=== PATIENT | female | born 1940 | race Caucasian/White ===

== ENCOUNTER → 2023-05-15 13:36 | Outpatient (REF) | payer BC, SELFPAY | LOC: RAD 13:36 | PROVIDERS: ATTENDING PHYSICIAN Internal Medicine Cardiovascular Disease; FAMILY PHYSICIAN Family Medicine | DX: I50.32 Chronic diastolic (congestive) heart failure (principal); R10.13 Epigastric pain | CPT/HCPCS: 76770 ==

== ENCOUNTER 2023-05-28 12:24 | Emergency (ER) | payer BC, SELFPAY ==
[2023-05-28 12:31] VITALS: BP 146/74
--- NOTE | 2023-05-28 15:29 | ED.GENMED ---
History of Present Illness
General
Chief Complaint: Fall
Source: patient and family
Time Seen by Provider: 05/28/23 15:24
Travel History
Have you had any contact with someone who has COVID-19?: No
Do you have any symptoms of coronavirus? Fever > 100 degrees, chills, cough, shortness of breath, sore throat, loss of taste or smell, muscle aches, or headache?: No
History of Present Illness
History of Present Illness:
82-year-old female with past medical history of atrial fibrillation, CHF, hypertension, mitral regurgitation, previous breast cancer, on Eliquis due to her atrial fibrillation presenting to the ER after she attempted to get up from the toilet
yesterday evening and lost her balance falling sideways. Patient states she does not believe her head got injured but due to the fall and her anticoagulation family decided to bring her to the ER this morning. Patient states that she is in her
usual state of health and has no other concerns at this time. Denies any loss consciousness, vomiting, visual changes, extremity related injury or any other concerns.
Past History
Past History
ED Past Medical History: Cancer, CHF, HTN, Hypercholesterolemia, Valvular disease, Other (Cirrhosis, hepatitis C) and Other (Moderate to severe tricuspid regurgitation moderate MR, mild AI)
ED Past Surgical History: Gynecological and Orthopedic
Social History
Tobacco: Non-smoker
Alcohol: Occasional
Drug: None
Personal:
Living: with family
Employment: Retired
Family History
Family History: CAD and Other (Sister with SLE)
Review of Systems
Review of Systems
All Other Systems: ROS reviewed and negative except as documented in HPI and ROS
Phy Exam
Physical Exam
Physical Exam:
GENERAL: Alert , in no apparent distress
EYE: conjunctiva clear
Head: Normocephalic atraumatic
NECK: Supple,
ENT: mmm.
LUNGS: no acute respiratory distress
NEUROLOGICAL: Alert and oriented
SKIN: Warm and dry, skin intact.
MUSCULOSKELETAL: well perfused.
PSYCH: Normal and appropriate interaction.
Scores
Heart Failure Risk
Heart Failure Risk Score: Not Applicable
Heart Score for Chest Pain Patients
STEMI patient?: Not applicable
Withdrawal Assessment of Alcohol
Withdrawal Assessment Completed?: Not applicable
Course
Orders/Labs/Results
Orders:
Orders
05/28/23 12:35
CT Head W/o Iv Contrast Urgent
Comment:
Reason For Exam: fall last pm, on eliquis
Cervical Spine wo Contrast CT [CT Cervical Spine W/o Iv Contr] Urgent
Comment:
Reason For Exam: fall last pm
Vital Signs
Initial and Last Documented VS:
Initial Vital Signs
Temp Pulse Resp BP Pulse Ox
97.7 F 72 18 146/74 94
05/28/23 12:31 05/28/23 12:31 05/28/23 12:31 05/28/23 12:31 05/28/23 12:31
Last Documented Vital Signs
Temp Pulse Resp BP Pulse Ox
97.7 F 72 18 146/74 94
05/28/23 12:31 05/28/23 12:31 05/28/23 12:31 05/28/23 12:31 05/28/23 12:31
MDM/Problems Addressed
Differential Diagnosis Includes:
Accidental fall, concussion, intracranial bleeding, calvarial fracture
MDM/Problems Addressed:
82-year-old female presenting emergency department for evaluation following accidental fall yesterday evening. Patient is on Eliquis due to a history of atrial fibrillation. CT of the head and cervical spine were ordered from triage and ultimately
negative for any acute pathologies. Patient was provided with out of the CT reports. There were some degenerative changes seen which patient was already aware of. She will follow-up with primary care provider. Otherwise stable for discharge home
*Radiology
Radiology exam reviewed: radiology read reviewed
*Pulse Oximetry
Patient hypoxic: no
*Critical Care Note
Total Time (30-74mins, 75-104mins- exclusive of procedures): Not Applicable
ED Attending Note
-
Portions of this chart may have been created with voice recognition software.� Occasional wrong word or��sound alike� substitutions may have occurred due to the inherent limitations of voice recognition software.
Discharge Plan
Departure
Patient Disposition: Home (Routine Discharge)
Date of Disposition: 05/28/23
Time of Disposition: 15:30
Patient with high blood pressure during this ER visit?: Yes
Discharge Problem:
Accidental fall
Instructions: Preventing Falls ED
Prescriptions:
No Action
citalopram [Celexa] 10 MG tablet
20 mg PO DAILY
acetaminophen [Tylenol Extra Strength] 500 MG tablet
1,000 mg PO Q8H PRN (Reason: pain)
levothyroxine 125 MCG tablet
125 mcg PO DAILY
fluticasone propionate 1 SPRAY spray,suspension
1 spray intranasal DAILY
cholecalciferol (vitamin D3) 2,000 UNIT tablet
2,000 unit PO DAILY
cxecroelehmf-orna-ocdib acid [Centrum] 1 EACH tablet
1 tab PO DAILY
vit C,Q-Hn-cbtdc-lutein-zeaxan [PreserVision AREDS-2] 1 EACH capsule
1 ea PO DAILY
apixaban [Eliquis] 5 MG tablet
5 mg PO BID Qty: 60 3RF
diltiazem HCl 120 MG capsule,extended release 24hr
240 mg PO DAILY
magnesium oxide 500 MG tablet
500 mg PO DAILY Qty: 30 0RF
torsemide 20 MG tablet
20 mg PO BID@0800,1600 Qty: 60 0RF
ferrous sulfate [FeroSul] 325 MG tablet
325 mg PO DAILY Qty: 30 0RF
docusate sodium 100 MG capsule
100 mg PO BID Qty: 60 0RF
metoprolol succinate 50 MG tablet extended release 24 hr
150 mg PO HS Qty: 90 0RF
zolpidem 5 MG tablet
5 mg PO HS
pantoprazole 40 MG tablet,delayed release (DR/EC)
40 mg PO DAILY Qty: 14 0RF
famotidine [Acid Controller] 20 MG tablet
20 mg PO BID Qty: 30 0RF
Interventions
Interventions:
*Risk Screen - Suicide Last Done: 05/28/23 12:31
*General Assessment Last Done: 05/28/23 12:31
*Neglect/Abuse Screening Last Done: 05/28/23 12:31
Discharge Date and Time
Print Language: LAO
== END 2023-05-28 15:45 | disposition home or self-care (01) ==
LOC: EMR 12:24
PROVIDERS: EMERGENCY PHYSICIAN Emergency Medicine; FAMILY PHYSICIAN Family Medicine
DX: M54.2 Cervicalgia (principal); W19.XXXA Unspecified fall, initial encounter; I48.91 Unspecified atrial fibrillation; I11.0 Hypertensive heart disease with heart failure; Z79.01 Long term (current) use of anticoagulants; Z85.3 Personal history of malignant neoplasm of breast
CPT/HCPCS: 99284; 70450; 72125

== ENCOUNTER → 2023-06-14 10:56 | Outpatient (REF) | payer BC, SELFPAY | LOC: HWRAD 10:56 | PROVIDERS: ATTENDING PHYSICIAN Internal Medicine Cardiovascular Disease; FAMILY PHYSICIAN Family Medicine | DX: R93.89 Abnormal findings on diagnostic imaging of other specified body structures (principal) | CPT/HCPCS: 76700 ==

== ENCOUNTER 2023-09-06 23:27 | Inpatient (IN) | payer MEDICARE, BC, SELFPAY ==
[2023-09-06 17:09] VITALS: BP 158/97; BMI 29.1
[2023-09-06 17:10] VITALS: BP 158/97
[2023-09-06 17:35] LABS: % Basophils 1.2 % (0-2); % Eosinophils 1.7 % (0-6); % Immature Granulocytes 0.4 % (0-0.5); % Lymphocytes 17.6 % (20.5-51.1); % Monocytes 12.2 % (1.7-9.3); % Neutrophils 66.9 % (42.2-75.2); Absolute Basophils 0.1 10^3/uL (0-0.2); Absolute Eosinophils 0.1 10^3/uL (0-0.7); Absolute Lymphocytes 0.9 10^3/uL (1.2-3.4); Absolute Monocytes 0.6 10^3/uL (0.1-0.6); Absolute Neutrophils 3.5 10^3/uL (1.4-6.5); Hematocrit 31.4 % (37.0-47.0); Hemoglobin 10.8 g/dL (12.0-16.0); Mean Corp Hgb Conc. 34.4 g/dL (33.0-37.0); Mean Corpuscular Hgb 32.2 pg (27.0-31.0); Mean Corpuscular Volume 93.7 fL (81.0-99.0); Mean Platelet Volume 9.7 fL (7.4-10.4); Nucleated Red Blood Cells % 0 %; Platelet Count 197 10^3/uL (130-400); Red Blood Cell Count 3.35 10^6/uL (4.20-5.40); Red Cell Dist. Width 15.8 % (11.5-14.5); White Blood Cell Count 5.2 10^3/uL (4.8-10.8)
[2023-09-06 17:59] LABS: NT-proBNP 11000 pg/ml; Troponin I < 0.012 ng/ml
[2023-09-06 18:04] LABS: ALT (SGPT) 20 U/L (0-35); AST (SGOT) 46 U/L (14-36); Albumin 4.1 g/dl (3.5-5.0); Alkaline Phosphatase 83 U/L (38-126); Blood Urea Nitrogen 34 mg/dl (7-17); Calcium 9.3 mg/dl (8.4-10.2); Carbon Dioxide 21 mmol/L (22-30); Chloride 97 mmol/L (98-107); Estimated Creatinine Clearance 36 ml/min; Glucose 104 mg/dl (70-99); Potassium 4.4 mmol/L (3.5-5.1); Sodium 130 mmol/L (135-145); Total Bilirubin 0.9 mg/dl (0.2-1.3); Total Protein 8.1 g/dl (6.3-8.2); eGFR 49.86
[2023-09-06 18:44] VITALS: BP 154/73
[2023-09-06 19:00] VITALS: BP 140/91
--- NOTE | 2023-09-06 19:00 | EDRN ---
Report received, patient in xray
--- NOTE | 2023-09-06 20:43 | EDRN ---
Checked on patient, resting comfortably, informed her that INOCENTE Banks waiting on x-ray report to come back but plan is for her to stay into the hospital, patient ambulated into the restroom and back in bed, asked for food, provided with applesauce
and gluten free cookie (all that was available), INOCENTE Banks states patient can eat but hold off on giving her anything to drink.
--- NOTE | 2023-09-06 21:32 | ED.GENMED ---
History of Present Illness
<Robbie Cerda DO - Last Filed: 09/06/23 21:33>
General
Chief Complaint: Breathing Problem
Time Seen by Provider: 09/06/23 18:31
<Jocelyn Valenzuela NP - Last Filed: 09/06/23 22:31>
General
Source: patient
Exam Limitations: none
Nursing documentation reviewed up to this point in time: agreed with
History of Present Illness
History of Present Illness:
Patient to ED with complaint of increasing SOB, fluid retention. States she has noticed an increase in lower extremity edema over the past week. This AM breathing was noticeably worse. Brought to ED via EMS for eval. PUlse ox 96% on 2L NC on
arrival. She does not use home O2. Denies fever/chills, n/v/d.
Past History
<Jocelyn Valenzuela NP - Last Filed: 09/06/23 22:31>
Past History
ED Past Medical History: Cancer, CHF, HTN, Hypercholesterolemia, Valvular disease, Other (Cirrhosis, hepatitis C) and Other (Moderate to severe tricuspid regurgitation moderate MR, mild AI)
ED Past Surgical History: Gynecological and Orthopedic
Social History
Tobacco: Non-smoker
Alcohol: Occasional
Drug: None
Personal:
Living: with family
Employment: Retired
Family History
Family History: CAD and Other (Sister with SLE)
Review of Systems
<Jocelyn Valenzuela NP - Last Filed: 09/06/23 22:31>
Review of Systems
Allergies reviewed?: Yes
All Other Systems: ROS reviewed and negative except as documented in HPI and ROS
Constitutional: Reports fatigue
EENT: Reports no symptoms
Respiratory: Reports trouble breathing
Cardiac: Reports no symptoms
ABD/GI: Reports no symptoms
: Reports no symptoms
Musculoskeletal: Reports edema (+2BLE edema)
Skin: Reports no symptoms
Neurological: Reports weakness
Psychiatric: Reports no symptoms
Phy Exam
<Jocelyn Valenzuela NP - Last Filed: 09/06/23 22:31>
General Physical Exam
General Presentation: well appearing and mild distress
General age: appears stated age
General Skin: warm and dry
General Habitus: normal
General Mental: alert
Cardiovascular Exam
Cardiovascular Exam: regular rate/rhythm
Pulmonary Exam
Pulmonary Exam: chest non tender and no cough
Breath Sounds: Crackles: left lower and right lower
Gastrointestinal Exam
Gastrointestinal Exam: normal bowel sounds, non tender and soft
Musculoskeletal Exam
Musculoskeletal Exam: full ROM, edema (+2 BLE) and neuro vasc intact
Skin Exam
Skin Exam: normal color, warm/dry and no rash
Psychiatric Exam
Psychiatric Exam: normal mood/affect
Scores
<Jocelyn Valenzuela CARVER HAND - Last Filed: 09/06/23 22:31>
Heart Failure Risk
Heart Failure Risk Score: Yes
History of Stroke or TIA: No
History of intubation for respiratory distress: No
Heart rate on ED arrival >/= 110: No
SaO2 <90% on arrival on room air: No
HR >/=110 during 3min walk test (or too ill to perform test): Yes
ECG has acute ischemic changes: No
Urea >/=12mmol/L (BUN 33.6mg/dL): No
Serum CO2>/=35mmol/L: No
Troponin I or T elevated to CO Level (0.4mg/dL): No
NT-proBNP >/=5,000ng/L (5,000pg/ml): Yes
HF Risk Score: 3
Admission Status: HIGH RISK 15.9% Consider SNF treatment or admission to hospital
Course
<Robbie Cerda, DO - Last Filed: 09/06/23 21:33>
Orders/Labs/Results
Orders:
Orders
09/06/23 17:04
EKG [Electrocardiogram (*1)] Urgent
Reason for Study: Shortness of Breath
09/06/23 17:05
EKG- Treatment ONCE
09/06/23 17:28
Complete Blood Count/With Diff Urgent
Comprehensive Metabolic Panel Urgent
NT-proBNP Urgent
Troponin I Urgent
09/06/23 18:49
CR Chest - 2 Views Urgent
Comment:
Reason For Exam: SOB
09/06/23 21:31
Furosemide [Lasix] 40 mg IV NOW STA
Abnormal Lab Results
09/06/23
17:28
RBC 3.35 L 10^6/uL
(4.20-5.40)
Hgb 10.8 L g/dL
(12.0-16.0)
Hct 31.4 L %
(37.0-47.0)
MCH 32.2 H pg
(27.0-31.0)
RDW 15.8 H %
(11.5-14.5)
Absolute Lymphs (auto) 0.9 L 10^3/uL
(1.2-3.4)
Lymphocytes % 17.6 L %
(20.5-51.1)
Monocytes % 12.2 H %
(1.7-9.3)
Sodium 130 L mmol/L
(135-145)
Chloride 97 L mmol/L
(98-107)
Carbon Dioxide 21 L mmol/L
(22-30)
BUN 34 H mg/dl
(7-17)
Creatinine 1.1 H mg/dL
(0.6-1.0)
Glucose 104 H mg/dl
(70-99)
AST 46 H U/L
(14-36)
09/06/23 17:28
09/06/23 17:28
Vital Signs
Initial and Last Documented VS:
Initial Vital Signs
BP Pulse Ox
158/97 91
09/06/23 17:09 09/06/23 17:09
Last Documented Vital Signs
Temp Pulse Resp BP Pulse Ox
97.6 F 87 15 140/91 93
09/06/23 17:10 09/06/23 20:35 09/06/23 20:35 09/06/23 19:00 09/06/23 20:35
<Jocelyn Valenzuela CARVER HAND - Last Filed: 09/06/23 22:31>
Orders/Labs/Results
Orders:
Orders
09/06/23 17:04
EKG [Electrocardiogram (*1)] Urgent
Reason for Study: Shortness of Breath
09/06/23 17:05
EKG- Treatment ONCE
09/06/23 17:28
Complete Blood Count/With Diff Urgent
Comprehensive Metabolic Panel Urgent
NT-proBNP Urgent
Troponin I Urgent
09/06/23 18:49
CR Chest - 2 Views Urgent
Comment:
Reason For Exam: SOB
09/06/23 21:31
Furosemide [Lasix] 40 mg IV NOW STA
Abnormal Lab Results
09/06/23
17:28
RBC 3.35 L 10^6/uL
(4.20-5.40)
Hgb 10.8 L g/dL
(12.0-16.0)
Hct 31.4 L %
(37.0-47.0)
MCH 32.2 H pg
(27.0-31.0)
RDW 15.8 H %
(11.5-14.5)
Absolute Lymphs (auto) 0.9 L 10^3/uL
(1.2-3.4)
Lymphocytes % 17.6 L %
(20.5-51.1)
Monocytes % 12.2 H %
(1.7-9.3)
Sodium 130 L mmol/L
(135-145)
Chloride 97 L mmol/L
(98-107)
Carbon Dioxide 21 L mmol/L
(22-30)
BUN 34 H mg/dl
(7-17)
Creatinine 1.1 H mg/dL
(0.6-1.0)
Glucose 104 H mg/dl
(70-99)
AST 46 H U/L
(14-36)
09/06/23 17:28
09/06/23 17:28
Vital Signs
Initial and Last Documented VS:
Initial Vital Signs
BP Pulse Ox
158/97 91
09/06/23 17:09 09/06/23 17:09
Last Documented Vital Signs
Temp Pulse Resp BP Pulse Ox
97.6 F 87 15 140/91 93
09/06/23 17:10 09/06/23 20:35 09/06/23 20:35 09/06/23 19:00 09/06/23 20:35
<Jocelyn Valenzuela NP - Last Filed: 09/06/23 22:31>
*Radiology
Radiology exam reviewed: radiology read reviewed
*Pulse Oximetry
Patient hypoxic: no
*Critical Care Note
Total Time (30-74mins, 75-104mins- exclusive of procedures): Not Applicable
<Jocelyn Valenzuela NP - Last Filed: 09/06/23 22:31>
Update Note
Update Note:
Patient to ED with increasing edema, increasing SOB. CXR reviewed. SMall right pleural effusion. Possible RLL pneumonia noted by radiologist however this seems doubtful. SHe remains afebrile, no cough. WBC normal. Bedside US of heart with
Santa reveals mild pericardial effusion also. PUlse ox remains stable at 96% 2LNC. BNP 31269. WIll admit to hospititalist for CHF. Lasix 40mg IV given.
ED Attending Note
<Robbie Cerda DO - Last Filed: 09/06/23 21:33>
ED Attending Note
Patient seen and examined by attending physician: Yes
I performed the substantive portion of visit, reviewed & personally made and approve the management plan that is documented in note by myself or GIULIA.: Yes
ED Attending Note:
83-year-old female presents with weight gain, fluid retention, shortness of breath. Suspect CHF. Diurese and admit. Bedside ultrasound does show pericardial effusion but it is small. Certainly no evidence of tamponade
<Jocelyn Valenzuela NP - Last Filed: 09/06/23 22:31>
-
Portions of this chart may have been created with voice recognition software.� Occasional wrong word or��sound alike� substitutions may have occurred due to the inherent limitations of voice recognition software.
Discharge Plan
Departure
Patient Disposition: Admit
Date of Disposition: 09/06/23
Time of Disposition: 21:41
Presentation/result/management discussed w/ accepting MD/DO: Hospitalist
Patient with high blood pressure during this ER visit?: Yes
Condition: Fair
Covid-19: Not Applicable
Discharge Problem:
CHF (congestive heart failure)
Prescriptions:
No Action
acetaminophen [Tylenol Extra Strength] 500 MG tablet
1,000 mg PO Q8HPRN PRN (Reason: mild pain)
levothyroxine 125 MCG tablet
125 mcg PO DAILY
fluticasone propionate 1 SPRAY spray,suspension
1 spray intranasal DAILY
Centrum 1 EACH tablet
1 tab PO DAILY
PreserVision AREDS-2 1 EACH capsule
1 ea PO DAILY
Eliquis 5 MG tablet
5 mg PO BID Qty: 60 3RF
zolpidem 5 MG tablet
5 mg PO HS
Patient Comments:
09/06/2023: last filled 09/05/23, 30 tabs for 30 days from [facility]
torsemide 20 mg tablet
20 mg PO SUTUTHSA@0800
torsemide 20 mg tablet
20 mg PO SUTUTHSA@1600 PRN (Reason: swelling/edema)
citalopram 40 mg tablet
20 mg PO DAILY
diltiazem HCl [DILT-XR] 240 mg capsule,ext.rel 24h degradable
240 mg PO DAILY
metoprolol succinate 100 mg tablet extended release 24 hr
150 mg PO DAILY@1999
allopurinol 100 mg tablet
100 mg PO DAILY
cholecalciferol (vitamin D3) 25 mcg (1,000 unit) Tablet
25 mcg PO DAILY
torsemide 20 MG tablet
20 mg PO MOWEFR@0800,1600
Referrals:
Rodrigo Gee MD [Family Provider] -
Interventions
Interventions:
*Risk Screen - Suicide Last Done: 09/06/23 17:33
*General Assessment Last Done: 09/06/23 17:33
*Neglect/Abuse Screening Last Done: 09/06/23 17:33
*ED COVID-19 Vaccine History Last Done: 09/06/23 17:33
ED- Cardiac Assessment Last Done: 09/06/23 17:37
ED- Pulmonary Assessment Last Done: 09/06/23 17:36
Discharge Date and Time
Print Language: DIVEHI
[2023-09-06] MEDS: LASIX 40 MG IV (22:02)
[2023-09-06 22:07] VITALS: BP 137/97
--- NOTE | 2023-09-06 22:32 | HPS.HSE ---
Addendum entered and electronically signed by Cristhian Smith DO 09/06/23 23:44:
Patient seen and examined independently. Agree with findings and plan as set forth by NATHANIEL Tucker.
Patient is an 83y F with PMH significant for CHF, severe pulmonary hypertension and hypothyroidism who presents to ED complaining of worsening SOB and 'swelling' over the past 2 weeks or so. Patient states that she has appreciated bloating in
the abdomen and swelling in the ankles in that time frame. She states that her weight has been consistently elevated in the evenings - despite taking extra 10mg torsemide in the afternoons for the week or two. Patient has had persistent /
worsening dyspnea and presented to the ED this evening for further evaluation.
Family notes that patient had a [age] on [birth year] and has been 'celebrating' for the past few weeks - consisting of dietary indiscretions, etc.
Ass:
Acute on Chronic HFpEF
Severe Pulmonary Hypertension
Moderate Tricuspid Regurgitation
Paroxysmal Atrial Fibrillation
Benign Hypertension
CKD III
Hypothyroidism
Breast Cancer s/p Lumpectomy / XRT
Plan:
Admit for further evaluation and treatment.
Hyponatremia, elevated BNP compared to prior, rales / pulm edema on exam and peripheral edema all c/w volume overload.
IV Lasix BID for now.
Follow I/Os, daily weights, etc.
Update Echo.
Cardiology evaluation for additional recommendations.
Follow for clinical improvement.
Original Note:
Family Physician
-
Family Physician: Rodrigo Gee
Chief Complaint
-
Sob wt gain
History of Present Illness
83-year-old female complaining of increased shortness of breath with increased lower extremity edema over the past 2 weeks . She states in the a.m. she is 155 pounds but by the p.m. she is 158.7. She has been taking an extra 10 mg of her torsemide
every night for the past 2 weeks. She reports increased shortness of breath denies cough, fever, chills, chest pain, palpitations, abdominal pain, nausea, vomiting, diarrhea, urinary symptoms. She is on torsemide 20 mg twice daily Sunday
Sunday and daily Sunday with A PRN 10 mg torsemide for edema.
She has Past medical history Severe pulmonary HTN, moderate TR paroxysmal A-fib, pulmonary vein isolation 01/25/2021, HTN, hypothyroidism, CKD stage III, left atrial appendage thrombus, chronic diastolic heart failure with preserved EF, remote
history of breast cancer, moderate TR, normocytic anemia
Medical History
Past Medical History
Past Medical History: Reports Other
Additional Past Medical History:
Severe pulmonary HTN,
moderate TR
paroxysmal A-fib
Etoh abuse
pulmonary vein isolation 01/25/2021
HTN
hypothyroidism
CKD stage III
left atrial appendage thrombus
chronic diastolic heart failure with preserved EF
remote history of breast cancer right breast with lumpectomy and radation 9 years ago
moderate TR,
normocytic anemia
former smoker 30 year 1 ppd
Past Surgical History: Reports Other
Additional Past Surgical History:
pulmonary vein isolation 01/25/2021 with ablation
breast cancer right breast with lumpectomy and radiation 9 years ago cari angel
bilat knee replacement
right rotator cuff repair
left wrist fx
Social History
Tobacco: Former Smoker (30 year 1ppd stopped 20 years ago )
Alcohol: Daily (1 bottle (4 glasses chaardonay))
Personal: Single
Living: With Family
Employment: Retired
Family History
Family History: Not pertinent
Allergies / Home Medications
Allergies reflects when Allergies were last updated in [employer].
Home Medications with original date entered in [employer] [facility]
Allergy/Medication List:
Allergies
Allergy/AdvReac Type Severity Reaction Status Date / Time
No Known Allergies Allergy Verified 01/25/21 09:31
Home Medications
acetaminophen 500 mg tablet (Tylenol Extra Strength) 1,000 mg PO Q8HPRN PRN mild pain 08/10/19
fluticasone propionate 50 mcg/actuation nasal spray,suspension 1 spray intranasal DAILY 08/10/19
levothyroxine 125 mcg tablet 125 mcg PO DAILY Thyroid 08/10/19
multivitamin-ferrous fumarate-folic acid 18 mg-400 mcg tablet (Centrum) 1 tab PO DAILY Supplement 08/10/19
vit C 250 mg-vit E 90 mg-zinc 40 mg-copper 1 hn-gmmlwd-vreryi capsule (PreserVision AREDS-2) 1 ea PO DAILY Supplement 08/10/19
apixaban 5 mg tablet (Eliquis) 5 mg PO BID #60 tabs 08/06/20
zolpidem 5 mg tablet 5 mg PO HS 12/17/20
allopurinol 100 mg tablet 100 mg PO DAILY 09/06/23
cholecalciferol (vitamin D3) 25 mcg (1,000 unit) tablet 25 mcg PO DAILY 09/06/23
citalopram 40 mg tablet 20 mg PO DAILY 09/06/23
diltiazem HCl 240 mg capsule,extended release 24 hr, controlled (DILT-XR) 240 mg PO DAILY 09/06/23
metoprolol succinate 100 mg tablet,extended release 24 hr 150 mg PO DAILY@2000 09/06/23
torsemide 20 mg tablet 10 mg PO SUTUTHSA@1600 PRN swelling/edema 09/06/23
torsemide 20 mg tablet 20 mg PO MOWEFR@0800,1600 09/06/23
torsemide 20 mg tablet 20 mg PO SUTUTHSA@0800 09/06/23
Review of Systems
-
History Source: Patient and Family (Daughter at bedside )
A 12 point ROS was completed and negative except as noted: Yes
Constitutional: Reports Weight Gain; Denies Fever or Fatigue
EENT: Denies Sore Throat or Runny Nose
Respiratory: Reports Trouble Breathing; Denies Cough
Cardiac: Denies Chest Pain, Diaphoresis, Palpitations or Syncope
Abdomen/GI: Denies Abdominal Pain, Nausea, Vomiting, Diarrhea, Constipated or Bloody Stools
: Denies Dysuria, Frequency, Flank Pain, Incontinence or Difficulty Voiding
Musculoskeletal: Reports Edema (trace); Denies Joint Pain
Skin: Denies Itching or Rash
Neurological: Denies Dizzy or Headache
Endocrine: Reports No Symptoms
Hematologic/Lymphatic: Reports No Symptoms
Psych: Reports Calm
Physical Exam
Vital Signs
Vital Signs
Temp Pulse Resp BP Pulse Ox
97.6 F 87 15 140/91 93
09/06/23 17:10 09/06/23 20:35 09/06/23 20:35 09/06/23 19:00 09/06/23 20:35
Physical Exam
General: Conversant and Obese; No Fever or Chills
HEENT: NormoCephalic, Anicteric, PERRLA, [place] Conjunctivae, No Ptosis and Oxygen (2lnc)
Respiratory: Rales (right lung base ); No Wheezes or Rhonchi
Cardiac: S1/S2, Regular Rhythm ( with pac's ) and Peripheral Edema (trace nonpitting ); No Murmur, Rub or Gallop
Breast: Deferred by me
GI: Soft, Non Tender, Non Distended, Normal Bowel Sounds and No Hepatosplenomegaly
Genito-urinary: Deferred by me
Musculoskeletal: No Clubbing, No Cyanosis, Edema, Left Lower Extremity (trace nonpitting ) and Edema, Right Lower Extremity (trace nonpitting ); No Edema, Left Upper Extremity or Edema, Right Upper Extremity
Skin: Warm and Dry; No Rash
Neuro: AO x 3, No Motor Deficits, Nonfocal/grossly intact, Cranial Nerves Intact and Other (chronic OSAGE); No Slurred Speech, Facial Droop, Tremors or Sedated
Psych: Calm
Laboratory Results
-
09/06/23 17:28
09/06/23 17:28
Laboratory Results
Total Bilirubin 0.9 mg/dl (0.2-1.3) 09/06/23 17:28
AST 46 U/L (14-36) H 09/06/23 17:28
ALT 20 U/L (0-35) 09/06/23 17:28
Alkaline Phosphatase 83 U/L (38-126) 09/06/23 17:28
Troponin I < 0.012 ng/ml 09/06/23 17:28
Data Reviewed
-
Diagnostic Radiology: Report Reviewed by me
Lab Data: Labs Reviewed by me
Impression/Plan
-
Impression/plan:
Admit to telemetry
#Acute on chronic CHF with preserved EF
wt daily 155lbs in am to 158 at hs has been taking additional torsemide 10mg hs
-BNP 11,000
-I/O, daily weights
-IV Lasix 40 mg twice daily
-consult CBC
-pt/ot/case mgmt
- monitor pulse ox
CXR: Small right pleural effusion. New findings suggesting mild right lower lobe pneumonia. Moderate cardiomegaly new
( no clinical concerns for PNA)
2D echo 06/26/2022: EF 65 to 70%, normal LVS, LVSF, no wall abnormalities, mild LVH, diastolic function indeterminant, severely dilated right atrium,
mild aortic regurg,
moderate tricuspid regurg,
severe pulm arterial pressure 63 mmHg, trace pulmonic regurg
# Worseinging Dyspnea concerning for worsening TR/ Pulm htn
check 2d echo
- monitor pulse ox
#Alcohol abuse
- drinks 1 bottle ( 4 glasses Chardonay nightly)
-MSAS screen with protcol
- thiamine, folate replacement
#Hyponatremia in setting of CHF
NA 130
-Fluid restrict, follow BMP
#Hx paroxysmal A-fib
#Status post mapping/ablation and isolation of pulmonary vein 01/25/[address] Perla
#History of left atrial appendage thrombus
-Continue diltiazem to 40 mg daily, Eliquis 5 mg twice daily
#Moderate TR
#HTN�benign
BP 140/91
Continue metoprolol succinate 150 mg daily at 8 PM
#CKD 3B
-Creat 1.1 appears baseline follow BMP
#Normocytic anemia
Hgb 10.8 appears baseline
#Hypothyroidism
-Continue levothyroxine 125 mcg p.o. daily
-check TSH with free T4 reflex
#History of remote breast cancer
lumpectomy right breast 9 years ago with radiation follows with Dr. Ordaz at [facility]
#Insomnia
Continue Ambien 5 mg at bedtime
Anxiety
- cont citalopram
dvt proph
cont eliquis
DNR
[2023-09-06 23:00] VITALS: BP 140/99
--- NOTE | 2023-09-06 23:55 | EDRN ---
Patient was wet, changed brief and gown and linen, patient aware she will head upstairs shortly, belongings on the bed for transport
[2023-09-07] VITALS (9 sets, daily range): BP systolic 131–165; BP diastolic 66–93; PULSE 81–83; O2SAT 99; BMI 23.8
[2023-09-07] MEDS: ELIQUIS 5 MG PO ×3 (00:47→20:47)
[2023-09-07] MEDS: THIAMINE INJECTION 200 MG IV ×3 (00:47→16:12)
[2023-09-07 01:11] LABS: Urine Albumin Negative (Neg - Trace); Urine Bilirubin Negative (Negative); Urine Character Clear (Clear); Urine Color Yellow; Urine Glucose Negative (Negative); Urine Ketone Negative (Negative); Urine Leukocyte Negative (Negative); Urine Nitrite Negative (Negative); Urine Occult Blood Negative (Negative); Urine Specific Gravity 1.005 (<1.030); Urine Urobilinogen Negative (Neg - 1+)
[2023-09-07 01:18] LABS: Amphetamines Negative (Negative); Barbiturates Negative (Negative); Benzodiazepines Negative (Negative); Buprenorphine Negative (Negative); Cocaine Negative (Negative); Marijuana Negative (Negative); Methadone Negative (Negative); Methamphetamines Negative (Negative); Opiates Negative (Negative); Phencyclidine Negative (Negative); Tricyclic Antidepressants Negative (Negative)
--- NOTE | 2023-09-07 01:18 | PTCARENOTE ---
Patient arrived to the ED via stretcher. Patient ambulated into the room with assistance. VSS. 93% on 2L NC. AAOx3. Patient MSAS score of 1 for HR 80-100 bpm. Patient using commode at bedside. UA sent. Patient oriented to the unit, call maldonado is
within reach.
[2023-09-07 01:39] LABS: PT 19.2 Sec (11.4-14.6)
[2023-09-07 01:40] LABS: APTT 41.5 Sec (23.4-35.0)
[2023-09-07 01:55] LABS: GGTP 38 U/L (12-43); Magnesium 1.6 mg/dl (1.6-2.3); Phosphorus 3.6 mg/dl (2.5-4.5)
[2023-09-07 02:02] LABS: B-Hydroxybutyrate 0.54 mmol/L (0.02-0.27)
[2023-09-07 02:03] LABS: Alcohol None Detected
[2023-09-07] MEDS: TYLENOL 1000 MG PO ×3 (02:16→20:47)
[2023-09-07] MEDS: SYNTHROID 125 MCG PO (05:14)
[2023-09-07] MEDS: CELEXA 20 MG PO (07:49)
[2023-09-07] MEDS: CARDIZEM CD 240 MG PO (07:49)
[2023-09-07] MEDS: THERAGRAN 1 TABLET PO (07:49)
[2023-09-07] MEDS: ZYLOPRIM 100 MG PO (07:50)
[2023-09-07] MEDS: OCUVITE SOFTGEL 1 CAP PO (07:50)
[2023-09-07] MEDS: FOLVITE 1 MG PO (07:50)
[2023-09-07] MEDS: VITAMIN D3 (cholecalciferol) 25 MCG PO (07:50)
[2023-09-07] MEDS: LASIX 40 MG IV ×2 (07:50→16:20)
[2023-09-07 08:06] LABS: % Basophils 1.1 % (0-2); % Eosinophils 2.1 % (0-6); % Immature Granulocytes 0.6 % (0-0.5); % Lymphocytes 16.3 % (20.5-51.1); % Monocytes 11.8 % (1.7-9.3); % Neutrophils 68.1 % (42.2-75.2); Absolute Basophils 0.1 10^3/uL (0-0.2); Absolute Eosinophils 0.1 10^3/uL (0-0.7); Absolute Lymphocytes 0.9 10^3/uL (1.2-3.4); Absolute Monocytes 0.6 10^3/uL (0.1-0.6); Absolute Neutrophils 3.6 10^3/uL (1.4-6.5); Hemoglobin 10.8 g/dL (12.0-16.0); Mean Corp Hgb Conc. 33.8 g/dL (33.0-37.0); Mean Platelet Volume 9.5 fL (7.4-10.4); Nucleated Red Blood Cells % 0 %; Platelet Count 196 10^3/uL (130-400); Red Blood Cell Count 3.37 10^6/uL (4.20-5.40); Red Cell Dist. Width 15.7 % (11.5-14.5); White Blood Cell Count 5.3 10^3/uL (4.8-10.8)
[2023-09-07 08:09] LABS: ALT (SGPT) 21 U/L (0-35); AST (SGOT) 40 U/L (14-36); Alkaline Phosphatase 90 U/L (38-126); Blood Urea Nitrogen 28 mg/dl (7-17); Calcium 9.3 mg/dl (8.4-10.2); Carbon Dioxide 25 mmol/L (22-30); Chloride 98 mmol/L (98-107); Estimated Creatinine Clearance 35 ml/min; Glucose 93 mg/dl (70-99); HDL Cholesterol 65 mg/dl; LDL Cholesterol, Calculated 46 mg/dl; Potassium 3.3 mmol/L (3.5-5.1); Sodium 135 mmol/L (135-145); Total Bilirubin 0.9 mg/dl (0.2-1.3); Total Cholesterol 126 mg/dl (50-199); Total Protein 7.8 g/dl (6.3-8.2); Triglyceride 75 mg/dl (10-149); Very Low Density Lipoprotein 15 mg/dl (0-30); eGFR 44.91
[2023-09-07 08:30] LABS: TSH Reflex To Free T4 0.91 uIU/ml (0.47-4.68)
--- NOTE | 2023-09-07 10:01 | CON.CAR ---
Addendum entered and electronically signed by Vidal Dailey MD 09/07/23 16:41:
Patient seen and examined in collaboration with LINEMARKER; agree with below.
-83-year-old female with chronic HFpEF, paroxysmal atrial fibrillation (on Eliquis), moderate tricuspid regurgitation with significant pulmonary hypertension, and CKD presenting with shortness of breath.
-Transthoracic echocardiogram today revealed progressive tricuspid regurgitation, now severe; PASP slightly increased to 65-70 mmHg (previously 63 mmHg).
-Continue Lasix 40 mg IV BID for now; monitor renal function.
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
-Patient will likely need to be discharged to home on torsemide 20 mg BID every day throughout the week.
-Will reassess tomorrow.
Original Note:
Consultation
Consultation Request
Date/Time Consultation Requested: 09/07/2023 00:15
Date/Time Consultation Performed: 09/07/2023 10:00
Requesting Provider: NATHANIEL Tucker
Performing Provider: NATHANIEL Marsh for Dr. Dailey
Reason for Consultation: Acute on chronic heart failure exacerbation
Medical History
-
Chief Complaint: Shortness of breath
History of Present Illness:
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
tricuspid regurgitation, RBBB, hypertension, prior right-sided breast cancer with lumpectomy and XRT, RA, and chronic lower extremity edema who presented to the emergency department with a chief complaint of shortness of breath. She endorses
associated weight gain and lower extremity edema. She has been using her as needed 10 mg of torsemide nearly every evening in addition to her standing dose of torsemide 20 mg twice daily Sunday with 20 mg daily the opposite days.
She is having no chest pain. Her breathing has improved.
Past Medical History
Past Medical History: Arrhythmias (Paroxysmal atrial fibrillation), Cancer (Right breast [status post lumpectomy and XRT]), CHF and Other (Severe pulmonary hypertension, hepatitis C)
Past Surgical History: Orthopedic (Laminectomy, knee replacement, right rotator cuff repair) and Other (Right breast lumpectomy)
Social History
Tobacco: Former Smoker
Alcohol: Daily (2-3 glasses of wine per day)
Drug: None
Employment: Retired
Family History
Family History: Reviewed & Not Pertinent
Allergies / Home Medications
Allergy/AdvReac Type Severity Reaction Status Date / Time
No Known Allergies Allergy Verified 01/25/21 09:31
�Medication �Instructions �Recorded �Confirmed �Type
acetaminophen 500 mg tablet 1,000 mg PO Q8HPRN PRN mild pain 08/10/19 09/06/23 History
(Tylenol Extra Strength)
fluticasone propionate 50 1 spray intranasal DAILY allergies 08/10/19 09/06/23 History
mcg/actuation nasal
spray,suspension
levothyroxine 125 mcg tablet 125 mcg PO DAILY Thyroid 08/10/19 09/06/23 History
multivitamin-ferrous 1 tab PO DAILY Supplement 08/10/19 09/06/23 History
fumarate-folic acid 18 mg-400 mcg
tablet (Centrum)
vit C 250 mg-vit E 90 mg-zinc 40 1 ea PO DAILY Supplement 08/10/19 09/06/23 History
mg-copper 1 [id number]
capsule (PreserVision AREDS-2)
apixaban 5 mg tablet (Eliquis) 5 mg PO BID #60 tabs 08/06/20 09/06/23 Rx
zolpidem 5 mg tablet 5 mg PO HS sleep 12/17/20 09/06/23 History
allopurinol 100 mg tablet 100 mg PO DAILY gout 09/06/23 09/06/23 History
cholecalciferol (vitamin D3) 25 25 mcg PO DAILY Supplement 09/06/23 09/06/23 History
mcg (1,000 unit) tablet
citalopram 40 mg tablet 20 mg PO DAILY depression/anxiety 09/06/23 09/06/23 History
diltiazem HCl 240 mg 240 mg PO DAILY blood pressure 09/06/23 09/06/23 History
capsule,extended release 24 hr,
controlled (DILT-XR)
metoprolol succinate 100 mg 150 mg PO DAILY@2000 Blood Pressure 09/06/23 09/06/23 History
tablet,extended release 24 hr
torsemide 20 mg tablet 10 mg PO SUTUTHSA@1600 PRN 09/06/23 09/06/23 History
swelling/edema
torsemide 20 mg tablet 20 mg PO MOWEFR@0800,1600 09/06/23 09/06/23 History
swelling/edema
torsemide 20 mg tablet 20 mg PO SUTUTHSA@0800 09/06/23 09/06/23 History
swelling/edema
Review of Systems
-
History Source: Patient
All other systems: Negative unless noted
Constitutional: Weight Gain
EENT: No Symptoms
Respiratory: Trouble Breathing
Cardiac: No Symptoms
Abdomen/GI: No Symptoms
: No Symptoms
Musculoskeletal: Edema
Skin: No Symptoms
Neurological: No Symptoms
Endocrine: No Symptoms
Hematologic/Lymphatic: No Symptoms
Physical Exam
Vital Signs
Temp Pulse Resp BP Pulse Ox
98.1 F 80 18 165/90 97
09/07/23 07:35 09/07/23 07:50 09/07/23 07:35 09/07/23 07:50 09/07/23 07:35
Lab Results
09/07/23 06:21
09/07/23 06:21
Troponin I < 0.012 ng/ml 09/06/23 17:28
[id number]-X-[id number] Pept 94380 pg/ml 09/06/23 17:28
Physical Exam
General: Well Developed, Well Nourished, No Apparent Distress and Comfortable
HEENT: Normocephalic and Anicteric
Respiratory: Crackles and Non Labored Respirations
Cardiac: S1/S2, Irregular Rhythm and Peripheral Edema
Breast: Deferred by me
GI: Soft, Non Tender, Non Distended and Normal Bowel Sounds
Rectal: Deferred by Provider
Genito-urinary: No Costovertebral Tender
Musculoskeletal: No Clubbing and No Cyanosis
Skin: Warm
Neuro: AO x 3
Psych: Calm
Impression / Plan
-
HFpEF, acute on chronic
-Diuresis with furosemide 40 mg IV twice daily
-Trend [id number], case management to fields
-Heart failure education
-Update echocardiogram
Paroxysmal atrial fibrillation
Atrial flutter, type unknown
-PVI 01/25/2021, currently in sinus, in and out, continue diltiazem and metoprolol succinate
-Oral Anticoagulation: Apixaban 5 mg twice daily, she denies missed doses and abnormal bleeding
-[id number]: score at least 5 (Heart failure, HTN, age 75 or more, female gender)
Pulmonary hypertension, severe on TTE 06/2022 with PASP 63 mmHg
Moderate tricuspid regurgitation
EtOH misuse, 1 bottle daily, on MSAS, per primary
Prior breast cancer, right side, status postlumpectomy and XRT (HRH)
Data Reviewed
-
EKG: Report Reviewed by me (Atrial flutter, possible coarse atrial fibrillation, lateral T wave abnormality, rate 79)
Radiology: Report Reviewed by me (CXR: Small right pleural effusion. New findings suggesting mild right lower lobe pneumonia. Moderate cardiomegaly. New)
Medical Tests (Nuc Med, Echo etc): Report Reviewed by me (Echocardiogram and PVI as above)
Labs: Labs Reviewed by me
Old Records: Reviewed
--- NOTE | 2023-09-07 12:49 | W.PN.HOSP.TC ---
Today's Communication/Plan
-
see bold
Assessment / Plan
Assessment / Plan
Gen: NAD, Awake and alert
Eyes: EOMI, PERRLA, no scleral icterus.
Neck: supple.
CV: irreg/irreg, +S1/S2, no m/r/g.
Resp: CTAB, no rales, wheezes, or rhonchi.
Abd: +BS, soft, NT, ND
Skin: No rashes. trace LE edema
Neuro: CN 2-12 intact, non-focal.
Psych: Normal mood and affect.
CXR: Small right pleural effusion. New findings suggesting mild right lower lobe pneumonia. Moderate cardiomegaly. New
Acute on Chronic HFpEF:
-With acute hypoxemic respiratory insufficiency, currently on 3L NC O2
-with severe Pulm HTN, mod TR
-proBNP 11,000
-cont IV Lasix
-daily wts, I/Os
-check echo
Alcohol abuse disorder:
-cont MSAS protocol (Thiamine/folate/PRN ativan)
Other problems:
Paroxysmal Atrial Fibrillation: cont Toprol XL/Eliquis/Cardizem
Essential Hypertension: cont Toprol XL/Cardizem
CKD3a
Hypothyroidism: cont Levoxyl
Breast Cancer s/p Lumpectomy/XRT
DNR/Eliquis
Anticipated Discharge: 24 - 48 hours
Subjective/Interval History
-
Date of Service: September 07, 2023
Denies CP/SOB. Denies hallucinations/anxiety/tremor.
Objective Data
-
Labs:
Laboratory Results
09/07/23 09/07/23
01:00 06:21
WBC 5.3
Hgb 10.8 L
Hct 32.0 L
Plt Count 196
PT 19.2 H
INR 1.60
APTT 41.5 H
Sodium 135
Potassium 3.3 L
Chloride 98
Carbon Dioxide 25
BUN 28 H
Creatinine 1.2 H
Glucose 93
Calcium 9.3
Total Bilirubin 0.9
AST 40 H
ALT 21
Alkaline Phosphatase 90
Vital Signs:
Vital Signs
Temp Pulse Resp BP Pulse Ox
98.7 F 83 24 144/79 97
09/07/23 11:48 09/07/23 11:48 09/07/23 11:48 09/07/23 11:48 09/07/23 11:48
I&O
09/06/23 09/07/23 09/08/23
06:59 06:59 06:59
Output Total 550 / 550
Balance -550 / -550
--- NOTE | 2023-09-07 16:06 | CM ---
CM met with patient at bedside to complete IA. April lives with her in a 1 floor home with curb-rise entry ([place] [address] [place] community). She uses a cane and has access to a RW, but not currently using.
reportedly at home and per patient has Alzheimers, but able to manage with help from children while April is hospitalized.
Call placed to Jina yo, to check in regarding pt's alone at home. VM left with office number to call in AM.
CM will follow to identify discharge planning needs.
[2023-09-07] MEDS: TOPROL XL 150 MG PO (20:47)
[2023-09-07] MEDS: AMBIEN 5 MG PO (22:15)
[2023-09-08] MEDS: THIAMINE INJECTION 200 MG IV ×3 (00:26→17:20)
[2023-09-08 03:45] VITALS: BP 116/66
[2023-09-08 06:00] VITALS: BMI 24.1
[2023-09-08] MEDS: SYNTHROID 125 MCG PO (06:21)
[2023-09-08 06:56] LABS: % Basophils 1.1 % (0-2); % Immature Granulocytes 0.5 % (0-0.5); % Lymphocytes 20.5 % (20.5-51.1); % Monocytes 13.6 % (1.7-9.3); % Neutrophils 61.3 % (42.2-75.2); Absolute Basophils 0.1 10^3/uL (0-0.2); Absolute Eosinophils 0.1 10^3/uL (0-0.7); Absolute Lymphocytes 0.9 10^3/uL (1.2-3.4); Absolute Monocytes 0.6 10^3/uL (0.1-0.6); Absolute Neutrophils 2.7 10^3/uL (1.4-6.5); Hematocrit 30.5 % (37.0-47.0); Hemoglobin 10.3 g/dL (12.0-16.0); Mean Corp Hgb Conc. 33.8 g/dL (33.0-37.0); Mean Corpuscular Hgb 32.6 pg (27.0-31.0); Mean Corpuscular Volume 96.5 fL (81.0-99.0); Mean Platelet Volume 9.2 fL (7.4-10.4); Nucleated Red Blood Cells % 0 %; Platelet Count 155 10^3/uL (130-400); Red Blood Cell Count 3.16 10^6/uL (4.20-5.40); Red Cell Dist. Width 15.3 % (11.5-14.5); White Blood Cell Count 4.4 10^3/uL (4.8-10.8)
[2023-09-08 07:14] LABS: ALT (SGPT) 19 U/L (0-35); AST (SGOT) 39 U/L (14-36); Albumin 3.5 g/dl (3.5-5.0); Alkaline Phosphatase 80 U/L (38-126); Blood Urea Nitrogen 27 mg/dl (7-17); Calcium 8.9 mg/dl (8.4-10.2); Carbon Dioxide 27 mmol/L (22-30); Chloride 99 mmol/L (98-107); Estimated Creatinine Clearance 30 ml/min; Glucose 94 mg/dl (70-99); Sodium 134 mmol/L (135-145); Total Bilirubin 0.8 mg/dl (0.2-1.3); Total Protein 7.1 g/dl (6.3-8.2); eGFR 37.33
[2023-09-08 07:35] VITALS: BP 142/72
[2023-09-08] MEDS: KCL 40 MEQ PO ×2 (08:04→13:35)
[2023-09-08] MEDS: OCUVITE SOFTGEL 1 CAP PO (08:04)
[2023-09-08] MEDS: CELEXA 20 MG PO (08:04)
[2023-09-08] MEDS: VITAMIN D3 (cholecalciferol) 25 MCG PO (08:05)
[2023-09-08] MEDS: THERAGRAN 1 TABLET PO (08:05)
[2023-09-08] MEDS: ELIQUIS 5 MG PO ×2 (08:05→20:07)
[2023-09-08] MEDS: FOLVITE 1 MG PO (08:05)
[2023-09-08] MEDS: JARDIANCE 10 MG PO (08:05)
[2023-09-08] MEDS: ZYLOPRIM 100 MG PO (08:05)
[2023-09-08] MEDS: LASIX 40 MG IV (08:06)
[2023-09-08] MEDS: CARDIZEM CD 240 MG PO (08:06)
--- NOTE | 2023-09-08 09:12 | W.PN.CD ---
Today's Communication / Plan
-
-Echocardiogram yesterday revealed an LVEF of 60-65%, severe biatrial enlargement, severe tricuspid regurgitation with PASP of 65-70 mmHg.
-Has diuresed well with diuresis with furosemide 40 mg IV twice daily.
-Will give a dose of KCl 40 meq today for hypokalemia (3.0).
-Can be discharged to home today on torsemide 20 mg twice daily every day of the week.
-Continue Jardiance.
-Outpatient follow-up with Cardiology.
Impression / Plan
-
HFpEF, acute on chronic
-Echocardiogram yesterday revealed an LVEF of 60-65%, severe biatrial enlargement, severe tricuspid regurgitation with PASP of 65-70 mmHg.
-Has diuresed well with diuresis with furosemide 40 mg IV twice daily.
-Will give a dose of KCl 40 meq today for hypokalemia (3.0).
-Can be discharged to home today on torsemide 20 mg twice daily every day of the week.
-Continue Jardiance.
-Outpatient follow-up with Cardiology.
Paroxysmal atrial fibrillation
-PVI 01/25/2021, currently in sinus, in and out, continue diltiazem and metoprolol succinate
-Oral Anticoagulation: Apixaban 5 mg twice daily, she denies missed doses and abnormal bleeding
-[id number]: score at least 5 (Heart failure, HTN, age 75 or more, female gender)
-Continue Toprol-XL 150 mg daily, Cardizem CD 240 mg daily, and Eliquis 5 mg twice daily.
Severe TR/pulmonary hypertension,(PASP 65-70) mmHg
-Diuretic management as above.
Renal insufficiency
-Outpatient follow-up.
EtOH misuse, 1 bottle daily, on MSAS, per primary
Prior breast cancer, right side, status postlumpectomy and XRT (HRH)
Physical Exam
Vital Signs/Labs
Vital Signs
Temp Pulse Resp BP Pulse Ox
97.9 F 77 16 142/72 96
09/08/23 03:45 09/08/23 08:06 09/08/23 03:45 09/08/23 08:06 09/08/23 03:45
09/07/23 09/08/23 09/09/23
06:59 06:59 06:59
Actual Weight 68.974 kg 69.853 kg
09/08/23 06:16
09/08/23 06:16
PT 19.2 Sec (11.4-14.6) H 09/07/23 01:00
INR 1.60 09/07/23 01:00
APTT 41.5 Sec (23.4-35.0) H 09/07/23 01:00
Magnesium 1.6 mg/dl (1.6-2.3) 09/07/23 01:00
Triglycerides 75 mg/dl (10-149) 09/07/23 06:21
LDL Cholesterol, Calc 46 mg/dl 09/07/23 06:21
VLDL Cholesterol, Calc 15 mg/dl (0-30) 09/07/23 06:21
HDL Cholesterol 65 mg/dl 09/07/23 06:21
09/06/23
17:28
Clu-D-Qlfetifoggm Pept 23600
LAB Results
09/06/23
17:28
Troponin I < 0.012
Physical Exam
Constitutional: No acute distress and Comfortable
EENT: Anicteric
Cardiovascular: Rhythm/rate is irregular, Pedal edema present (Trace), Systolic murmur present (3/6) and S1S2 is normal
Respiratory: Respiratory effort normal and Lungs clear to auscul.
GI: Soft
Neuro/Psych: AO x 3
Other: Skin (Warm, dry, intact)
Data Reviewed
-
Date of Service: September 08, 2023
EKG: Tracing Personally Visualized and interpreted (Telemetry: Rate-controlled A-fib)
Echo: Tracing Personally Visualized and interpreted (-Echocardiogram 09/08/2023: LVEF of 60-65%, severe biatrial enlargement, severe tricuspid regurgitation with PASP of 65-70 mmHg.)
Medical Tests (PFT, Pathology etc): Discussed with Physician (Primary Hospitalist) and Discussed with Patient
Labs: Labs Reviewed by me
--- NOTE | 2023-09-08 09:55 | W.PN.HOSP.TC ---
Today's Communication/Plan
-
see bold, check K in AM
Assessment / Plan
Assessment / Plan
Gen: NAD, Awake and alert
Eyes: EOMI, PERRLA, no scleral icterus.
Neck: supple.
CV: RRR, +S1/S2, no m/r/g.
Resp: CTAB, no rales, wheezes, or rhonchi.
Abd: +BS, soft, NT, ND
Skin: No rashes. No LE edema
Neuro: CN 2-12 intact, non-focal.
Psych: Normal mood and affect.
CXR: Small right pleural effusion. New findings suggesting mild right lower lobe pneumonia. Moderate cardiomegaly. New
Acute on Chronic HFpEF:
-With acute hypoxemic respiratory insufficiency, currently on 3L NC O2
-with severe Pulm HTN, mod TR
-proBNP 11,000
-has been on IV Lasix, transition to torsemide 20 mg twice daily
-daily wts, I/Os
-check echo
Hypokalemia:
-40 mEq potassium x 2 today
-check Mg
Alcohol abuse disorder:
-cont MSAS protocol (Thiamine/folate/PRN ativan)
Other problems:
Paroxysmal Atrial Fibrillation: cont Toprol XL/Eliquis/Cardizem
Essential Hypertension: cont Toprol XL/Cardizem
CKD3a
Hypothyroidism: cont Levoxyl
Breast Cancer s/p Lumpectomy/XRT
DNR/Eliquis
Anticipated Discharge: Within 24 hours
Subjective/Interval History
-
Date of Service: September 08, 2023
Denies shortness of breath.
Objective Data
-
Labs:
Laboratory Results
09/08/23
06:16
WBC 4.4 L
Hgb 10.3 L
Hct 30.5 L
Plt Count 155 D
Sodium 134 L
Potassium 3.0 L
Chloride 99
Carbon Dioxide 27
BUN 27 H
Creatinine 1.4 H
Glucose 94
Calcium 8.9
Total Bilirubin 0.8
AST 39 H
ALT 19
Alkaline Phosphatase 80
Vital Signs:
Vital Signs
Temp Pulse Resp BP Pulse Ox
98.8 F 77 16 142/72 91
09/08/23 07:35 09/08/23 08:06 09/08/23 07:35 09/08/23 08:06 09/08/23 07:35
I&O
09/07/23 09/08/23 09/09/23
06:59 06:59 06:59
Intake Total 480 / 480
Output Total 1500 / 1500
Balance -1020 / -1020
[2023-09-08 10:50] LABS: Magnesium 1.7 mg/dl (1.6-2.3)
[2023-09-08 11:25] VITALS: BP 137/80
[2023-09-08] MEDS: TYLENOL 1000 MG PO (13:25)
[2023-09-08 15:30] VITALS: BP 114/65
--- NOTE | 2023-09-08 16:14 | CM ---
CM consulted for med pricing
Call 2x to [employer] program rx line [phone]
System down and unable to verify coverage and pricing
Plan to follow up tomorrow
Per ambulatory orders, may require prior auth
CM to confirm
[2023-09-08] MEDS: DEMADEX 20 MG PO (17:19)
[2023-09-08 19:59] VITALS: BP 124/71
[2023-09-08] MEDS: TOPROL XL 150 MG PO (20:07)
[2023-09-08] MEDS: AMBIEN 5 MG PO (21:30)
[2023-09-08 23:47] VITALS: BP 108/66
[2023-09-09] VITALS (7 sets, daily range): BP systolic 108–146; BP diastolic 63–88; BMI 24.0
[2023-09-09] MEDS: THIAMINE INJECTION 200 MG IV ×3 (00:39→15:28)
[2023-09-09] MEDS: COLACE 100 MG PO ×2 (00:45→18:18)
--- NOTE | 2023-09-09 03:52 | PTCARENOTE ---
Trialing pt off of o2 sats 92-94% RA- when checking with 0300 VS pulse ox 78%- placed 2 L came up to 94%.
[2023-09-09] MEDS: SYNTHROID 125 MCG PO (05:10)
[2023-09-09 07:00] LABS: % Basophils 1.1 % (0-2); % Eosinophils 4.3 % (0-6); % Immature Granulocytes 0.2 % (0-0.5); % Lymphocytes 21.2 % (20.5-51.1); % Monocytes 12.2 % (1.7-9.3); Absolute Basophils 0.1 10^3/uL (0-0.2); Absolute Eosinophils 0.2 10^3/uL (0-0.7); Absolute Monocytes 0.6 10^3/uL (0.1-0.6); Absolute Neutrophils 2.8 10^3/uL (1.4-6.5); Hematocrit 30.8 % (37.0-47.0); Hemoglobin 10.2 g/dL (12.0-16.0); Mean Corp Hgb Conc. 33.1 g/dL (33.0-37.0); Mean Corpuscular Hgb 32.5 pg (27.0-31.0); Mean Corpuscular Volume 98.1 fL (81.0-99.0); Mean Platelet Volume 9.8 fL (7.4-10.4); Nucleated Red Blood Cells % 0 %; Platelet Count 159 10^3/uL (130-400); Red Blood Cell Count 3.14 10^6/uL (4.20-5.40); Red Cell Dist. Width 15.4 % (11.5-14.5); White Blood Cell Count 4.7 10^3/uL (4.8-10.8)
[2023-09-09 07:14] LABS: ALT (SGPT) 21 U/L (0-35); AST (SGOT) 40 U/L (14-36); Albumin 3.5 g/dl (3.5-5.0); Alkaline Phosphatase 76 U/L (38-126); Blood Urea Nitrogen 32 mg/dl (7-17); Calcium 8.8 mg/dl (8.4-10.2); Carbon Dioxide 27 mmol/L (22-30); Chloride 101 mmol/L (98-107); Estimated Creatinine Clearance 26 ml/min; Glucose 91 mg/dl (70-99); Sodium 133 mmol/L (135-145); Total Bilirubin 0.7 mg/dl (0.2-1.3); Total Protein 7.1 g/dl (6.3-8.2)
[2023-09-09] MEDS: OCUVITE SOFTGEL 1 CAP PO (08:32)
[2023-09-09] MEDS: CELEXA 20 MG PO (08:32)
[2023-09-09] MEDS: FOLVITE 1 MG PO (08:32)
[2023-09-09] MEDS: VITAMIN D3 (cholecalciferol) 25 MCG PO (08:32)
[2023-09-09] MEDS: CARDIZEM CD 240 MG PO (08:33)
[2023-09-09] MEDS: ELIQUIS 5 MG PO ×2 (08:33→20:10)
[2023-09-09] MEDS: ZYLOPRIM 100 MG PO (08:35)
[2023-09-09] MEDS: JARDIANCE 10 MG PO (08:36)
[2023-09-09] MEDS: THERAGRAN 1 TABLET PO (08:36)
--- NOTE | 2023-09-09 08:43 | W.PN.HOSP.TC ---
Today's Communication/Plan
-
see bold
Assessment / Plan
Assessment / Plan
Gen: NAD, Awake and alert
Eyes: EOMI, PERRLA, no scleral icterus.
Neck: supple.
CV: Remains RRR, +S1/S2, no m/r/g.
Resp: Remains CTAB, no rales, wheezes, or rhonchi.
Abd: Remains +BS, soft, NT, ND
Skin: No rashes. No LE edema
Neuro: CN 2-12 intact, non-focal.
Psych: Normal mood and affect.
CXR: Small right pleural effusion. New findings suggesting mild right lower lobe pneumonia. Moderate cardiomegaly. New.
Echo:
-Left ventricular ejection fraction is 60-65%. Wall motion is consistent with
conduction abnormality.
-Mildly enlarged right ventricular size. Normal right ventricular systolic
function.
-Severely dilated left atrium. Severely dilated right atrium.
-Mild to moderate mitral regurgitation.
-Mild aortic regurgitation.
-Severe tricuspid regurgitation. Estimated pulmonary artery pressure of 65-70
mmHg.
Compared to previous echo on 06/26/2022, progressive tricuspid regurgitation is
noted (previously moderate). PASP has slightly increased (previously 63 mmHg).
Acute on Chronic HFpEF:
-With acute hypoxemic respiratory insufficiency, currently on 3L NC O2
-with severe Pulm HTN, sev TR (echo above)
-proBNP 11,000
-had been on IV Lasix then transitioned to torsemide 20 mg twice daily. Hold Torsemide with BATOOL
-daily wts, I/Os
BATOOL on CKD3a:
-hold torsemide
-renal to see
Other problems:
Alcohol abuse disorder: cont MSAS protocol (Thiamine/folate/PRN ativan)
Hypokalemia, resolved
Paroxysmal Atrial Fibrillation: cont Toprol XL/Eliquis/Cardizem
Essential Hypertension: cont Toprol XL/Cardizem
Hypothyroidism: cont Levoxyl
Breast Cancer s/p Lumpectomy/XRT
DNR/Eliquis
Anticipated Discharge: Within 24 hours
Subjective/Interval History
-
Date of Service: September 09, 2023
No new complaints.
Objective Data
-
Labs:
Laboratory Results
09/09/23
06:30
WBC 4.7 L
Hgb 10.2 L
Hct 30.8 L
Plt Count 159
Sodium 133 L
Potassium 4.0 D
Chloride 101
Carbon Dioxide 27
BUN 32 H
Creatinine 1.6 H
Glucose 91
Calcium 8.8
Total Bilirubin 0.7
AST 40 H
ALT 21
Alkaline Phosphatase 76
Vital Signs:
Vital Signs
Temp Pulse Resp BP Pulse Ox
97.8 F 87 14 146/88 97
09/09/23 07:35 09/09/23 08:33 09/09/23 07:35 09/09/23 08:33 09/09/23 07:35
I&O
09/08/23 09/09/23 09/10/23
06:59 06:59 06:59
Intake Total 480 / 480 600 / 600
Output Total 1500 / 1500 750 / 750
Balance -1020 / -1020 -150 / -150
[2023-09-09] MEDS: DEMADEX PO (08:48)
[2023-09-09] MEDS: MAGNESIUM OXIDE 500 MG PO (08:50)
--- NOTE | 2023-09-09 10:49 | CM ---
CM placed call to insurance FEP Rx line [phone]
Medication pricing completed
Farxiga 10 mg QD
30 days retail $27.67
90 days mail order $40
Jardiance 10 mg QD prior auth required
30 days retail $21.14
90 days mail order $40
For prior auth request call [phone]
TT on-call cardio requesting assigned provider today to send pricing to
Awaiting response
[2023-09-09] MEDS: TYLENOL 1000 MG PO (10:53)
--- NOTE | 2023-09-09 12:48 | W.CON.NEPH ---
Consultation
-
Date/Time Consultation Requested: September 09, 2023 10 AM
Date/Time Consultation Performed: September 09, 2023 12 noon
Requesting Provider: Dr. Fraga
Performing Provider: Dr. Wilson
Reason for Consultation: Acute kidney injury
Medical History
-
Chief Complaint: Shortness of breath, edema
History of Present Illness:
This is a 83-year-old female with heart failure with preserved ejection fraction but severe tricuspid regurgitation on chronic diuretic therapy. She normally takes torsemide at home with the addition of additional 10 mg as needed for change in
weight or swelling. She says that she had previously tried Farxiga given her heart failure but did not continue it because she did not like how it made her feel. She also has atrial fibrillation which is rate controlled with calcium channel
mehran therapy and on anticoagulation with Eliquis. She does have baseline creatinine of 1.1 representing CKD stage IIIa. She was admitted because of worsening lower extreme edema and shortness of breath. She was given intravenous diuretics with
excellent improvement of edema she still remains on 2 L of oxygen and she does not wear oxygen at home chronically. Her creatinine today has risen since admission of 1.1 now to 1.6 and we are asked to assist with management of her acute kidney
injury. Her sodium level has also dropped to 133 today.
Past Medical History
Severe pulmonary HTN,
moderate TR
paroxysmal A-fib
Etoh abuse
HTN
hypothyroidism
CKD stage IIIa
left atrial appendage thrombus
chronic diastolic heart failure with preserved EF
moderate TR,
pulmonary vein isolation 01/25/2021 with ablation
breast cancer right breast with lumpectomy and radiation 9 years ago cari angel
bilat knee replacement
right rotator cuff repair
left wrist fx
Social History
Tobacco: Former Smoker
Alcohol: Daily
Family History
Family History: Not Pertinent
Allergies / Home Medications
Allergy/AdvReac Type Severity Reaction Status Date / Time
No Known Allergies Allergy Verified 01/25/21 09:31
�Medication �Instructions �Recorded �Confirmed �Type
acetaminophen 500 mg tablet 1,000 mg PO Q8HPRN PRN mild pain 08/10/19 09/06/23 History
(Tylenol Extra Strength)
fluticasone propionate 50 1 spray intranasal DAILY allergies 08/10/19 09/06/23 History
mcg/actuation nasal
spray,suspension
levothyroxine 125 mcg tablet 125 mcg PO DAILY Thyroid 08/10/19 09/06/23 History
multivitamin-ferrous 1 tab PO DAILY Supplement 08/10/19 09/06/23 History
fumarate-folic acid 18 mg-400 mcg
tablet (Centrum)
vit C 250 mg-vit E 90 mg-zinc 40 1 ea PO DAILY Supplement 08/10/19 09/06/23 History
mg-copper 1 [id number]
capsule (PreserVision AREDS-2)
apixaban 5 mg tablet (Eliquis) 5 mg PO BID #60 tabs 08/06/20 09/06/23 Rx
zolpidem 5 mg tablet 5 mg PO HS sleep 12/17/20 09/06/23 History
allopurinol 100 mg tablet 100 mg PO DAILY gout 09/06/23 09/06/23 History
cholecalciferol (vitamin D3) 25 25 mcg PO DAILY Supplement 09/06/23 09/06/23 History
mcg (1,000 unit) tablet
citalopram 40 mg tablet 20 mg PO DAILY depression/anxiety 09/06/23 09/06/23 History
diltiazem HCl 240 mg 240 mg PO DAILY blood pressure 09/06/23 09/06/23 History
capsule,extended release 24 hr,
controlled (DILT-XR)
metoprolol succinate 100 mg 150 mg PO DAILY@2000 Blood Pressure 09/06/23 09/06/23 History
tablet,extended release 24 hr
torsemide 20 mg tablet 10 mg PO SUTUTHSA@1600 PRN 09/06/23 09/06/23 History
swelling/edema
torsemide 20 mg tablet 20 mg PO MOWEFR@0800,1600 09/06/23 09/06/23 History
swelling/edema
torsemide 20 mg tablet 20 mg PO SUTUTHSA@0800 09/06/23 09/06/23 History
swelling/edema
Review of Systems
-
No shortness of breath. Edema improved. No pain
All other systems: Negative unless noted
Physical Exam
Vital Signs
Vital Signs
Temp Pulse Resp BP Pulse Ox
97.8 F 72 14 113/70 97
09/09/23 11:20 09/09/23 11:20 09/09/23 11:20 09/09/23 11:20 09/09/23 11:20
Lab Results
WBC 4.7 10^3/uL (4.8-10.8) L 09/09/23 06:30
RBC 3.14 10^6/uL (4.20-5.40) L 09/09/23 06:30
Hgb 10.2 g/dL (12.0-16.0) L 09/09/23 06:30
Hct 30.8 % (37.0-47.0) L 09/09/23 06:30
Plt Count 159 10^3/uL (130-400) 09/09/23 06:30
Sodium 133 mmol/L (135-145) L 09/09/23 06:30
Potassium 4.0 mmol/L (3.5-5.1) D 09/09/23 06:30
Chloride 101 mmol/L (98-107) 09/09/23 06:30
Carbon Dioxide 27 mmol/L (22-30) 09/09/23 06:30
BUN 32 mg/dl (7-17) H 09/09/23 06:30
Creatinine 1.6 mg/dL (0.6-1.0) H 09/09/23 06:30
eGFR 31.80 09/09/23 06:30
Glucose 91 mg/dl (70-99) 09/09/23 06:30
Calcium 8.8 mg/dl (8.4-10.2) 09/09/23 06:30
Phosphorus 3.6 mg/dl (2.5-4.5) 09/07/23 01:00
Bhz-N-Bmvesmjmrxx Pept 19104 pg/ml 09/06/23 17:28
Albumin 3.5 g/dl (3.5-5.0) 09/09/23 06:30
Physical Exam
Patient is awake alert oriented and in no distress. Mood and affect were pleasant, insight and judgment were good. Pupils are equal round and reactive to light, extraocular movements are intact, sclera were anicteric. Hearing was normal, ears and
nose are intact. Oropharynx was clear. Neck was supple with trachea midline and no thyromegaly. Heart was regular rate and rhythm without rubs. Lower extremities without edema. Lungs were clear to auscultation bilaterally and with normal
excursion. Abdomen was soft, nontender, with normal active bowel sounds, and no hepatosplenomegaly. Skin was without rash and with normal turgor.
Data Reviewed
-
Radiology: Image Personally Visualized and interpreted (Chest x-ray on September 06, 2023 by my reading shows small right effusion right lower lobe opacity)
Medical Tests (Nuc Med, Echo etc): Image Personally Visualized and interpreted (EKG on September 06, 2023 by my read shows atrial flutter right bundle branch block, lateral T wave abnormality) and Report Reviewed by me (Echocardiogram on September 07, 2023
shows ejection fraction 60%, severely dilated atria, moderate MR, mild AR, severe TR)
Labs: Labs Reviewed by me (Creatinine 1.6, sodium 133, potassium 4, bicarb 27, BUN 32, hemoglobin 10.2)
Old Records: Reviewed (On July 10, 2022 creatinine 1.4)
Assessment/Plan
-
Assessment
Heart failure preserved ejection fraction
Severe TR
Acute kidney injury
CKD 3A, 1.1�1.4
Hyponatremia
Paroxysmal atrial fibrillation
Plan
Suspect rising creatinine is in part related to diuretics with recent addition of Jardiance
For now may continue Jardiance
Hold torsemide for the remainder of the day
Follow creatinine given addition of Jardiance to regimen, I would accept a slight elevation of her overall creatinine baseline even at 1.6
Continue fluid restriction
Wean supplemental oxygen as required
--- NOTE | 2023-09-09 15:01 | PTCARENOTE ---
pt bleeding from her L Thigh. pt states scratching a scab/skin tag on 09/07. dressing off to see if bleeding stopped. dressing stuck to the bleeding site. cleaned with saline. pt started bleeding again. Held Manual pressure for half hour and
redressed. Pt bleeding through the dressing. Dr. Fraga made aware. Held pressure again and redressed. will monitor for bleeding.
[2023-09-09] MEDS: TOPROL XL 150 MG PO (20:10)
[2023-09-09] MEDS: AMBIEN 5 MG PO (21:30)
--- NOTE | 2023-09-10 01:52 | PTCARENOTE ---
Patient administered 5 mg Ambien PO per order. RN witnessed pt taking and swallowing medication. Pt not able to fall asleep- stating 'I think the pill flew out of my mouth when I was talking to you'. RN inspected whole bed, sheets, patients
clothing and floor in patients room. Pill not found. Patient continues to claim that she did not swallow her Ambien throughout the night. Ssrs Developer aware.
[2023-09-10 03:17] VITALS: BP 129/71
[2023-09-10] MEDS: TYLENOL 1000 MG PO ×2 (04:04→14:01)
[2023-09-10] MEDS: SYNTHROID 125 MCG PO (04:49)
[2023-09-10 04:53] VITALS: BMI 24.2
[2023-09-10 05:52] LABS: Blood Urea Nitrogen 36 mg/dl (7-17); Calcium 8.9 mg/dl (8.4-10.2); Carbon Dioxide 25 mmol/L (22-30); Chloride 98 mmol/L (98-107); Estimated Creatinine Clearance 23 ml/min; Glucose 107 mg/dl (70-99); Potassium 4.2 mmol/L (3.5-5.1); Sodium 132 mmol/L (135-145); eGFR 27.61
[2023-09-10 07:23] VITALS: BP 107/59
[2023-09-10] MEDS: CELEXA 20 MG PO (08:18)
[2023-09-10] MEDS: MAGNESIUM OXIDE 500 MG PO (08:18)
[2023-09-10] MEDS: VITAMIN D3 (cholecalciferol) 25 MCG PO (08:19)
[2023-09-10] MEDS: THERAGRAN 1 TABLET PO (08:19)
[2023-09-10] MEDS: VITAMIN B1 100 MG PO (08:19)
[2023-09-10] MEDS: ELIQUIS 5 MG PO (08:19)
[2023-09-10] MEDS: FOLVITE 1 MG PO (08:19)
[2023-09-10] MEDS: OCUVITE SOFTGEL 1 CAP PO (08:19)
[2023-09-10] MEDS: ZYLOPRIM 100 MG PO (08:19)
[2023-09-10] MEDS: CARDIZEM CD 240 MG PO (08:19)
[2023-09-10] MEDS: JARDIANCE PO (08:21)
--- NOTE | 2023-09-10 09:22 | W.PN.CD ---
Today's Communication / Plan
-
-Worsening renal dysfunction; diuretic now being held.
-Nephrology consulted; appreciate input.
-Jardiance discontinued.
Impression / Plan
-
HFpEF, acute on chronic
-Echocardiogram yesterday revealed an LVEF of 60-65%, severe biatrial enlargement, severe tricuspid regurgitation with PASP of 65-70 mmHg.
-Worsening renal dysfunction; diuretic now being held.
-Nephrology consulted; appreciate input.
-Jardiance discontinued.
Paroxysmal atrial fibrillation
-PVI 01/25/2021, currently in sinus, in and out, continue diltiazem and metoprolol succinate
-Oral Anticoagulation: Apixaban 5 mg twice daily, she denies missed doses and abnormal bleeding
-[id number]-[id number]: score at least 5 (Heart failure, HTN, age 75 or more, female gender)
-Continue Toprol-XL 150 mg daily, Cardizem CD 240 mg daily, and Eliquis 5 mg twice daily.
Severe TR/pulmonary hypertension,(PASP 65-70) mmHg
-Holding diuretic as above.
Renal insufficiency
-Nephrology following.
EtOH misuse, 1 bottle daily, on MSAS, per primary
Prior breast cancer, right side, status postlumpectomy and XRT (HRH)
Physical Exam
Vital Signs/Labs
Vital Signs
Temp Pulse Resp BP Pulse Ox
98 F 79 26 107/59 91
09/10/23 07:23 09/10/23 07:23 09/10/23 07:23 09/10/23 07:23 09/10/23 07:23
09/09/23 09/10/23 09/11/23
06:59 06:59 06:59
Actual Weight 69.513 kg 70.08 kg
09/09/23 06:30
09/10/23 04:36
PT 19.2 Sec (11.4-14.6) H 09/07/23 01:00
INR 1.60 09/07/23 01:00
APTT 41.5 Sec (23.4-35.0) H 09/07/23 01:00
Magnesium 1.7 mg/dl (1.6-2.3) 09/08/23 06:16
Triglycerides 75 mg/dl (10-149) 09/07/23 06:21
LDL Cholesterol, Calc 46 mg/dl 09/07/23 06:21
VLDL Cholesterol, Calc 15 mg/dl (0-30) 09/07/23 06:21
HDL Cholesterol 65 mg/dl 09/07/23 06:21
09/06/23
17:28
Sys-C-Ybseybyicpo Pept [id number]
Physical Exam
Constitutional: No acute distress and Comfortable
EENT: Anicteric
Cardiovascular: Rhythm/rate is irregular, Pedal edema present (Trace), Systolic murmur present (2/6) and S1S2 is normal
Respiratory: Respiratory effort normal and Lungs clear to auscul.
GI: Soft
Neuro/Psych: AO x 3
Other: Skin (Warm, dry, intact and)
Data Reviewed
-
Date of Service: September 10, 2023
EKG: Tracing Personally Visualized and interpreted (Telemetry: A-fib)
Medical Tests (PFT, Pathology etc): Discussed with Nurse and Discussed with Patient
Labs: Labs Reviewed by me
--- NOTE | 2023-09-10 09:47 | W.PN.HOSP.TC ---
Addendum entered and electronically signed by Bridger Fraga MD 09/10/23 10:58:
Case discussed with nephrology. Patient is medically cleared for discharge today from their standpoint off of Jardiance. She should go back on torsemide 20 mg twice daily. She will need a BMP in 3 days.
Total time spent on d/c = 31 min. This included today's physical exam, progress note, review of laboratory and diagnostic data, preparation of discharge documents and prescriptions, and discussions about the pt's hospital course and discharge plan
with the patient and other medical billing instructor involved in the patient's care.
Original Note:
Today's Communication/Plan
-
see bold
Assessment / Plan
Assessment / Plan
Gen: NAD, Awake and alert
Eyes: EOMI, PERRLA, no scleral icterus.
Neck: supple.
CV: Continues to remain RRR, +S1/S2, no m/r/g.
Resp: Continues to remain CTAB, no rales, wheezes, or rhonchi.
Abd: Continues to remain +BS, soft, NT, ND
Skin: No rashes. No LE edema
Neuro: CN 2-12 intact, non-focal.
Psych: Normal mood and affect.
CXR: Small right pleural effusion. New findings suggesting mild right lower lobe pneumonia. Moderate cardiomegaly. New.
Echo:
-Left ventricular ejection fraction is 60-65%. Wall motion is consistent with
conduction abnormality.
-Mildly enlarged right ventricular size. Normal right ventricular systolic
function.
-Severely dilated left atrium. Severely dilated right atrium.
-Mild to moderate mitral regurgitation.
-Mild aortic regurgitation.
-Severe tricuspid regurgitation. Estimated pulmonary artery pressure of 65-70
mmHg.
Compared to previous echo on 06/26/2022, progressive tricuspid regurgitation is
noted (previously moderate). PASP has slightly increased (previously 63 mmHg).
Acute on Chronic HFpEF:
-With acute hypoxemic respiratory insufficiency, currently on 3L NC O2
-with severe Pulm HTN, sev TR (echo above)
-proBNP 11,000
-was on IV Lasix then transitioned to torsemide 20 mg twice daily. Torsemide now on hold with BATOOL. Jardiance now stopped.
-daily wts, I/Os
BATOOL on CKD3a:
-holding torsemide
-renal following
-Jardiance stopped
Other problems:
Alcohol abuse disorder: cont MSAS protocol (Thiamine/folate/PRN ativan)
Hypokalemia, resolved
Paroxysmal Atrial Fibrillation: cont Toprol XL/Eliquis/Cardizem
Essential Hypertension: cont Toprol XL/Cardizem
Hypothyroidism: cont Levoxyl
Breast Cancer s/p Lumpectomy/XRT
DNR/Eliquis
Anticipated Discharge: Within 24 hours
Subjective/Interval History
-
Date of Service: September 10, 2023
No new complaints.
Objective Data
-
Labs:
Laboratory Results
09/10/23
04:36
Sodium 132 L
Potassium 4.2
Chloride 98
Carbon Dioxide 25
BUN 36 H
Creatinine 1.8 H
Glucose 107 H
Calcium 8.9
Vital Signs:
Vital Signs
Temp Pulse Resp BP Pulse Ox
98 F 79 26 107/59 91
09/10/23 07:23 09/10/23 07:23 09/10/23 07:23 09/10/23 07:23 09/10/23 07:23
I&O
09/09/23 09/10/23 09/11/23
06:59 06:59 06:59
Intake Total 600 / 600 390 / 390
Output Total 750 / 750 360 / 360
Balance -150 / -150 30 / 30
[2023-09-10 10:55] VITALS: BP 114/58
--- NOTE | 2023-09-10 12:27 | W.PN.NEPH.PH ---
Today's Communication / Plan
-
- likely for d/c later today
Assessment/Plan
-
Assessment
Heart failure preserved ejection fraction
Severe TR
Acute kidney injury
CKD 3A, 1.1�1.4
Hyponatremia
Paroxysmal atrial fibrillation
Plan
Suspect rising creatinine is in part related to diuretics with recent addition of Jardiance
Hold Jardiance
Okay to restart torsemide 20mg BID
Can re-trial initiation of Jardiance in the outpatient setting
Continue fluid restriction
Wean supplemental oxygen as required
Patient would like to go home today. She should continue diuretics and recheck labs in a few days to ensure stability of Cr.
-
-
Date of Service: September 10, 2023
CC / HPI / ROS
-
Chief Complaint:
BATOOL
History of Present Illness:
Cr rising to 1.8
Review of Systems:
feeling well
breathing improved
weights down
Labs
-
Labs:
WBC 4.7 10^3/uL (4.8-10.8) L 09/09/23 06:30
RBC 3.14 10^6/uL (4.20-5.40) L 09/09/23 06:30
Hgb 10.2 g/dL (12.0-16.0) L 09/09/23 06:30
Hct 30.8 % (37.0-47.0) L 09/09/23 06:30
Plt Count 159 10^3/uL (130-400) 09/09/23 06:30
Sodium 132 mmol/L (135-145) L 09/10/23 04:36
Potassium 4.2 mmol/L (3.5-5.1) 09/10/23 04:36
Chloride 98 mmol/L (98-107) 09/10/23 04:36
Carbon Dioxide 25 mmol/L (22-30) 09/10/23 04:36
BUN 36 mg/dl (7-17) H 09/10/23 04:36
Creatinine 1.8 mg/dL (0.6-1.0) H 09/10/23 04:36
eGFR 27.61 09/10/23 04:36
Glucose 107 mg/dl (70-99) H 09/10/23 04:36
Calcium 8.9 mg/dl (8.4-10.2) 09/10/23 04:36
Phosphorus 3.6 mg/dl (2.5-4.5) 09/07/23 01:00
Qqz-Q-Paqcsvcqyad Pept 40141 pg/ml 09/06/23 17:28
Albumin 3.5 g/dl (3.5-5.0) 09/09/23 06:30
Physical Exam
-
Vital Signs:
Vital Signs
Temp Pulse Resp BP Pulse Ox
97.4 F 80 18 114/58 94
09/10/23 10:55 09/10/23 10:55 09/10/23 10:55 09/10/23 10:55 09/10/23 10:55
Cardiovascular:: Regular rate and rhythm
Respiratory:: Bilateral: Coarse
Lung Excursion:: Normal
Abdomen:: Nontender and Soft
Bowel Sounds:: Normal
Extremity Edema:: None: Bilateral:
Horowitz Catheter: No
--- NOTE | 2023-09-10 12:54 | CM ---
April has been discharged today, however when visiting with her, she advised that she has had recurrent bleeding from her left thigh and is afraid to go home without this being addressed.
TT to Dr. Fraga to make him aware of same.
--- NOTE | 2023-09-10 13:59 | W.DCSUMMARY ---
Discharge Summary
Discharge Data
Date of Admission: 09/06/23
Date of Discharge: 09/10/23
-
Pending Results: No
Hospital Course
Primary diagnoses:
Acute on chronic heart failure with preserved ejection fraction
Acute kidney injury on chronic kidney disease stage 3a
Acute hypoxemic respiratory sufficiency
Secondary diagnoses:
Alcohol abuse disorder
Hypokalemia
Paroxysmal Atrial Fibrillation
Essential Hypertension
Hypothyroidism
Breast Cancer s/p Lumpectomy/radiation
Consultants:
Imaging:
CXR: Small right pleural effusion. New findings suggesting mild right lower lobe pneumonia. Moderate cardiomegaly. New.
Echo:
-Left ventricular ejection fraction is 60-65%. Wall motion is consistent with
conduction abnormality.
-Mildly enlarged right ventricular size. Normal right ventricular systolic
function.
-Severely dilated left atrium. Severely dilated right atrium.
-Mild to moderate mitral regurgitation.
-Mild aortic regurgitation.
-Severe tricuspid regurgitation. Estimated pulmonary artery pressure of 65-70
mmHg.
Compared to previous echo on 06/26/2022, progressive tricuspid regurgitation is
noted (previously moderate). PASP has slightly increased (previously 63 mmHg).
Hospital course: 83-year-old female who initially presented with shortness of breath and 'swelling' as outlined in the H&P done on admission. Patient was found to be in acute on chronic heart failure with preserved ejection fraction. proBNP was
11,000, chest x-ray findings above. The patient was diuresed with IV Lasix and then transition to oral torsemide. Echocardiogram above and notable for normal ejection fraction, severe pulmonary hypertension, severe tricuspid regurgitation. The
patient was started on Jardiance. Her creatinine increased. Her torsemide was held. She was seen by nephrology and her Jardiance was stopped. She was weaned off oxygen. At the time of discharge the case was discussed with nephrology. As per
Dr. Manriquez the patient was medically cleared for discharge. She will need a BMP in 3 days.
Discharge Plan
-
Patient Disposition: Home (Routine Discharge)
Discharge Diagnosis/Procedures: Acute on chronic heart failure with preserved ejection fraction, acute kidney injury on chronic kidney disease stage III AA
Condition: Good
Diet: Low Sodium and Other diet
Additional Diets: Fluid restrict to 1200 cc/day
Activity: As tolerated
Driving Restrictions: No driving
Blood Work: BMP in 3 days, script from PCP
Specialty Instructions: Weigh Daily- Call MD for wt gain/loss 3 lbs overnight/5 lbs in 1 week
Instructions: *CBC Heart Failure Instructions
Referrals:
Rodrigo Gee MD [Family Provider] - in less than 1 week
Saud Squires MD [Active] - 09/21/23 1:00 pm
Prescriptions:
New
thiamine HCl (vitamin B1) 100 mg Tablet
100 mg PO BID Qty: 0 0RF
magnesium oxide 500 mg magnesium Tablet
500 mg PO DAILY Qty: 0 0RF
folic acid 1 mg Tablet
1 mg PO DAILY Qty: 0 0RF
torsemide 20 mg tablet
20 mg PO BID Qty: 60 0RF
Continued
acetaminophen [Tylenol Extra Strength] 500 MG tablet
1,000 mg PO Q8HPRN PRN (Reason: mild pain)
levothyroxine 125 MCG tablet
125 mcg PO DAILY
fluticasone propionate 1 SPRAY spray,suspension
1 spray intranasal DAILY
Centrum 1 EACH tablet
1 tab PO DAILY
PreserVision AREDS-2 1 EACH capsule
1 ea PO DAILY
Eliquis 5 MG tablet
5 mg PO BID Qty: 60 3RF
citalopram 40 mg tablet
20 mg PO DAILY
diltiazem HCl [DILT-XR] 240 mg capsule,ext.rel 24h degradable
240 mg PO DAILY
metoprolol succinate 100 mg tablet extended release 24 hr
150 mg PO DAILY@1999
allopurinol 100 mg tablet
100 mg PO DAILY
cholecalciferol (vitamin D3) 25 mcg (1,000 unit) Tablet
25 mcg PO DAILY
Discontinued
zolpidem 5 MG tablet
5 mg PO HS
Patient Comments:
09/06/2023: last filled 09/05/23, 30 tabs for 30 days from [facility]
torsemide 20 mg tablet
20 mg PO SUTUTHSA@0800
torsemide 20 mg tablet
10 mg PO SUTUTHSA@1600 PRN (Reason: swelling/edema)
torsemide 20 MG tablet
20 mg PO MOWEFR@0800,1600
Discharge Orders:
Discharge Patient (As Directed); Ordered 09/10/23
Ordered By: Bridger Fraga
Discharge Date and Time
Print Language: ROMANIAN
[2023-09-10] MEDS: SILVADENE 1 APPLIC TOPICAL (14:35)
[2023-09-10 15:39] VITALS: BP 120/77
--- NOTE | 2023-09-12 13:56 | W.HF.CON ---
Heart Failure
- LV Function
Left ventricular function study result: LV Ejection fraction >40%
Ejection Fraction Percentage: 60-65
- ARNI
Patient already on ARNI: No
Heart Failure ARNI Not Indicated: LV Ejection Fraction >/= 40%
- ACEI/ARB
Heart Failure ACEI/ARB Not Indicated: LV Ejection Fraction > 40%
- Beta Valencia
Patient already on Evidence Based Beta Valencia: Yes
- Mineralocorticord Receptor Antagonist
Patient already on MRA: No
Heart Failure MRA Not Indicated: LV Ejection Fraction > 40%
- SGLT-2 Inhibitor
Patient already on SGLT-2 Inhibitor: No
Heart Failure SGLT-2 Inhibitor Not Indicated: LV Ejection Fraction >40%
- Afib Anticoagulation
Patient already on Anticoagulation for Afib: Yes
- NYHA CHF Classification
NYHA CHF Classification Level: Class III - Symptoms w/ min exertion, interferes w/ nml daily activity
- ACC/AHA Stage
ACC/AHA Stage: Stage C: Symptomatic Heart Failure
== END 2023-09-10 17:01 | disposition home or self-care (01) | DRG 291 ==
LOC: 4 EAST ACU 23:27
PROVIDERS: Clinical Nurse Specialist Family Health; Emergency Medicine; ADMITTING PHYSICIAN Hospitalist; ATTENDING PHYSICIAN Internal Medicine; CONSULT PHYSICIAN Specialist; EMERGENCY PHYSICIAN Emergency Medicine; FAMILY PHYSICIAN Family Medicine; OTHER PHYSICIAN Internal Medicine
DX: I13.0 Hypertensive heart and chronic kidney disease with heart failure and stage 1 through stage 4 chronic kidney disease, or unspecified chronic kidney disease (principal); I50.33 Acute on chronic diastolic (congestive) heart failure; I48.92 Unspecified atrial flutter; E87.1 Hypo-osmolality and hyponatremia; N17.9 Acute kidney failure, unspecified; I48.0 Paroxysmal atrial fibrillation; Z66 Do not resuscitate; I27.20 Pulmonary hypertension, unspecified; I45.10 Unspecified right bundle-branch block; E03.9 Hypothyroidism, unspecified; I08.3 Combined rheumatic disorders of mitral, aortic and tricuspid valves; N18.31 Chronic kidney disease, stage 3a; D63.1 Anemia in chronic kidney disease; R06.89 Other abnormalities of breathing; R09.02 Hypoxemia; E87.6 Hypokalemia; E78.00 Pure hypercholesterolemia, unspecified; F32.A Depression, unspecified; F41.9 Anxiety disorder, unspecified; Z79.01 Long term (current) use of anticoagulants; Z85.3 Personal history of malignant neoplasm of breast; Z87.891 Personal history of nicotine dependence; Z79.890 Hormone replacement therapy; Z82.49 Family history of ischemic heart disease and other diseases of the circulatory system
CPT/HCPCS: 71046; 80048; 80053; 80061; 80306; 81003; 82010; 82077; 82977; 83735; 83880; 84100; 84443; 84484; 85025; 85610; 85730; 93005; 93306; 96374; 97162; 97166; 99285

== ENCOUNTER 2023-09-28 13:58 | Inpatient (IN) | payer MEDICARE, BC, SELFPAY ==
[2023-09-28] VITALS (10 sets, daily range): BP systolic 110–133; BP diastolic 73–88; BMI 27.6
--- NOTE | 2023-09-28 08:21 | ED.GENMED ---
History of Present Illness
General
Chief Complaint: Fall
Source: patient, records and ambulance crew
Exam Limitations: none
Time Seen by Provider: 09/28/23 08:08
Nursing documentation reviewed up to this point in time: agreed with
History of Present Illness
History of Present Illness:
83-year-old female with past medical history of hypertension, CHF, atrial fibrillation on Eliquis, irritable bowel syndrome, hypothyroidism, hepatitis C who presents to the emergency room via EMS for evaluation after a fall. Patient was admitted to
[facility] 09/06/2023 until 09/10/2023 for CHF exacerbation and acute hypoxemic respiratory failure. She was discharged home where she is living in a 55+ community with her ; she ambulates with a walker. She says that last night she was
walking with her walker to the commode and on her way back to bed she was reaching for her nighttime medication and lost her balance and fell over. She is not sure whether she hit her head, did not lose consciousness. Apparently there was a
visiting nurse there who was able to help her up. This morning she was having pain and bruising in her right shoulder and EMS called to bring her to the hospital for assessment. She complains of pain in the shoulder on the right but denies any
other specific complaints. She denies any headache. Denies any neck pain. Denies any back pain. She denies any chest or abdominal pain. She feels her breathing has improved since discharge from the hospital denies shortness of breath at
present. She denies any other complaints. She is on Eliquis.
Past History
Past History
ED Past Medical History: Cancer, CHF, HTN, Hypercholesterolemia, Valvular disease, Other (Cirrhosis, hepatitis C) and Other (Moderate to severe tricuspid regurgitation moderate MR, mild AI)
ED Past Surgical History: Gynecological and Orthopedic
Social History
Tobacco: Non-smoker
Alcohol: Occasional
Drug: None
Personal:
Living: with family
Employment: Retired
Family History
Family History: CAD and Other (Sister with SLE)
Review of Systems
Review of Systems
All Other Systems: ROS reviewed and negative except as documented in HPI and ROS
Constitutional: Denies fever
Respiratory: Denies trouble breathing
Cardiac: Denies chest pain or syncope
ABD/GI: Denies abdominal pain, nausea or vomiting
: Denies flank pain
Musculoskeletal: Reports joint pain (Right shoulder pain); Denies neck pain or back pain
Neurological: Denies dizzy or headache
Phy Exam
Physical Exam
Physical Exam:
General: Awake, alert, oriented x3; no acute distress
Head: Normocephalic, atraumatic
Eyes: Conjunctiva normal, pupils equal round and reactive to light bilaterally
Throat: Airway intact, mucous membranes slightly dry
Neck: Trachea midline, mild paraspinal tenderness but no midline cervical spine tenderness
Back: No midline thoracic or lumbar tenderness and no signs of trauma to the back or flank
Lungs: Clear to auscultation bilaterally, no wheezing, rales, rhonchi
Heart: Regular rate and irregular rhythm, no murmurs, gallops, or rubs; no chest wall tenderness
Abd: Soft, non distended, nontender
Neuro: Cranial nerves grossly intact, speech fluid
Skin: Bruising to the right shoulder
Extremities: Bilateral lower extremity edema, equal pulses in all extremities; she has bruising and tenderness along the right clavicle without tenting of the skin, no tenderness of the right humerus, elbow, wrist; left upper extremity and bilateral
lower extremities are atraumatic and she allows for good passive range of motion without discomfort
Scores
Heart Failure Risk
Heart Failure Risk Score: Not Applicable
Heart Score for Chest Pain Patients
STEMI patient?: Not applicable
Withdrawal Assessment of Alcohol
Withdrawal Assessment Completed?: Not applicable
Course
Orders/Labs/Results
Orders:
Orders
09/28/23 08:18
CR Shoulder - Right Min 2 View Urgent
Comment:
Reason For Exam: right shoulder pain (cf fx clavicle)
09/28/23 08:19
CT Cervical Spine W/o Iv Contr Urgent
Comment:
Reason For Exam: fall with head trauma on eliquis
CT Head W/o Iv Contrast Urgent
Comment:
Reason For Exam: fall with head trauma on eliquis
Case Management Consult ONCE
Case Management Consult: Long-Term Placement
CR Chest - 2 Views Urgent
Comment:
Reason For Exam: chf
Pt Eval And Treat Urgent
Activity Level: With Assistance
09/28/23 08:20
Electrocardiogram (*1) Urgent
Reason for Study: Shortness of Breath
EKG- Treatment ONCE
09/28/23 08:26
Complete Blood Count/With Diff Urgent
Comprehensive Metabolic Panel Urgent
NT-proBNP Urgent
09/28/23 09:36
Sling Right-Treatment ONCE
09/28/23 09:45
CR Hand - Right Min 3 Views Urgent
Comment:
Reason For Exam: right hand swelling s/p fall
09/28/23 09:54
Cefepime HCl [Maxipime] 1,000 mg IV NOW STA
Torsemide [Demadex] 20 mg PO NOW STA
Vancomycin 1500 mg IVPB NOW Vancomycin [Vancocin] 1,500 mg 0.9% Sodium Chloride [Nss] 20 ml 0.9% Sodium Chloride 250 ml [Nss] 250 ml IV NOW
Abnormal Lab Results
09/28/23
08:26
RBC 3.22 L 10^6/uL
(4.20-5.40)
Hgb 10.2 L g/dL
(12.0-16.0)
Hct 29.5 L %
(37.0-47.0)
MCH 31.7 H pg
(27.0-31.0)
RDW 15.7 H %
(11.5-14.5)
Absolute Lymphs (auto) 0.6 L 10^3/uL
(1.2-3.4)
Neutrophils % 79.6 H %
(42.2-75.2)
Lymphocytes % 9.5 L %
(20.5-51.1)
Sodium 126 L mmol/L
(135-145)
Chloride 96 L mmol/L
(98-107)
Carbon Dioxide 21 L mmol/L
(22-30)
BUN 74 H mg/dl
(7-17)
Creatinine 2.3 H mg/dL
(0.6-1.0)
Glucose 118 H mg/dl
(70-99)
09/28/23 08:26
09/28/23 08:26
Vital Signs
Initial and Last Documented VS:
Initial Vital Signs
Resp Pulse Ox
20 90
09/28/23 08:12 09/28/23 08:12
Last Documented Vital Signs
Temp Pulse Resp BP Pulse Ox
36.4 C 80 16 132/77 91
09/28/23 08:16 09/28/23 08:15 09/28/23 08:16 09/28/23 08:13 09/28/23 08:15
MDM/Problems Addressed
Differential Diagnosis Includes:
Clavicular fracture, humeral fracture, shoulder dislocation
MDM/Problems Addressed:
83-year-old female presents to the emergency room from home after a witnessed mechanical fall with injury to her right shoulder. Unsure of head trauma. She is on Eliquis for anticoagulation due to history of A-fib. Vital signs on arrival were
significant for low normal pulse ox of 90% on room air�she had similar values on discharge from hospital recently. Physical exam as above�notably bruising and tenderness of the right shoulder in the region of the clavicle. Plan to check CT head
and cervical spine. Check x-ray of the right shoulder. Will check a chest x-ray. Check blood work including a CBC and a CMP, BMP. Will check an EKG. Suspect clinically that she has a broken clavicle. Given that she is already unsteady
ambulating with a walker, with significant shoulder injury will likely be unable to ambulate without significant assistance. She currently lives independently with her who she reports has a history of dementia and help at home as somewhat
limited for which reason she has a visiting nurse. Suspect she will need short-term rehab with no injury to the shoulder. Will consult physical therapy to evaluate as well as case management.
CT reviewed by me shows no acute abnormalities�awaiting radiology read. X-ray of the right shoulder reviewed by me shows clavicular fracture�will place patient in a sling. Chest x-ray reviewed by me appears to show right lower lobe pneumonia.
Initial blood work reviewed and her CBC shows stable anemia, CMP shows acute on chronic hyponatremia with a sodium of 126. Creatinine is 2.3 slightly increased from baseline of 1.8. Her proBNP is elevated to 7600 but this is actually decreased
from prior values. Clinical reassessment patient complaining of some right hand pain possibly arthritis but given fall onto the right side will check an x-ray. Daughter is now at bedside�I discussed with patient finding of possible pneumonia; she
disclosed that she has had worsening cough over the past week. Daughter discloses that she did have febrile illness associate with fatigue and cough and was positive for COVID over a week ago but never really recovered. Will treat with antibiotics
for healthcare associated pneumonia. I think patient warrants admission�certainly will need placement in rehab with shoulder injury but it should be admitted for treatment of pneumonia with borderline pulse ox as well as hyponatremia. Case
discussed with hospitalist for admission.
Chronic conditions affecting care:
CHF
*Radiology
Radiology exam reviewed: preliminary read by ED provider and radiology read reviewed
*Pulse Oximetry
Patient hypoxic: no
*EKG
Interpreted by ED Provider?: Yes
Comparison EKG: changes noted (A-fib today previously a flutter)
Heart Rate: 76
Rate: normal
Rhythm: a-fib
[place]: normal axis
QRS Pattern: right bundle branch block
Ischemia: non-specific ST changes
*Critical Care Note
Total Time (30-74mins, 75-104mins- exclusive of procedures): Not Applicable
Data Reviewed
Review of Other/Old Records Reveals: Labs, Records and Discharge Summary
Source: patient, records and ambulance crew
Patient Management
Social determinants of health affecting care: Living situation
Discussion with other providers: Hospitalist (Discussed with hospitalist) and Other (Discussed with case management)
Escalation/DeEscalation of care consider admission/obs:
Admission indicated
ED Attending Note
-
Portions of this chart may have been created with voice recognition software.� Occasional wrong word or��sound alike� substitutions may have occurred due to the inherent limitations of voice recognition software.
Discharge Plan
Departure
Presentation/result/management discussed w/ accepting MD/DO: Hospitalist
Discharge Problem:
Pneumonia, Hyponatremia, Fracture of clavicle
Prescriptions:
No Action
acetaminophen [Tylenol Extra Strength] 500 MG tablet
500 mg PO DAILY
levothyroxine 125 MCG tablet
125 mcg PO DAILY
fluticasone propionate 1 SPRAY spray,suspension
1 spray intranasal BID
Centrum 1 EACH tablet
1 tab PO DAILY
PreserVision AREDS-2 1 EACH capsule
1 ea PO BID
citalopram 40 mg tablet
40 mg PO NOON
diltiazem HCl [DILT-XR] 240 mg capsule,ext.rel 24h degradable
240 mg PO DAILY
metoprolol succinate 100 mg tablet extended release 24 hr
150 mg PO HS
allopurinol 100 mg tablet
100 mg PO DAILY
cholecalciferol (vitamin D3) 25 mcg (1,000 unit) Tablet
25 mcg PO DAILY
acetaminophen [Tylenol Extra Strength] 500 mg Tablet
1,000 mg PO HS
docusate sodium [Colace] 100 mg Capsule
100 mg PO DAILY
zolpidem [Ambien] 10 mg Tablet
5 mg PO HS
torsemide 20 mg tablet
20 mg PO BID
thiamine HCl (vitamin B1) 100 mg tablet
100 mg PO BID
magnesium oxide 500 mg magnesium tablet
500 mg PO DAILY
folic acid 1 mg tablet
1 mg PO DAILY
Eliquis 5 MG tablet
5 mg PO BID
Referrals:
Rodrigo Gee MD [Family Provider] -
Interventions
Interventions:
*Risk Screen - Suicide Last Done: 09/28/23 08:16
*General Assessment Last Done: 09/28/23 08:16
*Neglect/Abuse Screening Last Done: 09/28/23 08:16
*ED COVID-19 Vaccine History Last Done: 09/28/23 08:16
ED-Musculoskeletal Assessment Last Done: 09/28/23 08:16
ED- Neurological Assessment Last Done: 09/28/23 08:16
ED-Skin Assessment Last Done: 09/28/23 08:16
Discharge Date and Time
Print Language: MALAY
[2023-09-28 08:42] LABS: % Basophils 0.6 % (0-2); % Eosinophils 0.8 % (0-6); % Immature Granulocytes 0.3 % (0-0.5); % Lymphocytes 9.5 % (20.5-51.1); % Monocytes 9.2 % (1.7-9.3); % Neutrophils 79.6 % (42.2-75.2); Absolute Eosinophils 0.1 10^3/uL (0-0.7); Absolute Lymphocytes 0.6 10^3/uL (1.2-3.4); Absolute Monocytes 0.6 10^3/uL (0.1-0.6); Absolute Neutrophils 5.3 10^3/uL (1.4-6.5); Hematocrit 29.5 % (37.0-47.0); Hemoglobin 10.2 g/dL (12.0-16.0); Mean Corp Hgb Conc. 34.6 g/dL (33.0-37.0); Mean Corpuscular Hgb 31.7 pg (27.0-31.0); Mean Corpuscular Volume 91.6 fL (81.0-99.0); Mean Platelet Volume 9.6 fL (7.4-10.4); Nucleated Red Blood Cells % 0 %; Platelet Count 182 10^3/uL (130-400); Red Blood Cell Count 3.22 10^6/uL (4.20-5.40); Red Cell Dist. Width 15.7 % (11.5-14.5); White Blood Cell Count 6.6 10^3/uL (4.8-10.8)
[2023-09-28 08:52] LABS: ALT (SGPT) 24 U/L (0-35); AST (SGOT) 36 U/L (14-36); Albumin 3.6 g/dl (3.5-5.0); Alkaline Phosphatase 69 U/L (38-126); Blood Urea Nitrogen 74 mg/dl (7-17); Calcium 8.9 mg/dl (8.4-10.2); Carbon Dioxide 21 mmol/L (22-30); Chloride 96 mmol/L (98-107); Glucose 118 mg/dl (70-99); NT-proBNP 7650 pg/ml; Potassium 4.2 mmol/L (3.5-5.1); Sodium 126 mmol/L (135-145); Total Bilirubin 0.8 mg/dl (0.2-1.3); Total Protein 7.1 g/dl (6.3-8.2); eGFR 20.57
--- NOTE | 2023-09-28 08:59 | CM ---
Addendum entered by Nakita Mcnamara RN 09/28/23 11:57:
CM spoke with Shantel at [facility] and she confirmed that patient is Medicare Prime and does not need an authorization for placement.
Addendum entered by Nakita Mcnamara RN 09/28/23 10:31:
Patient was known to [facility] and was currently on service.
Addendum entered by Nakita Mcnamara RN 09/28/23 10:28:
CM confirmed that patient does have a SNF benefit. CM was advised by provider services that patient will need SNF authorization through [employer]
Fax Preauth Request:
[phone]
CM met with patient and daughter. Patient lives in a first floor fdc community with her . Daughter provides assistance as patient's suffers from dementia. Patient and daughter are agreeable to placement.
THey would prefer [facility] due to location, but would be willing to consider [facility]. CM sent referrals via [facility].
Original Note:
CM reviewed medical records. CM will confirm that patient's [facility] insurance has a SNF benefit.
[2023-09-28] MEDS: MAXIPIME 1000 MG IV (10:19)
[2023-09-28] MEDS: DEMADEX 20 MG PO (10:19)
[2023-09-28] MEDS: VANCOCIN 300 MG IV (10:40)
[2023-09-28] MEDS: VANCOCIN 300 ML IV (10:40)
--- NOTE | 2023-09-28 12:39 | CM ---
CM met with patient and daughters in room. [facility] is able to accept pending bed availability when she's ready for discharge.
Daughter expressed that she has concerns regarding care for her father. Patient's daughters do not work and are able to assist with care. CM provided list for private pay agencies should they need assistance. Also provided daughters with contact
information for [employer].
[facility].
--- NOTE | 2023-09-28 13:24 | ED TECH ---
Pt family member Dr. Zepeda who is pts daughter in law requested to speak with the Doctor taking care of pt. Phone number for Mrs. Zepeda is [phone].
[2023-09-28] MEDS: CARDIZEM CD 240 MG PO (17:01)
[2023-09-28] MEDS: LASIX 40 MG IV (17:02)
--- NOTE | 2023-09-28 17:09 | HPS.HSE ---
Addendum entered and electronically signed by Dirk Lin MD 09/28/23 21:22:
Attending Addendum-
I performed a history and physical exam of the patient and discussed his management with the resident. I reviewed the resident's note and agree with the documented findings and plan of care CC/HPI- Seen with 2 daughters present. Patient present
after fall resulting in right clavicular fx. patient has been getting progressively weaker since last admission 09/05-09/09. Was diagnosed with covid by PCP after DC. Patient complains of cough fatigue and right shoulder pain. Full 12 point ROS
reviewed and negative except as documented Exam- vitals reviewed in EMR GEN-NAD frail appearing Heart irreg irreg [id number] heard lungs decreased RLL abd soft LE +2 pitting edema right shoulder in sling pulses intact good dark room attendant strength and sensation
Neuro AAOx3
A/P-
# Acute Hypoxemic Respiratory Failure
- likely from CHF exacerbation and pleural effusion
- wean o2 for sats greater than > 92%
# Pleural Effusion
- cont to monitor closely
- hold off on thoracentesis for now
- diurese with IV lasix
- repeat CXR prn
# AE HFpEF-
- hold torsemide
- start IV lasix
- Daily weights/fluid restrict/strict I and O's
- forrest BMP in am
# Right displaced Clavicular fx
- cont figure of 8 sling
- NWB
- ortho c/s
- pain control
# BATOOL on CKD3b
- likely prerenal from CHF
- cont IV Lasix and fluid restrict
- if worsens check FE Urea
- repeat BMP in am
# Hyponatremia
- hypervolemic
- IV Lasix
- check serum and urine studies
- repeat BMP in am
# Paroxysmal A fib
- cont diltiazem metoprolol and Eliquis
# EtoH abuse
- last drink 08/26
- out of DT window
- no signs of WD
- cont to monitor
# Depression- cont citalopram
# Gout- cont allopurinol
# H/O CVA
# Insomnia- cont zolpidem
# Hypothyroidism- cont levothyroxine
CODE- DNR d/w POA
Dispo eventual DC to SNF then LTC most likely- lives with suffering from alzheimers- daughters in full agreement
DVT-p- eliquis
Time spent coordinating care, review of plan of care with resident, personally reviewed previous records in EMR, med rec, labs, radiology, d/w nursing,daughters - 80 mins
Original Note:
Family Physician
-
Family Physician: Rodrigo Gee
Chief Complaint
-
Right Displaced Fracture of Mid Shaft of Right Clavicle
History of Present Illness
83-year-old female with past medical history of hypertension, CHF, atrial fibrillation on Eliquis, irritable bowel syndrome, hypothyroidism, hepatitis C presented to the emergency room via EMS for evaluation after a fall. Patient was admitted to
[facility] 09/06/2023 until 09/10/2023 for CHF exacerbation and acute hypoxemic respiratory failure. She was discharged home where she is living with her . Patient usually ambulates with a walker but she has been feeling much weaker and
unsteady after her time at the hospital. Patient had a non-febrile illness with fatigue and worsening cough over past week and ended up testing positive for COVID a week ago. Patient states that last night she was walking with her walker to the
commode and while on her way back to bed, she lost her balance while reaching for her nighttime medication. She fell over and she is not sure whether she hit her head, however she did not lose consciousness. There was a visiting nurse on site who,
along with her son in law, was able to get her up. This morning, the patient was having pain and bruising in her right shoulder and EMS were called to bring her to the hospital for assessment.
She complains of pain in the shoulder on the right but denies any other specific complaints. She denies any headache. Denies any neck pain. Denies any back pain. She denies any chest or abdominal pain. She feels her breathing has improved since
discharge from the hospital denies shortness of breath at present. She denies any other complaints. She is on Eliquis.
Medical History
Past Medical History
Past Medical History: Reports Arrhythmia, Cancer (Breast cancer, 9 years ago treated with radiation and lumpectomy), CHF, HTN, Hypercholesterolemia, Hypothyroidism, Valvular Disease and Other (Hepatitis C)
Additional Past Medical History:
CKD stage III
left atrial appendage thrombus
chronic diastolic heart failure with preserved EF
remote history of breast cancer right breast with lumpectomy and radation 9 years ago
moderate TR,
normocytic anemia
former smoker 30 year 1 ppd
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
Social History
Tobacco: Former Smoker (30 year 1 ppd)
Alcohol: Daily (Usually 1 bottle, hasn't drunk any alcohol since last hospital admission)
Personal:
Living: With Family
Employment: Retired
Family History
Family History: Not pertinent
Allergies / Home Medications
Allergies reflects when Allergies were last updated in [facility].
Home Medications with original date entered in [facility]
Allergy/Medication List:
No Allergies
Review of Systems
-
History Source: Patient and Family
A 12 point ROS was completed and negative except as noted: Yes
Constitutional: Denies Fever, Fatigue, Sleep Disturbance, Night Sweats or Chills
Respiratory: Reports Cough
Cardiac: Denies Chest Pain, Diaphoresis or Palpitations
Abdomen/GI: Denies Nausea or Vomiting
Musculoskeletal: Reports See HPI
Physical Exam
Vital Signs
Vital Signs
Temp Pulse Resp BP Pulse Ox
97.7 F 105 20 131/85 93
09/28/23 16:00 09/28/23 16:00 09/28/23 16:00 09/28/23 17:01 09/28/23 16:00
Physical Exam
General: Well Developed, Well Nourished, Comfortable and Conversant
Respiratory: Clear and Non Labored Respirations
Cardiac: S1/S2, Regular Rhythm and Murmur
Musculoskeletal: Edema, Left Lower Extremity, Edema, Right Lower Extremity and Other (Right clavicular tenderness, right extremity tender to move)
Neuro: Awake, Alert, Oriented and AO x 3
Psych: Calm
Laboratory Results
-
09/28/23 08:26
09/28/23 08:26
Laboratory Results
Total Bilirubin 0.8 mg/dl (0.2-1.3) 09/28/23 08:26
AST 36 U/L (14-36) 09/28/23 08:26
ALT 24 U/L (0-35) 09/28/23 08:26
Alkaline Phosphatase 69 U/L (38-126) 09/28/23 08:26
Data Reviewed
-
Diagnostic Radiology: Report Reviewed by me, Discussed with Physician, Discussed with Patient and Discussed with Family
CT Scan: Report Reviewed by me, Discussed with Physician, Discussed with Patient and Discussed with Family
Medical Tests (Nuc Med, Echo, EKG etc): Report Reviewed by me, Discussed with Physician, Discussed with Patient and Discussed with Family
Lab Data: Labs Reviewed by me, Discussed with Physician, Discussed with Patient and Discussed with Family
Impression/Plan
-
IMPRESSION: 83 year old Patient came to the hospital with acute displaced fracture of the mid shaft of the right clavicle, CHF, right lower lobe pleural effusion, BATOOL on CKD3a, hypothyroidism, hyponatremia, gout and a history of atrial fibrillation.
PLAN:
Acute displaced fracture of the midshaft of the right clavicle-
-Rehab shoulder, keep it in sling
-Ortho consulted, input appreciated
-Pain medication prn
AE HFpEF
-Patient initiated on Lasix 40mg IV QID
-Hold med- Torsemide
-I/Os
-Daily weights
-Restrict fluids
-Trend BMP
-Incentive Spirometry Ordered
Right Lower Lobe Pleural Effusion
-Given dose of antibiotics in ER.
-Abx not needed at this time
-monitoring symptoms
BATOOL on CKD3a
-Etiology likely pre-renal, check FeNa
-Creatinine 2.3, baseline 1.1
-Monitor BMP
Paroxysmal Atrial Fibrillation-
-Continue Diltiazem HCL 240 mg PO
-Continue Metoprolol 150mg
-Continue Eliquis 5mg PO BID
-Monitor on Telemetry
Hypothyroidism-
-Continue Levothyroxine 125mcg
Hyponatremia-
-Monitor volume status
-Fluid restriction
-Trend BMP
Gout-
-Continue Allopurinol 100mg
Code Status- DNR
DVT prophylaxis- Eliquis
[2023-09-28 17:34] LABS: COVID-19 Antigen Negative (Negative)
[2023-09-28] MEDS: TYLENOL 500 MG PO (17:35)
--- NOTE | 2023-09-28 17:37 | PTCARENOTE ---
Pt received from the ED into room 434-1. Pulled over from stretcher to bed. Admission questions completed with family at bedside. Answered all of the families' questions. Pt much more comfortable now but had skipped her tylenol dose from this AM,
she requested a dose now. Call maldonado within reach. Bed alarm in place for impulsiveness.
[2023-09-28] MEDS: TOPROL XL 150 MG PO (21:28)
[2023-09-28] MEDS: VITAMIN B1 100 MG PO (21:28)
[2023-09-28] MEDS: ELIQUIS 5 MG PO (21:28)
[2023-09-28] MEDS: TYLENOL 1000 MG PO (21:29)
[2023-09-28] MEDS: AMBIEN 5 MG PO (21:40)
[2023-09-29] VITALS (7 sets, daily range): BP systolic 90–129; BP diastolic 57–84; PULSE 79; O2SAT 90; BMI 26.6
[2023-09-29] MEDS: SYNTHROID 125 MCG PO (05:27)
[2023-09-29 06:12] LABS: Urine Sodium 49 mmol/L (30-90)
[2023-09-29 07:08] LABS: % Basophils 1.1 % (0-2); % Eosinophils 1.9 % (0-6); % Immature Granulocytes 0.4 % (0-0.5); % Lymphocytes 12.5 % (20.5-51.1); % Monocytes 11.8 % (1.7-9.3); % Neutrophils 72.3 % (42.2-75.2); Absolute Basophils 0.1 10^3/uL (0-0.2); Absolute Eosinophils 0.1 10^3/uL (0-0.7); Absolute Lymphocytes 0.7 10^3/uL (1.2-3.4); Absolute Monocytes 0.7 10^3/uL (0.1-0.6); Absolute Neutrophils 4.1 10^3/uL (1.4-6.5); Hematocrit 29.7 % (37.0-47.0); Mean Corp Hgb Conc. 33.7 g/dL (33.0-37.0); Mean Corpuscular Hgb 31.3 pg (27.0-31.0); Mean Corpuscular Volume 93.1 fL (81.0-99.0); Nucleated Red Blood Cells % 0.5 %; Platelet Count 163 10^3/uL (130-400); Red Blood Cell Count 3.19 10^6/uL (4.20-5.40); Red Cell Dist. Width 15.3 % (11.5-14.5); White Blood Cell Count 5.7 10^3/uL (4.8-10.8)
[2023-09-29 07:26] LABS: Blood Urea Nitrogen 63 mg/dl (7-17); Calcium 8.9 mg/dl (8.4-10.2); Carbon Dioxide 23 mmol/L (22-30); Chloride 97 mmol/L (98-107); Estimated Creatinine Clearance 23 ml/min; Glucose 99 mg/dl (70-99); Potassium 3.7 mmol/L (3.5-5.1); Sodium 128 mmol/L (135-145); eGFR 29.57
[2023-09-29 07:56] LABS: TSH 3.34 uIU/ml (0.47-4.68)
[2023-09-29] MEDS: VITAMIN B1 100 MG PO ×2 (08:13→21:05)
[2023-09-29] MEDS: ELIQUIS 5 MG PO ×2 (08:13→21:05)
[2023-09-29] MEDS: FOLVITE 1 MG PO (08:13)
[2023-09-29] MEDS: TYLENOL 500 MG PO (08:14)
[2023-09-29] MEDS: CARDIZEM CD 240 MG PO (08:14)
[2023-09-29] MEDS: LASIX 40 MG IV (08:15)
[2023-09-29] MEDS: ZYLOPRIM 100 MG PO (08:15)
[2023-09-29] MEDS: COLACE 100 MG PO (08:15)
[2023-09-29 08:22] LABS: Osmolality Serum 287 mOsm/kg (275-300)
--- NOTE | 2023-09-29 08:22 | W.PN.HOSP.TC ---
Addendum entered and electronically signed by Dirk Lin MD 09/29/23 19:50:
Attending Addendum-
I performed physical exam of the patient and discussed his management with the resident. I reviewed the resident's note and agree with the documented findings and plan of care S: Patient feels that SOB and cough have improved, Still with significant
right shoulder pain. seen with daughters present. Full 12 point ROS reviewed and negative except as documented Exam- vitals reviewed in EMR GEN-NAD frail appearing Heart irreg irreg no MRG lungs- decreased RLL abd soft LE +1 pitting edema right
shoulder in sling pulses intact good manager package strength and sensation Neuro AAOx3
A/P-
# Acute Hypoxemic Respiratory Failure
- now on RA
- likely from CHF exacerbation and pleural effusion
# Pleural Effusion
- cont to monitor closely
- hold off on thoracentesis for now
- diurese with IV lasix
- repeat CXR prn
# AE HFpEF-
- hold torsemide
- cont IV lasix
- weights decreasing
- Daily weights/fluid restrict/strict I and O's
- check BMP in am
# Right displaced Clavicular fx
- cont figure of 8 sling
- NWB
- ortho c/s appreciated- f/u 4 weeks in office cxr prn
- pain control
- daily NV checks
# BATOOL on CKD3b
- improving
- baseline @ 1.4-1.5
- likely prerenal from CHF
- cont IV Lasix and fluid restrict
- repeat BMP in am
# Hyponatremia
- hypervolemic
- improving
- cont IV Lasix
- check serum and urine studies
- repeat BMP in am
# Paroxysmal A fib
- cont diltiazem metoprolol and Eliquis
# EtoH abuse
- last drink >3 weeks per family
- out of DT window
- no signs of WD
- cont to monitor
# Depression- cont citalopram
# Gout- cont allopurinol
# H/O CVA
# Insomnia- cont zolpidem
# Hypothyroidism- cont levothyroxine
CODE- DNR d/w POA
Dispo eventual DC to SNF then LTC most likely- lives with suffering from Alzheimer- daughters in full agreement
DVT-p- eliquis
Time spent coordinating care, review of plan of care with resident, personally reviewed previous records in EMR, med rec, labs, radiology, d/w nursing,daughters - 57 mins
Original Note:
Today's Communication/Plan
-
Patient will continue to be monitored and will continue current medications.
Assessment / Plan
Assessment / Plan
83 year old female presented to the ER with a recent fall. Patient has a displaced fracture of the mid shaft of the right clavicle, and a history of CHF and CKD3b.
Acute Hypoxemic Respiratory Failure
- likely from CHF exacerbation and right lower lobe pleural effusion
- wean o2 for sats greater than > 92%
Right Lower Lobe Pleural Effusion
- cont to monitor closely
- abx not needed at this time
- hold off on thoracentesis for now
- diurese with 40 mg IV lasix QID
- repeat CXR prn
AE HFpEF-
- torsemide held
- start IV lasix 40mg QID
- Daily weights/fluid restrict/strict I and O's
- BMP in am
Right displaced Clavicular fx
- cont figure of 8 sling
- Non-weight bearing
- ortho c/s- input appreciated
- sling for 4 weeks, will be seen in 4 weeks by ortho as outpatient
- pain control with pain medication as needed
BATOOL on CKD3b
- likely prerenal from CHF
- cont IV Lasix and fluid restrict
- if worsens check FE Urea
- Monitor BMP
- Creatnine down from 2.3 -> 1.7
Hyponatremia
- hypervolemic
- IV Lasix
- check serum and urine studies
- Levels improving 126 -> 128. Continue Monitoring
Paroxysmal A fib
- cont diltiazem metoprolol and Eliquis
EtoH abuse
- last drink 08/26
- out of DT window
- No symptoms of withdrawal
- cont to monitor
Depression- cont citalopram
Gout- cont allopurinol
H/O CVA
Insomnia- cont zolpidem
Hypothyroidism- cont levothyroxine
Anticipated Discharge: 24 - 48 hours
Subjective/Interval History
-
Date of Service: September 29, 2023
Patient has been feeling better. Still has tenderness in right clavicle area but is breathing better and has been able to move around.
Objective Data
-
Labs:
Laboratory Results
09/29/23
06:42
WBC 5.7
Hgb 10.0 L
Hct 29.7 L
Plt Count 163
Sodium 128 L
Potassium 3.7
Chloride 97 L
Carbon Dioxide 23
BUN 63 H
Creatinine 1.7 H
Glucose 99
Calcium 8.9
Vital Signs:
Vital Signs
Temp Pulse Resp BP Pulse Ox
97.2 F 74 16 129/80 94
09/29/23 07:09 09/29/23 07:09 09/29/23 07:09 09/29/23 07:09 09/29/23 07:09
I&O
09/28/23 09/29/23 09/30/23
06:59 06:59 06:59
Intake Total 1080 / 1080
Output Total 600 / 600
Balance 480 / 480
Review of Systems
-
History Source: Patient and Family
Constitutional: Denies Fever, Fatigue, Night Sweats, Chills or Weakness
Respiratory: Denies Cough or Trouble Breathing
Cardiac: Denies Chest Pain, Diaphoresis or Palpitations
Musculoskeletal: Reports Other (Tenderness around right clavicle)
Hematologic / Lymphatic: Reports Bruising (Over right clavicle)
Physical Exam
-
General: Well Developed, Well Nourished, No Apparent Distress and Comfortable
Respiratory: Clear to Auscultation and Non Labored Respirations
Cardiac: Regular Rhythm, S1/S2 and Murmur
Musculoskeletal: Edema, Right Lower Extrem (Mild edema much improved from previous exam), Edema, Left Lower Extrem (Mild edema much improved from previous exam) and Other (Erythema, tenderness and bruising over right clavicle)
Neuro: Awake, Alert, Oriented and AO x 3
Data Reviewed
-
Diagnostic Radiology: Report Reviewed by me, Discussed with Physician, Discussed with Patient and Discussed with Family
CT Scan: Report Reviewed by me, Discussed with Physician, Discussed with Patient and Discussed with Family
Medical Tests (Nuc Med, Echo etc): Report Reviewed by me, Discussed with Physician, Discussed with Patient and Discussed with Family
Labs: Labs Reviewed by me, Discussed with Physician, Discussed with Patient and Discussed with Family
--- NOTE | 2023-09-29 11:17 | CON.ORTHO ---
Consultation
-
Date/Time Consultation Requested: 09/28/2023; time unknown
Date/Time Consultation Performed: 09/29/2023; 1100
Requesting Provider: unknown
Performing Provider: Berkley Hidalgo PA-C / Dr. Myla Chandra
Reason for Consultation: Right clavicle fracture
Consultation - Orthopedics
History
Ms. Jordan is an 83-year-old female with past medical history of hypertension, CHF, atrial fibrillation on Eliquis, irritable bowel syndrome, hypothyroidism, hepatitis C seen today for her right shoulder. She presented to ED yesterday after a fall
at home and x-rays revealed a minimally displaced midshaft clavicle fracture. She endorses quite a bit of pain about her clavicle that is exacerbated with movement of her right arm. She denies pain elsewhere. Her daughter is at the bedside, and
reports frequent falls. Patient was admitted to this hospital 09/06/2023 until 09/10/2023 for CHF exacerbation and acute hypoxemic respiratory failure. She was discharged home. Patient usually ambulates with a walker but she has been feeling much
weaker and unsteady after her time at the hospital.
Allergies / Home Medications
Allergy/AdvReac Type Severity Reaction Status Date / Time
No Known Allergies Allergy Verified 01/25/21 09:31
�Medication �Instructions �Recorded
acetaminophen 500 mg tablet 500 mg PO DAILY Pain 08/10/19
(Tylenol Extra Strength)
fluticasone propionate 50 1 spray intranasal BID allergies 08/10/19
mcg/actuation nasal
spray,suspension
levothyroxine 125 mcg tablet 125 mcg PO DAILY Thyroid 08/10/19
multivitamin-ferrous 1 tab PO DAILY Supplement 08/10/19
fumarate-folic acid 18 mg-400 mcg
tablet (Centrum)
vit C 250 mg-vit E 90 mg-zinc 40 1 ea PO BID Supplement 08/10/19
mg-copper 1 [id number]
capsule (PreserVision AREDS-2)
allopurinol 100 mg tablet 100 mg PO DAILY gout 09/06/23
cholecalciferol (vitamin D3) 25 25 mcg PO DAILY Supplement 09/06/23
mcg (1,000 unit) tablet
citalopram 40 mg tablet 40 mg PO NOON depression/anxiety 09/06/23
diltiazem HCl 240 mg 240 mg PO DAILY blood pressure 09/06/23
capsule,extended release 24 hr,
controlled (DILT-XR)
metoprolol succinate 100 mg 150 mg PO HS Blood Pressure 09/06/23
tablet,extended release 24 hr
acetaminophen 500 mg tablet 1,000 mg PO HS Pain 09/28/23
(Tylenol Extra Strength)
apixaban 5 mg tablet (Eliquis) 5 mg PO BID Blood Clot 09/28/23
Prevention/Tx
docusate sodium 100 mg capsule 100 mg PO DAILY Constipation 09/28/23
(Colace)
folic acid 1 mg tablet 1 mg PO DAILY Supplement 09/28/23
magnesium oxide 500 mg PO DAILY Supplement 09/28/23
thiamine HCl (vitamin B1) 100 mg 100 mg PO BID Supplement 09/28/23
tablet
torsemide 20 mg tablet 20 mg PO BID Fluid 09/28/23
Retention/Swelling
zolpidem 10 mg tablet (Ambien) 5 mg PO HS Sleep 09/28/23
Vital Signs / Lab Results
Temp Pulse Resp BP Pulse Ox
97.2 F 74 16 129/80 94
09/29/23 07:09 09/29/23 07:09 09/29/23 07:09 09/29/23 07:09 09/29/23 07:09
09/29/23 06:42
09/29/23 08:38
CR Right Shoulder 09/28/2023 IMPRESSION:
Displaced fracture of the midshaft of right clavicle.
Partially imaged pleural effusion.
Directed exam of the right upper extremity reveals ecchymosis about the clavicle. Tenderness to palpation over the midshaft clavicle. ROM deferred secondary to known fracture. Patient able to wiggle fingers. Sensation intact to light touch.
Capillary refill <2 seconds.
Assessment / Plan
Midshaft right clavicle fracture
--Unfortunately, April sustained a right clavicle fracture in her fall. Thankfully, this remains in appropriate alignment to continue with non-operative management. I recommend immobilization in her sling at all times. She should maintain
non-weight bearing to her right upper extremity. She will follow up in the office in four weeks for repeat evaluation and new x-rays, sooner if difficulty. Patient would likely benefit from SNF placement, appreciate the assistance of case
management. Pain control per primary. Orthopedics will sign off for now. Please reengage with any additional orthopedic questions or concerns.
--- NOTE | 2023-09-29 11:25 | W.PN.UPDATE ---
Update Note
Progress Note Update
Patient seen and examined with daughter at bedside. Patient has had multiple falls. The most recent had affected her right clavicle. Agree with orthopedic PA note.
Right shoulder: Mild ecchymosis about the midshaft of clavicle. Tenderness to palpation about midshaft of clavicle. No soft tissue tenting. Neurovascularly intact.
X-ray of the chest show a comminuted right clavicle fracture displaced.
Comminuted displaced right clavicle fracture
Plan: Patient is to wear her sling for 4 weeks. She may remove this for showering. Will see her in 4 weeks as an outpatient for x-rays and to discontinue use of the sling. Nonweightbearing right upper extremity. All questions were answered.
[2023-09-29] MEDS: ROXICODONE 5 MG PO (12:07)
[2023-09-29] MEDS: CELEXA 40 MG PO (12:08)
[2023-09-29 17:19] LABS: Osmolality Urine 306 mOsm/kg (300-900)
[2023-09-29] MEDS: TYLENOL 1000 MG PO (21:05)
[2023-09-29] MEDS: TOPROL XL 150 MG PO (21:08)
[2023-09-29] MEDS: AMBIEN 5 MG PO (23:26)
[2023-09-30] VITALS (7 sets, daily range): BP systolic 104–131; BP diastolic 57–83; PULSE 72; O2SAT 93; BMI 26.7
[2023-09-30] MEDS: SYNTHROID 125 MCG PO (06:30)
--- NOTE | 2023-09-30 07:55 | W.PN.HOSP.TC ---
Addendum entered and electronically signed by Dirk Lin MD 09/30/23 21:02:
Attending Addendum-
I performed physical exam of the patient and discussed his management with the resident. I reviewed the resident's note and agree with the documented findings and plan of care S: SOB and cough have improved, increased energy levels right shoulder
pain better controlled. seen with daughter present. Full 12 point ROS reviewed and negative except as documented Exam- vitals reviewed in EMR GEN-NAD frail appearing Heart irreg irreg no MRG lungs- decreased RLL abd soft LE +1 pitting edema right
shoulder in sling pulses intact good fundraising manager strength and sensation Neuro AAOx3
A/P-
# Acute Hypoxemic Respiratory Failure
- resolved
- now on RA
- likely from CHF exacerbation and pleural effusion
# Pleural Effusion
- cont to monitor closely
- hold off on thoracentesis for now
- repeat CXR prn
- tap if becomes hypoxic
# AE HFpEF-
- hold torsemide for now
- hold IV lasix
- weights stable
- Daily weights/fluid restrict/strict I and O's
- check BMP in am
# Right displaced Clavicular fx
- cont figure of 8 sling
- NWB
- ortho c/s appreciated- f/u 4 weeks in office cxr prn
- pain control
- daily NV checks
- PT OT - >SNF
# BATOOL on CKD3b
- worsening
- baseline @ 1.4-1.5
- likely prerenal from CHF
- hold IV Lasix and cont fluid restrict
- check FE UREA
- repeat BMP in am
# Hyponatremia
- hypervolemic
- hold IV Lasix
- check serum and urine studies
- repeat BMP in am
# Paroxysmal A fib
- adjust dosing diltiazem
- cont metoprolol and Eliquis
# EtoH abuse
- last drink >3 weeks per family
- out of DT window
- no signs of WD
- cont to monitor
# Depression- cont citalopram
# Gout- cont allopurinol
# H/O CVA
# Insomnia- cont zolpidem
# Hypothyroidism- cont levothyroxine
CODE- DNR d/w POA
Dispo eventual DC to SNF then LTC most likely- lives with suffering from Alzheimers- daughters in full agreement - possibly in am
DVT-p- eliquis
Time spent coordinating care, review of plan of care with resident, personally reviewed previous records in EMR, med rec, labs, radiology, d/w nursing,daughter - 55 mins
Original Note:
Today's Communication/Plan
-
Patient will be given Diltiazem 125 mg at night. Lasix to be held tomorrow
Assessment / Plan
Assessment / Plan
83 year old female presented to the ER with a recent fall. Patient has a displaced fracture of the mid shaft of the right clavicle, and a history of CHF and CKD3b.
Acute Hypoxemic Respiratory Failure
- likely from CHF exacerbation and right lower lobe pleural effusion
- weaned off O2, now on RA
Right Lower Lobe Pleural Effusion
- cont to monitor closely
- abx not needed at this time
- hold off on thoracentesis for now
- diurese with IV Lasix QID
- repeat CXR prn
AE HFpEF-
- torsemide held
- lasix held for tomorrow
- Daily weights/fluid restrict/strict I and O's
- BMP in am
- Diltiazem 240mg XR held this morning, Continue Diltiazem Sr 120mg at night
Right displaced Clavicular fx
- cont figure of 8 sling
- Non-weight bearing
- ortho c/s- input appreciated
- sling for 4 weeks, will be seen in 4 weeks by ortho as outpatient
- pain control with pain medication as needed
BATOOL on CKD3b
- likely prerenal from CHF
- cont IV Lasix and fluid restrict
- if worsens check FE Urea
- Monitor BMP
- Monitor Creatinine and BUN trend
Hyponatremia
- hypervolemic
- IV Lasix held
- check serum and urine studies
- Levels improving stable. Continue Monitoring
Paroxysmal A fib
- cont diltiazem metoprolol and Eliquis
EtoH abuse
- last drink 08/26
- out of DT window
- No symptoms of withdrawal
- cont to monitor
Depression- cont citalopram
Gout- cont allopurinol
H/O CVA
Insomnia- cont zolpidem
Hypothyroidism- cont levothyroxine
CODE- DNR d/w POA
Dispo eventual DC to SNF then LTC most likely- lives with suffering from Alzheimer- daughters in full agreement
DVT-p- eliquis
Anticipated Discharge: Within 24 hours
Subjective/Interval History
-
Date of Service: September 30, 2023
Patient has been feeling better, just feeling a little bit weak overnight. States she was drowzy after being given the oxycodone.
Objective Data
-
Labs:
Laboratory Results
09/30/23
07:21
Sodium Pending
Potassium Pending
Chloride Pending
Carbon Dioxide Pending
BUN Pending
Creatinine Pending
Glucose Pending
Calcium Pending
Vital Signs:
Vital Signs
Temp Pulse Resp BP Pulse Ox
98.1 F 80 16 107/63 94
09/30/23 07:41 09/30/23 07:41 09/30/23 07:41 09/30/23 07:41 09/30/23 07:41
I&O
08/05/1909/30/23 10/01/23
06:59 06:59 06:59
Intake Total 1080 / 1080 1140 / 1140
Output Total 600 / 600 240 / 240
Balance 480 / 480 900 / 900
Review of Systems
-
History Source: Patient
Constitutional: Reports Weakness; Denies Fever, Fatigue or Chills
Respiratory: Denies Cough
Cardiac: Denies Chest Pain, Diaphoresis or Palpitations
Musculoskeletal: Reports Joint Pain
Physical Exam
-
General: Well Developed, Well Nourished and Comfortable
Respiratory: Clear to Auscultation and Non Labored Respirations
Cardiac: Regular Rhythm, S1/S2 and Murmur
Musculoskeletal: Other (Bruising and tenderness around right clavicle)
Skin: Warm and Dry
Neuro: Awake, Alert, Oriented, AO x 3 and No Motor Deficits
Data Reviewed
-
Diagnostic Radiology: Report Reviewed by me, Discussed with Physician and Discussed with Patient
Medical Tests (Nuc Med, Echo etc): Report Reviewed by me, Discussed with Physician and Discussed with Patient
Labs: Labs Reviewed by me, Discussed with Physician and Discussed with Patient
[2023-09-30] MEDS: LASIX 40 MG IV (08:20)
[2023-09-30] MEDS: VITAMIN B1 100 MG PO ×2 (08:22→19:58)
[2023-09-30] MEDS: TYLENOL 500 MG PO ×2 (08:22→12:55)
[2023-09-30] MEDS: COLACE 100 MG PO (08:23)
[2023-09-30] MEDS: FOLVITE 1 MG PO (08:23)
[2023-09-30] MEDS: ZYLOPRIM 100 MG PO (08:23)
[2023-09-30] MEDS: ELIQUIS 5 MG PO ×2 (08:24→19:59)
[2023-09-30] MEDS: CARDIZEM CD PO (09:03)
[2023-09-30 09:24] LABS: Blood Urea Nitrogen 67 mg/dl (7-17); Calcium 8.6 mg/dl (8.4-10.2); Carbon Dioxide 23 mmol/L (22-30); Chloride 94 mmol/L (98-107); Estimated Creatinine Clearance 18 ml/min; Glucose 90 mg/dl (70-99); Sodium 127 mmol/L (135-145)
[2023-09-30] MEDS: CELEXA 40 MG PO (12:40)
[2023-09-30] MEDS: TYLENOL 1000 MG PO (19:58)
[2023-09-30] MEDS: TOPROL XL 150 MG PO (19:58)
[2023-09-30] MEDS: CARDIZEM SR 120 MG PO (19:59)
[2023-09-30] MEDS: AMBIEN 5 MG PO (21:04)
[2023-10-01] VITALS (8 sets, daily range): BP systolic 101–127; BP diastolic 55–81; PULSE 65–73; BMI 26.5; BMI 26.7
[2023-10-01] MEDS: SYNTHROID 125 MCG PO (05:56)
--- NOTE | 2023-10-01 07:59 | W.PN.HOSP.TC ---
Today's Communication/Plan
-
Patient continues to be monitored for any changes in blood pressure. Will be discharged tomorrow if stable.
Assessment / Plan
Assessment / Plan
83 year old female presented to the ER with a recent fall. Patient has a displaced fracture of the mid shaft of the right clavicle, and a history of CHF and CKD3b.
Acute Hypoxemic Respiratory Failure
- likely from CHF exacerbation and right lower lobe pleural effusion
- weaned off O2, now on RA
BATOOL on CKD3b
- likely prerenal from CHF
- Stop IV Lasix and Fluid restrict
- Monitor BMP
- Discussed with Nephro- input appreciated
- Overdiuresis considiered, 3% saline bolus given
- Monitor Creatinine and BUN trend
- Previous CR trend 1.1, now 2.2->1.9
Right Lower Lobe Pleural Effusion
- monitor for worsening symptoms
AE HFpEF-
- torsemide held
- lasix held for tomorrow
- Daily weights/fluid restrict/strict I and O's
- BMP in am
- Continue Diltiazem Sr 120mg BID
Right displaced Clavicular fx
- cont figure of 8 sling
- Non-weight bearing
- ortho c/s- input appreciated
- sling for 4 weeks, will be seen in 4 weeks by ortho as outpatient
- pain control with pain medication as needed
Hyponatremia
- IV Lasix held
- Nephro consulted, input appreciated
- Overdiuresis -> given normal saline
- check serum and urine studies
- BMP in AM
- Continue Monitoring
Paroxysmal A fib
- cont diltiazem metoprolol and Eliquis
EtoH abuse
- last drink 08/26
- out of DT window
- No symptoms of withdrawal
- cont to monitor
Depression- cont citalopram
Gout- cont allopurinol
H/O CVA
Insomnia- cont zolpidem
Hypothyroidism- cont levothyroxine
CODE- DNR d/w POA
Dispo DC to SNF tomorrow if stable, LTC afterwards most likely- lives with suffering from Alzheimer- daughters in full agreement
DVT-p- eliquis
Anticipated Discharge: Within 24 hours
Subjective/Interval History
-
Date of Service: October 01, 2023
Patient has been feeling weaker, says she has a hard time getting up now as well
Objective Data
-
Labs:
Laboratory Results
10/01/23
06:48
Sodium Pending
Potassium Pending
Chloride Pending
Carbon Dioxide Pending
BUN Pending
Creatinine Pending
Glucose Pending
Calcium Pending
Vital Signs:
Vital Signs
Temp Pulse Resp BP Pulse Ox
97.9 F 70 16 110/70 93
10/01/23 07:50 10/01/23 07:50 10/01/23 07:50 10/01/23 07:50 10/01/23 07:50
I&O
09/30/23 10/01/23 10/02/23
06:59 06:59 06:59
Intake Total 1140 / 1140 1090 / 1090
Output Total 240 / 240
Balance 900 / 900 1090 / 1090
Review of Systems
-
History Source: Patient
Constitutional: Denies Fever, Fatigue, Night Sweats or Chills
Respiratory: Denies Cough or Trouble Breathing
Cardiac: Denies Chest Pain or Palpitations
Musculoskeletal: Reports Joint Pain
Neuro: Reports Weakness
Hematologic / Lymphatic: Reports Bruising
Physical Exam
-
General: Well Developed, Well Nourished and Comfortable
Respiratory: Clear to Auscultation and Non Labored Respirations
Cardiac: Regular Rhythm and S1/S2
Musculoskeletal: No Clubbing, No Cyanosis, No Edema and Other (Tender Right Clavicular Area, Bruising Noted)
Skin: Warm and Dry
Neuro: Awake, Alert, Oriented and AO x 3
Psych: Calm
Data Reviewed
-
Labs: Labs Reviewed by me, Discussed with Physician and Discussed with Patient
[2023-10-01 08:02] LABS: Blood Urea Nitrogen 66 mg/dl (7-17); Calcium 8.7 mg/dl (8.4-10.2); Carbon Dioxide 23 mmol/L (22-30); Chloride 94 mmol/L (98-107); Estimated Creatinine Clearance 21 ml/min; Glucose 101 mg/dl (70-99); Sodium 125 mmol/L (135-145); eGFR 25.88
[2023-10-01] MEDS: VITAMIN B1 100 MG PO ×2 (08:21→21:00)
[2023-10-01] MEDS: ZYLOPRIM 100 MG PO (08:21)
[2023-10-01] MEDS: TYLENOL 500 MG PO ×2 (08:21→14:42)
[2023-10-01] MEDS: FOLVITE 1 MG PO (08:21)
[2023-10-01] MEDS: COLACE 100 MG PO (08:21)
[2023-10-01] MEDS: CARDIZEM SR 120 MG PO ×2 (08:21→21:00)
[2023-10-01] MEDS: ELIQUIS 2.5 MG PO ×2 (08:21→21:00)
--- NOTE | 2023-10-01 09:08 | VNURNOTE ---
Chart reviewed. Patient is current with [facility]. Per recent notes, DC plan is for SNF. [facility] remains available if plan changes.
[2023-10-01] MEDS: CELEXA 40 MG PO (12:21)
--- NOTE | 2023-10-01 14:00 | CM ---
marketing and public relations manager reviewed patient's chart and met with patient and spoke with patient's daughter by phone and referrals have been sent to [facility], [facility]. [facility] and [facility]. No beds at [facility].
Plan; Skilled placement.
--- NOTE | 2023-10-01 15:18 | W.CON.NEPH ---
Consultation
-
Date/Time Consultation Requested: 10/01/2023 13:37PM
Date/Time Consultation Performed: 10/01/2023 3:20PM
Requesting Provider: Zion Suh
Performing Provider: Gabriella Manriquez
Reason for Consultation: BATOOL
Medical History
-
Chief Complaint: BATOOL/hyponatremia
History of Present Illness:
Ms. Jordan is an 83YOF with hypertension, CHF on chronic, atrial fibrillation on Eliquis, irritable bowel syndrome, hypothyroidism, hepatitis C presented to the emergency room via EMS for evaluation after a fall. Patient was admitted to this hospital
09/06/2023 until 09/10/2023 for CHF exacerbation and acute hypoxemic respiratory failure. She was discharged home where she is living with her . Patient usually ambulates with a walker but she has been feeling much weaker and unsteady after her
time at the hospital. Patient had a non-febrile illness with fatigue and worsening cough over past week and ended up testing positive for COVID a week ago. Patient states that last night she was walking with her walker to the commode and while on
her way back to bed, she lost her balance while reaching for her nighttime medication. She fell over and she is not sure whether she hit her head, however she did not lose consciousness. She was found to have a fracture of the R clavicle.
We are asked for consultation because her Na has dropped and her kidney function has not improved back to baseline. Reviewing her kidney function, it appears that her Cr was 1.8 on her last discharge (elevated from prior baseline of 1.2-1.4). On
arrival, her Cr was elevated to 2.3, it has continued to fluctuate but most recently is 1.9. Blood pressures are noted to be a lot softer than prior admission. Denies heavy NSAID usage at home. Denies lightheadedness or dizziness.
Past Medical History
Severe pulmonary HTN,
moderate TR
paroxysmal A-fib
Etoh abuse
HTN
hypothyroidism
CKD stage IIIa
Left atrial appendage thrombus
chronic diastolic heart failure with preserved EF
moderate TR,
pulmonary vein isolation 01/25/2021 with ablation
breast cancer right breast with lumpectomy and radiation 9 years ago cari angel
bilat knee replacement
right rotator cuff repair
left wrist fx
Social History
Tobacco: Former Smoker
Alcohol: Daily
Family History
Family History: Not Pertinent
Allergies / Home Medications
Allergy/AdvReac Type Severity Reaction Status Date / Time
No Known Allergies Allergy Verified 01/25/21 09:31
�Medication �Instructions �Recorded �Confirmed �Type
acetaminophen 500 mg tablet 500 mg PO DAILY Pain 08/10/19 09/28/23 History
(Tylenol Extra Strength)
fluticasone propionate 50 1 spray intranasal BID allergies 08/10/19 09/28/23 History
mcg/actuation nasal
spray,suspension
levothyroxine 125 mcg tablet 125 mcg PO DAILY Thyroid 08/10/19 09/28/23 History
multivitamin-ferrous 1 tab PO DAILY Supplement 08/10/19 09/28/23 History
fumarate-folic acid 18 mg-400 mcg
tablet (Centrum)
vit C 250 mg-vit E 90 mg-zinc 40 1 ea PO BID Supplement 08/10/19 09/28/23 History
mg-copper 1 [id number]
capsule (PreserVision AREDS-2)
allopurinol 100 mg tablet 100 mg PO DAILY gout 09/06/23 09/28/23 History
cholecalciferol (vitamin D3) 25 25 mcg PO DAILY Supplement 09/06/23 09/28/23 History
mcg (1,000 unit) tablet
citalopram 40 mg tablet 40 mg PO NOON depression/anxiety 09/06/23 09/28/23 History
diltiazem HCl 240 mg 240 mg PO DAILY blood pressure 09/06/23 09/28/23 History
capsule,extended release 24 hr,
controlled (DILT-XR)
metoprolol succinate 100 mg 150 mg PO HS Blood Pressure 09/06/23 09/28/23 History
tablet,extended release 24 hr
acetaminophen 500 mg tablet 1,000 mg PO HS Pain 09/28/23 09/28/23 History
(Tylenol Extra Strength)
apixaban 5 mg tablet (Eliquis) 5 mg PO BID Blood Clot 09/28/23 09/28/23 History
Prevention/Tx
docusate sodium 100 mg capsule 100 mg PO DAILY Constipation 09/28/23 09/28/23 History
(Colace)
folic acid 1 mg tablet 1 mg PO DAILY Supplement 09/28/23 09/28/23 History
magnesium oxide 500 mg PO DAILY Supplement 09/28/23 09/28/23 History
thiamine HCl (vitamin B1) 100 mg 100 mg PO BID Supplement 09/28/23 09/28/23 History
tablet
torsemide 20 mg tablet 20 mg PO BID Fluid 09/28/23 09/28/23 History
Retention/Swelling
zolpidem 10 mg tablet (Ambien) 5 mg PO HS Sleep 09/28/23 09/28/23 History
Review of Systems
-
History Source: Patient and Family
All other systems: Negative unless noted
Neurological: Weakness
Physical Exam
Vital Signs
Vital Signs
Temp Pulse Resp BP Pulse Ox
98.2 F 56 16 105/55 93
10/01/23 11:10 10/01/23 11:10 10/01/23 11:10 10/01/23 11:10 10/01/23 11:10
Lab Results
WBC 5.7 10^3/uL (4.8-10.8) 09/29/23 06:42
RBC 3.19 10^6/uL (4.20-5.40) L 09/29/23 06:42
Hgb 10.0 g/dL (12.0-16.0) L 09/29/23 06:42
Hct 29.7 % (37.0-47.0) L 09/29/23 06:42
Plt Count 163 10^3/uL (130-400) 09/29/23 06:42
Sodium 125 mmol/L (135-145) L 10/01/23 06:48
Potassium 4.0 mmol/L (3.5-5.1) 10/01/23 06:48
Chloride 94 mmol/L (98-107) L 10/01/23 06:48
Carbon Dioxide 23 mmol/L (22-30) 10/01/23 06:48
BUN 66 mg/dl (7-17) H 10/01/23 06:48
Creatinine 1.9 mg/dL (0.6-1.0) H 10/01/23 06:48
eGFR 25.88 10/01/23 06:48
Glucose 101 mg/dl (70-99) H 10/01/23 06:48
Calcium 8.7 mg/dl (8.4-10.2) 10/01/23 06:48
Qok-J-Jjjicraixuc Pept 7650 pg/ml 09/28/23 08:26
Albumin 3.6 g/dl (3.5-5.0) 09/28/23 08:26
Physical Exam
General: AOx3, No Distress and Nontoxic
HEENT: PERRL, EOMI, Anicteric, Conjunctivae Clear, Ear/Nose Intact, Hearing Normal, Oropharynx Clear/Moist, Dentition Intact, Facial Symmetry, Neck Supple, Trachea Midline, No JVD and No Thyromegaly
Respiratory: Clear
Cardiac: S1/S2
Breast: Deferred by me
Abdomen: Soft, Nontender, Nondistended, Normal Bowel Sounds and No Hepatosplenomegaly
Rectal: Deferred by Provider
Genito-urinary: No Costovertebral Tender
Musculoskeletal: No Clubbing, No Cyanosis, No Edema and Other (lower extremities wrapped)
Skin: Warm, Dry, No Clubbing, No Cyanosis, Normal Turgor and No Bruising
Neuro: Nonfocal/Grossly Intact
Hematologic/Lymphatic: No Cervical Lymphadenopathy
Psych: Mood/afflect pleasant, Insight/judgement good and Appropriate
Data Reviewed
-
Radiology: Report Reviewed by me (No acute radiograph abnormality. Moderate to severe scattered degenerative arthropathy within the hand and wrist.)
Medical Tests (Nuc Med, Echo etc): Image Personally Visualized and interpreted (EKG with no significant change compared to prior)
Labs: Labs Reviewed by me, Discussed with Physician, Discussed with Patient and Discussed with Family
Old Records: Reviewed
Assessment/Plan
-
Assessment
Pleral effusion
ADCHF
clavicular fracture
BATOOL on CKD (bl Cr 1.2-1.4)
Severe TR
Hyponatremia
Paroxysmal atrial fibrillation
Plan
- I believe that there is a component of overdiuresis vs. ATN when looking at her blood pressures and kidney function
- I will hold diuretics at this time
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 she is also noted to be on citalopram, unsure if she would be amenable to us holding. will
discuss with family tomorrow.
- Can re-trial initiation of Jardiance in the outpatient setting
- Continue fluid restriction
- now on RA and saturating well
--- NOTE | 2023-10-01 15:20 | W.PN.UPDATE ---
Update Note
Progress Note Update
I saw and evaluated the patient. I reviewed the resident�s note and agree with findings and plan as documented in the resident�s note.
Recent comfortable in chair. Denies of having any issues overnight.
# Acute Hypoxemic Respiratory Failure
- now on RA
- likely from CHF exacerbation and pleural effusion
# BATOOL On CKDIIIA
- in August cr 1.1-1.2 with GFR in range of 40-50
-Currently diuretics on hold as creatinine elevated
-Discussed with nephrology for further evaluation as no other clear explanation for worsening renal function
-Bladder scan to rule out any urinary retention
# Pleural Effusion
-small and asymptomatic
# Hyponatremia
-Presumed euvolemic/ADH excess with fracture/pain
-Urine sodium 47 and osmolality ~ 300
-Fluid restriction added
-nephro evaluation requested
# Right displaced Clavicular fx
- cont figure of 8 sling
- ortho c/s appreciated- f/u 4 weeks in office cxr prn
- pain control
- daily NV checks
- PT OT - >SNF
# Paroxysmal A fib
- adjust dosing diltiazem
- cont metoprolol and Eliquis
# Alcohol use disorder
- last drink >3 weeks per family
- out of DT window
Depression- cont citalopram
Gout- cont allopurinol
H/O CVA
Insomnia- cont zolpidem
Hypothyroidism- cont levothyroxine
CODE- DNR d/w POA
DVT-p- eliquis
Nephro evaluation
needs snf Rehab placment
[2023-10-01] MEDS: SODIUM CHLORIDE 3% 250 IV (16:26)
[2023-10-01] MEDS: TOPROL XL 150 MG PO (21:28)
[2023-10-01] MEDS: AMBIEN 5 MG PO (21:31)
[2023-10-01] MEDS: TYLENOL 1000 MG PO (21:32)
[2023-10-02] VITALS (7 sets, daily range): BP systolic 92–114; BP diastolic 58–80; BMI 26.7
[2023-10-02] MEDS: SYNTHROID 125 MCG PO (04:13)
--- NOTE | 2023-10-02 07:23 | W.PN.HOSP.TC ---
Addendum entered and electronically signed by Zion Suh MD 10/03/23 08:27:
Correct diagnosis:
Chart review indicating patient was not on o2, patient had low spo2 in 90-03 range without need of o2 support
Remove diagnosis of Acute hypoxic respiratory failure
Addendum entered and electronically signed by Zion Suh MD 10/02/23 16:23:
I saw and evaluated the patient. I reviewed the resident�s note and agree with findings and plan as documented in the resident�s note.
# Acute Hypoxemic Respiratory Failure
- now on RA
- likely from CHF exacerbation and pleural effusion
# BATOOL On CKDIIIA
- in August cr 1.1-1.2 with GFR in range of 40-50
-Currently diuretics on hold as creatinine elevated
-Bladder scan to rule out any urinary retention
-nephrology following and help appreciated
# Pleural Effusion
-small and asymptomatic
# Hyponatremia
-Presumed euvolemic/ADH excess with fracture/pain
-Urine sodium 47 and osmolality ~ 300
-Fluid restriction added
-got 3% NS yesterday and will get one more dose today
-f/u Na level
# Right displaced Clavicular fx
- cont figure of 8 sling
- ortho c/s appreciated- f/u 4 weeks in office cxr prn
- pain control
- daily NV checks
- PT OT - >SNF
# Paroxysmal A fib
- adjust dosing diltiazem
- cont metoprolol and Eliquis
# Alcohol use disorder
- last drink >3 weeks per family
- out of DT window
Depression- cont citalopram
Gout- cont allopurinol
H/O CVA
Insomnia- cont zolpidem
Hypothyroidism- cont levothyroxine
CODE- DNR d/w POA
DVTppx- eliquis
d/c to snf likely tomorrow
Original Note:
Today's Communication/Plan
-
Patient to be discharged tomorrow to SNF for rehab if stable and labs come back showing improvement
Assessment / Plan
Assessment / Plan
83 year old female presented to the ER with a recent fall. Patient has a displaced fracture of the mid shaft of the right clavicle, and a history of CHF and CKD3b.
Acute Hypoxemic Respiratory Failure
- likely from CHF exacerbation and right lower lobe pleural effusion
- weaned off O2, now on RA
BATOOL on CKD3b
- likely prerenal from CHF
- Stop IV Lasix and Fluid restrict
- Monitor BMP
- Discussed with Nephro- input appreciated
- Overdiuresis considered, 3% saline bolus given yesterday which showed improvement
- Continue to monitor Creatinine and BUN trend
- Previous CR trend 1.1, now 1.9->1.6
- Nephro input appreciated, second 3% saline bolus under consideration
- Awaiting Nephro input on diuretics after discharge
Right Lower Lobe Pleural Effusion
- monitor for worsening symptoms
AE HFpEF-
- torsemide held
- lasix held
- resume meds after discharge
- Daily weights/fluid restrict/strict I and O's
- BMP in am
- Continue Diltiazem Sr 120mg BID
- Continue monitoring blood pressure closely for hypotensive episodes
Right displaced Clavicular fx
- cont figure of 8 sling
- Non-weight bearing
- ortho c/s- input appreciated
- sling for 4 weeks, will be seen in 4 weeks by ortho as outpatient
- pain control with pain medication as needed
Hyponatremia
- IV Lasix held
- Nephro consulted, input appreciated
- Overdiuresis -> given 3% saline, another bolus considered
- Awaiting Nephro input on diuretics after discharge
- check serum and urine studies
- BMP in AM
- Continue Monitoring
Paroxysmal A fib
- cont diltiazem metoprolol and Eliquis
EtoH abuse
- last drink 08/26
- out of DT window
- No symptoms of withdrawal
- cont to monitor
Depression- cont citalopram
Gout- cont allopurinol
H/O CVA
Insomnia- cont zolpidem
Hypothyroidism- cont levothyroxine
CODE- DNR d/w POA
Dispo DC to SNF tomorrow if stable. Patient going to [facility]. LT afterwards most likely- lives with suffering from Alzheimer- daughters in full agreement
DVT-p- eliquis
Anticipated Discharge: Within 24 hours
Subjective/Interval History
-
Date of Service: October 02, 2023
Patient says that her night was fine and she was able to sleep with no issue.
Objective Data
-
Labs:
Laboratory Results
10/02/23
06:00
WBC Pending
Hgb Pending
Hct Pending
Plt Count Pending
Sodium Pending
Potassium Pending
Chloride Pending
Carbon Dioxide Pending
BUN Pending
Creatinine Pending
Glucose Pending
Calcium Pending
Vital Signs:
Vital Signs
Temp Pulse Resp BP Pulse Ox
97.5 F 76 18 113/72 93
10/02/23 03:00 10/02/23 03:00 10/02/23 03:00 10/02/23 03:00 10/02/23 03:00
I&O
10/01/23 10/02/23 10/03/23
06:59 06:59 06:59
Intake Total 1090 / 1090 1390 / 1390
Balance 1090 / 1090 1390 / 1390
Review of Systems
-
History Source: Patient
Constitutional: Denies Weight Loss, No Appetite or Fatigue
Respiratory: Denies Cough, Trouble Breathing or Wheezing
Cardiac: Denies Chest Pain, Diaphoresis or Palpitations
Abdomen/GI: Denies Abdominal Pain, Nausea or Vomiting
Musculoskeletal: Reports Joint Pain
Neuro: Reports Weakness; Denies Headache
Physical Exam
-
General: Well Developed, Well Nourished, No Apparent Distress and Comfortable
Respiratory: Clear to Auscultation and Non Labored Respirations
Cardiac: Regular Rhythm, S1/S2 and Murmur
Musculoskeletal: No Clubbing, No Cyanosis, Edema, Right Lower Extrem (very mild edema), Edema, Left Lower Extrem (very mild edema) and Other (Bruising and tenderness right clavicle)
Skin: Warm and Dry
Neuro: Awake, Alert, Oriented and AO x 3
Psych: Calm
Data Reviewed
-
Labs: Labs Reviewed by me, Discussed with Physician, Discussed with Patient and Discussed with Family
[2023-10-02] MEDS: VITAMIN B1 100 MG PO ×2 (08:51→20:13)
[2023-10-02] MEDS: COLACE 100 MG PO (08:51)
[2023-10-02] MEDS: ZYLOPRIM 100 MG PO (08:51)
[2023-10-02] MEDS: CARDIZEM SR 120 MG PO ×2 (08:51→20:13)
[2023-10-02] MEDS: FOLVITE 1 MG PO (08:51)
[2023-10-02] MEDS: ELIQUIS 2.5 MG PO ×2 (08:51→20:13)
[2023-10-02 10:44] LABS: Hematocrit 29.5 % (37.0-47.0); Hemoglobin 9.9 g/dL (12.0-16.0); Mean Corp Hgb Conc. 33.6 g/dL (33.0-37.0); Mean Corpuscular Hgb 31.6 pg (27.0-31.0); Mean Corpuscular Volume 94.2 fL (81.0-99.0); Mean Platelet Volume 10.1 fL (7.4-10.4); Platelet Count 162 10^3/uL (130-400); Red Blood Cell Count 3.13 10^6/uL (4.20-5.40); Red Cell Dist. Width 15.7 % (11.5-14.5); White Blood Cell Count 5.4 10^3/uL (4.8-10.8)
[2023-10-02 11:19] LABS: Blood Urea Nitrogen 64 mg/dl (7-17); Calcium 8.7 mg/dl (8.4-10.2); Carbon Dioxide 22 mmol/L (22-30); Chloride 96 mmol/L (98-107); Estimated Creatinine Clearance 24 ml/min; Glucose 142 mg/dl (70-99); Sodium 127 mmol/L (135-145)
--- NOTE | 2023-10-02 12:51 | CM ---
group program manager reviewed patient's chart and met with patient and patient lives with spouse in a 2 story home with one step to enter, patient is independent with adl's and uses a walker with ambulation, patient was seen by physical therapy and the
recommendation is for home health care, options reviewed with patient and patient has selected [facility], [facility] contacted.
Plan; Home with spouse and [facility]
[2023-10-02] MEDS: CELEXA 40 MG PO (12:57)
--- NOTE | 2023-10-02 12:57 | CM ---
manager android reviewed patient's chart and had several conversations with patient and daughter, Jina today, patient is for skilled placement and family have decided on [facility], per [facility] admissions they will have a bed for patient tomorrow.
Patient's daughter is interested in visiting nurses after rehab and private aides, information on both provided to patient's daughter.
Plan; Skilled placement at [facility] when stable.
[facility]
Report [phone]
--- NOTE | 2023-10-02 13:40 | PN.CDI ---
CDI
- -
CDI:
Physician Documentation Request
Admit Date: 09/28/23 13:58
Dear Doctor Vikash,
Please review the following and provide your response in the progress notes.
Clinical Indicators:
Documentation in the record on __ Acute Hypoxic Respiratory Failure ____ includes the diagnosis of respiratory failure. The patient's respiratory clinical indicators were the following:
Documented in H&P and Progress notes 09/28-10/01, ' Acute Hypoxemic Respiratory Failure likely from CHF exacerbation and right lower lobe pleural effusion...'
I do not see that the t has been on any oxygen has been on roomair,Oxygen sats as low as 90% RA
Recognized standard criteria for respiratory failure includes:
(Source: [employer] [facility] Dec 2012)
ABGs (1 or more)
�PO2 <60 or RA SpO2 <91%
�PcO2 >50 and pH <7.35
�pO2 decrease or pcO2 increase by 10 mmHg from baseline if known Symptoms:
�Tachypnea, SOB, dyspnea
�Pallor or cyanosis
�Anxiety or restlessness
�Use of accessory muscles
�Retractions (grunting in newborns)
�Unable to speak in complete sentences
Supplemental O2 requirement of 40% (5LPM) or more Intubation is not required
Based on the above information and the recognized standard for respiratory failure could you please verify this diagnoses is still accurate and reflective of the patient�s condition to ensure quality of the medical record.
Please clarify in the Progress Notes:
� Acute Hypoxic Respiratory failure is/was present and is a clinical diagnosis based on (please include this additional support in the medical record)
�After study Acute Hypoxic Respiratory failure has been ruled out
�Other
Use of terms such as suspected, likely, concern for, or probable (associated with a specific diagnosis that is being evaluated, monitored, or treated as if it exists) are acceptable and can be coded in the inpatient setting, when documented at the
time of discharge.
Thank you,
Silvia Carvajal RN
CDI Specialist
[employer]
Please use your independent medical judgment in providing your response.
--- NOTE | 2023-10-02 15:47 | W.PN.NEPH.PH ---
Today's Communication / Plan
-
- 3%
Assessment/Plan
-
Assessment
Pleral effusion
ADCHF
clavicular fracture
BATOOL on CKD (bl Cr 1.2-1.4)
Severe TR
Hyponatremia
Paroxysmal atrial fibrillation
Plan
- I believe that there is a component of overdiuresis vs. ATN when looking at her blood pressures and kidney function
- I will hold diuretics at this time
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
- noted to be on escitalopram, will hold if Na stagnates
- Can re-trial initiation of Jardiance in the outpatient setting
- Continue fluid restriction
- now on RA and saturating well
-
-
Date of Service: October 02, 2023
CC / HPI / ROS
-
Chief Complaint:
BATOOL, hyponatremia
History of Present Illness:
likely in the setting of overdiuresis
Cr improving to 1.6
Na improved from 125- --> 127
Review of Systems:
feeling well
Labs
-
Labs:
WBC 5.4 10^3/uL (4.8-10.8) 10/02/23 10:08
RBC 3.13 10^6/uL (4.20-5.40) L 10/02/23 10:08
Hgb 9.9 g/dL (12.0-16.0) L 10/02/23 10:08
Hct 29.5 % (37.0-47.0) L 10/02/23 10:08
Plt Count 162 10^3/uL (130-400) 10/02/23 10:08
Sodium 127 mmol/L (135-145) L 10/02/23 10:08
Potassium 4.0 mmol/L (3.5-5.1) 10/02/23 10:08
Chloride 96 mmol/L (98-107) L 10/02/23 10:08
Carbon Dioxide 22 mmol/L (22-30) 10/02/23 10:08
BUN 64 mg/dl (7-17) H 10/02/23 10:08
Creatinine 1.6 mg/dL (0.6-1.0) H 10/02/23 10:08
eGFR 31.80 10/02/23 10:08
Glucose 142 mg/dl (70-99) H 10/02/23 10:08
Calcium 8.7 mg/dl (8.4-10.2) 10/02/23 10:08
Zan-C-Trsuivcgjtj Pept 7650 pg/ml 09/28/23 08:26
Albumin 3.6 g/dl (3.5-5.0) 09/28/23 08:26
Physical Exam
-
Vital Signs:
Vital Signs
Temp Pulse Resp BP Pulse Ox
97.7 F 65 20 106/58 93
10/02/23 11:53 10/02/23 11:53 10/02/23 11:53 10/02/23 11:53 10/02/23 11:53
Cardiovascular:: Regular rate and rhythm
Respiratory:: Bilateral: Coarse
Lung Excursion:: Normal
Abdomen:: Nontender and Soft
Bowel Sounds:: Normal
Extremity Edema:: None: Bilateral:
Horowitz Catheter: No
[2023-10-02] MEDS: TYLENOL 500 MG PO (16:21)
[2023-10-02] MEDS: TYLENOL 1000 MG PO (21:27)
[2023-10-02] MEDS: TOPROL XL 150 MG PO (21:27)
[2023-10-02] MEDS: AMBIEN 5 MG PO (21:27)
[2023-10-03] MEDS: SYNTHROID 125 MCG PO (05:55)
[2023-10-03] MEDS: SODIUM CHLORIDE 3% 250 IV (05:56)
[2023-10-03 06:00] VITALS: BMI 26.4
[2023-10-03 07:30] VITALS: BP 113/79
[2023-10-03] MEDS: ELIQUIS 2.5 MG PO ×2 (08:09→20:19)
[2023-10-03] MEDS: COLACE 100 MG PO (08:09)
[2023-10-03] MEDS: CARDIZEM SR 120 MG PO ×2 (08:10→20:19)
[2023-10-03] MEDS: VITAMIN B1 100 MG PO ×2 (08:10→20:19)
[2023-10-03] MEDS: FOLVITE 1 MG PO (08:10)
[2023-10-03] MEDS: ZYLOPRIM 100 MG PO (08:11)
[2023-10-03 10:21] LABS: Hematocrit 30.5 % (37.0-47.0); Hemoglobin 10.1 g/dL (12.0-16.0); Mean Corp Hgb Conc. 33.1 g/dL (33.0-37.0); Mean Corpuscular Hgb 30.5 pg (27.0-31.0); Mean Corpuscular Volume 92.1 fL (81.0-99.0); Mean Platelet Volume 10.4 fL (7.4-10.4); Platelet Count 181 10^3/uL (130-400); Red Blood Cell Count 3.31 10^6/uL (4.20-5.40); Red Cell Dist. Width 15.7 % (11.5-14.5); White Blood Cell Count 4.9 10^3/uL (4.8-10.8)
[2023-10-03 11:04] LABS: Blood Urea Nitrogen 68 mg/dl (7-17); Calcium 8.6 mg/dl (8.4-10.2); Carbon Dioxide 21 mmol/L (22-30); Chloride 98 mmol/L (98-107); Estimated Creatinine Clearance 23 ml/min; Glucose 140 mg/dl (70-99); Sodium 129 mmol/L (135-145); eGFR 29.57
[2023-10-03] MEDS: TYLENOL 500 MG PO (11:25)
[2023-10-03] MEDS: CELEXA 40 MG PO (11:38)
--- NOTE | 2023-10-03 12:27 | CM ---
facility manager histology reviewed patient's chart and recommendation is still for skilled placement patient has been accepted at [facility]. Per previous case checker notes patient's primary insurance is Medicare not [employer].
Plan; Skilled placement at [facility]
Report [phone]
--- NOTE | 2023-10-03 14:16 | W.PN.NEPH.PH ---
Today's Communication / Plan
-
Maintain fluid restriction
Add back torsemide 20 mg twice a day
Follow-up BMP in a.m.
Assessment/Plan
-
Assessment
Pleral effusion
ADCHF
clavicular fracture
BATOOL on CKD (bl Cr 1.2-1.4)
Severe TR
Hyponatremia
Paroxysmal atrial fibrillation
Plan
- Hyponatremia and creatinine proved following second 3% saline administration
-Patient needs to be placed back on torsemide 20mg BID due to rising weights and volume overloaded on exam
-I will check random bladder scan to ensure there is not any urinary retention
I would not discharge patient today as I am unsure the status of her hyponatremia at this time
We may need to titrate back her citalopram administration due to SIADH
- Can re-trial initiation of Jardiance in the outpatient setting
- Continue fluid restriction
- now on RA and saturating well
-Follow-up BMP
-
-
Date of Service: October 03, 2023
CC / HPI / ROS
-
Chief Complaint:
BATOOL, hyponatremia
History of Present Illness:
likely in the setting of overdiuresis
Cr unchanged 1.7
Na improved from 125- --> 129
Review of Systems:
feeling well
Urine output not
Labs
-
Labs:
WBC 4.9 10^3/uL (4.8-10.8) 10/03/23 09:40
RBC 3.31 10^6/uL (4.20-5.40) L 10/03/23 09:40
Hgb 10.1 g/dL (12.0-16.0) L 10/03/23 09:40
Hct 30.5 % (37.0-47.0) L 10/03/23 09:40
Plt Count 181 10^3/uL (130-400) 10/03/23 09:40
Sodium 129 mmol/L (135-145) L 10/03/23 09:40
Potassium 4.0 mmol/L (3.5-5.1) 10/03/23 09:40
Chloride 98 mmol/L (98-107) 10/03/23 09:40
Carbon Dioxide 21 mmol/L (22-30) L 10/03/23 09:40
BUN 68 mg/dl (7-17) H 10/03/23 09:40
Creatinine 1.7 mg/dL (0.6-1.0) H 10/03/23 09:40
eGFR 29.57 10/03/23 09:40
Glucose 140 mg/dl (70-99) H 10/03/23 09:40
Calcium 8.6 mg/dl (8.4-10.2) 10/03/23 09:40
Fgc-Y-Hyxcqlgcrgo Pept 7650 pg/ml 09/28/23 08:26
Albumin 3.6 g/dl (3.5-5.0) 09/28/23 08:26
Physical Exam
-
Vital Signs:
Vital Signs
Temp Pulse Resp BP Pulse Ox
97.7 F 73 18 113/79 94
10/03/23 07:30 10/03/23 07:30 10/03/23 07:30 10/03/23 07:30 10/03/23 07:30
Cardiovascular:: Regular rate and rhythm
Respiratory:: Bilateral: Coarse
Lung Excursion:: Normal
Abdomen:: Nontender and Soft
Bowel Sounds:: Normal
Extremity Edema:: +1: Bilateral:
Horowitz Catheter: No
--- NOTE | 2023-10-03 14:29 | W.PN.HOSP.TC ---
Addendum entered and electronically signed by Zion Suh MD 10/03/23 17:09:
I saw and evaluated the patient. I reviewed the resident�s note and agree with findings and plan as documented in the resident�s note.
# BATOOL On CKDIIIA
- in August cr 1.1-1.2 with GFR in range of 40-50
-Currently diuretics on hold as creatinine elevated
-Bladder scan to rule out any urinary retention
-Cr improving this admit although not normalized.
# Pleural Effusion
-small and asymptomatic
# Hyponatremia
-Presumed euvolemic/ADH excess with fracture/pain
-Urine sodium 47 and osmolality ~ 300
-Fluid restriction added
-got 3% NS x2
-decreasing citalopram dose - will need to be weaned off to non SSRI anti-depressant with ongoing hyponatremia
-f/u Na of 129
# Right displaced Clavicular fx
- cont figure of 8 sling
- ortho c/s appreciated- f/u 4 weeks in office cxr prn
- pain control
- daily NV checks
- PT OT - >SNF
# Paroxysmal A fib
- adjust dosing diltiazem
- cont metoprolol and Eliquis
# Alcohol use disorder
- last drink >3 weeks per family
- out of DT window
Depression
Gout- cont allopurinol
H/O CVA
Insomnia- cont zolpidem
Hypothyroidism- cont levothyroxine
CODE- DNR d/w POA
DVTppx- Eliquis
Original Note:
Today's Communication/Plan
-
Patient to continue to be monitored and see if her renal functions improve.
Assessment / Plan
Assessment / Plan
83 year old female presented to the ER with a recent fall. Patient has a displaced fracture of the mid shaft of the right clavicle, and a history of CHF and CKD3b.
Acute Hypoxemic Respiratory Failure
- Resolved
- No hypoxic events since admission
- weaned off O2, now on RA
BATOOL on CKD3a
- likely prerenal from CHF
- Stop IV Lasix and Fluid restrict
- Monitor BMP
- Discussed with Nephro- input appreciated
- Second 3% saline bolus given yesterday which showed improvement
- Previous CR trend 1.1, now 1.6->1.7
- Nephro input appreciated, second 3% saline bolus given
- Awaiting Nephro input on diuretics after discharge
Right Lower Lobe Pleural Effusion
- monitor for worsening symptoms, asymptomatic as of now
AE HFpEF-
- torsemide held
- lasix held
- potentially resume diuretics after discharge if directed by nephro
- Daily weights/fluid restrict/strict I and O's
- Continue Diltiazem Sr 120mg BID
- Change to 240mg XR once a day upon discharge
- Continue monitoring blood pressure closely for hypotensive episodes
Right displaced Clavicular fx
- cont figure of 8 sling
- Non-weight bearing
- ortho c/s- input appreciated
- sling for 4 weeks, will be seen in 4 weeks by ortho as outpatient
- pain control with pain medication as needed
- Rehab at [facility] planned
Hyponatremia
- IV Lasix held
- Nephro consulted, input appreciated
- Overdiuresis -> given 2 doses 3% saline
- Awaiting Nephro input on diuretics after discharge
- check serum and urine studies
- Resolving, Na levels 127 -> 129 now
Paroxysmal A fib
- cont diltiazem metoprolol and Eliquis
EtoH abuse
- last drink 08/26
- out of DT window
- No symptoms of withdrawal
- cont to monitor
Depression- cont citalopram
Gout- cont allopurinol
H/O CVA
Insomnia- cont zolpidem
Hypothyroidism- cont levothyroxine
CODE- DNR d/w POA
Dispo DC to SNF today if stable. [facility]- lives with suffering from Alzheimer- daughters in full agreement
DVT-p- eliquis
Anticipated Discharge: Within 24 hours
Subjective/Interval History
-
Date of Service: October 03, 2023
Patient states that she has been feeling better this morning. Has much more energy but still gets short of breath upon exertion. She has also noticed the swelling in both her legs is coming back.
Objective Data
-
Labs:
Laboratory Results
10/03/23
09:40
WBC 4.9
Hgb 10.1 L
Hct 30.5 L
Plt Count 181
Sodium 129 L
Potassium 4.0
Chloride 98
Carbon Dioxide 21 L
BUN 68 H
Creatinine 1.7 H
Glucose 140 H
Calcium 8.6
Vital Signs:
Vital Signs
Temp Pulse Resp BP Pulse Ox
97.7 F 73 18 113/79 94
10/03/23 07:30 10/03/23 07:30 10/03/23 07:30 10/03/23 07:30 10/03/23 07:30
I&O
10/02/23 10/03/23 10/04/23
06:59 06:59 06:59
Intake Total 1390 / 1390 720 / 720
Output Total 225 / 225
Balance 1390 / 1390 495 / 495
Review of Systems
-
History Source: Patient
Constitutional: Denies No Appetite, Fatigue or Chills
Respiratory: Denies Cough or Trouble Breathing
Cardiac: Denies Chest Pain, Diaphoresis, Palpitations or Syncope
Genitourinary: Denies Dysuria, Frequency or Incontinence
Musculoskeletal: Reports Edema
Neuro: Reports Weakness; Denies Dizzy or Headache
Physical Exam
-
General: Well Developed, Well Nourished and No Apparent Distress
Respiratory: Clear to Auscultation and Non Labored Respirations
Cardiac: Regular Rhythm and S1/S2
Musculoskeletal: Edema, Right Lower Extrem, Edema, Left Lower Extrem and Other (Bruising and tenderness around right clavicle)
Skin: Warm and Dry
Neuro: Awake, Alert, Oriented and AO x 3
Psych: Calm
Data Reviewed
-
Labs: Labs Reviewed by me, Discussed with Physician and Discussed with Patient
[2023-10-03 14:30] VITALS: BP 115/72
[2023-10-03] MEDS: DEMADEX 20 MG PO (15:43)
[2023-10-03 20:21] VITALS: BP 117/67
[2023-10-03] MEDS: TOPROL XL 150 MG PO (21:48)
[2023-10-03] MEDS: TYLENOL 1000 MG PO (21:48)
[2023-10-03] MEDS: AMBIEN 5 MG PO (21:48)
[2023-10-03 23:01] VITALS: BP 118/70; BP 118/71; BP 120/80; PULSE 68; PULSE 77; PULSE 82
[2023-10-04 06:00] VITALS: BMI 26.6
[2023-10-04] MEDS: SYNTHROID 125 MCG PO (06:11)
[2023-10-04 07:30] VITALS: BP 116/73
[2023-10-04] MEDS: ZYLOPRIM 100 MG PO (08:14)
[2023-10-04] MEDS: CARDIZEM SR 120 MG PO (08:14)
[2023-10-04] MEDS: VITAMIN B1 100 MG PO (08:14)
[2023-10-04] MEDS: DEMADEX 20 MG PO (08:14)
[2023-10-04] MEDS: ELIQUIS 2.5 MG PO (08:14)
[2023-10-04] MEDS: FOLVITE 1 MG PO (08:14)
[2023-10-04] MEDS: COLACE 100 MG PO (08:14)
[2023-10-04] MEDS: TYLENOL 500 MG PO (08:22)
[2023-10-04 08:32] LABS: Hematocrit 30.6 % (37.0-47.0); Hemoglobin 10.1 g/dL (12.0-16.0); Mean Corpuscular Hgb 31.1 pg (27.0-31.0); Mean Corpuscular Volume 94.2 fL (81.0-99.0); Mean Platelet Volume 10.1 fL (7.4-10.4); Platelet Count 168 10^3/uL (130-400); Red Blood Cell Count 3.25 10^6/uL (4.20-5.40); Red Cell Dist. Width 15.6 % (11.5-14.5); White Blood Cell Count 5.6 10^3/uL (4.8-10.8)
[2023-10-04 08:59] LABS: Blood Urea Nitrogen 70 mg/dl (7-17); Carbon Dioxide 21 mmol/L (22-30); Estimated Creatinine Clearance 22 ml/min; Potassium 4.2 mmol/L (3.5-5.1); eGFR 27.61
[2023-10-04 09:10] LABS: Calcium 8.9 mg/dl (8.4-10.2); Chloride 99 mmol/L (98-107); Glucose 112 mg/dl (70-99); Sodium 128 mmol/L (135-145)
[2023-10-04 12:00] VITALS: O2SAT 93
--- NOTE | 2023-10-04 12:03 | W.PN.HOSP.TC ---
Addendum entered and electronically signed by Zion Suh MD 10/04/23 13:35:
I saw and evaluated the patient. I reviewed the resident�s note and agree with findings and plan as documented in the resident�s note.
# BATOOL On CKDIIIA
- in August cr 1.1-1.2 with GFR in range of 40-50
-Currently diuretics on hold as creatinine elevated
-Bladder scan to rule out any urinary retention
-Cr improving this admit although not normalized.
-Nephrology recommended for patient to be started back on oral torsemide 20 mg twice daily.
# Pleural Effusion
-small and asymptomatic
# Hyponatremia
-Presumed euvolemic/ADH excess with fracture/pain
-Urine sodium 47 and osmolality ~ 300
-Fluid restriction added
-got 3% NS x2
-decreasing citalopram dose - will need to be weaned off to non SSRI anti-depressant with ongoing hyponatremia
-f/u Na of 128 today
# Right displaced Clavicular fx
- cont figure of 8 sling
- ortho c/s appreciated- f/u 4 weeks in office cxr prn
- pain control
- daily NV checks
- PT OT - >SNF
# Paroxysmal A fib
- adjust dosing diltiazem
- cont metoprolol and Eliquis
# Alcohol use disorder
- last drink >3 weeks per family
- out of DT window
Depression
Gout- cont allopurinol
H/O CVA
Insomnia- cont zolpidem
Hypothyroidism- cont levothyroxine
CODE- DNR d/w POA
DVTppx- Eliquis
[facility] if cleared by nephrology.
Original Note:
Today's Communication/Plan
-
Patient to be discharged on new medication to Rehab facility at [facility].
Assessment / Plan
Assessment / Plan
83 year old female presented to the ER with a recent fall. Patient has a displaced fracture of the mid shaft of the right clavicle, and a history of CHF and CKD3b.
BATOOL on CKD3a
- likely prerenal from CHF
- Stop IV Lasix and Fluid restrict
- Monitor BMP
- Discussed with Nephro- input appreciated
- Previous CR trend 1.1, now 1.6->1.7 --> 1.8
- Bladder scan to rule out any urinary retention
- Cr staying around same level this admit although not normalized.
- Added Torsemide 20mg BID
- Helped with swelling, awaiting Nephro input for discharge medications
Right Lower Lobe Pleural Effusion
- monitor for worsening symptoms, asymptomatic as of now
AE HFpEF-
- potentially resume diuretics after discharge if directed by nephro
- Daily weights/fluid restrict/strict I and O's
- Continue Diltiazem Sr 120mg BID
- Change to 240mg XR once a day upon discharge
- Continue monitoring blood pressure closely for hypotensive episodes
- Torsemide 20mg BID started yesterday, helped resolve symptoms
Right displaced Clavicular fx
- cont figure of 8 sling
- Non-weight bearing
- ortho c/s- input appreciated
- sling for 3 weeks, will be seen in 3 weeks by ortho as outpatient
- pain control with pain medication as needed
- Rehab at [facility] planned
Hyponatremia
- IV Lasix held
- Nephro consulted, input appreciated
- Overdiuresis -> given 2 doses 3% saline
- Awaiting Nephro input on diuretics after discharge
- check serum and urine studies
- Resolving, Na levels 127 -> 129 -> 128 now
- decreasing citalopram dose - will need to be weaned off to non SSRI anti-depressant with ongoing hyponatremia
Paroxysmal A fib
- cont diltiazem metoprolol and Eliquis
EtoH abuse
- last drink 7/1
- out of DT window
- No symptoms of withdrawal
- cont to monitor
Depression- cont citalopram
Gout- cont allopurinol
H/O CVA
Insomnia- cont zolpidem
Hypothyroidism- cont levothyroxine
CODE- DNR d/w POA
Dispo DC to SNF today if stable. Patient going to [employer] afterwards most likely- lives with suffering from Alzheimer- daughters in full agreement
DVT-p- eliquis
Anticipated Discharge: Within 24 hours
Anticipated Discharge: Today
Subjective/Interval History
-
Date of Service: October 04, 2023
Patient says that she has been feeling better and wants to go to the rehab facility today
Objective Data
-
Labs:
Laboratory Results
10/04/23
08:06
WBC 5.6
Hgb 10.1 L
Hct 30.6 L
Plt Count 168
Sodium 128 L
Potassium 4.2
Chloride 99
Carbon Dioxide 21 L
BUN 70 H
Creatinine 1.8 H
Glucose 112 H
Calcium 8.9
Vital Signs:
Vital Signs
Temp Pulse Resp BP Pulse Ox
97.9 F 98 18 116/73 92
10/04/23 07:30 10/04/23 08:14 10/04/23 07:30 10/04/23 08:14 10/04/23 07:30
I&O
10/03/23 10/04/23 10/05/23
06:59 06:59 06:59
Intake Total 720 / 720 960 / 960
Output Total 225 / 225
Balance 495 / 495 960 / 960
Review of Systems
-
History Source: Patient
Constitutional: Reports No Symptoms
EENT: Reports No Symptoms Reported
Respiratory: Reports No Symptoms
Cardiac: Reports No Symptoms
Abdomen/GI: Reports No Symptoms
Genitourinary: Reports No Symptoms
Musculoskeletal: Reports Joint Pain
Neuro: Reports No Symptoms
Physical Exam
-
General: Well Developed, Well Nourished, No Apparent Distress and Comfortable
Respiratory: Clear to Auscultation and Non Labored Respirations
Cardiac: Regular Rhythm and S1/S2
Musculoskeletal: No Clubbing, No Cyanosis, Edema, Right Lower Extrem (mild 2+ edema, less than yesterday), Edema, Left Lower Extrem (mild edema less than yesterday, 2+ ) and Other (Bruising and tenderness over right clavicle)
Neuro: Awake, Alert, Oriented and AO x 3
Psych: Calm
Data Reviewed
-
Labs: Labs Reviewed by me, Discussed with Physician and Discussed with Patient
[2023-10-04] MEDS: CELEXA 30 MG PO (12:24)
--- NOTE | 2023-10-04 13:40 | W.PN.NEPH.PH ---
Today's Communication / Plan
-
for discharge
Assessment/Plan
-
Assessment
Pleral effusion
ADCHF
clavicular fracture
BATOOL on CKD (bl Cr 1.2-1.4)
Severe TR
Hyponatremia
Paroxysmal atrial fibrillation
Plan
- Hyponatremia improved following second 3% saline administration, but there were some signs of volume overload and rising weights
- reinitiated on torsemide 20mg. Na slightly lower at 128 and Cr at 1.8
- patient would like to go to rehab today. this would be alright with me as long as she is able to get labs on Sunday.
- We may need to titrate back her citalopram administration due to SIADH in the future
- Can re-trial initiation of Jardiance in the outpatient setting
- Continue fluid restriction
- now on RA and saturating well
- Follow-up BMP
-
-
Date of Service: October 04, 2023
CC / HPI / ROS
-
Chief Complaint:
BATOOL, hyponatremia
History of Present Illness:
likely in the setting of overdiuresis
Cr unchanged 1.8
Na improved from 125- --> 128
Review of Systems:
feeling well
Urine output not
Labs
-
Labs:
WBC 5.6 10^3/uL (4.8-10.8) 10/04/23 08:06
RBC 3.25 10^6/uL (4.20-5.40) L 10/04/23 08:06
Hgb 10.1 g/dL (12.0-16.0) L 10/04/23 08:06
Hct 30.6 % (37.0-47.0) L 10/04/23 08:06
Plt Count 168 10^3/uL (130-400) 10/04/23 08:06
Sodium 128 mmol/L (135-145) L 10/04/23 08:06
Potassium 4.2 mmol/L (3.5-5.1) 10/04/23 08:06
Chloride 99 mmol/L (98-107) 10/04/23 08:06
Carbon Dioxide 21 mmol/L (22-30) L 10/04/23 08:06
BUN 70 mg/dl (7-17) H 10/04/23 08:06
Creatinine 1.8 mg/dL (0.6-1.0) H 10/04/23 08:06
eGFR 27.61 10/04/23 08:06
Glucose 112 mg/dl (70-99) H 10/04/23 08:06
Calcium 8.9 mg/dl (8.4-10.2) 10/04/23 08:06
Ddq-K-Hgmhyhsxegg Pept 7650 pg/ml 09/28/23 08:26
Albumin 3.6 g/dl (3.5-5.0) 09/28/23 08:26
Physical Exam
-
Vital Signs:
Vital Signs
Temp Pulse Resp BP Pulse Ox
97.9 F 98 18 116/73 92
10/04/23 07:30 10/04/23 08:14 10/04/23 07:30 10/04/23 08:14 10/04/23 07:30
Cardiovascular:: Regular rate and rhythm
Respiratory:: Bilateral: Coarse
Lung Excursion:: Normal
Abdomen:: Nontender and Soft
Bowel Sounds:: Normal
Extremity Edema:: +1: Bilateral:
Horowitz Catheter: No
--- NOTE | 2023-10-04 14:14 | CM ---
Chart reviewed and patient's daughter to pay for w/c van pick pulling machine operator to [facility], 4pm pick pulling machine operator, IMM discussed over phone with patient's daughter and patient.
Plan; [facility] skilled today.
Report [phone]
[2023-10-04 15:01] VITALS: BP 104/61
--- NOTE | 2023-10-04 18:39 | W.DCSUMMARY ---
Addendum entered and electronically signed by Zion Suh MD 10/06/23 13:15:
Read, reviewed, and agree. See same day progress note for additional details. Time spent coordinating care, DC planning, review of DC plan of care with resident, transition of care, review of records in EMR, med rec, consults, notes, d/w
consultants, nursing, family, and CM mins
Original Note:
Documented by User: Cleo Botello MD, Resident 10/04/23 19:04
Discharge Summary
Discharge Data
Date of Admission: 09/28/23
Date of Discharge: 10/04/23
-
Pending Results: No
Hospital Course
Admission Diagnosis: Right displaced clavicular fracture post fall, Acute exacerbation of heart failure with preserved ejection fraction
Conditions Prior to Admission:
Arrhythmia
CHF
Hypertension
Hypercholesterolemia
Hypothyroidism
Valvular disease
Breast cancer
CKD stage IIIa
Hospital Course:
83-year-old female with past medical history of hypertension, CHF, atrial fibrillation on Eliquis, irritable bowel syndrome, hypothyroidism, hepatitis C presented to the emergency room via EMS on 09/27 for evaluation after a fall. Patient stated
that the previous night she was walking with her walker to the commode and while on her way back to bed, she lost her balance while reaching for her night-time medication. She fell over and she was not sure whether she hit her head, however she did
not lose consciousness. There was a visiting nurse on site who, along with her son in law, was able to get her up. This morning, the patient was having pain and bruising in her right shoulder and EMS were called to bring her to the hospital for
assessment. In the ER patient was given a dose of antibiotics as chest x-ray showed some right lower lobe pleural effusion. However antibiotics were not continued as there were no other signs or symptoms of pneumonia. Patient's shoulder was
wrapped in a sling and orthopedics were consulted. Pain medication was given as needed. Patient was admitted to the hospital and initiated on Lasix 40 mg IV QID and her home med of torsemide was held. The patient's daily weights protract fluids
were restricted and her BMP was trended. Patient also had BATOOL on CKD 3a as her creatinine was 2.3 up from a baseline of 1.1. For her paroxysmal atrial fibrillation her medications of diltiazem to 40 mg was continued alongside metoprolol and
Eliquis and patient was placed on telemetry her other home meds were continued as well at this point for hypothyroidism and gout.
Patient was assessed by orthopedics and told to keep the shoulder wrapped in a sling for 4 weeks and to see mechanical engineering specialist in an outpatient setting at that time. Patient's acute hypoxic respiratory failure on admission was resolved and
patient was now on room air. Patient's kidney functions continue to worsen as her creatinine levels keep increasing from 1.4-1.5. Patient also was hyponatremic which was probably due to her being hypervolemic. Lasix was held at this time and her
serum and urine studies were checked. Her diltiazem dose was adjusted as well to 120 mg twice daily as she was dealing with hypotension during the night after her medication.
Patient was seen by concrete boom pump operator the next day who stated that there might be a component of overdiuresis and her condition. The patient was given a 3% saline bolus to see if there is any improvement in her hyponatremia. Patient was continued to be
placed upon fluid restriction.
Next day another 3% bolus of saline was given to her but her kidney function and sodium levels did not improve they just remain consistent. Patient was monitored for another day to see if her condition improved.
Patient was put back on torsemide 20 mg twice a day and continued fluid restrictions. Patient creatinine levels and sodium levels continued to stay consistent and patient was discharged to SNF rehab facility with instructions to follow-up with her
concrete boom pump operator after.
Imaging:
Head CT- 1. No acute intracranial abnormality.
2. Chronic maxillary sinusitis.
3. Acute appearing displaced fracture of the midshaft of the right clavicle.
4. Partially imaged at least moderate size right pleural effusion.
5. 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
6. Additional findings above.
Patient's other conditions were managed with home medications.
Discharge Plan
-
Patient Disposition: Long Term/SNF
Discharge Diagnosis/Procedures: Right Displaced Clavicular Fracture, BATOOL, hyponatremia
Condition: Fair
Diet: 2 Gram Sodium
Activity: As tolerated
Driving Restrictions: As prior to admission
Bathing Restrictions: None
Blood Work: BMP in 1 week
Wound Care: Continue figure of 8 sling for at least 4 weeks. See ortho in 4 weeks as outpatient
Activity Restrictions/Additional Instructions:
Follow up with Betting Agency Manager after discharge.
Instructions: Preventing falls in adults
Referrals:
Zeferino Nava DO [Active] -
Rodrigo Gee MD [Family Provider] - in one week
Additional Discharge Medication Instructions: Discuss slowly stopping Citalopram with Primary care as Citalopram possibly contributing to low blood sodium.
Prescriptions:
New
torsemide 20 mg Tablet
20 mg PO BID@0800,1600 Qty: 60 0RF
citalopram 10 mg Tablet
30 mg PO NOON Qty: 30 0RF
metoprolol succinate 100 mg Tablet Extended Release 24 Hr
150 mg PO HS Qty: 30 0RF
Eliquis 2.5 mg Tablet
2.5 mg PO BID Qty: 60 0RF
diltiazem HCl 120 mg Capsule,Extended Release 12 Hr
120 mg PO BID Qty: 60 0RF
zolpidem 5 mg tablet
5 mg PO HS PRN (Reason: insomnia) Qty: 3 0RF
Continued
acetaminophen [Tylenol Extra Strength] 500 MG tablet
500 mg PO DAILY
levothyroxine 125 MCG tablet
125 mcg PO DAILY
fluticasone propionate 1 SPRAY spray,suspension
1 spray intranasal BID
Centrum 1 EACH tablet
1 tab PO DAILY
PreserVision AREDS-2 1 EACH capsule
1 ea PO BID
allopurinol 100 mg tablet
100 mg PO DAILY
cholecalciferol (vitamin D3) 25 mcg (1,000 unit) Tablet
25 mcg PO DAILY
acetaminophen [Tylenol Extra Strength] 500 mg Tablet
1,000 mg PO HS
docusate sodium [Colace] 100 mg Capsule
100 mg PO DAILY
thiamine HCl (vitamin B1) 100 mg tablet
100 mg PO BID
magnesium oxide 500 mg magnesium tablet
500 mg PO DAILY
folic acid 1 mg tablet
1 mg PO DAILY
Discontinued
citalopram 40 mg tablet
40 mg PO NOON
diltiazem HCl [DILT-XR] 240 mg capsule,ext.rel 24h degradable
240 mg PO DAILY
metoprolol succinate 100 mg tablet extended release 24 hr
150 mg PO HS
zolpidem [Ambien] 10 mg Tablet
5 mg PO HS
torsemide 20 mg tablet
20 mg PO BID
Eliquis 5 MG tablet
5 mg PO BID
Discharge Orders:
Discharge Patient (As Directed); Ordered 10/04/23
Ordered By: Zion Suh
Discharge Date and Time
Discharge Date/Time: 10/04/23 16:00
Print Language: EGYPTIAN

Documented by User: Zion Suh MD 10/06/23 13:14
Discharge Summary
Discharge Data
Date of Admission: 09/28/23
Date of Discharge: 10/04/23
Discharge Plan
-
Patient Disposition: Long Term/SNF
Discharge Diagnosis/Procedures: Right Displaced Clavicular Fracture, BATOOL, hyponatremia
Condition: Fair
Diet: 2 Gram Sodium
Activity: As tolerated
Driving Restrictions: As prior to admission
Bathing Restrictions: None
Blood Work: BMP in 1 week
Wound Care: Continue figure of 8 sling for at least 4 weeks. See ortho in 4 weeks as outpatient
Activity Restrictions/Additional Instructions:
Follow up with Betting Agency Manager after discharge.
Instructions: Preventing falls in adults
Referrals:
Zeferino Nava DO [Active] -
Rodrigo Gee MD [Family Provider] - in one week
Additional Discharge Medication Instructions: Discuss slowly stopping Citalopram with Primary care as Citalopram possibly contributing to low blood sodium.
Prescriptions:
New
torsemide 20 mg Tablet
20 mg PO BID@0800,1600 Qty: 60 0RF
citalopram 10 mg Tablet
30 mg PO NOON Qty: 30 0RF
metoprolol succinate 100 mg Tablet Extended Release 24 Hr
150 mg PO HS Qty: 30 0RF
Eliquis 2.5 mg Tablet
2.5 mg PO BID Qty: 60 0RF
diltiazem HCl 120 mg Capsule,Extended Release 12 Hr
120 mg PO BID Qty: 60 0RF
zolpidem 5 mg tablet
5 mg PO HS PRN (Reason: insomnia) Qty: 3 0RF
Continued
acetaminophen [Tylenol Extra Strength] 500 MG tablet
500 mg PO DAILY
levothyroxine 125 MCG tablet
125 mcg PO DAILY
fluticasone propionate 1 SPRAY spray,suspension
1 spray intranasal BID
Centrum 1 EACH tablet
1 tab PO DAILY
PreserVision AREDS-2 1 EACH capsule
1 ea PO BID
allopurinol 100 mg tablet
100 mg PO DAILY
cholecalciferol (vitamin D3) 25 mcg (1,000 unit) Tablet
25 mcg PO DAILY
acetaminophen [Tylenol Extra Strength] 500 mg Tablet
1,000 mg PO HS
docusate sodium [Colace] 100 mg Capsule
100 mg PO DAILY
thiamine HCl (vitamin B1) 100 mg tablet
100 mg PO BID
magnesium oxide 500 mg magnesium tablet
500 mg PO DAILY
folic acid 1 mg tablet
1 mg PO DAILY
Discontinued
citalopram 40 mg tablet
40 mg PO NOON
diltiazem HCl [DILT-XR] 240 mg capsule,ext.rel 24h degradable
240 mg PO DAILY
metoprolol succinate 100 mg tablet extended release 24 hr
150 mg PO HS
zolpidem [Ambien] 10 mg Tablet
5 mg PO HS
torsemide 20 mg tablet
20 mg PO BID
Eliquis 5 MG tablet
5 mg PO BID
Discharge Orders:
Discharge Patient (As Directed); Ordered 10/04/23
Ordered By: Zion Suh
Discharge Date and Time
Discharge Date/Time: 10/04/23 16:00
Print Language: EGYPTIAN
== END 2023-10-04 16:00 | DRG 643 ==
LOC: 4 WEST ACU 13:58
PROVIDERS: Student in an Organized Health Care Education/Training Program; ADMITTING PHYSICIAN Family Medicine; ATTENDING PHYSICIAN Hospitalist; CONSULT PHYSICIAN Orthopaedic Surgery; CONSULT PHYSICIAN Student in an Organized Health Care Education/Training Program; EMERGENCY PHYSICIAN Emergency Medicine; FAMILY PHYSICIAN Family Medicine
DX: E22.2 Syndrome of inappropriate secretion of antidiuretic hormone (principal); I50.33 Acute on chronic diastolic (congestive) heart failure; I13.0 Hypertensive heart and chronic kidney disease with heart failure and stage 1 through stage 4 chronic kidney disease, or unspecified chronic kidney disease; N17.9 Acute kidney failure, unspecified; J91.8 Pleural effusion in other conditions classified elsewhere; S42.021A Displaced fracture of shaft of right clavicle, initial encounter for closed fracture; N18.31 Chronic kidney disease, stage 3a; Z66 Do not resuscitate; I25.10 Atherosclerotic heart disease of native coronary artery without angina pectoris; E78.00 Pure hypercholesterolemia, unspecified; M10.9 Gout, unspecified; G47.00 Insomnia, unspecified; D63.1 Anemia in chronic kidney disease; I08.3 Combined rheumatic disorders of mitral, aortic and tricuspid valves; F10.10 Alcohol abuse, uncomplicated; I48.0 Paroxysmal atrial fibrillation; E03.9 Hypothyroidism, unspecified; I27.20 Pulmonary hypertension, unspecified; K58.9 Irritable bowel syndrome, unspecified; K74.60 Unspecified cirrhosis of liver; F32.A Depression, unspecified; R29.6 Repeated falls; Z96.653 Presence of artificial knee joint, bilateral; Z86.16 Personal history of COVID-19; Z79.899 Other long term (current) drug therapy; Z79.890 Hormone replacement therapy; Z79.01 Long term (current) use of anticoagulants; Z11.52 Encounter for screening for COVID-19; Z87.891 Personal history of nicotine dependence; Z86.73 Personal history of transient ischemic attack (TIA), and cerebral infarction without residual deficits; Z85.3 Personal history of malignant neoplasm of breast; Z90.11 Acquired absence of right breast and nipple; Y92.003 Bedroom of unspecified non-institutional (private) residence as the place of occurrence of the external cause; W18.39XA Other fall on same level, initial encounter
CPT/HCPCS: 70450; 71046; 72125; 73030; 73130; 80048; 80053; 82570; 83880; 83930; 83935; 84300; 84443; 85025; 85027; 87811; 93005; 96374; 96375; 97116; 97163; 97530; 99285

== ENCOUNTER → 2023-10-08 12:57 | Outpatient (REF) | payer MEDICARE, BC, SELFPAY ==
[2023-10-08 16:20] LABS: % Basophils 1.4 % (0-2); % Eosinophils 2.9 % (0-6); % Immature Granulocytes 0.5 % (0-0.5); % Lymphocytes 13.2 % (20.5-51.1); % Monocytes 10.6 % (1.7-9.3); % Neutrophils 71.4 % (42.2-75.2); Absolute Basophils 0.1 10^3/uL (0-0.2); Absolute Eosinophils 0.2 10^3/uL (0-0.7); Absolute Lymphocytes 0.7 10^3/uL (1.2-3.4); Absolute Monocytes 0.6 10^3/uL (0.1-0.6); Hematocrit 30.7 % (37.0-47.0); Hemoglobin 10.1 g/dL (12.0-16.0); Mean Corp Hgb Conc. 32.9 g/dL (33.0-37.0); Mean Corpuscular Hgb 30.8 pg (27.0-31.0); Mean Corpuscular Volume 93.6 fL (81.0-99.0); Mean Platelet Volume 9.7 fL (7.4-10.4); Nucleated Red Blood Cells % 2.3 %; Platelet Count 205 10^3/uL (130-400); Red Blood Cell Count 3.28 10^6/uL (4.20-5.40); Red Cell Dist. Width 16.4 % (11.5-14.5); White Blood Cell Count 5.5 10^3/uL (4.8-10.8)
[2023-10-08 16:28] LABS: Blood Urea Nitrogen 83 mg/dl (7-17); Calcium 8.7 mg/dl (8.4-10.2); Carbon Dioxide 20 mmol/L (22-30); Chloride 94 mmol/L (98-107); Glucose 88 mg/dl (70-99); Potassium 5.2 mmol/L (3.5-5.1); Sodium 124 mmol/L (135-145); eGFR 17.76
== END ==
LOC: OLABP 12:57
PROVIDERS: ATTENDING PHYSICIAN Family Medicine
DX: J90 Pleural effusion, not elsewhere classified (principal); I50.33 Acute on chronic diastolic (congestive) heart failure; N18.31 Chronic kidney disease, stage 3a; E87.1 Hypo-osmolality and hyponatremia; S42.021D Displaced fracture of shaft of right clavicle, subsequent encounter for fracture with routine healing; I48.0 Paroxysmal atrial fibrillation; B18.2 Chronic viral hepatitis C; M10.9 Gout, unspecified; G47.00 Insomnia, unspecified; E03.9 Hypothyroidism, unspecified; F32.9 Major depressive disorder, single episode, unspecified; Z91.81 History of falling; Z86.73 Personal history of transient ischemic attack (TIA), and cerebral infarction without residual deficits
CPT/HCPCS: 36415; 80048; 85025

== ENCOUNTER → 2023-10-09 10:50 | Outpatient (REF) | payer MEDICARE, BC, SELFPAY ==
[2023-10-09 11:50] LABS: Blood Urea Nitrogen 80 mg/dl (7-17); Calcium 8.4 mg/dl (8.4-10.2); Carbon Dioxide 19 mmol/L (22-30); Chloride 93 mmol/L (98-107); Glucose 94 mg/dl (70-99); Sodium 121 mmol/L (135-145); eGFR 18.61
== END ==
LOC: OLABP 10:50
PROVIDERS: ATTENDING PHYSICIAN Family Medicine
DX: Z86.73 Personal history of transient ischemic attack (TIA), and cerebral infarction without residual deficits (principal); M10.9 Gout, unspecified; B18.2 Chronic viral hepatitis C; I48.0 Paroxysmal atrial fibrillation; E87.1 Hypo-osmolality and hyponatremia; N87.1 Moderate cervical dysplasia; N18.32 Chronic kidney disease, stage 3b; N17.9 Acute kidney failure, unspecified; I50.33 Acute on chronic diastolic (congestive) heart failure; J90 Pleural effusion, not elsewhere classified; S42.021D Displaced fracture of shaft of right clavicle, subsequent encounter for fracture with routine healing
CPT/HCPCS: 36415; 80048

== ENCOUNTER 2023-10-09 17:45 | Inpatient (IN) | payer MEDICARE, BC, SELFPAY ==
[2023-10-09] VITALS (12 sets, daily range): BP systolic 88–118; BP diastolic 66–80; BMI 26.5
[2023-10-09 14:36] LABS: % Basophils 0.7 % (0-2); % Eosinophils 1.3 % (0-6); % Immature Granulocytes 0.7 % (0-0.5); % Lymphocytes 10.4 % (20.5-51.1); % Monocytes 8.8 % (1.7-9.3); % Neutrophils 78.1 % (42.2-75.2); Absolute Eosinophils 0.1 10^3/uL (0-0.7); Absolute Lymphocytes 0.6 10^3/uL (1.2-3.4); Absolute Monocytes 0.5 10^3/uL (0.1-0.6); Absolute Neutrophils 4.7 10^3/uL (1.4-6.5); Hematocrit 33.1 % (37.0-47.0); Hemoglobin 10.8 g/dL (12.0-16.0); Mean Corp Hgb Conc. 32.6 g/dL (33.0-37.0); Mean Corpuscular Hgb 30.1 pg (27.0-31.0); Mean Corpuscular Volume 92.2 fL (81.0-99.0); Mean Platelet Volume 9.5 fL (7.4-10.4); Platelet Count 234 10^3/uL (130-400); Red Blood Cell Count 3.59 10^6/uL (4.20-5.40); Red Cell Dist. Width 16.2 % (11.5-14.5)
[2023-10-09 14:56] LABS: ALT (SGPT) 17 U/L (0-35); AST (SGOT) 31 U/L (14-36); Albumin 3.7 g/dl (3.5-5.0); Alkaline Phosphatase 69 U/L (38-126); Blood Urea Nitrogen 83 mg/dl (7-17); Carbon Dioxide 20 mmol/L (22-30); Chloride 90 mmol/L (98-107); Glucose 107 mg/dl (70-99); Potassium 5.4 mmol/L (3.5-5.1); Sodium 121 mmol/L (135-145); Total Bilirubin 0.9 mg/dl (0.2-1.3); eGFR 17.76
--- NOTE | 2023-10-09 15:22 | ED.GENMED ---
History of Present Illness
General
Chief Complaint: Abnormal Lab Value
Source: patient and family
Exam Limitations: none
Time Seen by Provider: 10/09/23 15:09
Nursing documentation reviewed up to this point in time: agreed with
History of Present Illness
History of Present Illness:
83-year-old female from [facility] for hyponatremia diagnosed on labs this morning. Patient has a complex medical history including hypertension, CHF on torsemide, A-fib on Eliquis, who had fallen on 8�2 causing a clavicle fracture. At that time the
patient was fluid overloaded and her torsemide dose of 20 mg twice daily was held and she was given Lasix 40 mg IV Q ID with fluid restriction. She had an BATOOL and a creatinine 1.3 from her baseline of 1.1. Patient required a brief time on oxygen
as well. Her kidney functions continue to worsen and she was also hyponatremic which was suspected to be from her being hypervolemic. Her Lasix was held and her diltiazem dose was adjusted because of hypotension. She was seen by nephrology who
was considering the patient could have overdiuresis and she was given a 3% saline bolus to see if there is any improvement of her hyponatremia. She was given a second round of 3% saline bolus and eventually put back on torsemide 20 mg twice daily
and fluid restrictions. She thinks she left with a dry weight of the low 160s. Patient says at [facility] she is continued to increase her edema so the physician upped her torsemide to 40 mg twice daily. Patient says she continues to gain weight
despite this dose. She is also been avoiding salt. Today on screening blood work her sodium was 121 and the doctor decided that she was too sick to stay at [facility] and that she needed more complex care. She feels generally weak but is awake and
alert. She is mildly short of breath but feels better on oxygen
Past History
Past History
ED Past Medical History: Cancer, CHF, HTN, Hypercholesterolemia, Valvular disease, Other (Cirrhosis, hepatitis C) and Other (Moderate to severe tricuspid regurgitation moderate MR, mild AI)
ED Past Surgical History: Gynecological and Orthopedic
Social History
Tobacco: Non-smoker
Alcohol: Occasional
Drug: None
Personal:
Living: with family
Employment: Retired
Family History
Family History: CAD and Other (Sister with SLE)
Review of Systems
Review of Systems
Allergies reviewed?: Yes
All Other Systems: Not applicable
Phy Exam
Physical Exam
Physical Exam:
GENERAL: Alert , in no apparent distress
EYE: pupils equal and reactive
NECK: Supple
ENT: o/p clr, mmm.
CARDIAC: Regular rate and rhythm .+ edema in B/L LE
LUNGS: mild tachypnea, on o2; no appreciated crackles but diminished both sides
ABDOMEN: Soft, without focal tenderness, no r/g, no cvat, normal bowel sounds
NEUROLOGICAL: Alert and oriented, no focal neuro deficits
SKIN: Warm and dry, skin intact.
bruising pooling int he feet b/l
bruise right shoulder region
arm insling
MUSCULOSKELETAL: moderate edema; bruising b/l feet, nontender neg robbi's sign
PSYCH: Normal and appropriate interaction.
Course
Orders/Labs/Results
Orders:
Orders
10/09/23 14:21
Electrocardiogram (*1) Urgent
Reason for Study: Chest Pain
EKG- Treatment ONCE
10/09/23 14:22
Complete Blood Count/With Diff Urgent
Comprehensive Metabolic Panel Urgent
10/09/23 15:21
CR Chest - 2 Views Urgent
Comment:
Reason For Exam: chf history
10/09/23 15:23
NT-proBNP Urgent
10/09/23 15:53
Bladder Scan- Treatment ONCE
Urine Sodium Urgent
10/09/23 15:54
Osmolality, Random Urine Urgent
Abnormal Lab Results
10/09/23
14:22
RBC 3.59 L 10^6/uL
(4.20-5.40)
Hgb 10.8 L g/dL
(12.0-16.0)
Hct 33.1 L %
(37.0-47.0)
MCHC 32.6 L g/dL
(33.0-37.0)
RDW 16.2 H %
(11.5-14.5)
Absolute Lymphs (auto) 0.6 L 10^3/uL
(1.2-3.4)
Immature Gran % 0.7 H %
(0-0.5)
Neutrophils % 78.1 H %
(42.2-75.2)
Lymphocytes % 10.4 L %
(20.5-51.1)
Sodium 121 L mmol/L
(135-145)
Potassium 5.4 H mmol/L
(3.5-5.1)
Chloride 90 L mmol/L
(98-107)
Carbon Dioxide 20 L mmol/L
(22-30)
BUN 83 H mg/dl
(7-17)
Creatinine 2.6 H mg/dL
(0.6-1.0)
Glucose 107 H mg/dl
(70-99)
10/09/23 14:22
10/09/23 14:22
Vital Signs
Initial and Last Documented VS:
Initial Vital Signs
Temp Pulse Resp BP Pulse Ox
98.1 F 62 18 88/68 89
10/09/23 14:12 10/09/23 14:12 10/09/23 14:12 10/09/23 14:12 10/09/23 14:12
Last Documented Vital Signs
Temp Pulse Resp BP Pulse Ox
98.1 F 62 18 88/68 89
10/09/23 14:12 10/09/23 14:12 10/09/23 14:12 10/09/23 14:12 10/09/23 14:12
MDM/Problems Addressed
Differential Diagnosis Includes:
hyponatrmiea, chf, batool, hypovolemia
MDM/Problems Addressed:
jaimee ponce 83 y/o F chf on torsemide, afib on eliquis;
admitted 09/27-10/03 dr. josiah gamino
for clavicle fx with acute CHF, requiring lasix, causing BATOOL, and hyponatremia
d/c on torsemid 20 mg bid which was prehospital dose
pine run upped the torsemide to 40 mg bid for worsening edema, sob the past few days
now she is hyponatremia 121; awake and alert
bp was 80s but is 100s now; also appears fluid overloaded, worsening BNP, worsening b/l pleural effusions, and on o2:
nephro dr. scruggs consulted; hold fluids for now, urine osm, na ordered, bladder scan; if bp dips, then small isotonic bolus 250; recheck sodium in 3 hours if she gets the bolus
*Critical Care Note
Total Time (30-74mins, 75-104mins- exclusive of procedures): Not Applicable
ED Attending Note
-
Portions of this chart may have been created with voice recognition software.� Occasional wrong word or��sound alike� substitutions may have occurred due to the inherent limitations of voice recognition software.
Discharge Plan
Departure
Patient Disposition: Admit
Date of Disposition: 10/09/23
Time of Disposition: 15:56
Admit to: IMU
Presentation/result/management discussed w/ accepting MD/DO: Hospitalist
Condition: Fair
Covid-19: Not Applicable
Discharge Problem:
Hyponatremia, Pleural effusion, CHF (congestive heart failure)
Prescriptions:
No Action
acetaminophen [Tylenol Extra Strength] 500 MG tablet
500 mg PO DAILY
levothyroxine 125 MCG tablet
125 mcg PO DAILY
fluticasone propionate 1 SPRAY spray,suspension
1 spray intranasal BID
Centrum 1 EACH tablet
1 tab PO DAILY
PreserVision AREDS-2 1 EACH capsule
1 ea PO BID
allopurinol 100 mg tablet
100 mg PO DAILY
cholecalciferol (vitamin D3) 25 mcg (1,000 unit) Tablet
25 mcg PO DAILY
acetaminophen [Tylenol Extra Strength] 500 mg Tablet
1,000 mg PO HS
docusate sodium [Colace] 100 mg Capsule
100 mg PO DAILY
thiamine HCl (vitamin B1) 100 mg tablet
100 mg PO BID
magnesium oxide 500 mg magnesium tablet
500 mg PO DAILY
folic acid 1 mg tablet
1 mg PO DAILY
metoprolol succinate 100 mg Tablet Extended Release 24 Hr
150 mg PO HS Qty: 30 0RF
Eliquis 2.5 mg Tablet
2.5 mg PO BID Qty: 60 0RF
acetaminophen 325 mg Tablet
650 mg PO Q4HPRN PRN (Reason: mild pain/fever>100)
ipratropium-albuterol 0.5 mg-3 mg(2.5 mg base)/3 mL Solution For Nebulization
3 ml INHALATION R Q6HPRN PRN (Reason: sob/wheezing)
magnesium hydroxide [Milk of Magnesia] 400 mg/5 mL Suspension
30 ml PO DAILYPRN PRN (Reason: constipation/give day 4 of no bm)
bisacodyl [Dulcolax (bisacodyl)] 10 mg Suppository
10 mg MD DAILYPRN PRN (Reason: if mom is ineffective/give on day 5)
citalopram 30 mg Capsule
30 mg PO NOON
torsemide 20 mg tablet
40 mg PO BID@0800,1600
zolpidem 5 mg tablet
5 mg PO HSPRN PRN (Reason: insomnia)
Referrals:
Rodrigo Gee MD [Family Provider] -
Interventions
Interventions:
*Risk Screen - Suicide Last Done: 10/09/23 14:12
*General Assessment Last Done: 10/09/23 14:12
*Neglect/Abuse Screening Last Done: 10/09/23 14:12
Discharge Date and Time
Print Language: ESTONIAN
[2023-10-09 15:55] LABS: NT-proBNP 11900 pg/ml
--- NOTE | 2023-10-09 16:42 | W.CON.NEPH ---
Consultation
-
Date/Time Consultation Requested: 10/09/23 1600
Date/Time Consultation Performed: 10/09/23 1650
Requesting Provider: Radha Marie
Performing Provider: Angela Bernstein
Reason for Consultation: BATOOL, hyponatremia, Hyperkalemia
Medical History
-
Chief Complaint: Hyponatremia
History of Present Illness:
Ms. Jordan is an 83YOF with hypertension on high dose Metoprolol, CHF on chronic Torsemide, atrial fibrillation on Eliquis, irritable bowel syndrome, hypothyroidism, hepatitis C, gout on Allopurinol, clavicle fracture from fall on 09/27, CKD baseline
cr 1.2-1.4 presented to the emergency room from [facility] for abnormal labs. Reportedly she was recently treated for CHF flare in August and had mild BATOOL, jardiance held. 10 days ago pt was readmitted for fall and clavicle fracture, had BATOOL again cr
peak at 2.3, hyponatremia(olimpia 125) improved with 3% saline. Diuretics were resumed and d/c to rehab. At Rehab she noted to have increased edema Torsemide dose increased to 40mg BID. Labs were done frequently and noted to have worsening
hyponatremia and BATOOL. today Sodium 121, cr high 2.6, k 5.4 hence sent for eval. Her BPs are also in 80s in ER which quickly improved to 100 range. BNP 26895. CXR shows increased bilat pleural effusion. She notes CONRAD limiting her activities. BP
usually low late in the day after morning meds. She has not urinated well for last 1-2days with out dysuria. Has no fever, or abd pain. Loose Bms few times daily after eating.She notes Citalopram dose was increased 2weeks ago from 20 to 30mg.
Past Medical History
Severe pulmonary HTN,
moderate TR
paroxysmal A-fib
Etoh abuse
HTN
hypothyroidism
CKD stage IIIa
Left atrial appendage thrombus
chronic diastolic heart failure with preserved EF
moderate TR,
pulmonary vein isolation 01/25/2021 with ablation
breast cancer right breast with lumpectomy and radiation 9 years ago cari angel
bilat knee replacement
right rotator cuff repair
left wrist fx
Right clavicle fracture
Social History
Tobacco: Former Smoker
Alcohol: Daily
Living: [facility]
Family History
Family History: Not Pertinent
Allergies / Home Medications
Allergy/AdvReac Type Severity Reaction Status Date / Time
No Known Allergies Allergy Verified 10/09/23 14:12
�Medication �Instructions �Recorded �Confirmed �Type
acetaminophen 500 mg tablet 500 mg PO DAILY Pain 08/10/19 10/09/23 History
(Tylenol Extra Strength)
fluticasone propionate 50 1 spray intranasal BID allergies 08/10/19 10/09/23 History
mcg/actuation nasal
spray,suspension
levothyroxine 125 mcg tablet 125 mcg PO DAILY Thyroid 08/10/19 10/09/23 History
multivitamin-ferrous 1 tab PO DAILY Supplement 08/10/19 10/09/23 History
fumarate-folic acid 18 mg-400 mcg
tablet (Centrum)
vit C 250 mg-vit E 90 mg-zinc 40 1 ea PO BID Supplement 08/10/19 10/09/23 History
mg-copper 1 [id number]
capsule (PreserVision AREDS-2)
allopurinol 100 mg tablet 100 mg PO DAILY gout 09/06/23 10/09/23 History
cholecalciferol (vitamin D3) 25 25 mcg PO DAILY Supplement 09/06/23 10/09/23 History
mcg (1,000 unit) tablet
acetaminophen 500 mg tablet 1,000 mg PO HS Pain 09/28/23 10/09/23 History
(Tylenol Extra Strength)
docusate sodium 100 mg capsule 100 mg PO DAILY Constipation 09/28/23 10/09/23 History
(Colace)
folic acid 1 mg tablet 1 mg PO DAILY Supplement 09/28/23 10/09/23 History
magnesium oxide 500 mg PO DAILY Supplement 09/28/23 10/09/23 History
thiamine HCl (vitamin B1) 100 mg 100 mg PO BID Supplement 09/28/23 10/09/23 History
tablet
acetaminophen 325 mg tablet 650 mg PO Q4HPRN PRN mild 10/09/23 10/09/23 History
pain/fever>100
apixaban 2.5 mg tablet (Eliquis) 2.5 mg PO BID Blood Clot 10/09/23 10/09/23 History
Prevention/Tx
bisacodyl 10 mg rectal suppository 10 mg [place] DAILYPRN PRN if mom is 10/09/23 10/09/23 History
(Dulcolax (bisacodyl)) ineffective/give on day 5
citalopram 30 mg capsule 30 mg PO [facility] 10/09/23 10/09/23 History
ipratropium 0.5 mg-albuterol 3 mg 3 ml inhalation R Q6HPRN PRN 10/09/23 10/09/23 History
(2.5 mg base)/3 mL nebulization sob/wheezing
soln
magnesium hydroxide 400 mg/5 mL 30 ml PO DAILYPRN PRN 10/09/23 10/09/23 History
oral suspension (Milk of Magnesia) constipation/give day 4 of no bm
metoprolol succinate 100 mg 150 mg PO HS Blood Pressure 10/09/23 10/09/23 History
tablet,extended release 24 hr
torsemide 20 mg tablet 40 mg PO BID@0800,1600 Fluid 10/09/23 10/09/23 History
Retention/Swelling
zolpidem 5 mg tablet 5 mg PO HSPRN PRN insomnia 10/09/23 10/09/23 History
Review of Systems
-
All complete 12 point ROS have been inquired and found negative other than stated in HPI
Physical Exam
Vital Signs
Vital Signs
Temp Pulse Resp BP Pulse Ox
98.1 F 62 18 88/68 89
10/09/23 14:12 10/09/23 14:12 10/09/23 14:12 10/09/23 14:12 10/09/23 14:12
Lab Results
WBC 6.0 10^3/uL (4.8-10.8) 10/09/23 14:22
RBC 3.59 10^6/uL (4.20-5.40) L 10/09/23 14:22
Hgb 10.8 g/dL (12.0-16.0) L 10/09/23 14:22
Hct 33.1 % (37.0-47.0) L 10/09/23 14:22
Plt Count 234 10^3/uL (130-400) 10/09/23 14:22
Sodium 121 mmol/L (135-145) L 10/09/23 14:22
Potassium 5.4 mmol/L (3.5-5.1) H 10/09/23 14:22
Chloride 90 mmol/L (98-107) L 10/09/23 14:22
Carbon Dioxide 20 mmol/L (22-30) L 10/09/23 14:22
BUN 83 mg/dl (7-17) H 10/09/23 14:22
Creatinine 2.6 mg/dL (0.6-1.0) H 10/09/23 14:22
eGFR 17.76 10/09/23 14:22
Glucose 107 mg/dl (70-99) H 10/09/23 14:22
Calcium 9.0 mg/dl (8.4-10.2) 10/09/23 14:22
Sjk-S-Ycjvbwgcphn Pept 03850 pg/ml 10/09/23 15:23
Albumin 3.7 g/dl (3.5-5.0) 10/09/23 14:22
CXR:
IMPRESSION:
Interval increase in bilateral pleural effusions.
Cardiomegaly. No convincing evidence for active vascular congestion radiographically.
Physical Exam
General: Awake, Alert, Oriented, AOx3, No Distress and Nontoxic
HEENT: EOMI, Anicteric, Neck Supple and No JVD
Respiratory: Crackels (at bases), Normal Excursion and Nonlabored Respirations
Cardiac: S1/S2, Murmur and Edema (2+)
Breast: Deferred by me
Abdomen: Soft, Nontender and Nondistended
Musculoskeletal: No Cyanosis and Edema
Skin: No Rash and Other (LE with chr skin changes)
Neuro: Nonfocal/Grossly Intact
Psych: Mood/afflect pleasant, Insight/judgement good and Appropriate
Assessment/Plan
-
Assessment:
BATOOL with CKD -b/l cr 1.2-1.4
Acute on chronic hyponatremia
hyperkalemia
No gap met acidosis
Bilat Pleural effusion
DCHF
h/o clavicular fracture
Severe TR and pulm HTN
Paroxysmal atrial fibrillation
HLD
Hypothyroidism
h/o breast ca
LE neuropathy
Plan
A/w abnormal labs from [facility] while getting treated for hypervolemia on Torsemide
BATOOL-cr cont to increase in last few days now at 2.6, suspect from prerenal(diuresis and low BPs, underlying pulm HTN)
check UA, U lytes , bladder scan
would hold diuretics
Hyponatremia likely multifactorial with underlying SSRI use , decrease dose since recently increased dose
BP are soft, ok for prn small bolus of NS for hypotension but avoid aggressive IVF, BNP high in setting of BATOOL ,will try 2%
check cortisol and TSH, prn midodrine , BB with holding parameters
Continue fluid restriction 40ounces/day
unlikely her all LE edema is amenable for diuresis
agree with thoracentesis
hyperkalemia-will give Lokelma, no U retention currently based on bladder scan
reviewed with pt and daughter at bedside
d/w primary
--- NOTE | 2023-10-09 17:39 | HPS.HSE ---
Family Physician
-
Family Physician: Rodrigo Gee
Chief Complaint
-
Worsening hyponatremia
History of Present Illness
Patient is 83 years old female with right heart failure, pulmonary hypertension, chronic kidney disease with recent hospitalization for right clavicular fracture. At that time patient was found to have acute diastolic CHF exacerbation treated with
IV diuresis later with worsening of hyponatremia. Patient was treated with hypertonic solution. Eventually sodium level improved at 128 and patient was discharged to shelter facility. Given progressive volume overload including increased
oxygen requirements, worsening of peripheral edema, torsemide dose was increased from 20 mg twice daily to 40 mg twice daily. Patient is being sent to the emergency room now for worsening of hyponatremia and sodium level declined down to 121.
Patient noted to to be hypoxic with increased oxygen requirements up to 2 to 3 L of nasal cannula oxygen, although without distress. Worsening of peripheral edema. Her further relevant evaluation with chest x-ray findings consistent with worsening
right greater than left pleural effusion.
Medical History
Past Medical History
Past Medical History: Reports Arrhythmia (Paroxysmal atrial fibrillation), CHF (Severe TR, pulmonary hypertension, CKD, breast carcinoma right side status post lumpectomy and XRT, neuropathy) and Other (Chronic kidney disease)
Past Surgical History: Reports Other (Lumpectomy)
Social History
Tobacco: Non-smoker
Alcohol: Daily (Prior)
Drug: None
Living: With Family
Employment: Retired
Family History
Family History: Not pertinent
Allergies / Home Medications
Allergies reflects when Allergies were last updated in [facility].
Home Medications with original date entered in [facility]
Allergy/Medication List:
Allergies
Allergy/AdvReac Type Severity Reaction Status Date / Time
No Known Allergies Allergy Verified 10/09/23 14:12
Home Medications
acetaminophen 500 mg tablet (Tylenol Extra Strength) 500 mg PO DAILY Pain 08/10/19
fluticasone propionate 50 mcg/actuation nasal spray,suspension 1 spray intranasal BID allergies 08/10/19
levothyroxine 125 mcg tablet 125 mcg PO DAILY Thyroid 08/10/19
multivitamin-ferrous fumarate-folic acid 18 mg-400 mcg tablet (Centrum) 1 tab PO DAILY Supplement 08/10/19
vit C 250 mg-vit E 90 mg-zinc 40 mg-copper 1 [id number] capsule (PreserVision AREDS-2) 1 ea PO BID Supplement 08/10/19
allopurinol 100 mg tablet 100 mg PO DAILY gout 09/06/23
cholecalciferol (vitamin D3) 25 mcg (1,000 unit) tablet 25 mcg PO DAILY Supplement 09/06/23
acetaminophen 500 mg tablet (Tylenol Extra Strength) 1,000 mg PO HS Pain 09/28/23
docusate sodium 100 mg capsule (Colace) 100 mg PO DAILY Constipation 09/28/23
folic acid 1 mg tablet 1 mg PO DAILY Supplement 09/28/23
magnesium oxide 500 mg PO DAILY Supplement 09/28/23
thiamine HCl (vitamin B1) 100 mg tablet 100 mg PO BID Supplement 09/28/23
acetaminophen 325 mg tablet 650 mg PO Q4HPRN PRN mild pain/fever>100 10/09/23
apixaban 2.5 mg tablet (Eliquis) 2.5 mg PO BID Blood Clot Prevention/Tx 10/09/23
bisacodyl 10 mg rectal suppository (Dulcolax (bisacodyl)) 10 mg [place] DAILYPRN PRN if mom is ineffective/give on day 5 10/09/23
citalopram 30 mg capsule 30 mg PO [facility] 10/09/23
ipratropium 0.5 mg-albuterol 3 mg (2.5 mg base)/3 mL nebulization soln 3 ml inhalation R Q6HPRN PRN sob/wheezing 10/09/23
magnesium hydroxide 400 mg/5 mL oral suspension (Milk of Magnesia) 30 ml PO DAILYPRN PRN constipation/give day 4 of no bm 10/09/23
metoprolol succinate 100 mg tablet,extended release 24 hr 150 mg PO HS Blood Pressure 10/09/23
torsemide 20 mg tablet 40 mg PO BID@0800,1600 Fluid Retention/Swelling 10/09/23
zolpidem 5 mg tablet 5 mg PO HSPRN PRN insomnia 10/09/23
Review of Systems
-
A 12 point ROS was completed and negative except as noted: Yes
Cardiac: Reports See HPI
Physical Exam
Vital Signs
Vital Signs
Temp Pulse Resp BP Pulse Ox
98.1 F 71 22 105/72 96
10/09/23 14:12 10/09/23 17:15 10/09/23 17:15 10/09/23 17:00 10/09/23 17:15
Physical Exam
General: Well Developed, Well Nourished and No Apparent Distress
HEENT: NormoCephalic, Moist mucous membranes and Atraumatic
Respiratory: Clear
Cardiac: S1/S2, Regular Rhythm, Murmur and Other (Bilateral peripheral edema); No Rub
GI: Soft, Non Tender, Non Distended and Normal Bowel Sounds; No Organomegaly
Rectal: Deferred by Provider
Musculoskeletal: No Clubbing, No Cyanosis and No Edema
Skin: No Rash
Neuro: Awake, Alert, Oriented, AO x 3 and Nonfocal/grossly intact
Laboratory Results
-
10/09/23 14:22
10/09/23 14:22
Laboratory Results
Total Bilirubin 0.9 mg/dl (0.2-1.3) 10/09/23 14:22
AST 31 U/L (14-36) 10/09/23 14:22
ALT 17 U/L (0-35) 10/09/23 14:22
Alkaline Phosphatase 69 U/L (38-126) 10/09/23 14:22
Data Reviewed
-
Diagnostic Radiology: Report Reviewed by me
Lab Data: Labs Reviewed by me
Impression/Plan
-
IMPRESSION:
Acute CHF preserved EF
Severe pulmonary hypertension
Cor pulmonale with tricuspid regurgitation.
Bilateral right greater than left pleural effusion
Acute hypoxic respiratory insufficiency secondary to above
Acute on chronic hyponatremia sodium 121.
BATOOL on CKD stage IIIa�B with baseline creatinine 1.2�1.4.
Paroxysmal atrial fibrillation.
Anticoagulation with Eliquis.
Hypothyroidism on replacement
Depression.
History of breast carcinoma status postlumpectomy and radiation therapy.
Peripheral neuropathy
Chronic lower extremity edema
Recent hospitalization with right clavicular fracture treated conservatively with sling and physical therapy
Plan:
Acute hypoxic respiratory insufficiency multifactorial due to decompensated CHF and building up right pleural effusion.
Acute CHF preserved EF/cor pulmonale/severe pulmonary hypertension.
Echocardiogram 09/18 with LVEF of 60-65%, severe biatrial enlargement, severe tricuspid regurgitation with PASP 65-70 mmHg
No evidence for respiratory distress.
Interventional radiology consultation on 10/09 for diagnostic and therapeutic thoracentesis.
Hold further diuresis given worsening of hyponatremia, see below.
Acute on chronic hyponatremia.
BATOOL on CKD creatinine 2.8 (baseline 1.2�1.4)
Likely preload dependent and relatively hypotensive upon presentation.
Check urine osmolarity and urine sodium
Hold diuretics
Nephrology consultation
Plan is for 2% hypertonic solution and serial BMP.
Continue midodrine to avoid hypotension. 5 mg 3 times daily will be ordered.
Decrease Celexa from 30 to 20 mg daily.
Paroxysmal atrial fibrillation
Rate controlled.
Not on AV andrés medications or arrhythmics prior to presentation
Continue anticoagulation
Eliquis dose adjusted according to renal clearance.
Depression, peripheral neuropathy
Reduce Celexa dose to 20 mg given worsening of hyponatremia
Hypothyroidism
Recent TSH within normal limits
Continue levothyroxine
CODE STATUS DNR
DVT prophylaxis Eliquis.
[2023-10-09] MEDS: LOKELMA 10 GRAM PO (18:57)
[2023-10-09] MEDS: SODIUM CHLORIDE 249.975 MEQ IV (20:34)
[2023-10-09] MEDS: ProAmatine 5 MG PO (20:36)
[2023-10-09] MEDS: ELIQUIS 2.5 MG PO (21:22)
[2023-10-09] MEDS: ZYLOPRIM 100 MG PO (21:22)
[2023-10-09] MEDS: OCUVITE SOFTGEL 1 CAP PO (21:22)
[2023-10-09] MEDS: AMBIEN 5 MG PO (23:23)
[2023-10-09] MEDS: TOPROL XL 150 MG PO (23:23)
[2023-10-09] MEDS: TYLENOL 1000 MG PO (23:23)
[2023-10-09 23:47] LABS: Blood Urea Nitrogen 84 mg/dl (7-17); Calcium 8.7 mg/dl (8.4-10.2); Carbon Dioxide 21 mmol/L (22-30); Chloride 94 mmol/L (98-107); Estimated Creatinine Clearance 17 ml/min; Glucose 92 mg/dl (70-99); Potassium 4.8 mmol/L (3.5-5.1); Sodium 123 mmol/L (135-145); eGFR 19.55
[2023-10-10] VITALS (10 sets, daily range): BP systolic 95–127; BP diastolic 49–96; PULSE 80; O2SAT 94; BMI 26.5
[2023-10-10] MEDS: SYNTHROID 125 MCG PO (05:58)
[2023-10-10 08:31] LABS: % Basophils 0.8 % (0-2); % Eosinophils 1.7 % (0-6); % Immature Granulocytes 1.2 % (0-0.5); % Lymphocytes 8.3 % (20.5-51.1); % Monocytes 9.8 % (1.7-9.3); % Neutrophils 78.2 % (42.2-75.2); Absolute Basophils 0.1 10^3/uL (0-0.2); Absolute Eosinophils 0.1 10^3/uL (0-0.7); Absolute Immature Granulocytes 0.1 10^3/uL (0-0.05); Absolute Lymphocytes 0.6 10^3/uL (1.2-3.4); Absolute Monocytes 0.7 10^3/uL (0.1-0.6); Absolute Neutrophils 5.2 10^3/uL (1.4-6.5); Hematocrit 30.8 % (37.0-47.0); Hemoglobin 10.1 g/dL (12.0-16.0); Mean Corp Hgb Conc. 32.8 g/dL (33.0-37.0); Mean Corpuscular Hgb 29.9 pg (27.0-31.0); Mean Corpuscular Volume 91.1 fL (81.0-99.0); Mean Platelet Volume 9.5 fL (7.4-10.4); Nucleated Red Blood Cells % 2.4 %; Platelet Count 197 10^3/uL (130-400); Red Blood Cell Count 3.38 10^6/uL (4.20-5.40); Red Cell Dist. Width 16.3 % (11.5-14.5); White Blood Cell Count 6.6 10^3/uL (4.8-10.8)
[2023-10-10] MEDS: OCUVITE SOFTGEL 1 CAP PO ×2 (09:08→21:22)
[2023-10-10] MEDS: MAGNESIUM OXIDE 500 MG PO (09:08)
[2023-10-10] MEDS: ProAmatine 5 MG PO ×3 (09:08→17:30)
[2023-10-10] MEDS: CELEXA 20 MG PO (09:09)
[2023-10-10] MEDS: FOLVITE 1 MG PO (09:09)
[2023-10-10] MEDS: TYLENOL 500 MG PO (09:09)
[2023-10-10] MEDS: THERAGRAN 1 TABLET PO (09:09)
[2023-10-10] MEDS: VITAMIN D3 (cholecalciferol) 25 MCG PO (09:10)
[2023-10-10] MEDS: ELIQUIS 2.5 MG PO ×2 (09:11→21:22)
[2023-10-10] MEDS: COLACE PO (09:12)
[2023-10-10] MEDS: ZYLOPRIM PO (09:21)
[2023-10-10 10:31] LABS: Blood Urea Nitrogen 80 mg/dl (7-17); Calcium 8.4 mg/dl (8.4-10.2); Carbon Dioxide 20 mmol/L (22-30); Chloride 95 mmol/L (98-107); Estimated Creatinine Clearance 18 ml/min; Glucose 76 mg/dl (70-99); Potassium 4.6 mmol/L (3.5-5.1); Sodium 124 mmol/L (135-145); eGFR 20.57
--- NOTE | 2023-10-10 10:35 | W.PN.NEPH.PH ---
Today's Communication / Plan
-
80 mg IV Lasix
lytes at 1600
Assessment/Plan
-
Assessment:
BATOOL with CKD -b/l cr 1.2-1.4
Acute on chronic hyponatremia
hyperkalemia
No gap met acidosis
Bilat Pleural effusion
DCHF
h/o clavicular fracture
Severe TR and pulm HTN
Paroxysmal atrial fibrillation
HLD
Hypothyroidism
h/o breast ca
LE neuropathy
Plan
A/w abnormal labs from [facility] while getting treated for hypervolemia on Torsemide
BATOOL-cr cont to increase in last few days now at 2.3 suspect from prerenal(diuresis and low BPs, underlying pulm HTN)
checked UA, U lytes , bladder scan
weights up
sodium unchanged:
Hyponatremia likely multifactorial with underlying SSRI use , increased volume gains
Chest x-ray notes bilateral effusions
I will provide 80 mg of IV Lasix as I suspect she has hypervolemic hyponatremia
checked cortisol and TSH, prn midodrine , BB with holding parameters
Continue fluid restriction 40ounces/day
unlikely her all LE edema is amenable for diuresis
agree with thoracentesis
Continue bladder scanning low threshold for Horowitz catheter
reviewed with pt and daughter at bedside
d/w primary
-
-
Date of Service: October 10, 2023
CC / HPI / ROS
-
Chief Complaint:
Hyponatremia
BATOOL
History of Present Illness:
Serum sodium at 124
Creatinine at 2.3 with BUN of 80
Hemodynamically stable
Review of Systems:
Urine output via pure wick
Oliguric
On oxygen
Labs
-
Labs:
WBC 6.6 10^3/uL (4.8-10.8) 10/10/23 08:04
RBC 3.38 10^6/uL (4.20-5.40) L 10/10/23 08:04
Hgb 10.1 g/dL (12.0-16.0) L 10/10/23 08:04
Hct 30.8 % (37.0-47.0) L 10/10/23 08:04
Plt Count 197 10^3/uL (130-400) 10/10/23 08:04
Sodium 124 mmol/L (135-145) L 10/10/23 08:04
Potassium 4.6 mmol/L (3.5-5.1) 10/10/23 08:04
Chloride 95 mmol/L (98-107) L 10/10/23 08:04
Carbon Dioxide 20 mmol/L (22-30) L 10/10/23 08:04
BUN 80 mg/dl (7-17) H 10/10/23 08:04
Creatinine 2.3 mg/dL (0.6-1.0) H 10/10/23 08:04
eGFR 20.57 10/10/23 08:04
Glucose 76 mg/dl (70-99) 10/10/23 08:04
Calcium 8.4 mg/dl (8.4-10.2) 10/10/23 08:04
Ypx-E-Cwfjjaafugu Pept 82074 pg/ml 10/09/23 15:23
Albumin 3.7 g/dl (3.5-5.0) 10/09/23 14:22
Physical Exam
-
Vital Signs:
Vital Signs
Temp Pulse Resp BP Pulse Ox
97.4 F 73 20 119/88 95
10/10/23 07:30 10/10/23 07:30 10/10/23 07:30 10/10/23 07:30 10/10/23 07:30
Cardiovascular:: Regular rate and rhythm
Respiratory:: Bilateral: Coarse
Lung Excursion:: Normal
Abdomen:: Nontender and Soft
Bowel Sounds:: Normal
Extremity Edema:: +2: Bilateral:
Horowitz Catheter: No
[2023-10-10 11:00] LABS: Cortisol, Random 58.5 ug/dl; TSH Reflex To Free T4 3.67 uIU/ml (0.47-4.68)
[2023-10-10 11:03] LABS: Osmolality Urine 338 mOsm/kg (300-900)
[2023-10-10 12:09] LABS: Urine Sodium 14 mmol/L (30-90)
--- NOTE | 2023-10-10 12:20 | PTCARENOTE ---
patient returned from IR s/p right thoracentesis. 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
vss, will continue to monitor.
[2023-10-10 12:27] LABS: Body Fluid WBC 204 /CUMM
[2023-10-10 12:28] LABS: Body Fluid Mononuclear 64.7 %; Body Fluid Polymorphonuclear 35.3 %; Body Fluid Second Tech BP
[2023-10-10 12:29] LABS: Body Fluid pH 7.43
[2023-10-10 12:36] LABS: Osmolality Urine 339 mOsm/kg (300-900)
[2023-10-10] MEDS: LASIX 80 MG IV (12:44)
[2023-10-10 12:49] LABS: Body Fluid LDH 91 U/L; Body Fluid Protein 3.2 g/dl
--- NOTE | 2023-10-10 14:57 | W.PN.HOSP.TC ---
Today's Communication/Plan
-
Status post right thoracentesis
Wean off oxygen
IV diuresis per
Follow sodium level
Assessment / Plan
Assessment / Plan
IMPRESSION:
Acute CHF preserved EF
Severe pulmonary hypertension
Cor pulmonale with tricuspid regurgitation.
Bilateral right greater than left pleural effusion
Acute hypoxic respiratory insufficiency secondary to above
Acute on chronic hyponatremia sodium 121.
BATOOL on CKD stage IIIa�B with baseline creatinine 1.2�1.4.
Paroxysmal atrial fibrillation.
Anticoagulation with Eliquis.
Hypothyroidism on replacement
Depression.
History of breast carcinoma status postlumpectomy and radiation therapy.
Peripheral neuropathy
Chronic lower extremity edema
Recent hospitalization with right clavicular fracture treated conservatively with sling and physical therapy
Plan:
Acute hypoxic respiratory insufficiency multifactorial due to decompensated CHF and building up right pleural effusion.
Acute CHF preserved EF/cor pulmonale/severe pulmonary hypertension.
Echocardiogram 09/18 with LVEF of 60-65%, severe biatrial enlargement, severe tricuspid regurgitation with PASP 65-70 mmHg
No evidence for respiratory distress.
Right pleural effusion
� Status post right thoracentesis 10/09. 1150cc transudate
Acute on chronic hyponatremia.
BATOOL on CKD creatinine 2.8 (baseline 1.2�1.4)
Likely preload dependent and relatively hypotensive upon presentation.
Urine awesome 339
Status post 2% infusion on 10/08.
Sodium improved 121�124
Clinically volume overloaded with now stable BP.
Agree with IV Lasix
Continue midodrine 5 mg 3 times a day
Celexa decreased to 20 mg daily
Paroxysmal atrial fibrillation
Rate controlled.
Not on AV andrés medications or arrhythmics prior to presentation
Continue anticoagulation
Eliquis dose adjusted according to renal clearance.
Depression, peripheral neuropathy
Reduce Celexa dose to 20 mg given worsening of hyponatremia
Hypothyroidism
Recent TSH within normal limits
Continue levothyroxine
CODE STATUS DNR
DVT prophylaxis Eliquis.
Anticipated Discharge: > 48 hours
Subjective/Interval History
-
Date of Service: October 10, 2023
Objective Data
-
Labs:
Laboratory Results
10/10/23 10/10/23
08:04 16:00
WBC 6.6
Hgb 10.1 L
Hct 30.8 L
Plt Count 197
Sodium 124 L Pending
Potassium 4.6 Pending
Chloride 95 L Pending
Carbon Dioxide 20 L Pending
BUN 80 H
Creatinine 2.3 H
Glucose 76
Calcium 8.4
Vital Signs:
Vital Signs
Temp Pulse Resp BP Pulse Ox
97 F 70 20 118/70 96
10/10/23 13:45 10/10/23 13:45 10/10/23 13:45 10/10/23 13:45 10/10/23 13:45
I&O
10/09/23 10/10/23 10/11/23
06:59 06:59 06:59
Intake Total 240 / 240
Output Total 125 / 125
Balance 240 / 240 -125 / -125
Physical Exam
-
General: Well Developed, Well Nourished, No Apparent Distress and Comfortable
Respiratory: Clear to Auscultation and Non Labored Respirations
Cardiac: Regular Rhythm and S1/S2
Musculoskeletal: No Clubbing, No Cyanosis, Edema, Right Lower Extrem (mild 2+ edema, less than yesterday), Edema, Left Lower Extrem (mild edema less than yesterday, 2+ ) and Other (Bruising and tenderness over right clavicle)
Neuro: Awake, Alert, Oriented and AO x 3
Psych: Calm
--- NOTE | 2023-10-10 16:25 | VNURNOTE ---
patient current with [facility]. Resumption referral placed in [facility] in case home dispo determined. Will continue to follow hospital course.
[2023-10-10 17:17] LABS: Carbon Dioxide 22 mmol/L (22-30); Chloride 95 mmol/L (98-107); Potassium 4.2 mmol/L (3.5-5.1); Sodium 124 mmol/L (135-145)
[2023-10-10] MEDS: TOPROL XL 150 MG PO (21:22)
[2023-10-10] MEDS: TYLENOL 1000 MG PO (21:22)
[2023-10-10] MEDS: AMBIEN 5 MG PO (21:27)
[2023-10-11 03:27] VITALS: BP 103/64
[2023-10-11 06:00] VITALS: BMI 26.5
[2023-10-11] MEDS: SYNTHROID 125 MCG PO (06:34)
[2023-10-11 06:45] LABS: Blood Urea Nitrogen 71 mg/dl (7-17); Calcium 8.3 mg/dl (8.4-10.2); Carbon Dioxide 23 mmol/L (22-30); Chloride 98 mmol/L (98-107); Estimated Creatinine Clearance 23 ml/min; Glucose 76 mg/dl (70-99); Potassium 3.8 mmol/L (3.5-5.1); Sodium 126 mmol/L (135-145); eGFR 27.61
[2023-10-11 07:30] VITALS: BP 115/75
[2023-10-11] MEDS: ZYLOPRIM 100 MG PO (08:36)
[2023-10-11] MEDS: ELIQUIS 2.5 MG PO ×2 (08:36→20:40)
[2023-10-11] MEDS: MAGNESIUM OXIDE 500 MG PO (08:36)
[2023-10-11] MEDS: THERAGRAN 1 TABLET PO (08:36)
[2023-10-11] MEDS: ProAmatine 5 MG PO ×3 (08:36→17:42)
[2023-10-11] MEDS: CELEXA 20 MG PO (08:36)
[2023-10-11] MEDS: TYLENOL 500 MG PO (08:36)
[2023-10-11] MEDS: COLACE 100 MG PO (08:36)
[2023-10-11] MEDS: VITAMIN D3 (cholecalciferol) 25 MCG PO (08:36)
[2023-10-11] MEDS: OCUVITE SOFTGEL 1 CAP PO ×2 (08:36→20:40)
[2023-10-11] MEDS: FOLVITE 1 MG PO (08:37)
[2023-10-11 12:00] VITALS: BP 107/62
--- NOTE | 2023-10-11 12:45 | CM ---
CM met with pt and her daughter at bedside
Pt lives in a ranch style home with her ; 2 steps to enter home
Pt is care-taker for with Alzheimer's. 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 Ambulates with cane
Daughters live nearby - assist with delimber operator/laundry/meal prep
DME - cane, rolling walker
SNF - [facility] in past
HH - current with [facility]
Has ride at d/c
PCP - Dr Rodrigo Gee
Pharm - [facility]
PLan - anticipate home with HH vs SNF when medically stable
--- NOTE | 2023-10-11 14:56 | W.PN.NEPH.PH ---
Today's Communication / Plan
-
Lasix 80 mg IV x 1
Reinitiate Demadex
Follow-up BMP
Maintain fluid restriction
Assessment/Plan
-
Assessment:
BATOOL with CKD -b/l cr 1.2-1.4
Acute on chronic hyponatremia
hyperkalemia
No gap met acidosis
Bilat Pleural effusion
DCHF
h/o clavicular fracture
Severe TR and pulm HTN
Paroxysmal atrial fibrillation
HLD
Hypothyroidism
h/o breast ca
LE neuropathy
Plan
A/w abnormal labs from [facility] while getting treated for hypervolemia on Torsemide
BATOOL-cr cont to increase in last few days now at 2.3 suspect from prerenal(diuresis and low BPs, underlying pulm HTN)
Creatinine now down to 1.8 and nonoliguric via pure wick
checked UA, U lytes , bladder scan
weights up
Hyponatremia increased to 126 with diuresis
Hyponatremia likely multifactorial with underlying SSRI use , increased volume gains
Chest x-ray notes bilateral effusions
I will provide 80 mg of IV Lasix again as I suspect she has hypervolemic hyponatremia
will restart demedex tonight
checked cortisol and TSH, prn midodrine , BB with holding parameters
Continue fluid restriction 40ounces/day
unlikely her all LE edema is amenable for diuresis
Status post right thoracentesis
Continue bladder scanning low threshold for Horowitz catheter
reviewed with pt and daughter at bedside
d/w primary
-
-
Date of Service: October 11, 2023
CC / HPI / ROS
-
Chief Complaint:
Hyponatremia
BATOOL
History of Present Illness:
Serum sodium at 126
Creatinine at 1.8
Hemodynamically stable
Review of Systems:
Urine output via pure wick
weights down
On oxygen
Labs
-
Labs:
WBC 6.6 10^3/uL (4.8-10.8) 10/10/23 08:04
RBC 3.38 10^6/uL (4.20-5.40) L 10/10/23 08:04
Hgb 10.1 g/dL (12.0-16.0) L 10/10/23 08:04
Hct 30.8 % (37.0-47.0) L 10/10/23 08:04
Plt Count 197 10^3/uL (130-400) 10/10/23 08:04
Sodium 126 mmol/L (135-145) L 10/11/23 05:34
Potassium 3.8 mmol/L (3.5-5.1) 10/11/23 05:34
Chloride 98 mmol/L (98-107) 10/11/23 05:34
Carbon Dioxide 23 mmol/L (22-30) 10/11/23 05:34
BUN 71 mg/dl (7-17) H 10/11/23 05:34
Creatinine 1.8 mg/dL (0.6-1.0) H 10/11/23 05:34
eGFR 27.61 10/11/23 05:34
Glucose 76 mg/dl (70-99) 10/11/23 05:34
Calcium 8.3 mg/dl (8.4-10.2) L 10/11/23 05:34
Uny-Y-Wshjiimkumx Pept 70771 pg/ml 10/09/23 15:23
Albumin 3.7 g/dl (3.5-5.0) 10/09/23 14:22
Physical Exam
-
Vital Signs:
Vital Signs
Temp Pulse Resp BP Pulse Ox
97.5 F 97 18 120/78 95
10/11/23 12:00 10/11/23 12:54 10/11/23 12:00 10/11/23 12:54 10/11/23 12:00
Cardiovascular:: Regular rate and rhythm
Respiratory:: Bilateral: Coarse
Lung Excursion:: Normal
Abdomen:: Nontender and Soft
Bowel Sounds:: Normal
Extremity Edema:: +2: Bilateral:
Horowitz Catheter: No
[2023-10-11] MEDS: LASIX 80 MG IV (15:25)
[2023-10-11 15:50] VITALS: BP 98/59
--- NOTE | 2023-10-11 17:11 | W.PN.HOSP.TC ---
Today's Communication/Plan
-
IV Lasix with transition to Demadex in a.m.
Follow daily weight, sodium level
Assessment / Plan
Assessment / Plan
IMPRESSION:
Acute CHF preserved EF
Severe pulmonary hypertension
Cor pulmonale with tricuspid regurgitation.
Bilateral right greater than left pleural effusion
Acute hypoxic respiratory insufficiency secondary to above
Acute on chronic hyponatremia sodium 121.
BATOOL on CKD stage IIIa�B with baseline creatinine 1.2�1.4.
Paroxysmal atrial fibrillation.
Anticoagulation with Eliquis.
Hypothyroidism on replacement
Depression.
History of breast carcinoma status postlumpectomy and radiation therapy.
Peripheral neuropathy
Chronic lower extremity edema
Recent hospitalization with right clavicular fracture treated conservatively with sling and physical therapy
Plan:
Acute hypoxic respiratory insufficiency multifactorial due to decompensated CHF and building up right pleural effusion.
Acute CHF preserved EF/cor pulmonale/severe pulmonary hypertension.
Echocardiogram 09/18 with LVEF of 60-65%, severe biatrial enlargement, severe tricuspid regurgitation with PASP 65-70 mmHg
No evidence for respiratory distress.
Right pleural effusion
� Status post right thoracentesis 10/09. 1150cc transudate
Acute on chronic hyponatremia.
BATOOL on CKD creatinine 2.8 (baseline 1.2�1.4)
Likely preload dependent and relatively hypotensive upon presentation.
Urine awesome 339
Status post 2% infusion on 10/08.
Sodium improved 121�124
Clinically volume overloaded with now stable BP.
Agree with IV Lasix
Continue midodrine 5 mg 3 times a day
Celexa decreased to 20 mg daily
Paroxysmal atrial fibrillation
Rate controlled.
Not on AV andrés medications or arrhythmics prior to presentation
Continue anticoagulation
Eliquis dose adjusted according to renal clearance.
Depression, peripheral neuropathy
Reduce Celexa dose to 20 mg given worsening of hyponatremia
Hypothyroidism
Recent TSH within normal limits
Continue levothyroxine
CODE STATUS DNR
DVT prophylaxis Eliquis.
Anticipated Discharge: 24 - 48 hours
Subjective/Interval History
-
Date of Service: October 11, 2023
Objective Data
-
Labs:
Laboratory Results
10/11/23
05:34
Sodium 126 L
Potassium 3.8
Chloride 98
Carbon Dioxide 23
BUN 71 H
Creatinine 1.8 H
Glucose 76
Calcium 8.3 L
Vital Signs:
Vital Signs
Temp Pulse Resp BP Pulse Ox
97.7 F 85 18 98/59 94
10/11/23 15:50 10/11/23 15:50 10/11/23 15:50 10/11/23 15:50 10/11/23 15:50
I&O
10/10/23 10/11/23 10/12/23
06:59 06:59 06:59
Intake Total 240 / 240 600 / 600
Output Total 1325 / 1325
Balance 240 / 240 -725 / -725
Physical Exam
-
General: Well Developed, Well Nourished, No Apparent Distress and Comfortable
Respiratory: Clear to Auscultation and Non Labored Respirations
Cardiac: Regular Rhythm and S1/S2
Musculoskeletal: No Clubbing, No Cyanosis, Edema, Right Lower Extrem (mild 2+ edema, less than yesterday), Edema, Left Lower Extrem (mild edema less than yesterday, 2+ ) and Other (Bruising and tenderness over right clavicle)
Neuro: Awake, Alert, Oriented and AO x 3
Psych: Calm
[2023-10-11 19:55] VITALS: BP 111/67
[2023-10-11] MEDS: TYLENOL 1000 MG PO (21:56)
[2023-10-11] MEDS: TOPROL XL 150 MG PO (21:57)
[2023-10-11] MEDS: AMBIEN 5 MG PO (21:57)
[2023-10-11 23:50] VITALS: BP 104/71
[2023-10-12] VITALS (7 sets, daily range): BP systolic 107–119; BP diastolic 63–81; PULSE 81; BMI 25.1
[2023-10-12] MEDS: SYNTHROID 125 MCG PO (05:06)
[2023-10-12 06:55] LABS: Blood Urea Nitrogen 67 mg/dl (7-17); Calcium 8.4 mg/dl (8.4-10.2); Carbon Dioxide 24 mmol/L (22-30); Chloride 98 mmol/L (98-107); Estimated Creatinine Clearance 28 ml/min; Glucose 81 mg/dl (70-99); Potassium 3.9 mmol/L (3.5-5.1); Sodium 128 mmol/L (135-145); eGFR 34.36
[2023-10-12] MEDS: MAGNESIUM OXIDE 500 MG PO (08:26)
[2023-10-12] MEDS: FOLVITE 1 MG PO (08:26)
[2023-10-12] MEDS: VITAMIN D3 (cholecalciferol) 25 MCG PO (08:27)
[2023-10-12] MEDS: OCUVITE SOFTGEL 1 CAP PO ×2 (08:27→20:38)
[2023-10-12] MEDS: THERAGRAN 1 TABLET PO (08:27)
[2023-10-12] MEDS: ProAmatine 5 MG PO ×3 (08:27→17:11)
[2023-10-12] MEDS: CELEXA 20 MG PO (08:27)
[2023-10-12] MEDS: DEMADEX 40 MG PO ×2 (08:27→16:52)
[2023-10-12] MEDS: TYLENOL 500 MG PO (08:28)
[2023-10-12] MEDS: ELIQUIS 2.5 MG PO ×2 (08:28→20:38)
[2023-10-12] MEDS: ZYLOPRIM 100 MG PO (08:28)
[2023-10-12] MEDS: COLACE 100 MG PO (08:29)
--- NOTE | 2023-10-12 12:53 | CM ---
Addendum entered by Radha Potts 10/12/23 14:54:
Met with pt to obtain choices - Chose [facility] and [facility]
Referrals sent in [facility]
Plan - anticipate SNF when medically ready
Original Note:
Case management following for discharge planning
Chart reviewed. Met with pt and family members at bedside
PT recs - SNF
Discussed with pt - given options list from [employer] - will discuss with family
CM will follow up regarding choices
Plan - anticipate SNF when medically ready
[2023-10-12] MEDS: TYLENOL 650 MG PO (14:12)
[2023-10-12] MEDS: MILK OF MAGNESIA 30 ML PO (14:13)
--- NOTE | 2023-10-12 14:35 | W.PN.NEPH.PH ---
Today's Communication / Plan
-
monitor on Torsemide
Assessment/Plan
-
Assessment:
BATOOL with CKD -b/l cr 1.2-1.4
Acute on chronic hyponatremia
hyperkalemia
No gap met acidosis
Bilat Pleural effusion
DCHF
h/o clavicular fracture
Severe TR and pulm HTN
Paroxysmal atrial fibrillation
HLD
Hypothyroidism
h/o breast ca
LE neuropathy
Plan
A/w abnormal labs from [facility] while getting treated for hypervolemia on Torsemide
BATOOL-cr improving to 1.5 with diuretics suggest cardiorenal
check bladder scan, monitor UOP
wt decreasing, improving hyponatremia with diuresis
Hyponatremia likely multifactorial with underlying SSRI use , increased volume gains
checked cortisol and TSH, prn midodrine , BB with holding parameters
Continue fluid restriction 40ounces/day
unlikely her all LE edema is amenable for diuresis with severe pulm HTN
Status post right thoracentesis
BP stable on high dose BB and midodrine
SSRI dose reduced
d/w pt and nursing
-
-
Date of Service: October 12, 2023
CC / HPI / ROS
-
Chief Complaint:
Hyponatremia
BATOOL
History of Present Illness:
Serum sodium at 128
Creatinine at 1.5
Hemodynamically stable
Review of Systems:
weights down
On oxygen
no cp or sob
Labs
-
Labs:
WBC 6.6 10^3/uL (4.8-10.8) 10/10/23 08:04
RBC 3.38 10^6/uL (4.20-5.40) L 10/10/23 08:04
Hgb 10.1 g/dL (12.0-16.0) L 10/10/23 08:04
Hct 30.8 % (37.0-47.0) L 10/10/23 08:04
Plt Count 197 10^3/uL (130-400) 10/10/23 08:04
Sodium 128 mmol/L (135-145) L 10/12/23 05:53
Potassium 3.9 mmol/L (3.5-5.1) 10/12/23 05:53
Chloride 98 mmol/L (98-107) 10/12/23 05:53
Carbon Dioxide 24 mmol/L (22-30) 10/12/23 05:53
BUN 67 mg/dl (7-17) H 10/12/23 05:53
Creatinine 1.5 mg/dL (0.6-1.0) H 10/12/23 05:53
eGFR 34.36 10/12/23 05:53
Glucose 81 mg/dl (70-99) 10/12/23 05:53
Calcium 8.4 mg/dl (8.4-10.2) 10/12/23 05:53
Iwx-U-Sdrdwdqkjuk Pept 97422 pg/ml 10/09/23 15:23
Albumin 3.7 g/dl (3.5-5.0) 10/09/23 14:22
Physical Exam
-
Vital Signs:
Vital Signs
Temp Pulse Resp BP Pulse Ox
97.8 F 62 17 107/63 97
10/12/23 11:02 10/12/23 13:10 10/12/23 11:02 10/12/23 13:10 10/12/23 13:24
Cardiovascular:: Regular rate and rhythm
Respiratory:: Bilateral: CTA (decreased)
Lung Excursion:: Normal
Abdomen:: Nontender and Soft
Extremity Edema:: +2: Bilateral: (improving)
Horowitz Catheter: No
--- NOTE | 2023-10-12 15:29 | W.PN.HOSP.TC ---
Addendum entered and electronically signed by Kevin Henry MD 10/30/23 11:14:
Acute hypoxic respiratory failure
Original Note:
Today's Communication/Plan
-
Transition to Demadex.
Continue midodrine avoiding hypotension
Monitor sodium level
Physical therapy evaluation.
Rehab placement if sodium level stable over the next 24 to 48 hours.
Assessment / Plan
Assessment / Plan
IMPRESSION:
Acute CHF preserved EF
Severe pulmonary hypertension
Cor pulmonale with tricuspid regurgitation.
Bilateral right greater than left pleural effusion
Acute hypoxic respiratory insufficiency secondary to above
Acute on chronic hyponatremia sodium 121.
BATOOL on CKD stage IIIa�B with baseline creatinine 1.2�1.4.
Paroxysmal atrial fibrillation.
Anticoagulation with Eliquis.
Hypothyroidism on replacement
Depression.
History of breast carcinoma status postlumpectomy and radiation therapy.
Peripheral neuropathy
Chronic lower extremity edema
Recent hospitalization with right clavicular fracture treated conservatively with sling and physical therapy
Plan:
Acute hypoxic respiratory insufficiency multifactorial due to decompensated CHF and building up right pleural effusion.
Acute CHF preserved EF/cor pulmonale/severe pulmonary hypertension.
Echocardiogram 09/18 with LVEF of 60-65%, severe biatrial enlargement, severe tricuspid regurgitation with PASP 65-70 mmHg
No evidence for respiratory distress.
Right pleural effusion
� Status post right thoracentesis 10/09. 1150cc transudate
Improved respiratory status. Currently off oxygen supplementation with no evidence of distress.
Acute on chronic hyponatremia.
BATOOL on CKD creatinine 2.8 (baseline 1.2�1.4)
Likely preload dependent and relatively hypotensive upon presentation.
Urine awesome 339
Status post 2% infusion on 10/08.
Sodium improved 121�124-128
Clinically volume overloaded with now stable BP.
Received IV Lasix on 10/09, 10/10
Transition to Demadex and monitor sodium level.
Continue midodrine 5 mg 3 times a day
Celexa decreased to 20 mg daily
Paroxysmal atrial fibrillation
Rate controlled.
Not on AV andrés medications or arrhythmics prior to presentation
Continue anticoagulation
Eliquis dose adjusted according to renal clearance.
Depression, peripheral neuropathy
Reduce Celexa dose to 20 mg given worsening of hyponatremia
Hypothyroidism
Recent TSH within normal limits
Continue levothyroxine
CODE STATUS DNR
DVT prophylaxis Eliquis.
Anticipated Discharge: 24 - 48 hours
Subjective/Interval History
-
Date of Service: October 12, 2023
Objective Data
-
Labs:
Laboratory Results
10/12/23
05:53
Sodium 128 L
Potassium 3.9
Chloride 98
Carbon Dioxide 24
BUN 67 H
Creatinine 1.5 H
Glucose 81
Calcium 8.4
Vital Signs:
Vital Signs
Temp Pulse Resp BP Pulse Ox
98.0 F 99 18 116/75 96
10/12/23 15:02 10/12/23 15:02 10/12/23 15:02 10/12/23 15:02 10/12/23 15:02
I&O
10/11/23 10/12/23 10/13/23
06:59 06:59 06:59
Intake Total 600 / 600 675 / 675
Output Total 1325 / 1325 750 / 750
Balance -725 / -725 -75 / -75
Physical Exam
-
General: Well Developed, Well Nourished, No Apparent Distress and Comfortable
Respiratory: Clear to Auscultation and Non Labored Respirations
Cardiac: Regular Rhythm and S1/S2
Musculoskeletal: No Clubbing, No Cyanosis, Edema, Right Lower Extrem (mild 2+ edema, less than yesterday), Edema, Left Lower Extrem (mild edema less than yesterday, 2+ ) and Other (Bruising and tenderness over right clavicle)
Neuro: Awake, Alert, Oriented and AO x 3
Psych: Calm
[2023-10-12] MEDS: TOPROL XL 150 MG PO (20:38)
[2023-10-12] MEDS: TYLENOL 1000 MG PO (20:38)
[2023-10-12] MEDS: AMBIEN 5 MG PO (21:19)
[2023-10-13] VITALS (7 sets, daily range): BP systolic 101–136; BP diastolic 63–77; BMI 24.6
[2023-10-13] MEDS: SYNTHROID 125 MCG PO (05:25)
[2023-10-13 08:34] LABS: Blood Urea Nitrogen 65 mg/dl (7-17); Calcium 8.4 mg/dl (8.4-10.2); Carbon Dioxide 26 mmol/L (22-30); Chloride 98 mmol/L (98-107); Estimated Creatinine Clearance 30 ml/min; Glucose 76 mg/dl (70-99); Potassium 3.8 mmol/L (3.5-5.1); Sodium 131 mmol/L (135-145); eGFR 37.33
[2023-10-13] MEDS: DEMADEX 40 MG PO ×2 (10:14→15:06)
[2023-10-13] MEDS: OCUVITE SOFTGEL 1 CAP PO ×2 (10:14→20:14)
[2023-10-13] MEDS: ZYLOPRIM 100 MG PO (10:14)
[2023-10-13] MEDS: ProAmatine 5 MG PO ×3 (10:14→18:21)
[2023-10-13] MEDS: FOLVITE 1 MG PO (10:14)
[2023-10-13] MEDS: VITAMIN D3 (cholecalciferol) 25 MCG PO (10:15)
[2023-10-13] MEDS: THERAGRAN 1 TABLET PO (10:15)
[2023-10-13] MEDS: CELEXA 20 MG PO (10:15)
[2023-10-13] MEDS: MAGNESIUM OXIDE 500 MG PO (10:16)
[2023-10-13] MEDS: TYLENOL 500 MG PO (10:16)
[2023-10-13] MEDS: ELIQUIS 2.5 MG PO ×2 (10:16→20:14)
[2023-10-13] MEDS: COLACE 100 MG PO (10:16)
--- NOTE | 2023-10-13 10:50 | CM ---
Case management following for discharge planning
Received call from pts daughter Jina - [phone]
Discussed discharge planning to SNF - prefers [facility], [facility] or [facility]
Referrals sent - waiting on response
Plan - snf when medically ready and be obtained
--- NOTE | 2023-10-13 12:07 | PTCARENOTE ---
Patient's daughter India asking RN to write a note for discharge plans to be relayed to her as her sister who is POA does not communicate with her.
--- NOTE | 2023-10-13 12:18 | W.PN.HOSP.TC ---
Today's Communication/Plan
-
monitor Na on Torsemide
Assessment / Plan
Assessment / Plan
IMPRESSION:
Acute CHF preserved EF
Severe pulmonary hypertension
Cor pulmonale with tricuspid regurgitation.
Bilateral right greater than left pleural effusion
Acute hypoxic respiratory insufficiency secondary to above
Acute on chronic hyponatremia sodium 121.
BATOOL on CKD stage IIIa�B with baseline creatinine 1.2�1.4.
Paroxysmal atrial fibrillation.
Anticoagulation with Eliquis.
Hypothyroidism on replacement
Depression.
History of breast carcinoma status postlumpectomy and radiation therapy.
Peripheral neuropathy
Chronic lower extremity edema
Recent hospitalization with right clavicular fracture treated conservatively with sling and physical therapy
Plan:
Acute hypoxic respiratory insufficiency multifactorial due to decompensated CHF and building up right pleural effusion.
Acute CHF preserved EF/cor pulmonale/severe pulmonary hypertension.
Echocardiogram 09/18 with LVEF of 60-65%, severe biatrial enlargement, severe tricuspid regurgitation with PASP 65-70 mmHg
No evidence for respiratory distress.
Right pleural effusion
� Status post right thoracentesis 10/09. 1150cc transudate
Improved respiratory status. Currently off oxygen supplementation with no evidence of distress.
Acute on chronic hyponatremia.
BATOOL on CKD creatinine 2.8 (baseline 1.2�1.4)
Likely preload dependent and relatively hypotensive upon presentation.
Urine Osm 339
Status post 2% infusion on 10/08.
Sodium improved 121�124-128
Clinically volume overloaded with now stable BP.
Received IV Lasix on 10/09, 10/10
Transition to Demadex and monitor sodium level.
Continue midodrine 5 mg 3 times a day
Celexa decreased to 20 mg daily
Paroxysmal atrial fibrillation
Rate controlled.
Not on AV andrés medications or arrhythmics prior to presentation
Continue anticoagulation
Eliquis dose adjusted according to renal clearance.
Depression, peripheral neuropathy
Reduce Celexa dose to 20 mg given worsening of hyponatremia
Hypothyroidism
Recent TSH within normal limits
Continue levothyroxine
CODE STATUS DNR
DVT prophylaxis Eliquis.
Update 10/12 - Sodium and Scr improving on Tosemide. Cont to monitor
Anticipated Discharge: > 48 hours
Subjective/Interval History
-
Date of Service: October 13, 2023
no acute events, sitting in chair comfortably
Objective Data
-
Labs:
Laboratory Results
10/13/23
06:44
Sodium 131 L
Potassium 3.8
Chloride 98
Carbon Dioxide 26
BUN 65 H
Creatinine 1.4 H
Glucose 76
Calcium 8.4
Vital Signs:
Vital Signs
Temp Pulse Resp BP Pulse Ox
98.8 F 69 18 136/71 94
10/13/23 08:00 10/13/23 08:00 10/13/23 08:00 10/13/23 08:00 10/13/23 08:00
I&O
10/12/23 10/13/23 10/14/23
06:59 06:59 06:59
Intake Total 675 / 675 660 / 660
Output Total 750 / 750
Balance -75 / -75 660 / 660
Review of Systems
-
History Source: Patient
All other systems: Not reviewed unless documented
Physical Exam
-
General: Well Developed, Well Nourished, No Apparent Distress and Comfortable
Respiratory: Clear to Auscultation and Non Labored Respirations
Cardiac: Regular Rhythm and S1/S2
Musculoskeletal: No Clubbing, No Cyanosis, Edema, Right Lower Extrem, Edema, Left Lower Extrem (mild edema less than yesterday, 2+ ) and Other (Bruising and tenderness over right clavicle)
Neuro: Awake, Alert, Oriented and AO x 3
Psych: Calm
Data Reviewed
-
Diagnostic Radiology: Image personally visualized and interpreted and Report Reviewed by me
Labs: Labs Reviewed by me, Discussed with Physician and Discussed with Patient
--- NOTE | 2023-10-13 14:00 | W.PN.NEPH.PH ---
Today's Communication / Plan
-
cont Torsemide, additional dosing if needed for wt gain in out pt setting
Assessment/Plan
-
Assessment:
BATOOL with CKD -b/l cr 1.2-1.4
Acute on chronic hyponatremia
hyperkalemia
No gap met acidosis
Bilat Pleural effusion
DCHF
h/o clavicular fracture
Severe TR and pulm HTN
Paroxysmal atrial fibrillation
HLD
Hypothyroidism
h/o breast ca
LE neuropathy
Plan
A/w abnormal labs from [facility] while getting treated for hypervolemia on Torsemide
BATOOL-cr improving to 1.4 with diuretics suggest cardiorenal
check bladder scan, monitor UOP
wt decreasing, improving hyponatremia with diuresis , cont Torsemide
Hyponatremia likely multifactorial with underlying SSRI use , increased volume gains
checked cortisol and TSH, prn midodrine , BB with holding parameters
Continue fluid restriction 40ounces/day
unlikely her all LE edema is amenable for diuresis with severe pulm HTN
Status post right thoracentesis
BP stable on high dose BB and midodrine
SSRI dose reduced daughter at bedside
-
-
Date of Service: October 13, 2023
CC / HPI / ROS
-
Chief Complaint:
Hyponatremia
BATOOL
History of Present Illness:
Serum sodium at 131
Creatinine better at 1.4
Hemodynamically stable
Review of Systems:
weights down
no O2
no cp or sob
Labs
-
Labs:
WBC 6.6 10^3/uL (4.8-10.8) 10/10/23 08:04
RBC 3.38 10^6/uL (4.20-5.40) L 10/10/23 08:04
Hgb 10.1 g/dL (12.0-16.0) L 10/10/23 08:04
Hct 30.8 % (37.0-47.0) L 10/10/23 08:04
Plt Count 197 10^3/uL (130-400) 10/10/23 08:04
Sodium 131 mmol/L (135-145) L 10/13/23 06:44
Potassium 3.8 mmol/L (3.5-5.1) 10/13/23 06:44
Chloride 98 mmol/L (98-107) 10/13/23 06:44
Carbon Dioxide 26 mmol/L (22-30) 10/13/23 06:44
BUN 65 mg/dl (7-17) H 10/13/23 06:44
Creatinine 1.4 mg/dL (0.6-1.0) H 10/13/23 06:44
eGFR 37.33 10/13/23 06:44
Glucose 76 mg/dl (70-99) 10/13/23 06:44
Calcium 8.4 mg/dl (8.4-10.2) 10/13/23 06:44
Ket-I-Esjmisxserp Pept 02437 pg/ml 10/09/23 15:23
Albumin 3.7 g/dl (3.5-5.0) 10/09/23 14:22
Physical Exam
-
Vital Signs:
Vital Signs
Temp Pulse Resp BP Pulse Ox
97.3 F 67 19 123/71 97
10/13/23 12:34 10/13/23 12:34 10/13/23 12:34 10/13/23 12:34 10/13/23 12:34
Cardiovascular:: Regular rate and rhythm
Respiratory:: Bilateral: CTA (decreased)
Lung Excursion:: Normal
Abdomen:: Nontender and Soft
Extremity Edema:: +2: Bilateral:
Horowitz Catheter: No
[2023-10-13] MEDS: TYLENOL 1000 MG PO (20:14)
[2023-10-13] MEDS: TOPROL XL 150 MG PO (20:15)
[2023-10-13] MEDS: AMBIEN 5 MG PO (21:03)
[2023-10-14 03:30] VITALS: BP 108/66
[2023-10-14] MEDS: SYNTHROID 125 MCG PO (05:56)
[2023-10-14 06:00] VITALS: BMI 24.5
[2023-10-14 07:45] VITALS: BP 129/83
[2023-10-14 08:21] LABS: Blood Urea Nitrogen 65 mg/dl (7-17); Calcium 8.3 mg/dl (8.4-10.2); Carbon Dioxide 28 mmol/L (22-30); Chloride 96 mmol/L (98-107); Estimated Creatinine Clearance 30 ml/min; Glucose 75 mg/dl (70-99); Potassium 3.7 mmol/L (3.5-5.1); Sodium 131 mmol/L (135-145); eGFR 37.33
[2023-10-14] MEDS: VITAMIN D3 (cholecalciferol) 25 MCG PO (08:30)
[2023-10-14] MEDS: ELIQUIS 2.5 MG PO ×2 (08:30→20:58)
[2023-10-14] MEDS: OCUVITE SOFTGEL 1 CAP PO ×2 (08:30→20:58)
[2023-10-14] MEDS: FOLVITE 1 MG PO (08:30)
[2023-10-14] MEDS: COLACE 100 MG PO (08:30)
[2023-10-14] MEDS: ProAmatine 5 MG PO ×3 (08:30→17:00)
[2023-10-14] MEDS: ZYLOPRIM 100 MG PO (08:30)
[2023-10-14] MEDS: MAGNESIUM OXIDE 500 MG PO (08:30)
[2023-10-14] MEDS: CELEXA 20 MG PO (08:31)
[2023-10-14] MEDS: TYLENOL 500 MG PO (08:31)
[2023-10-14] MEDS: THERAGRAN 1 TABLET PO (08:31)
[2023-10-14] MEDS: DEMADEX 40 MG PO ×2 (08:31→16:53)
[2023-10-14 11:00] VITALS: BP 133/79
--- NOTE | 2023-10-14 13:49 | W.PN.HOSP.TC ---
Today's Communication/Plan
-
cont torsemide, monitor bmp
dc ready - cm aware
Assessment / Plan
Assessment / Plan
IMPRESSION:
Acute CHF preserved EF
Severe pulmonary hypertension
Cor pulmonale with tricuspid regurgitation.
Bilateral right greater than left pleural effusion
Acute hypoxic respiratory insufficiency secondary to above
Acute on chronic hyponatremia sodium 121.
BATOOL on CKD stage IIIa�B with baseline creatinine 1.2�1.4.
Paroxysmal atrial fibrillation.
Anticoagulation with Eliquis.
Hypothyroidism on replacement
Depression.
History of breast carcinoma status postlumpectomy and radiation therapy.
Peripheral neuropathy
Chronic lower extremity edema
Recent hospitalization with right clavicular fracture treated conservatively with sling and physical therapy
Plan:
Acute hypoxic respiratory insufficiency multifactorial due to decompensated CHF and building up right pleural effusion.
Acute CHF preserved EF/cor pulmonale/severe pulmonary hypertension.
Echocardiogram 09/18 with LVEF of 60-65%, severe biatrial enlargement, severe tricuspid regurgitation with PASP 65-70 mmHg
No evidence for respiratory distress.
Right pleural effusion
� Status post right thoracentesis 10/09. 1150cc transudate
Improved respiratory status. Currently off oxygen supplementation with no evidence of distress.
Acute on chronic hyponatremia.
BATOOL on CKD creatinine 2.8 (baseline 1.2�1.4)
Likely preload dependent and relatively hypotensive upon presentation.
Urine Osm 339
Status post 2% infusion on 10/08.
Sodium improved 121�124-128
Clinically volume overloaded with now stable BP.
Received IV Lasix on 10/09, 10/10
Transition to Demadex and monitor sodium level.
Continue midodrine 5 mg 3 times a day
Celexa decreased to 20 mg daily
Paroxysmal atrial fibrillation
Rate controlled.
Not on AV andrés medications or arrhythmics prior to presentation
Continue anticoagulation
Eliquis dose adjusted according to renal clearance.
Depression, peripheral neuropathy
Reduce Celexa dose to 20 mg given worsening of hyponatremia
Hypothyroidism
Recent TSH within normal limits
Continue levothyroxine
CODE STATUS DNR
DVT prophylaxis Eliquis.
Update 10/12 - Sodium and Scr improving on Tosemide. Cont to monitor
Update 10/13 - Stable on Torsemide; Pending placement
Anticipated Discharge: Within 24 hours
Subjective/Interval History
-
Date of Service: October 14, 2023
no acute events
Objective Data
-
Labs:
Laboratory Results
10/14/23
06:15
Sodium 131 L
Potassium 3.7
Chloride 96 L
Carbon Dioxide 28
BUN 65 H
Creatinine 1.4 H
Glucose 75
Calcium 8.3 L
Vital Signs:
Vital Signs
Temp Pulse Resp BP Pulse Ox
97.9 F 84 18 133/79 95
10/14/23 11:00 10/14/23 11:00 10/14/23 11:00 10/14/23 11:00 10/14/23 11:00
I&O
10/13/23 10/14/23 10/15/23
06:59 06:59 06:59
Intake Total 660 / 660 840 / 840
Balance 660 / 660 840 / 840
Review of Systems
-
History Source: Patient
All other systems: Not reviewed unless documented
Physical Exam
-
General: Well Developed, Well Nourished, No Apparent Distress and Comfortable
Respiratory: Clear to Auscultation and Non Labored Respirations
Cardiac: Regular Rhythm and S1/S2
Musculoskeletal: No Clubbing, No Cyanosis, Edema, Right Lower Extrem, Edema, Left Lower Extrem (mild edema less than yesterday, 2+ ) and Other (Bruising and tenderness over right clavicle)
Neuro: Awake, Alert, Oriented and AO x 3
Psych: Calm
Data Reviewed
-
Diagnostic Radiology: Image personally visualized and interpreted and Report Reviewed by me
Labs: Labs Reviewed by me, Discussed with Physician and Discussed with Patient
--- NOTE | 2023-10-14 13:59 | CM ---
Case management following for discharge planning
Met with pt, her and her daughter at bedside
Discussed additional SNF options- requesting referrals be sent to [facility]
Referral sent in [facility]
Daughter, Jina, reporting she should be call or contact centre operator
Plan - anticipate SNF when bed obtained and medically ready
--- NOTE | 2023-10-14 14:50 | W.PN.NEPH.PH ---
Today's Communication / Plan
-
follow labs
d/c plan
Assessment/Plan
-
Assessment:
ABTOOL with CKD -b/l cr 1.2-1.4
Acute on chronic hyponatremia
hyperkalemia
No gap met acidosis
Bilat Pleural effusion
DCHF
h/o clavicular fracture
Severe TR and pulm HTN
Paroxysmal atrial fibrillation
HLD
Hypothyroidism
h/o breast ca
LE neuropathy
Plan
A/w abnormal labs from [facility] while getting treated for hypervolemia on Torsemide
BATOOL-cr better and stable at 1.4 with diuretics suggest cardiorenal
wt decreasing, improving hyponatremia with diuresis , cont Torsemide
Hyponatremia likely multifactorial with underlying SSRI use , increased volume gains
checked cortisol and TSH,
BP stable on midodrine , on BB with h/o Afib
Continue fluid restriction 40ounces/day
unlikely her all LE edema is amenable for diuresis with severe pulm HTN
Status post right thoracentesis this admit
SSRI dose reduced daughter at bedside
-
-
Date of Service: October 14, 2023
CC / HPI / ROS
-
Chief Complaint:
Hyponatremia
BATOOL
History of Present Illness:
Serum sodium at 131
Creatinine stable at 1.4
Hemodynamically stable on midodrine
Review of Systems:
weights down
no O2
no cp or sob
Labs
-
Labs:
WBC 6.6 10^3/uL (4.8-10.8) 10/10/23 08:04
RBC 3.38 10^6/uL (4.20-5.40) L 10/10/23 08:04
Hgb 10.1 g/dL (12.0-16.0) L 10/10/23 08:04
Hct 30.8 % (37.0-47.0) L 10/10/23 08:04
Plt Count 197 10^3/uL (130-400) 10/10/23 08:04
Sodium 131 mmol/L (135-145) L 10/14/23 06:15
Potassium 3.7 mmol/L (3.5-5.1) 10/14/23 06:15
Chloride 96 mmol/L (98-107) L 10/14/23 06:15
Carbon Dioxide 28 mmol/L (22-30) 10/14/23 06:15
BUN 65 mg/dl (7-17) H 10/14/23 06:15
Creatinine 1.4 mg/dL (0.6-1.0) H 10/14/23 06:15
eGFR 37.33 10/14/23 06:15
Glucose 75 mg/dl (70-99) 10/14/23 06:15
Calcium 8.3 mg/dl (8.4-10.2) L 10/14/23 06:15
Jnf-M-Kftffkrenqp Pept 22073 pg/ml 10/09/23 15:23
Albumin 3.7 g/dl (3.5-5.0) 10/09/23 14:22
Physical Exam
-
Vital Signs:
Vital Signs
Temp Pulse Resp BP Pulse Ox
97.9 F 84 18 133/79 95
10/14/23 11:00 10/14/23 11:00 10/14/23 11:00 10/14/23 11:00 10/14/23 11:00
Cardiovascular:: Regular rate and rhythm
Respiratory:: Bilateral: CTA (decreased)
Lung Excursion:: Normal
Abdomen:: Nontender and Soft
Extremity Edema:: +2: Bilateral:
Horowitz Catheter: No
[2023-10-14 15:00] VITALS: BP 125/76
[2023-10-14 19:05] VITALS: BP 106/64
[2023-10-14] MEDS: AMBIEN 5 MG PO (20:58)
[2023-10-14] MEDS: TYLENOL 1000 MG PO (20:58)
[2023-10-14] MEDS: TOPROL XL 150 MG PO (20:58)
[2023-10-14 22:37] VITALS: BP 124/77
[2023-10-15 02:53] VITALS: BP 103/65
[2023-10-15] MEDS: SYNTHROID 125 MCG PO (04:36)
[2023-10-15 06:00] VITALS: BMI 24.8
[2023-10-15 06:20] LABS: Blood Urea Nitrogen 60 mg/dl (7-17); Calcium 8.3 mg/dl (8.4-10.2); Carbon Dioxide 27 mmol/L (22-30); Chloride 96 mmol/L (98-107); Estimated Creatinine Clearance 28 ml/min; Glucose 82 mg/dl (70-99); Potassium 4.1 mmol/L (3.5-5.1); Sodium 131 mmol/L (135-145); eGFR 34.36
[2023-10-15 07:18] VITALS: BP 117/75
[2023-10-15] MEDS: ZYLOPRIM 100 MG PO (08:14)
[2023-10-15] MEDS: COLACE 100 MG PO (08:14)
[2023-10-15] MEDS: THERAGRAN 1 TABLET PO (08:15)
[2023-10-15] MEDS: TYLENOL 500 MG PO (08:15)
[2023-10-15] MEDS: ELIQUIS 2.5 MG PO (08:15)
[2023-10-15] MEDS: DEMADEX 40 MG PO ×2 (08:15→15:20)
[2023-10-15] MEDS: FOLVITE 1 MG PO (08:15)
[2023-10-15] MEDS: VITAMIN D3 (cholecalciferol) 25 MCG PO (08:15)
[2023-10-15] MEDS: MAGNESIUM OXIDE 500 MG PO (08:16)
[2023-10-15] MEDS: OCUVITE SOFTGEL 1 CAP PO (08:16)
[2023-10-15] MEDS: CELEXA 20 MG PO (08:16)
[2023-10-15] MEDS: ProAmatine 5 MG PO (08:17)
--- NOTE | 2023-10-15 10:18 | CM ---
Addendum entered by Walker Rock 10/15/23 11:57:
CM spoke to [facility] account director and she confirmed they do not have a bed available. Both pt and her daughter are aware, [facility] requested. Pt's daughter requested w/c van transport and she is aware of transportation fee.
CM spoke to [facility] product safety coordinator again and she confirmed that pt is accepted for admission today.
CM to arrange w/c van with apple picking supervisor time 3:00 p.m.
[facility] nursing report: [phone]
Discharge instructions fax: [phone]
D/C plan: [facility].
Original Note:
CM following re: discharge planning.
Reviewed pt's chart, spoke to pt's daughter Jina to update on discharge plan progress.
According to MD pt is medically stable to be discharged today.
Pt's daughter is aware that [facility] offered a bed. CM discussed it with pt's daughter Jina. pt's daughter stated her number one preference is [facility]. CM spoke to [facility] SNF sales support administrator Catalina and she confirmed they do not
have a bed available.
CM spoke to pt's daughter again and she preferred [facility]. CM called [facility] and left a message to their account director Mayuri.
Awaiting for determination from [facility].
Per daughter, if [facility] denies a referral then pt will go to [facility]. CM spoke to [facility] product safety coordinator Lydia [phone] and she confirmed they do have a bed available and pt will be accepted for admission today if
family chooses.
D/C plan: [facility] if [facility] denies referral. Awaiting for clarification from [facility].
CM will follow to assist pt with discharge to a preferred SNF today.
[2023-10-15 11:26] VITALS: BP 150/88
--- NOTE | 2023-10-15 11:57 | W.DS.TRANS ---
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
-
Discharge Instructions:
Sleep Apnea Risk Intermediate
Discharge Diagnosis/Procedures Acute CHF preserved EF
Severe pulmonary hypertension
Cor pulmonale with tricuspid regurgitation.
Bilateral right greater than left pleural
effusion
Acute hypoxic respiratory insufficiency
secondary to above
Acute on chronic hyponatremia sodium 121.
BATOOL on CKD stage IIIa�B with baseline creatinine
1.2�1.4.
Paroxysmal atrial fibrillation.
Anticoagulation with Eliquis.
Hypothyroidism on replacement
Depression.
History of breast carcinoma status
postlumpectomy and radiation therapy.
Peripheral neuropathy
Chronic lower extremity edema
Recent hospitalization with right clavicular
fracture treated conservatively with sling and
physical therapy
Diet 2 Gram Sodium
Additional Diets Fluid restriction to 48 oz
Instructions: *[facility] Heart Failure Instructions
Stand-Alone Forms:
Changes to Home Medications: Yes
Discharge Medications:
DC Medications w/original date entered in [facility]
acetaminophen 500 mg tablet (Tylenol Extra Strength) 500 mg PO DAILY Pain 08/10/19
fluticasone propionate 50 mcg/actuation nasal spray,suspension 1 spray intranasal BID allergies 08/10/19
levothyroxine 125 mcg tablet 125 mcg PO DAILY Thyroid 08/10/19
multivitamin-ferrous fumarate-folic acid 18 mg-400 mcg tablet (Centrum) 1 tab PO DAILY Supplement 08/10/19
vit C 250 mg-vit E 90 mg-zinc 40 mg-copper 1 lw-tdeieq-qyasdk capsule (PreserVision AREDS-2) 1 ea PO BID Supplement 08/10/19
allopurinol 100 mg tablet 100 mg PO DAILY gout 09/06/23
cholecalciferol (vitamin D3) 25 mcg (1,000 unit) tablet 25 mcg PO DAILY Supplement 09/06/23
acetaminophen 500 mg tablet (Tylenol Extra Strength) 1,000 mg PO HS Pain 09/28/23
docusate sodium 100 mg capsule (Colace) 100 mg PO DAILY Constipation 09/28/23
folic acid 1 mg tablet 1 mg PO DAILY Supplement 09/28/23
magnesium oxide 500 mg PO DAILY Supplement 09/28/23
acetaminophen 325 mg tablet 650 mg PO Q4HPRN PRN mild pain/fever>100 10/09/23
apixaban 2.5 mg tablet (Eliquis) 2.5 mg PO BID Blood Clot Prevention/Tx 10/09/23
bisacodyl 10 mg rectal suppository (Dulcolax (bisacodyl)) 10 mg AR DAILYPRN PRN if mom is ineffective/give on day 5 10/09/23
ipratropium 0.5 mg-albuterol 3 mg (2.5 mg base)/3 mL nebulization soln 3 ml inhalation R Q6HPRN PRN sob/wheezing 10/09/23
magnesium hydroxide 400 mg/5 mL oral suspension (Milk of Magnesia) 30 ml PO DAILYPRN PRN constipation/give day 4 of no bm 10/09/23
metoprolol succinate 100 mg tablet,extended release 24 hr 150 mg PO HS Blood Pressure 10/09/23
torsemide 20 mg tablet 40 mg PO BID@0800,1600 Fluid Retention/Swelling 10/09/23
citalopram 20 mg tablet 20 mg PO DAILY #30 tabs 10/15/23
midodrine 5 mg tablet 5 mg PO TID@0800,1300,1800 #90 tabs 10/15/23
zolpidem 5 mg tablet 5 mg PO HSPRN PRN insomnia #10 tabs 10/15/23
Home Medication Changes
Midodrine started.
Celexa dose decreased
Pending Results: No
--- NOTE | 2023-10-15 12:06 | W.PN.NEPH.PH ---
Today's Communication / Plan
-
- for d/c
Assessment/Plan
-
Assessment:
BATOOL with CKD -b/l cr 1.2-1.4
Acute on chronic hyponatremia
hyperkalemia
No gap met acidosis
Bilat Pleural effusion
DCHF
h/o clavicular fracture
Severe TR and pulm HTN
Paroxysmal atrial fibrillation
HLD
Hypothyroidism
h/o breast ca
LE neuropathy
Plan
A/w abnormal labs from [facility] while getting treated for hypervolemia on Torsemide
BATOOL-cr better and stable at 1.5 with diuretics suggest cardiorenal
wt initally decreasing, now stabilized,
Na now stabilized in 130s
Ok to continue torsemide
Hyponatremia likely multifactorial with underlying SSRI use , increased volume gains
checked cortisol and TSH, all wnl
BP stable on midodrine , on BB with h/o Afib
Continue fluid restriction 40ounces/day
unlikely her all LE edema is amenable for diuresis with severe pulm HTN
Status post right thoracentesis this admit
SSRI dose reduced daughter at bedside
likely for discharge. please obtain labs in 1 week post discharge.
-
-
Date of Service: October 15, 2023
CC / HPI / ROS
-
Chief Complaint:
Hyponatremia
BATOOL
History of Present Illness:
Serum sodium at 131
Creatinine stable at 1.5
Hemodynamically stable on midodrine
Review of Systems:
weights stable
no O2
no cp or sob
Labs
-
Labs:
WBC 6.6 10^3/uL (4.8-10.8) 10/10/23 08:04
RBC 3.38 10^6/uL (4.20-5.40) L 10/10/23 08:04
Hgb 10.1 g/dL (12.0-16.0) L 10/10/23 08:04
Hct 30.8 % (37.0-47.0) L 10/10/23 08:04
Plt Count 197 10^3/uL (130-400) 10/10/23 08:04
Sodium 131 mmol/L (135-145) L 10/15/23 05:21
Potassium 4.1 mmol/L (3.5-5.1) 10/15/23 05:21
Chloride 96 mmol/L (98-107) L 10/15/23 05:21
Carbon Dioxide 27 mmol/L (22-30) 10/15/23 05:21
BUN 60 mg/dl (7-17) H 10/15/23 05:21
Creatinine 1.5 mg/dL (0.6-1.0) H 10/15/23 05:21
eGFR 34.36 10/15/23 05:21
Glucose 82 mg/dl (70-99) 10/15/23 05:21
Calcium 8.3 mg/dl (8.4-10.2) L 10/15/23 05:21
Gtn-W-Lwexggatdpn Pept 07452 pg/ml 10/09/23 15:23
Albumin 3.7 g/dl (3.5-5.0) 10/09/23 14:22
Physical Exam
-
Vital Signs:
Vital Signs
Temp Pulse Resp BP Pulse Ox
98.0 F 68 17 150/88 96
10/15/23 11:26 10/15/23 11:26 10/15/23 11:26 10/15/23 11:26 10/15/23 11:26
Cardiovascular:: Regular rate and rhythm
Respiratory:: Bilateral: CTA
Lung Excursion:: Normal
Abdomen:: Nontender and Soft
Bowel Sounds:: Normal
Extremity Edema:: +2: Bilateral:
Horowitz Catheter: No
[2023-10-15] MEDS: ProAmatine PO (12:33)
[2023-10-15 15:10] VITALS: BP 116/61
--- NOTE | 2023-10-17 09:39 | PN.CDI ---
CDI
- -
CDI:
Physician Documentation Request
Admit Date: 10/09/23 17:45
Dear Doctor Carl,
Please review the following and provide your response in the progress notes.
Clinical Indicators:
The diagnosis of acute hypoxic respiratory failure was documented on 10/14 DC Summary, but is not noted in other documentation.
- 10/08 H&P 'Acute hypoxic respiratory insufficiency'
- Documented 2L O2, pulse ox >88%
- 10/09-10/13 PN 'Acute hypoxic respiratory insufficiency'
- 10/14 DC Summary indicates both 'acute hypoxic respiratory insufficiency' and 'acute hypoxic respiratory failure'
Please clarify the following:
____ - Acute hypoxic respiratory failure was present on admission and is now resolved
____ - Acute hypoxic respiratory failure was ruled out
____ - Other
Use of terms such as suspected, likely, concern for, or probable (associated with a specific diagnosis that is being evaluated, monitored, or treated as if it exists) are acceptable and can be coded in the inpatient setting, when documented at the
time of discharge.
Thank you,
Jeane Sherman RN
CDI Specialist
Please use your independent medical judgment in providing your response.
== END 2023-10-15 17:37 | DRG 682 ==
LOC: 3 WEST ACU 17:45
PROVIDERS: Internal Medicine; Physician Assistant; Radiology Vascular & Interventional Radiology; Specialist; ADMITTING PHYSICIAN Internal Medicine; CONSULT PHYSICIAN Internal Medicine; EMERGENCY PHYSICIAN Emergency Medicine; FAMILY PHYSICIAN Family Medicine
PROC: 0W993ZZ Drainage of Right Pleural Cavity, Percutaneous Approach (ICD-10-PCS; 2023-10-10)
DX: N17.9 Acute kidney failure, unspecified (principal); I50.33 Acute on chronic diastolic (congestive) heart failure; J96.01 Acute respiratory failure with hypoxia; E87.1 Hypo-osmolality and hyponatremia; I13.0 Hypertensive heart and chronic kidney disease with heart failure and stage 1 through stage 4 chronic kidney disease, or unspecified chronic kidney disease; J91.8 Pleural effusion in other conditions classified elsewhere; E87.20 Acidosis, unspecified; Z66 Do not resuscitate; N18.32 Chronic kidney disease, stage 3b; I48.0 Paroxysmal atrial fibrillation; E78.00 Pure hypercholesterolemia, unspecified; K74.60 Unspecified cirrhosis of liver; I08.3 Combined rheumatic disorders of mitral, aortic and tricuspid valves; K58.1 Irritable bowel syndrome with constipation; M10.9 Gout, unspecified; E87.5 Hyperkalemia; E03.9 Hypothyroidism, unspecified; T43.225A Adverse effect of selective serotonin reuptake inhibitors, initial encounter; F32.A Depression, unspecified; I27.81 Cor pulmonale (chronic); G57.90 Unspecified mononeuropathy of unspecified lower limb; Z79.01 Long term (current) use of anticoagulants; Z79.899 Other long term (current) drug therapy; Z79.890 Hormone replacement therapy; Z87.891 Personal history of nicotine dependence; Z92.3 Personal history of irradiation; Z85.3 Personal history of malignant neoplasm of breast; Z96.653 Presence of artificial knee joint, bilateral
CPT/HCPCS: 32555; 36415; 71045; 71046; 80048; 80051; 80053; 82533; 83615; 83880; 83935; 83986; 84157; 84300; 84443; 85025; 87015; 87045; 87046; 87070; 87205; 87324; 87427; 87449; 89051; 93005; 97116; 97163; 97530; 99285

== ENCOUNTER 2023-10-22 14:39 | Inpatient (IN) | payer MEDICARE, BC, SELFPAY ==
[2023-10-22] VITALS (16 sets, daily range): BP systolic 61–123; BP diastolic 30–105; BMI 29.0; BMI 27.2
[2023-10-22 12:16] LABS: % Basophils 0.3 % (0-2); % Eosinophils 0.5 % (0-6); % Immature Granulocytes 0.8 % (0-0.5); % Lymphocytes 10.3 % (20.5-51.1); % Monocytes 7.4 % (1.7-9.3); % Neutrophils 80.7 % (42.2-75.2); Absolute Immature Granulocytes 0.1 10^3/uL (0-0.05); Absolute Lymphocytes 0.6 10^3/uL (1.2-3.4); Absolute Monocytes 0.5 10^3/uL (0.1-0.6); Hematocrit 27.2 % (37.0-47.0); Hemoglobin 9.3 g/dL (12.0-16.0); Mean Corp Hgb Conc. 34.2 g/dL (33.0-37.0); Mean Corpuscular Hgb 30.6 pg (27.0-31.0); Mean Corpuscular Volume 89.5 fL (81.0-99.0); Mean Platelet Volume 11.7 fL (7.4-10.4); Nucleated Red Blood Cells % 4.5 %; Platelet Count 231 10^3/uL (130-400); Red Blood Cell Count 3.04 10^6/uL (4.20-5.40); Red Cell Dist. Width 18.3 % (11.5-14.5); White Blood Cell Count 6.2 10^3/uL (4.8-10.8)
[2023-10-22 13:19] LABS: ALT (SGPT) 37 U/L (0-35); AST (SGOT) 88 U/L (14-36); Albumin 3.1 g/dl (3.5-5.0); Alkaline Phosphatase 62 U/L (38-126); Blood Urea Nitrogen 82 mg/dl (7-17); Calcium 8.4 mg/dl (8.4-10.2); Carbon Dioxide 23 mmol/L (22-30); Chloride 83 mmol/L (98-107); Estimated Creatinine Clearance 13 ml/min; Glucose 99 mg/dl (70-99); Potassium 4.8 mmol/L (3.5-5.1); Sodium 120 mmol/L (135-145); Total Bilirubin 1.3 mg/dl (0.2-1.3); Total Protein 6.3 g/dl (6.3-8.2); eGFR 12.02
[2023-10-22 13:33] LABS: NT-proBNP > 27000 pg/ml; Troponin I 0.214 ng/ml
--- NOTE | 2023-10-22 14:01 | CON.CAR ---
Addendum entered and electronically signed by Guilherme Stovall MD 10/22/23 15:44:
I saw and examined the patient.
The CORPORATION SECRETARY's note was reviewed and I agree with the note.
83-year-old female (known to Dr. Squires, her primary us marketing director), with HFpEF, paroxysmal atrial fibrillation status post ablation on Eliquis, severe pulmonary hypertension, severe tricuspid regurgitation, RBBB, hypertension, right-sided
breast cancer with lumpectomy and XRT, RA, and chronic lower extremity edema, patient with reported weight gain on presentation patient's had low blood pressures chest x-ray with small effusions patient had reported some shortness of breath but
currently respiratory status appears stable on nasal cannula O2.
.
hypotension
-Patient has been on midodrine as an outpatient and reportedly has been taking medical therapy. Patient is overdue for afternoon meds. Unclear what other causes are contributing to her low blood pressure.
-Check cortisol level.
-Increase midodrine to 10 mg 3 times daily
-Additional blood pressure support with pressors i.e. Levophed or Jeremias-Synephrine as causes of blood pressure are assessed.
-Follow-up echo
-Blood cultures send assessment for infection.
-Lower extremity ultrasound
-May consider right heart catheterization if we are trying to further assess intravascular volume status.
.
Edema. May be related to combination of left heart failure and right heart failure. However it is possible patient is having more right heart failure issues related to TR. Ability to diurese may be limited due to blood pressure.
-Will monitor response to diuretic already given.
-Lower extremity ultrasound even though patient on low-dose Eliquis.
-Patient with normal left ventricular function by echocardiogram August 2023. Could consider right heart cath or combination right and left heart cath (without contrast) for hemodynamic assessment
.
BATOOL. Acute on chronic. May be multifactorial.
Optimize hemodynamics which includes blood pressure support as noted above.-
-Additional treatment as directed by nephrology.
.
Hyponatremia. Treatment as directed by nephrology.
.
Atrial fibrillation continue with rate control and anticoagulation.
Issues, particularly management related to hypotension discussed with Dr. San
Original Note:
Consultation
Consultation Request
Date/Time Consultation Requested: 10/22/23 1:30p
Date/Time Consultation Performed: 10/22/23 2p
Requesting Provider: Doris Xavier PA-C
Performing Provider: NATHANIEL Rios for Dr. Stovall
Reason for Consultation: weight gain, HFrEF
Medical History
-
Chief Complaint: acute weight gain
History of Present Illness:
Mrs. Jordan is an 83-year-old female (known to Dr. Squires, her primary us marketing director), with HFpEF, paroxysmal atrial fibrillation status post ablation (initially had SHIRLEY thrombus on GIOVANNI) on Eliquis, severe pulmonary hypertension, severe tricuspid
regurgitation, RBBB, hypertension, prior right-sided breast cancer with lumpectomy and XRT, RA, and chronic lower extremity edema, who presents to the ER with c/o weight gain ~ 8 lbs over 1 week. She c/o increased LE edema, CONRAD and abdominal
bloating. She is admitted to the hospitalist service and we are consulted for acute HFpEF. She denies missed doses of Torsemide 40mg BID. She was just d/c from 10/15/23 and her weight was 156 lbs and her weight in the ER today is 178 lbs. This
admission is her 4th in the last 6 weeks. She is hypotension, received IVF in the ER, and admits compliance with midodrine at home. Also noted to have significant hyponatremia (Na 120), BATOOL creatinine of 3.6, proBNP > 27,000 and troponin 0.214.
Past Medical History
Past Medical History: Other (as above)
Past Surgical History: Other (Laminectomy, knee replacement, right rotator cuff repair and Right breast lumpectomy)
Social History
Tobacco: Former Smoker
Alcohol: Daily (2-3 glasses of wine)
Living: Assisted Living
Family History
Family History: Reviewed & Not Pertinent
Allergies / Home Medications
Allergy/AdvReac Type Severity Reaction Status Date / Time
No Known Allergies Allergy Verified 10/09/23 14:12
�Medication �Instructions �Recorded �Confirmed �Type
acetaminophen 500 mg tablet 500 mg PO DAILY Pain 08/10/19 10/22/23 History
(Tylenol Extra Strength)
fluticasone propionate 50 1 spray intranasal BID allergies 08/10/19 10/22/23 History
mcg/actuation nasal
spray,suspension
levothyroxine 125 mcg tablet 125 mcg PO DAILY Thyroid 08/10/19 10/22/23 History
multivitamin-ferrous 1 tab PO DAILY Supplement 08/10/19 10/22/23 History
fumarate-folic acid 18 mg-400 mcg
tablet (Centrum)
vit C 250 mg-vit E 90 mg-zinc 40 1 ea PO BID Supplement 08/10/19 10/22/23 History
mg-copper 1 [id number]
capsule (PreserVision AREDS-2)
allopurinol 100 mg tablet 100 mg PO DAILY gout 09/06/23 10/22/23 History
cholecalciferol (vitamin D3) 25 25 mcg PO DAILY Supplement 09/06/23 10/22/23 History
mcg (1,000 unit) tablet
acetaminophen 500 mg tablet 1,000 mg PO HS Pain 09/28/23 10/22/23 History
(Tylenol Extra Strength)
docusate sodium 100 mg capsule 100 mg PO DAILY Constipation 09/28/23 10/22/23 History
(Colace)
folic acid 1 mg tablet 1 mg PO DAILY Supplement 09/28/23 10/22/23 History
magnesium oxide 400 mg PO DAILY Supplement 09/28/23 10/22/23 History
acetaminophen 325 mg tablet 650 mg PO Q4HPRN PRN mild 10/09/23 10/22/23 History
pain/fever>100
apixaban 2.5 mg tablet (Eliquis) 2.5 mg PO BID Blood Clot 10/09/23 10/22/23 History
Prevention/Tx
bisacodyl 10 mg rectal suppository 10 mg VT DAILYPRN PRN if mom is 10/09/23 10/22/23 History
(Dulcolax (bisacodyl)) ineffective
ipratropium 0.5 mg-albuterol 3 mg 3 ml inhalation R Q6HPRN PRN 10/09/23 10/22/23 History
(2.5 mg base)/3 mL nebulization sob/wheezing
soln
magnesium hydroxide 400 mg/5 mL 30 ml PO [id number] PRN if no bm on 10/09/23 10/22/23 History
oral suspension (Milk of Magnesia) 3rd day
metoprolol succinate 100 mg 150 mg PO HS Blood Pressure 10/09/23 10/22/23 History
tablet,extended release 24 hr
torsemide 20 mg tablet 40 mg PO BID@0800,1600 Fluid 10/09/23 10/22/23 History
Retention/Swelling
citalopram 20 mg tablet 20 mg PO DAILY #30 tabs 10/15/23 10/22/23 Rx
midodrine 5 mg tablet 5 mg PO TID@0800,1300,1800 #90 tabs 10/15/23 10/22/23 Rx
zolpidem 5 mg tablet 5 mg PO HSPRN PRN insomnia #10 tabs 10/15/23 10/22/23 Rx
Review of Systems
-
History Source: Patient
All other systems: Negative unless noted
Physical Exam
Vital Signs
Temp Pulse Resp BP Pulse Ox
97.6 F 78 17 95/63 95
10/22/23 11:32 10/22/23 13:00 10/22/23 13:00 10/22/23 12:57 10/22/23 13:00
Lab Results
10/22/23 11:51
10/22/23 12:57
Troponin I 0.214 ng/ml H* 10/22/23 12:57
Qjb-Q-Cvbouxqtzts Pept > 86500 pg/ml 10/22/23 12:57
Physical Exam
General: No Apparent Distress and Other (elderly, frail)
HEENT: Normocephalic and Anicteric
Respiratory: Crackles (bibasilar) and Non Labored Respirations
Cardiac: S1/S2, Irregular Rhythm, Murmur (SHOA) and Peripheral Edema (+2 b/l LE)
Breast: Deferred by me
GI: Soft and Distended
Rectal: Deferred by Provider
Genito-urinary: Clear Urine
Musculoskeletal: No Clubbing and No Cyanosis
Skin: Warm and Dry
Neuro: AO x 3
Psych: Calm
Impression / Plan
-
HFpEF - acute on chronic (proBNP >27,000).
- CXR with small b/l pleural effusions.
- agree with IV diuresis as BP allows.
- monitor renal function closely.
- Echocardiogram 09/07/23 revealed an LVEF of 60-65%, severe biatrial enlargement, mild/mod MR, severe TR, with PASP of 65-70 mmHg.
- Nephrology was managing diuresis the last 2 admissions.
- consider right heart cath w/o dye load.
Hypotension - acute.
- 80/50 on arrival, received IVF in the ER and is on Midodrine at home.
- monitor closely.
- IV diuresis as tolerated.
Paroxysmal atrial fibrillation - rate controlled on Toprol.
- s/p PVI 01/25/2021, sinus intermittently, continue Toprol.
- Oral Anticoagulation: Apixaban 2.5 mg twice daily, she denies missed doses and abnormal bleeding.
- [id number]: score at least 5 (Heart failure, HTN, age 75 or more, female gender).
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
- creatinine 3.6 today.
- baseline creatinine 1.2.
- Nephrology consulted.
Hyponatremia - acute, 120 today.
- Nephrology consulted.
Severe TR/pulmonary hypertension - (PASP 65-70) mmHg.
- difficult situation with BATOOL, hypotension and needs diuresis.
EtOH misuse - daily wine consumption.
- MSAS, per primary.
Prior breast cancer, right side, status postlumpectomy and XRT (HRH) - stable.
Data Reviewed
-
EKG: Tracing Personally Visualized and interpreted (Afib 84 bpm, RBBB)
Radiology: Report Reviewed by me (CXR: small b/l pleural effusions, pulmonary vascular congestion)
Medical Tests (Nuc Med, Echo etc): Report Reviewed by me (echo 09/07/23 revealed an LVEF of 60-65%, severe biatrial enlargement, mild/mod MR, severe TR, with PASP of 65-70 mmHg)
Labs: Labs Reviewed by me
Old Records: Reviewed
--- NOTE | 2023-10-22 14:20 | W.CON.NEPH ---
Consultation
-
Date/Time Consultation Requested: 10/22/23 1p
Date/Time Consultation Performed: 10/22/23 2:20p
Requesting Provider: Dr. San
Performing Provider: Dr. Wilson
Reason for Consultation: BATOOL
Medical History
-
Chief Complaint: Hyponatremia
History of Present Illness:
Ms. Jordan is an 83 year old Female with HFpEF and severe tricuspid regurgitation on chronic Torsemide, atrial fibrillation on Eliquis, irritable bowel syndrome, hypothyroidism, hepatitis C, gout on Allopurinol, clavicle fracture from fall on 09/27 now
with a right arm sling, CKD baseline cr 1.4. she has had several admissions since the end of August of this year. These appear to be increasing in frequency. They all appear to be related to heart failure. Her creatinine has recovered somewhat each
time and most recently had run recovered to 1.4. Her last admission however, was complicated by new hypotension requiring [id number] midodrine which was new for her. Since discharge she has not been doing well. She has continued to lose
further ground. She has gained weight with worsening edema. She says that she has been taking her diuretics but actually has not urinated in 2 days. She believes she may have urinated when she passed her stool yesterday. She has no pain. She
presented to the emergency room today with significant weight gain since her last hospitalization. She was noted to have a sodium of 120, BUN 82, creatinine 3.6 worsening acute kidney injury. Her LFTs are slightly elevated, she also had a slightly
positive troponin and elevated BNP. She is critically ill.
Past Medical History
Severe pulmonary HTN,
moderate TR
paroxysmal A-fib
Etoh abuse
HTN
hypothyroidism
CKD stage IIIa
Left atrial appendage thrombus
chronic diastolic heart failure with preserved EF
moderate TR,
pulmonary vein isolation 01/25/2021 with ablation
breast cancer right breast with lumpectomy and radiation 9 years ago cari angel
bilat knee replacement
right rotator cuff repair
left wrist fx
Right clavicle fracture
Social History
Tobacco: Former Smoker
Alcohol: Daily
Living: [facility]
Family History
Family History: Not Pertinent
Allergies / Home Medications
Allergy/AdvReac Type Severity Reaction Status Date / Time
No Known Allergies Allergy Verified 10/09/23 14:12
�Medication �Instructions �Recorded �Confirmed �Type
acetaminophen 500 mg tablet 500 mg PO DAILY Pain 08/10/19 10/22/23 History
(Tylenol Extra Strength)
fluticasone propionate 50 1 spray intranasal BID allergies 08/10/19 10/22/23 History
mcg/actuation nasal
spray,suspension
levothyroxine 125 mcg tablet 125 mcg PO DAILY Thyroid 08/10/19 10/22/23 History
multivitamin-ferrous 1 tab PO DAILY Supplement 08/10/19 10/22/23 History
fumarate-folic acid 18 mg-400 mcg
tablet (Centrum)
vit C 250 mg-vit E 90 mg-zinc 40 1 ea PO BID Supplement 08/10/19 10/22/23 History
mg-copper 1 [id number]
capsule (PreserVision AREDS-2)
allopurinol 100 mg tablet 100 mg PO DAILY gout 09/06/23 10/22/23 History
cholecalciferol (vitamin D3) 25 25 mcg PO DAILY Supplement 09/06/23 10/22/23 History
mcg (1,000 unit) tablet
acetaminophen 500 mg tablet 1,000 mg PO HS Pain 09/28/23 10/22/23 History
(Tylenol Extra Strength)
docusate sodium 100 mg capsule 100 mg PO DAILY Constipation 09/28/23 10/22/23 History
(Colace)
folic acid 1 mg tablet 1 mg PO DAILY Supplement 09/28/23 10/22/23 History
magnesium oxide 400 mg PO DAILY Supplement 09/28/23 10/22/23 History
acetaminophen 325 mg tablet 650 mg PO Q4HPRN PRN mild 10/09/23 10/22/23 History
pain/fever>100
apixaban 2.5 mg tablet (Eliquis) 2.5 mg PO BID Blood Clot 10/09/23 10/22/23 History
Prevention/Tx
bisacodyl 10 mg rectal suppository 10 mg [place] DAILYPRN PRN if mom is 10/09/23 10/22/23 History
(Dulcolax (bisacodyl)) ineffective
ipratropium 0.5 mg-albuterol 3 mg 3 ml inhalation R Q6HPRN PRN 10/09/23 10/22/23 History
(2.5 mg base)/3 mL nebulization sob/wheezing
soln
magnesium hydroxide 400 mg/5 mL 30 ml PO [id number] PRN if no bm on 10/09/23 10/22/23 History
oral suspension (Milk of MagnVoAPPs) 3rd day
metoprolol succinate 100 mg 150 mg PO HS Blood Pressure 10/09/23 10/22/23 History
tablet,extended release 24 hr
torsemide 20 mg tablet 40 mg PO BID@0800,1600 Fluid 10/09/23 10/22/23 History
Retention/Swelling
citalopram 20 mg tablet 20 mg PO DAILY #30 tabs 10/15/23 10/22/23 Rx
midodrine 5 mg tablet 5 mg PO TID@0800,1300,1800 #90 tabs 10/15/23 10/22/23 Rx
zolpidem 5 mg tablet 5 mg PO HSPRN PRN insomnia #10 tabs 10/15/23 10/22/23 Rx
Review of Systems
-
Shortness of breath, no chest pain. No urine output. No diarrhea. She recalls no injury.
All other systems: Negative unless noted
Physical Exam
Vital Signs
Vital Signs
Temp Pulse Resp BP Pulse Ox
97.6 F 78 17 95/63 95
10/22/23 11:32 10/22/23 13:00 10/22/23 13:00 10/22/23 12:57 10/22/23 13:00
Lab Results
WBC 6.2 10^3/uL (4.8-10.8) 10/22/23 11:51
RBC 3.04 10^6/uL (4.20-5.40) L 10/22/23 11:51
Hgb 9.3 g/dL (12.0-16.0) L 10/22/23 11:51
Hct 27.2 % (37.0-47.0) L 10/22/23 11:51
Plt Count 231 10^3/uL (130-400) 10/22/23 11:51
Sodium 120 mmol/L (135-145) L 10/22/23 12:57
Potassium 4.8 mmol/L (3.5-5.1) 10/22/23 12:57
Chloride 83 mmol/L (98-107) L 10/22/23 12:57
Carbon Dioxide 23 mmol/L (22-30) 10/22/23 12:57
BUN 82 mg/dl (7-17) H 10/22/23 12:57
Creatinine 3.6 mg/dL (0.6-1.0) H 10/22/23 12:57
eGFR 12.02 10/22/23 12:57
Glucose 99 mg/dl (70-99) 10/22/23 12:57
Calcium 8.4 mg/dl (8.4-10.2) 10/22/23 12:57
Atk-F-Lqxzvefptzo Pept > 43030 pg/ml 10/22/23 12:57
Albumin 3.1 g/dl (3.5-5.0) L 10/22/23 12:57
Physical Exam
Patient is awake alert oriented and in no distress. Mood and affect were pleasant, insight and judgment were good. Pupils are equal round and reactive to light, extraocular movements are intact, sclera were anicteric. Hearing was normal, ears and
nose are intact. Oropharynx was clear. Neck was supple with trachea midline and no thyromegaly. Heart was regular rate and rhythm without rubs. Lower extremities with 3+ to the low back edema. Lungs were with rales bilaterally to auscultation
bilaterally and with normal excursion. Abdomen was soft, nontender, with normal active bowel sounds, and no hepatosplenomegaly. Skin was without rash and with normal turgor. A noted ecchymosis was found on the inner aspect of the right upper
leg/thigh
Data Reviewed
-
Radiology: Image Personally Visualized and interpreted (Chest x-ray on October 22, 2023 by my reading shows cardiomegaly, pulmonary edema)
Medical Tests (Nuc Med, Echo etc): Image Personally Visualized and interpreted (EKG on October 22, 2023 by my reading shows atrial fibrillation right bundle branch block inferior T wave abnormality) and Report Reviewed by me (Echocardiogram on August
2023 shows ejection fraction 60%, severely biatrial enlargement, moderate MR, mild AR, severe TR, severe pulmonary hypertension, 70 mmHg)
Labs: Labs Reviewed by me
Old Records: Reviewed
Assessment/Plan
-
Assessment:
BATOOL with CKD -b/l cr 1.2-1.4
Acute on chronic hyponatremia
Heart failure preserved ejection fraction, severe TR/pulmonary hypertension, decompensated
h/o clavicular fracture
Severe TR and pulm HTN
atrial fibrillation
Hypothyroidism
Left left lower leg ecchymosis
Decreased urine output
Elevated LFTs
Plan
Her volume issues appear to be all related to her tricuspid regurgitation
She will require Horowitz catheter
Aggressive diuresis with intravenous Lasix. This may be advanced to Lasix drip if needed
Sodium level should improve with diuresis
Renal ultrasound
Cardiology evaluation for tricuspid regurgitation. Suspicion for thromboembolism is low
Unfortunately overall prognosis is quite poor
I have broached the possibility of dialysis in the future with the patient. She currently says that she would except though I discussed with her that this may be difficult if she remains significantly hypotensive
Critical care time spent 40 minutes
--- NOTE | 2023-10-22 14:32 | HPS.HSE ---
Addendum entered and electronically signed by Dennys San MD 10/22/23 15:35:
I did discuss with cardiology in person. They are okay with midodrine use. Will check Doppler lower extremity despite being on anticoagulation, will check 1 set of blood cultures, and we will start her on Levophed low-dose for blood pressure
support in IMU. Echo per cardio.
Original Note:
Family Physician
-
Family Physician: NOT KNOW UNKNOWN - PT DOES
Chief Complaint
-
Shortness of breath and weight gain
History of Present Illness
Patient 83 years old female with history of complex and multiple comorbidities some of which include CHF, A-fib, pulmonary hypertension, chronic lower extremity edema, IBS, hypothyroidism, hep C, tricuspid regurgitation, gout, recent clavicle
fracture on the right, CKD, came into the hospital with shortness of breath and weight gain. Patient was recently discharged and she has continued to gain weight with worsening peripheral edema and also associated hypotension. Patient tells me her
weight was increased even a few days ago. Upon discharge weight was 156 pounds and now is 178 pounds. Despite diuretics her urine output has been decreased. She denies dysuria urgency or frequency. Denies fevers or chills. Denies chest pain.
Denies dizziness or lightheadedness. Denies nausea vomiting or diarrhea. Denies abdominal pain. She does have shortness of breath worsening on minimal exertion. In the ER, she was noted to have a sodium of 120, creatinine 3.6, elevated LFTs,
elevated troponin, elevated BNP, chest x-ray with CHF features, hypotension. She had multiple hospitalizations most of which appears to be related to heart failure. Last echocardiogram in August 2023 EF 60 to 65%, wall motion consistent with
conduction abnormality, mildly enlarged right ventricular size, normal right ventricular systolic function, severely dilated left atrium, severely dilated right atrium, mild to moderate mitral regurgitation, mild aortic regurgitation, severe
tricuspid regurgitation, estimated pulmonary artery pressure 65 to 70 mmHg. She was referred to hospitalist for further evaluation.
Medical History
Past Medical History
Past Medical History: Reports Arrhythmia (Paroxysmal atrial fibrillation), CHF (Severe TR, pulmonary hypertension, CKD, breast carcinoma right side status post lumpectomy and XRT, neuropathy) and Other (Chronic kidney disease)
Past Surgical History: Reports Other (Lumpectomy)
Social History
Tobacco: Non-smoker
Alcohol: Daily (Prior)
Drug: None
Living: With Family
Employment: Retired
Family History
Family History: Not pertinent
Allergies / Home Medications
Allergies reflects when Allergies were last updated in [facility].
Home Medications with original date entered in [facility]
Allergy/Medication List:
Allergies
Allergy/AdvReac Type Severity Reaction Status Date / Time
No Known Allergies Allergy Verified 10/09/23 14:12
Home Medications
acetaminophen 500 mg tablet (Tylenol Extra Strength) 500 mg PO DAILY Pain 08/10/19
fluticasone propionate 50 mcg/actuation nasal spray,suspension 1 spray intranasal BID allergies 08/10/19
levothyroxine 125 mcg tablet 125 mcg PO DAILY Thyroid 08/10/19
multivitamin-ferrous fumarate-folic acid 18 mg-400 mcg tablet (Centrum) 1 tab PO DAILY Supplement 08/10/19
vit C 250 mg-vit E 90 mg-zinc 40 mg-copper 1 [id number] capsule (PreserVision AREDS-2) 1 ea PO BID Supplement 08/10/19
allopurinol 100 mg tablet 100 mg PO DAILY gout 09/06/23
cholecalciferol (vitamin D3) 25 mcg (1,000 unit) tablet 25 mcg PO DAILY Supplement 09/06/23
acetaminophen 500 mg tablet (Tylenol Extra Strength) 1,000 mg PO HS Pain 09/28/23
docusate sodium 100 mg capsule (Colace) 100 mg PO DAILY Constipation 09/28/23
folic acid 1 mg tablet 1 mg PO DAILY Supplement 09/28/23
magnesium oxide 400 mg PO DAILY Supplement 09/28/23
acetaminophen 325 mg tablet 650 mg PO Q4HPRN PRN mild pain/fever>100 10/09/23
apixaban 2.5 mg tablet (Eliquis) 2.5 mg PO BID Blood Clot Prevention/Tx 10/09/23
bisacodyl 10 mg rectal suppository (Dulcolax (bisacodyl)) 10 mg MO DAILYPRN PRN if mom is ineffective 10/09/23
ipratropium 0.5 mg-albuterol 3 mg (2.5 mg base)/3 mL nebulization soln 3 ml inhalation R Q6HPRN PRN sob/wheezing 10/09/23
magnesium hydroxide 400 mg/5 mL oral suspension (Milk of Magnesia) 30 ml PO [id number] PRN if no bm on 3rd day 10/09/23
metoprolol succinate 100 mg tablet,extended release 24 hr 150 mg PO HS Blood Pressure 10/09/23
torsemide 20 mg tablet 40 mg PO BID@0800,1600 Fluid Retention/Swelling 10/09/23
citalopram 20 mg tablet 20 mg PO DAILY #30 tabs 10/15/23
midodrine 5 mg tablet 5 mg PO TID@0800,1300,1800 #90 tabs 10/15/23
zolpidem 5 mg tablet 5 mg PO HSPRN PRN insomnia #10 tabs 10/15/23
Review of Systems
-
A 12 point ROS was completed and negative except as noted: Yes
Physical Exam
Vital Signs
Vital Signs
Temp Pulse Resp BP Pulse Ox
97.6 F 78 17 95/63 95
10/22/23 11:32 10/22/23 13:00 10/22/23 13:00 10/22/23 12:57 10/22/23 13:00
Physical exam:
General: Acutely ill
HEENT: Normocephalic, Atraumatic and Moist Mucous Membranes
Respiratory: Clear to Auscultation; Negative Wheezes, Rales or Rhonchi
Cardiac: Regular Rhythm and S1/S2, systolic murmur
GI: Soft, Nontender and Nondistended
Musculoskeletal: Bilateral lower extremity edema. Right upper extremity sling. No Clubbing, No Cyanosis
Neuro: Awake, Alert and Oriented, no gross neuro-deficits
Psych: Calm
Physical Exam
General: Other
Laboratory Results
-
10/22/23 11:51
10/22/23 12:57
Laboratory Results
Total Bilirubin 1.3 mg/dl (0.2-1.3) 10/22/23 12:57
AST 88 U/L (14-36) H 10/22/23 12:57
ALT 37 U/L (0-35) H 10/22/23 12:57
Alkaline Phosphatase 62 U/L (38-126) 10/22/23 12:57
Troponin I 0.214 ng/ml H* 10/22/23 12:57
Data Reviewed
-
Diagnostic Radiology: Image Personally Visualized and interpreted
Lab Data: Labs Reviewed by me
Impression/Plan
-
IMPRESSION:
Patient 83-year-old female with multiple comorbidities presented to the hospital with shortness of breath. Found to have acute on chronic diastolic congestive heart failure. Found to have elevated troponin. Found to have hypotension. Found to
have severe hyponatremia. Found to have BATOOL on CKD. Due to patient presentation and multiple complex medical problems will need to be admitted to the hospital and monitor accordingly.
PLAN:
Acute on chronic diastolic CHF:
IV diuretics blood pressure permitting 80 mg bid (MAP appears to be decent to tolerate diuretics)-at risk of cardiogenic shock
Low threshold to transfer to ICU if she is okay with pressors or inotropic if she worsens.
BNP upon admission more than 27,000
Seen chest x-ray consistent with heart failure
Monitor strict I/O
Monitor daily weight
Horowitz catheter
Monitor renal function and electrolytes
Reviewed latest echocardiogram on our system
Continue guideline-directed medical therapy for heart failure (GDMT)
Fluid restriction
Salt restriction
Heart failure education
Follow up clinical response
Cardiology consult-[facility] texted cardiology today. Will discuss with cardiology more in details after they see her.
Overall prognosis guarded and might discuss further goals of care discussion if continues to get worse.
Elevated troponin:
Elevated troponin due to non-ischemic myocardial injury from heart failure but follow-up trend
BATOOL on CKD:
Likely cardiorenal syndrome related
Avoid nephrotoxic
Monitor renal function closely
Monitor urine output-Horowitz catheter
Creatinine today 3.6
Creatinine baseline is 1.5 back on 10/14
Hypotension:
Appears asymptomatic-acute on chronic. No signs of active infection.
Check cortisol levels
Start midodrine but downside is that she can accumulate fluid as well
She has been on midodrine in the past.
Severe hyponatremia:
Likely hypervolemia related
Will obtain basic hyponatremia workup including urine sodium and urine osmolarity, repeat TSH and cortisol level
Nephrology consult-[facility] texted nephrology today
Elevated LFTs:
Likely related to passive venous congestion from heart failure
Paroxysmal atrial fibrillation:
On rate control agents, [id number] due to hypotension and then will resume as able.
On anticoagulation, Eliquis 2.5 mg twice daily
[id number] 5
Hx PVI 2020
Cardiac monitoring
Severe tricuspid regurgitation/pulmonary hypertension/chronic cor pulmonale/moderate mitral regurgitation/mild aortic regurgitation:
Reviewed last echo
Recent right clavicular fracture:
Continue conservative treatment
Continue sling
Hypothyroidism:
Continue thyroid replacement
Update TSH
Breast Ca:
History of postlumpectomy on the right and radiation.
Peripheral neuropathy:
Pain control as needed
Depression:
Hold antidepressant for now and will resume probably tomorrow
DVT prophylaxis-Eliquis
CODE STATUS-DNR (confirmed with the patient)
Time spent 75 minutes.
[2023-10-22] MEDS: ProAmatine 10 MG PO ×2 (16:26→18:43)
--- NOTE | 2023-10-22 16:32 | PTCARENOTE ---
Received patient from ED in stretcher at 1600. Transferred patient to bed with assistance x2. Spo2 98% on 2L o2. Patient denies any trouble breathing. Lungs diminished throughout with fine crackles at bases. SR with PVC's on monitor. BP upon
arrival 84/58(68) Midodrene given as ordered. Oriented patient to room. Family in room at bedside.
[2023-10-22] MEDS: LEVOPHED 250 IV (16:46)
[2023-10-22] MEDS: FLUSH (NSS) 1 FLUSH IV ×2 (16:52→17:32)
[2023-10-22] MEDS: LASIX 80 MG IV (17:30)
--- NOTE | 2023-10-22 17:41 | ED.GENMED ---
History of Present Illness
General
Chief Complaint: Weight Changes
Source: patient
Time Seen by Provider: 10/22/23 11:48
History of Present Illness
History of Present Illness:
83yoF with a history of CHF, severe tricuspid regurgitation, pulmonary hypertension, atrial fibrillation on Eliquis, and CKD presenting via EMS for evaluation of weight gain. Patient was recently hospitalized for a CHF exacerbation and was
discharged on 10/15/23. She has been at a nursing facility since discharge. She has had weight gain of about 7-8 pounds since discharge. Her torsemide dose was increased from 40mg BID to 40mg TID at the facility without any improvement. Staff at the
nursing facility have noticed decreased urine output. Her blood pressures have been low in the 90s/50s since her diuretic dose was increased. She takes midodrine 5mg TID. She currently reports shortness of breath primarily with laying flat.
Past History
Past History
ED Past Medical History: Cancer, CHF, HTN, Hypercholesterolemia, Valvular disease, Other (Cirrhosis, hepatitis C) and Other (Moderate to severe tricuspid regurgitation moderate MR, mild AI)
ED Past Surgical History: Gynecological and Orthopedic
Social History
Tobacco: Non-smoker
Alcohol: Occasional
Drug: None
Personal:
Living: with family
Employment: Retired
Family History
Family History: CAD and Other (Sister with SLE)
Phy Exam
Physical Exam
Physical Exam:
Ill appearing, non-toxic
General Physical Exam
General Skin: warm and dry
General Habitus: elderly
General Mental: alert
Cardiovascular Exam
Cardiovascular Exam: regular rate/rhythm and other (2+ pitting edema in lower extremities)
Pulmonary Exam
Pulmonary Exam: no respiratory distress and other (Bibasilar rales)
Musculoskeletal Exam
Musculoskeletal Exam: other (R arm in sling)
Skin Exam
Skin Exam: warm/dry
Psychiatric Exam
Psychiatric Exam: normal mood/affect
Scores
Heart Failure Risk
Heart Failure Risk Score: Not Applicable
Course
Orders/Labs/Results
Orders:
Orders
10/22/23 Lunch
Cholesterol Lowering
At Your Request: Full Participation
Cholesterol Lowering: Sodium, 2 Gram
10/22/23 11:31
Electrocardiogram (*1) Urgent
Reason for Study: Shortness of Breath
EKG- Treatment ONCE
10/22/23 11:51
Complete Blood Count/With Diff Urgent
10/22/23 12:00
CR Chest Portable - 1 View Urgent
Comment:
Reason For Exam: Weight gain
Reason Study Needs to be Portable: Patient Unstable
10/22/23 12:57
Comprehensive Metabolic Panel Urgent
NT-proBNP Urgent
Troponin I Urgent
10/22/23 14:28
Admit/Transfer Patient As Directed
Co-Sign Provider:
Level of Care: Inpatient admission
Assign to:: IMU- Intermediate Care
Physician / Group: Dr San
Diagnosis: CHF/Hypotension/Elevated troponin
Reason for Hospitalization: pte p/w sob and elevated trop and chf and hypotension and hyponatremia and batool on
ckd.
Expected length of stay greater than two midnights?: Yes
ELOS- Estimated Length of Stay in days: 2
I certify the patient meets the requirements for IP care: Yes
PRN Pain Medication Management As Directed
May give lesser potent ordered pain med per pt: Yes
preference::
Protocol:: Medication orders for pain may be administered in a
manner that supports deferring to patient preference
when the pt is:
- Requesting an ordered lesser potent pain medication.
Least to most potent pain medications are defined
as: acetaminophen < NSAID < tramadol < opioids
(morphine, oxycodone, hydromorphone).
- Requesting a lesser dose of the same medication IF
ORDERED.
- Requesting a less intrusive route of administration
if both routes are prescribed by the provider (PO <
IV).
10/22/23 14:29
Code Status As Directed
Resuscitation Status: Do not resuscitate
Reached after discussion with pt or family/Healthcare POA: Yes
10/22/23 14:30
DNR Bracelet Application ONCE
10/22/23 14:31
CARDIOLOGY CONSULT Routine
Consulting Provider: Guilherme Stovall
Was physician already notified: Yes
Reason for consult: CHF/Hypotension/Elevated troponin
NEPHROLOGY CONSULT Routine
Consulting Provider: Anant Wilson
Was physician already notified: Yes
Reason for consult: BATOOL on CKD/Hyponatremia
10/22/23 14:33
Horowitz Catheter [Catheter- Indwelling] As Directed
Reason for insertion: Acute Kidney Injury
Discontinue Date/Time: 10/25/23 0600
Renal Only US [US Renal Only W/O Bladder] Routine
Comment:
Reason For Exam: BATOOL
10/22/23 14:34
Intake/ Output As Directed
Frequency: Per unit guidelines
Comment: strict intake and output monitoring
Weight As Directed
Frequency: Daily
10/22/23 15:45
Bisacodyl [Dulcolax] 10 mg RECTAL [id number] PRN
Docusate W/Senna [Senokot-S] 1 tablet PO BIDPRN PRN
Polyethylene Glycol Powder [Miralax] 17 grams PO DAILYPRN PRN
10/22/23 15:45
Activity As Directed
Activity Level: Bedrest for limited time
Bedrest duration in hours then activity as indicated above:: 12
Pneumatic Compression Sleeves As Directed
Type: Knee high
Vital Signs As Directed
Frequency: Per unit guidelines
DX Deep Vein Thrombosis Video Routine
10/22/23 16:00
Furosemide [Lasix] 80 mg IV BID AT 0800,1600
10/22/23 19:59
Urinalysis Routine
Date Specimen was Collected: 10/22/23
Time Specimen was Collected: 19:58
10/22/23 20:00
Osmolality, Random Urine Routine
Date Specimen was Collected: 10/22/23
Time Specimen was Collected: 19:58
Urine Creatinine Routine
Date Specimen was Collected: 10/22/23
Time Specimen was Collected: 19:58
Urine Sodium Routine
Date Specimen was Collected: 10/22/23
Time Specimen was Collected: 19:58
10/23/23 05:18
Complete Blood Count/With Diff IN AM
Abnormal Lab Results
10/22/23 10/22/23
11:51 12:57
RBC 3.04 L 10^6/uL
(4.20-5.40)
Hgb 9.3 L g/dL
(12.0-16.0)
Hct 27.2 L %
(37.0-47.0)
RDW 18.3 H %
(11.5-14.5)
MPV 11.7 H fL
(7.4-10.4)
Abs Immat Gran (auto) 0.1 H 10^3/uL
(0-0.05)
Absolute Lymphs (auto) 0.6 L 10^3/uL
(1.2-3.4)
Immature Gran % 0.8 H %
(0-0.5)
Neutrophils % 80.7 H %
(42.2-75.2)
Lymphocytes % 10.3 L %
(20.5-51.1)
Sodium 120 L mmol/L
(135-145)
Chloride 83 L mmol/L
(98-107)
BUN 82 H mg/dl
(7-17)
Creatinine 3.6 H mg/dL
(0.6-1.0)
AST 88 H U/L
(14-36)
ALT 37 H U/L
(0-35)
Troponin I 0.214 H* ng/ml
Albumin 3.1 L g/dl
(3.5-5.0)
10/22/23 11:51
10/22/23 12:57
Vital Signs
Initial and Last Documented VS:
Initial Vital Signs
Temp Pulse Resp BP Pulse Ox
97.6 F 89 16 82/59 92
10/22/23 11:32 10/22/23 11:32 10/22/23 11:32 10/22/23 11:32 10/22/23 11:32
Last Documented Vital Signs
Temp Pulse Resp BP Pulse Ox
98.3 F 103 17 97/63 97
10/22/23 23:09 10/23/23 07:15 10/23/23 07:15 10/23/23 06:14 10/23/23 07:15
MDM/Problems Addressed
Differential Diagnosis Includes:
83yoF here with weight gain. Recently hospitalized with a CHF exacerbation. Diuretics were increased as an outpatient but she continues to gain weight. She c/o dyspnea with laying flat. BP 82/59 on arrival. She is currently on midodrine TID. She is
ill appearing but non-toxic. Pitting edema noted in extremities as well as bibasilar rales. Differential diagnosis includes but is not limited to: decompensated CHF, cardiorenal syndrome, BATOOL
Initial ED plan: Check cardiac labs, EKG, and CXR.
*EKG
Interpreted by ED Provider?: Yes
EKG Intrepretation Date: 10/22/23
Heart Rate: 84
Rate: normal
Rhythm: a-fib
QRS Pattern: right bundle branch block
Ischemia: T-wave inversion
*Critical Care Note
Total Time (30-74mins, 75-104mins- exclusive of procedures): Not Applicable
Update Note
Update Note:
Creatinine 3.6, up from 1.5 at time of discharge. Sodium 120. Troponin 0.2 and EKG shows nonspecific T wave changes. CXR shows mild pulmonary edema. Cardiology and nephrology notified of patient. She was admitted for further evaluation and
management.
ED Attending Note
-
Portions of this chart may have been created with voice recognition software.� Occasional wrong word or��sound alike� substitutions may have occurred due to the inherent limitations of voice recognition software.
Discharge Plan
Departure
Patient Disposition: Admit
Date of Disposition: 10/22/23
Time of Disposition: 13:26
Presentation/result/management discussed w/ accepting MD/DO: Hospitalist
Discharge Problem:
Acute kidney injury, Hyponatremia, Weight gain
Interventions
Interventions:
*Risk Screen - Suicide Last Done: 10/22/23 11:32
*General Assessment Last Done: 10/22/23 11:32
*Neglect/Abuse Screening Last Done: 10/22/23 11:32
ED- Fall Risk Assessment Last Done: 10/22/23 15:37
*ED COVID-19 Vaccine History Last Done: 10/22/23 17:38
*Nursing Disposition Last Done: 10/22/23 15:37
Discharge Date and Time
Discharge Date/Time: 10/22/23 15:39
[2023-10-22 17:47] LABS: Lactic Acid 2.8 mmol/L (0.7-2.0)
[2023-10-22 18:00] LABS: Osmolality Serum 274 mOsm/kg (275-300); Troponin I 0.218 ng/ml
--- NOTE | 2023-10-22 18:45 | PTCARENOTE ---
Patient has generalized bruising throughout her body. Large ecchymotic areas left leg and foot.
[2023-10-22 19:13] LABS: TSH 5.11 uIU/ml (0.47-4.68)
[2023-10-22 19:19] LABS: Cortisol, Random 61.4 ug/dl
[2023-10-22] MEDS: ELIQUIS 2.5 MG PO (20:07)
[2023-10-22 20:09] LABS: Urine Albumin Trace (Neg - Trace); Urine Bilirubin 2+ (Negative); Urine Character Clear (Clear); Urine Color Yellow; Urine Glucose Negative (Negative); Urine Ketone Negative (Negative); Urine Leukocyte Negative (Negative); Urine Nitrite Negative (Negative); Urine Occult Blood Negative (Negative); Urine Specific Gravity 1.015 (<1.030); Urine Urobilinogen Negative (Neg - 1+)
[2023-10-22 20:18] LABS: Osmolality Urine 279 mOsm/kg (300-900)
[2023-10-22 20:42] LABS: Urine Sodium < 5 mmol/L (30-90)
--- NOTE | 2023-10-22 21:00 | PTCARENOTE ---
Pt received from previous RN. Pt AAO. Pleasant and agreeable to care. Pt afib on monitor. 2L 02, sat 98. no SOB. Pills taken with water, swallow intact. burr placed at start of shift per order for neph determination. levo at 3mcg/min, per order to
keep map >65. Call light in reach.
[2023-10-22] MEDS: AMBIEN 5 MG PO (22:47)
[2023-10-23] VITALS (31 sets, daily range): BP systolic 85–134; BP diastolic 36–94; BMI 27.0
[2023-10-23 02:33] LABS: Lactic Acid 1.9 mmol/L (0.7-2.0)
[2023-10-23 02:45] LABS: Troponin I 0.228 ng/ml
[2023-10-23] MEDS: SYNTHROID 125 MCG PO (05:22)
[2023-10-23 05:45] LABS: % Basophils 0.3 % (0-2); % Eosinophils 1.5 % (0-6); % Immature Granulocytes 0.6 % (0-0.5); % Lymphocytes 14.8 % (20.5-51.1); % Monocytes 10.8 % (1.7-9.3); Absolute Eosinophils 0.1 10^3/uL (0-0.7); Absolute Monocytes 0.7 10^3/uL (0.1-0.6); Absolute Neutrophils 4.8 10^3/uL (1.4-6.5); Hematocrit 28.3 % (37.0-47.0); Hemoglobin 9.6 g/dL (12.0-16.0); Mean Corp Hgb Conc. 33.9 g/dL (33.0-37.0); Mean Corpuscular Hgb 31.3 pg (27.0-31.0); Mean Corpuscular Volume 92.2 fL (81.0-99.0); Mean Platelet Volume 10.6 fL (7.4-10.4); Nucleated Red Blood Cells % 3.6 %; Platelet Count 182 10^3/uL (130-400); Red Blood Cell Count 3.07 10^6/uL (4.20-5.40); Red Cell Dist. Width 17.7 % (11.5-14.5); White Blood Cell Count 6.7 10^3/uL (4.8-10.8)
[2023-10-23 06:03] LABS: ALT (SGPT) 52 U/L (0-35); AST (SGOT) 116 U/L (14-36); Alkaline Phosphatase 62 U/L (38-126); Blood Urea Nitrogen 85 mg/dl (7-17); Calcium 8.3 mg/dl (8.4-10.2); Carbon Dioxide 23 mmol/L (22-30); Chloride 83 mmol/L (98-107); Direct Bilirubin 0.8 mg/dl (0.0-0.4); Estimated Creatinine Clearance 11 ml/min; Glucose 90 mg/dl (70-99); Potassium 4.8 mmol/L (3.5-5.1); Sodium 119 mmol/L (135-145); Total Bilirubin 1.3 mg/dl (0.2-1.3); Total Protein 6.1 g/dl (6.3-8.2); eGFR 12.02
--- NOTE | 2023-10-23 06:30 | PTCARENOTE ---
Pt am Na 119. [employer] notified. No new orders at this time. Lasix ordered for AM. Pt asymptomatic at this time.
[2023-10-23] MEDS: ELIQUIS 2.5 MG PO ×2 (07:53→19:47)
[2023-10-23] MEDS: LASIX 80 MG IV (07:53)
[2023-10-23] MEDS: ZYLOPRIM 100 MG PO (07:53)
[2023-10-23] MEDS: ProAmatine 10 MG PO ×3 (07:53→17:17)
--- NOTE | 2023-10-23 08:55 | W.PN.HOSP.TC ---
Today's Communication/Plan
-
IV Lasix drip. Samsca. Levophed drip.
Assessment / Plan
Assessment / Plan
Physical exam:
General: Acutely ill
HEENT: Normocephalic, Atraumatic and Moist Mucous Membranes
Respiratory: Clear to Auscultation; Negative Wheezes, Rales or Rhonchi
Cardiac: Regular Rhythm and S1/S2, systolic murmur
GI: Soft, Nontender and Nondistended
Musculoskeletal: Bilateral lower extremity edema. Right upper extremity sling. No Clubbing, No Cyanosis
Neuro: Awake, Alert and Oriented, no gross neuro-deficits
Psych: Calm
A/P:
Acute on chronic diastolic CHF:
IV diuretics 80 mg twice daily not doing much therefore transitioning to IV Lasix drip today
Midline placement today
BNP upon admission more than 27,000
Seen chest x-ray consistent with heart failure
Monitor strict I/O
Monitor daily weight
Horowitz catheter
Monitor renal function and electrolytes
Reviewed latest echocardiogram on our system
Continue guideline-directed medical therapy for heart failure (GDMT)
Fluid restriction
Salt restriction
Heart failure education
Follow up clinical response
Cardiology consulted and appreciated input
Discussed with daughter over the phone today 10/22
Hypotension/Shock, likely cardiogenic:
Ordered pressors yesterday, Levophed--> continue pressors and titrate as able.
No signs of active infection.
Blood cultures no growth but pending results
Checked cortisol levels and appropriately had a 61.4
Continue high-dose midodrine, 10 mg p.o. 3 times daily
Severe hyponatremia:
Likely hypervolemia related
Lasix drip
Urine osmolarity 279, urine sodium less than 5, urine creatinine 143
TSH 5.1 and cortisol 61
Nephrology on board
Will start her on Samsca by nephro
BATOOL on CKD:
Likely cardiorenal syndrome related
Avoid nephrotoxic
Monitor renal function closely
Monitor urine output-Horowitz catheter
Creatinine today 3.6
Creatinine baseline is 1.5 back on 10/14
Might require hemodialysis but will defer to nephrology and patient about the need for and the timing if required.
Elevated troponin:
Elevated troponin due to non-ischemic myocardial injury from heart failure but follow-up trend
Elevated LFTs:
Likely related to passive venous congestion from heart failure
Anemia:
Hemoglobin stable
Continue to monitor
Paroxysmal atrial fibrillation:
On rate control agents, [id number]-[id number] due to hypotension. She is on 150 mg of Toprol-XL at home--> will see if we can use at least 50 mg twice daily with holding parameters.
On anticoagulation, Eliquis 2.5 mg twice daily
[id number] 5
Hx PVI 2020
Cardiac monitoring
Severe tricuspid regurgitation/pulmonary hypertension/chronic cor pulmonale/moderate mitral regurgitation/mild aortic regurgitation:
Reviewed last echo
Recent right clavicular fracture:
Continue conservative treatment
Continue sling
Hypothyroidism:
Continue thyroid replacement
Update TSH
Breast Ca:
History of postlumpectomy on the right and radiation.
Peripheral neuropathy:
Pain control as needed
Depression:
Restart antidepressant
DVT prophylaxis-Eliquis
CODE STATUS-DNR. Overall prognosis guarded and might discuss further goals of care discussion if continues to get worse.
Total Critical Care Time 35 minutes. I was immediately available to the patient and staff. I personally examined, reviewed labs, diagnostic images/reports, interpretations, treatment plans, discussed patient care with other providers and family
or caregivers (if patient is unable to make decisions), entered orders as appropriate and documented the medical record.
Anticipated Discharge: > 48 hours
Subjective/Interval History
-
Date of Service: October 23, 2023
Patient still endorses some shortness of breath. Remains on pressor. Very little urine output.
Objective Data
-
Labs:
Laboratory Results
10/23/23
05:18
WBC 6.7
Hgb 9.6 L
Hct 28.3 L
Plt Count 182 D
Sodium 119 L*
Potassium 4.8
Chloride 83 L
Carbon Dioxide 23
BUN 85 H
Creatinine 3.6 H
Glucose 90
Calcium 8.3 L
Total Bilirubin 1.3
AST 116 H
ALT 52 H
Alkaline Phosphatase 62
Vital Signs:
Vital Signs
Temp Pulse Resp BP Pulse Ox
98.3 F 103 17 97/63 97
10/22/23 23:09 10/23/23 07:15 10/23/23 07:15 10/23/23 06:14 10/23/23 07:15
I&O
10/22/23 10/23/23 10/24/23
06:59 06:59 06:59
Output Total 230 / 230
Balance -230 / -230
--- NOTE | 2023-10-23 09:04 | W.PN.NEPH.PH ---
Today's Communication / Plan
-
lasix
Assessment/Plan
-
Assessment:
BATOOL with CKD -b/l cr 1.2-1.4
Acute on chronic hyponatremia
Heart failure preserved ejection fraction, severe TR/pulmonary hypertension, decompensated
h/o clavicular fracture
Severe TR and pulm HTN
atrial fibrillation
Hypothyroidism
Left left lower leg ecchymosis
Decreased urine output
Elevated LFTs
Plan
Her volume issues appear to be all related to her tricuspid regurgitation
maintain Horowitz catheter
Aggressive diuresis with intravenous Lasix. change to gtt 20mg/hr
tolvaptan today
Cardiology evaluation for tricuspid regurgitation. Need more information-RHC
Unfortunately overall prognosis is quite poor
I have broached the possibility of dialysis in the future with the patient. She currently says that she would accept though I discussed with her that this will not be feasible given the hypotension and would therefore not be offered. She agreed
that given her age it would not be preferred. I expressed that we are not yet at end of life, with some interventions still to try.
Critical care time spent 40 minutes
-
-
Date of Service: October 23, 2023
CC / HPI / ROS
-
Chief Complaint:
BATOOL
History of Present Illness:
BATOOL/Cr unchanged 3.6
hypotense on levophed now
critically ill
poor response to lasix IV
hgb stable 9.6
remains on supplemental O2
Horowitz in place
Review of Systems:
no CP
no fever
Labs
-
Labs:
WBC 6.7 10^3/uL (4.8-10.8) 10/23/23 05:18
RBC 3.07 10^6/uL (4.20-5.40) L 10/23/23 05:18
Hgb 9.6 g/dL (12.0-16.0) L 10/23/23 05:18
Hct 28.3 % (37.0-47.0) L 10/23/23 05:18
Plt Count 182 10^3/uL (130-400) D 10/23/23 05:18
Sodium 119 mmol/L (135-145) L* 10/23/23 05:18
Potassium 4.8 mmol/L (3.5-5.1) 10/23/23 05:18
Chloride 83 mmol/L (98-107) L 10/23/23 05:18
Carbon Dioxide 23 mmol/L (22-30) 10/23/23 05:18
BUN 85 mg/dl (7-17) H 10/23/23 05:18
Creatinine 3.6 mg/dL (0.6-1.0) H 10/23/23 05:18
eGFR 12.02 10/23/23 05:18
Glucose 90 mg/dl (70-99) 10/23/23 05:18
Calcium 8.3 mg/dl (8.4-10.2) L 10/23/23 05:18
Dnh-U-Vxmnquacvzc Pept > 99005 pg/ml 10/22/23 12:57
Albumin 3.0 g/dl (3.5-5.0) L 10/23/23 05:18
Physical Exam
-
Vital Signs:
Vital Signs
Temp Pulse Resp BP Pulse Ox
97.5 F 103 17 97/63 97
10/23/23 07:45 10/23/23 07:15 10/23/23 07:15 10/23/23 06:14 10/23/23 07:15
Cardiovascular:: Regular rate and rhythm
Respiratory:: Bilateral: Coarse
Lung Excursion:: Normal
Abdomen:: Nontender and Soft
Bowel Sounds:: Normal
Extremity Edema:: +3: Bilateral: (thighs)
[2023-10-23] MEDS: TOPROL XL PO ×2 (09:41→19:59)
--- NOTE | 2023-10-23 09:56 | VNURNOTE ---
Chart reviewed. Patient is current with [facility] nursing and OT. Will continue to monitor hospital course and DC plans.
--- NOTE | 2023-10-23 10:15 | W.PN.CD ---
Addendum entered and electronically signed by Low Galvan MD 10/23/23 13:56:
I saw this patient given concern for unclear volume status and question regarding benefit of right heart catheterization. Given ongoing issues with hypotension and BATOOL with apparent volume overload with limited diuretic responsiveness, right heart
catheterization would be beneficial to clarify filling pressures and cardiac performance. She is not NPO today, so plan will be to make patient NPO@MN for right heart catheterization in the morning. The patient understands the reasoning for the
catheterization is agreeable to proceed.
Plan: --> NPO@MN for right heart catheterization
Original Note:
Today's Communication / Plan
-
Additional management of hypotension and BATOOL as directed by nephrology.
Management of edema, heart failure challenging due to issues of hypotension. Will consider right heart cath possible right and left heart catheterization without contrast to assess hemodynamics. But will assess timing with nephrology.
Impression / Plan
-
HFpEF - acute on chronic (proBNP >27,000).
- CXR with small b/l pleural effusions.
-- Creatinine 3.6. Diuresis seems to be limited by issues with hypotension. Patient on low-dose pressor.
- Echocardiogram 09/07/23 revealed an LVEF of 60-65%, severe biatrial enlargement, mild/mod MR, severe TR, with PASP of 65-70 mmHg.
- consider right heart cath . If the left heart pressures elevated could also consider left and right heart cath for hemodynamics without use of contrast.
Hypotension -
ressure in the 80s on presentation. Patient on midodrine at home.
-Cortisol.
-Low-dose pressor used as noted
-Consider right heart catheterization/hemodynamic assessment
Paroxysmal atrial fibrillation - rate controlled on Toprol.
- s/p PVI 01/25/2021, sinus intermittently, continue Toprol.
- Oral Anticoagulation: Apixaban 2.5 mg twice daily, she denies missed doses and abnormal bleeding.
- [id number]: score at least 5 (Heart failure, HTN, age 75 or more, female gender).
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
- creatinine 3.6 today.
- Nephrology consulted.
Hyponatremia - acute, 120 on admission. 119.
- Nephrology consulted.
Severe TR/pulmonary hypertension - (PASP 65-70) mmHg.
- difficult situation with BATOOL, with degree of TR there may be a limited amount that we can improve edema. Continue to address as noted above.
EtOH misuse - daily wine consumption.
- MSAS, per primary.
Prior breast cancer, right side, status postlumpectomy and XRT (HRH) - stable.
Physical Exam
Vital Signs/Labs
Vital Signs
Temp Pulse Resp BP Pulse Ox
97.5 F 78 16 102/68 96
10/23/23 07:45 10/23/23 10:00 10/23/23 10:00 10/23/23 10:00 10/23/23 10:07
10/22/23 10/23/23 10/24/23
06:59 06:59 06:59
Actual Weight 75.8 kg
10/23/23 05:18
TSH 5.11 uIU/ml (0.47-4.68) H 10/22/23 17:21
10/22/23 10/22/23
11:51 12:57
Aau-D-Lzpbztqkivt Pept Cancelled > 87073
LAB Results
10/22/23 10/22/23 10/22/23
11:51 12:57 17:21
Troponin I Cancelled 0.214 H* 0.218 H*
10/23/23
02:07
Troponin I 0.228 H*
Physical Exam
Constitutional: No acute distress
Cardiovascular: Rhythm/rate is irregular
Respiratory: Other (Decreased to bases no wheezes or rhonchi)
GI: Soft
Neuro/Psych: Alert
Other: Other (Bilateral lower extremity edema)
Data Reviewed
-
Date of Service: October 23, 2023
Medical Decision Making: Reviewed Test Results
Echo: Report Reviewed by me
X-Ray/CT/US/MRI/NUC/PET: Report Reviewed by me
Medical Tests (PFT, Pathology etc): Report Reviewed by me
Labs: Labs Reviewed by me
[2023-10-23] MEDS: SAMSCA 15 MG PO (10:30)
[2023-10-23] MEDS: LASIX 50 IV (13:41)
--- NOTE | 2023-10-23 15:19 | CM ---
CM met with pt, dtr/Jina, YUVAL/Mike and grandson/Dre
Pt typically resides with her spouse in a rancher with [address] [facility]
Pt is currently a rehab resident from [facility]
Pt is typically independent with her ADLs with use of ADs
Her spouse has dementia and dtr provides daily assistance around home as needed
Family caring for spouse at this time
PCP- Rodrigo Gee
If SNF is needed again on dc, dtr requesting referrals to [facility] and [facility]
Nephro following and HD may be initiated, will watch for HD needs
Dtr aware limited SNFs with HD capabilities
PT/OT orders request TT/Dr San
Discharge Disposition- anticipate need for SNF return, watch for HD needs
--- NOTE | 2023-10-23 16:23 | W.PN.UPDATE ---
Update Note
Progress Note Update
Return to see patient. Discussed at length with family at bedside. Lasix drip initiated. Limited urine output thus far after 2 hours. Will add diuril. Off Levophed currently with blood pressure in the 100 systolic range. Patient appears to be
comfortable in bed on supplemental O2 without complaints.
I discussed with the family as was the patient. Dialysis will not be an option if her renal function fails. He will be prohibitive because of hypotension as well as with significant loss of quality of life for which she has very little of
currently. Daughter was relieved to know that she would not have to make a decision regarding dialysis as it would not be an option. She is considering hospice at this time and does wonder about whether or not additional efforts such as
catheterization would add much to overall care and whether or not she should move towards hospice soon. We discussed that catheterization is a relatively simple procedure and may offer some additional information to allow us to get more fluid off
which may buy her some more time and quality. She understands that if we titrate Lasix drip further without significant urine output that hospice would be appropriate at that point.
[2023-10-23] MEDS: STERILE WATER FOR INJECTION 18 ML IV (16:37)
[2023-10-23] MEDS: DIURIL 0.5 GRAM VIAL 0.5 GRAMS IV (16:37)
[2023-10-23 17:54] LABS: Blood Urea Nitrogen 86 mg/dl (7-17); Calcium 8.4 mg/dl (8.4-10.2); Carbon Dioxide 24 mmol/L (22-30); Chloride 83 mmol/L (98-107); Estimated Creatinine Clearance 11 ml/min; Glucose 108 mg/dl (70-99); Potassium 4.6 mmol/L (3.5-5.1); Sodium 118 mmol/L (135-145); eGFR 12.43
--- NOTE | 2023-10-23 17:56 | PTCARENOTE ---
see nursing assessment. afib on monitor. levophed weaned off per protocol. lasix drip initiated at 20 mg/hr. pt had urine output of 275 mls from burr. samsca administered per order. repeat sodium 118. dr Wilson notified. Family at bedside. plan of
care discussed.
[2023-10-23] MEDS: AMBIEN 5 MG PO (21:48)
--- NOTE | 2023-10-23 22:24 | PTCARENOTE ---
Pt oriented, afib on printed circuit boards laminator. BP cuff moved to LLE due to R and LUE restrictions. Readings variable, difficult to ensure accuracy, denies symptoms of hypotension. Pt remains on lasix gtt at this time. Pt was inc of small BM, hygiene care
provided. Pt requests PRN medication for insomnia, see MAR.
[2023-10-24] VITALS (34 sets, daily range): BP systolic 85–129; BP diastolic 48–83; BMI 26.8
[2023-10-24] MEDS: LASIX 50 IV (04:00)
[2023-10-24 04:14] LABS: Hematocrit 24.9 % (37.0-47.0); Hemoglobin 8.5 g/dL (12.0-16.0); Mean Corp Hgb Conc. 34.1 g/dL (33.0-37.0); Mean Corpuscular Hgb 31.7 pg (27.0-31.0); Mean Corpuscular Volume 92.9 fL (81.0-99.0); Mean Platelet Volume 9.8 fL (7.4-10.4); Platelet Count 168 10^3/uL (130-400); Red Blood Cell Count 2.68 10^6/uL (4.20-5.40); White Blood Cell Count 5.5 10^3/uL (4.8-10.8)
[2023-10-24 04:42] LABS: ALT (SGPT) 44 U/L (0-35); AST (SGOT) 82 U/L (14-36); Albumin 2.8 g/dl (3.5-5.0); Alkaline Phosphatase 58 U/L (38-126); Blood Urea Nitrogen 90 mg/dl (7-17); Calcium 8.4 mg/dl (8.4-10.2); Carbon Dioxide 26 mmol/L (22-30); Chloride 84 mmol/L (98-107); Direct Bilirubin 0.8 mg/dl (0.0-0.4); Estimated Creatinine Clearance 12 ml/min; Glucose 86 mg/dl (70-99); Magnesium 2.6 mg/dl (1.6-2.3); Potassium 4.2 mmol/L (3.5-5.1); Sodium 122 mmol/L (135-145); Total Bilirubin 1.3 mg/dl (0.2-1.3); Total Protein 5.9 g/dl (6.3-8.2); eGFR 13.84
[2023-10-24] MEDS: SYNTHROID 125 MCG PO (05:57)
[2023-10-24] MEDS: STERILE WATER FOR INJECTION 18 ML IV ×2 (09:54→17:08)
[2023-10-24] MEDS: DIURIL 0.5 GRAM VIAL 0.5 GRAMS IV ×2 (09:54→17:09)
[2023-10-24] MEDS: ProAmatine 10 MG PO ×2 (09:55→17:08)
[2023-10-24] MEDS: TOPROL XL 50 MG PO (09:55)
[2023-10-24] MEDS: ZYLOPRIM 100 MG PO (09:56)
[2023-10-24] MEDS: ELIQUIS 2.5 MG PO ×2 (09:56→19:21)
--- NOTE | 2023-10-24 10:20 | W.PN.CD ---
Today's Communication / Plan
-
RHC.
Further instructions will follow.
Impression / Plan
-
Impression/Plan: 83 y/o female with atrial fibrillation, HFpEF, pulmonary hypertension, hepatitis C and CKD admitted with increasing shortness in breath with weight gain, consistent with decompensated, acute on chronic heart failure.
#HFpEF
-Acute on chronic (proBNP >27,000).
-CXR with small b/l pleural effusions.
-Creatinine 3.6 on furosemide gtt.
-Diuresis seems to be limited by issues with hypotension. Patient on low-dose norepinephrine.
-Thoracentesis on 10/10/2023 yielded 1150 clear yellow fluid
-Echocardiogram 09/07/23 revealed an LVEF of 60-65%, severe biatrial enlargement, mild/mod MR, severe TR, with PASP of 65-70 mmHg.
-Plan for RHC today to clarify filling pressures.
#Hypotension -
-Pressure in the 80s on presentation. Patient on midodrine at home.
-Cortisol is normal.
-Low-dose pressor used as noted
-Right heart catheterization/hemodynamic assessment today.
#Paroxysmal atrial fibrillation
-S/P PVI 01/25/2021.
-Currently in sinus intermittently.
-Rate control with metoprolol succinate.
-[id number]: score at least 5 (Heart failure, HTN, age 75 or more, female gender).
-Oral Anticoagulation: Apixaban 2.5 mg twice daily, she denies missed doses and abnormal bleeding.
#FEN/Renal/BATOOL
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
-Creatinine 3.2. Baseline creatinine 1.5.
-Na 122. TSH 5.11. Cortisol 61.6. Check serum/urine osmolality. Check urine Na.
-Nephrology consulted.
-Tolvaptan given yesterday.
#Severe TR/pulmonary hypertension
-Acute on chronic.
-Estimated PASP 65-70 mmHg by echo.
-Difficult situation with BATOOL, with degree of TR there may be a limited amount that we can improve edema.
-RHC today to better characterize filling pressures.
#EtOH misuse
-Daily wine consumption.
-MSAS, per primary.
#Prior breast cancer
-Right side, status postlumpectomy and XRT (HRH), stable.
Subjective/Interval History:
Hbg down to 8.5 (from 9.6, baseline around 10).
Otherwise status quo.
DATA:
CXR, 10/22/2023:
IMPRESSION:
1. Mild pulmonary vascular congestion.
2. Small bilateral pleural effusions.
LE Venous Duplex, 10/22/2023:
IMPRESSION: No evidence of deep venous thrombosis bilaterally, although the bilateral peroneal veins were not visualized.
TTE, 09/07/2023:
CONCLUSIONS
-Left ventricular ejection fraction is 60-65%. Wall motion is consistent with
conduction abnormality.
-Mildly enlarged right ventricular size. Normal right ventricular systolic
function.
-Severely dilated left atrium. Severely dilated right atrium.
-Mild to moderate mitral regurgitation.
-Mild aortic regurgitation.
-Severe tricuspid regurgitation. Estimated pulmonary artery pressure of 65-70
mmHg.
Compared to previous echo on 06/26/2022, progressive tricuspid regurgitation is
noted (previously moderate). PASP has slightly increased (previously 63 mmHg).
Physical Exam
Vital Signs/Labs
Vital Signs
Temp Pulse Resp BP Pulse Ox
36.4 C 78 15 105/64 93
10/24/23 03:50 10/24/23 06:00 10/24/23 06:00 10/24/23 06:00 10/24/23 06:00
10/22/23 10/23/23 10/24/23
11:59 11:59 11:59
Actual Weight 81.6 kg 75.8 kg 75.2 kg
10/24/23 04:04
10/24/23 04:04
Magnesium 2.6 mg/dl (1.6-2.3) H 10/24/23 04:04
TSH 5.11 uIU/ml (0.47-4.68) H 10/22/23 17:21
10/22/23 10/22/23
11:51 12:57
Lyf-B-Wyiqpxrrmjw Pept Cancelled > 26639
LAB Results
10/22/23 10/22/23 10/22/23
11:51 12:57 17:21
Troponin I Cancelled 0.214 H* 0.218 H*
10/23/23 10/23/23
02:07 11:44
Troponin I 0.228 H* 0.200 H*
Physical Exam
Constitutional: No acute distress and Comfortable
EENT: Anicteric and Moist mucous membranes
Cardiovascular: Rhythm & rate is regular, Pedal edema present and JVD present
Respiratory: Respiratory effort normal and Other (Decreased throughout.)
GI: Soft, Distention absent, Flat, Non tender and Normal bowel sounds
Neuro/Psych: AO x 3
Data Reviewed
-
Date of Service: October 24, 2023
Medical Decision Making: Reviewed Test Results, Independent Historian Assessment and Test Interpretation
EKG: Tracing Personally Visualized and interpreted and Report Reviewed by me
Echo: Report Reviewed by me
X-Ray/CT/US/MRI/NUC/PET: Image Personally Visualized and interpreted and Report Reviewed by me
Labs: Labs Reviewed by me
--- NOTE | 2023-10-24 11:00 | W.PN.NEPH.PH ---
Today's Communication / Plan
-
cotn lasix gtt, diuril
labs later today
Assessment/Plan
-
Assessment:
BATOOL with CKD -b/l cr 1.2-1.4
Acute on chronic hyponatremia
Heart failure preserved ejection fraction, severe TR/pulmonary hypertension, decompensated
h/o clavicular fracture
Severe TR and pulm HTN
atrial fibrillation
Hypothyroidism
Left left lower leg ecchymosis
Decreased urine output
Elevated LFTs
Plan
BATOOL from cardiorenal
cr is better with max diuretics
cont lasix gtt and diuril
for RHC today
Her volume issues appear to be all related to her tricuspid regurgitation
maintain Burr catheter
hyponatremia from hypervolemia is improving slowly, prn georgea
check labs later today
BP stable-cont midodrine and remains off pressors
Unfortunately overall prognosis is quite poor
d/w nursing and family
high risk encounter
Dr Siegel on 10/22 broached the possibility of dialysis in the future with the patient and family and explained that HD will be prohibitive because of hypotension as well as with significant loss of quality of life for which she has very little of
currently. Hospice being considered based on the course
-
-
Date of Service: October 24, 2023
CC / HPI / ROS
-
Chief Complaint:
BATOOL
History of Present Illness:
BATOOL/Cr better at 3.2, BUN up at 90
BP stable off levo
non oliguric with burr
sodium better at 122
hgb low at 8.5
remains on supplemental O2 0.5lit
wt decreasing slowly
Review of Systems:
no CP
no fever
offers no sob, little cough
Labs
-
Labs:
WBC 5.5 10^3/uL (4.8-10.8) 10/24/23 04:04
RBC 2.68 10^6/uL (4.20-5.40) L 10/24/23 04:04
Hgb 8.5 g/dL (12.0-16.0) L 10/24/23 04:04
Hct 24.9 % (37.0-47.0) L 10/24/23 04:04
Plt Count 168 10^3/uL (130-400) 10/24/23 04:04
Sodium 122 mmol/L (135-145) L 10/24/23 04:04
Potassium 4.2 mmol/L (3.5-5.1) 10/24/23 04:04
Chloride 84 mmol/L (98-107) L 10/24/23 04:04
Carbon Dioxide 26 mmol/L (22-30) 10/24/23 04:04
BUN 90 mg/dl (7-17) H 10/24/23 04:04
Creatinine 3.2 mg/dL (0.6-1.0) H 10/24/23 04:04
eGFR 13.84 10/24/23 04:04
Glucose 86 mg/dl (70-99) 10/24/23 04:04
Calcium 8.4 mg/dl (8.4-10.2) 10/24/23 04:04
Zkk-F-Rfkacqxsupm Pept > 46195 pg/ml 10/22/23 12:57
Albumin 2.8 g/dl (3.5-5.0) L 10/24/23 04:04
Physical Exam
-
Vital Signs:
Vital Signs
Temp Pulse Resp BP Pulse Ox
97.5 F 78 15 105/64 93
10/24/23 03:50 10/24/23 06:00 10/24/23 06:00 10/24/23 06:00 10/24/23 06:00
Cardiovascular:: Regular rate and rhythm
Respiratory:: Bilateral: CTA (decreaased)
Lung Excursion:: Normal
Abdomen:: Nontender and Soft
Extremity Edema:: +3: Bilateral:
Burr Catheter: Yes
--- NOTE | 2023-10-24 12:37 | W.PN.HOSP.TC ---
Today's Communication/Plan
-
IV Lasix drip. Right heart cath.
Assessment / Plan
Assessment / Plan
Physical exam:
General: Acutely ill
HEENT: Normocephalic, Atraumatic and Moist Mucous Membranes
Respiratory: Clear to Auscultation; Negative Wheezes, Rales or Rhonchi
Cardiac: Regular Rhythm and S1/S2, systolic murmur
GI: Soft, Nontender and Nondistended
Musculoskeletal: Bilateral lower extremity edema. Right upper extremity sling. No Clubbing, No Cyanosis
Neuro: Awake, Alert and Oriented, no gross neuro-deficits
Psych: Calm
A/P:
Acute on chronic diastolic CHF:
Continue IV Lasix drip
Plan for right heart cath today
Midline placement
BNP upon admission more than 27,000
Seen chest x-ray consistent with heart failure
Monitor strict I/O
Monitor daily weight
Horowitz catheter
Monitor renal function and electrolytes
Reviewed latest echocardiogram on our system
Continue guideline-directed medical therapy for heart failure (GDMT)
Fluid restriction
Salt restriction
Heart failure education
Follow up clinical response
Cardiology consulted and appreciated input
Discussed with daughter at bedside today on 10/23 and she expresses concerns about aggressive medical management and rehospitalization so will discuss with rest of medical team and readdress goals of care over the next 24 hours.
Hypotension/Shock, likely cardiogenic:
Off pressors today
No signs of active infection.
Blood cultures no growth but pending results
Checked cortisol levels and appropriately had a 61.4
Continue high-dose midodrine, 10 mg p.o. 3 times daily
Toxic metabolic encephalopathy:
Likely related to hospitalization and related to renal failure as well
Discussed about the possibility of CT scan of the head but family would like to hold off which seems to be reasonable.
They also discussed with nephrology that she is not a candidate for HD
BATOOL on CKD:
Likely cardiorenal syndrome related
Avoid nephrotoxic
Monitor renal function closely
Monitor urine output-Horowitz catheter
Creatinine today 3.6
Creatinine baseline is 1.5 back on 10/14
Patient and family discussed with nephrology yesterday and it has been explained that she is not a candidate for hemodialysis
Severe hyponatremia:
Likely hypervolemia related
Lasix drip
Urine osmolarity 279, urine sodium less than 5, urine creatinine 143
TSH 5.1 and cortisol 61
Nephrology on board
Will start her on Samsca by nephro
Elevated troponin:
Elevated troponin due to non-ischemic myocardial injury from heart failure but follow-up trend
Elevated LFTs:
Likely related to passive venous congestion from heart failure
Anemia:
Hemoglobin stable
Continue to monitor
Paroxysmal atrial fibrillation:
On rate control agents, fcbh-qzgnyftt-pfehyhv due to hypotension. She is on 150 mg of Toprol-XL at home--> will see if we can use at least 50 mg twice daily with holding parameters.
On anticoagulation, Eliquis 2.5 mg twice daily
[id number] 5
Hx PVI 2020
Cardiac monitoring
Severe tricuspid regurgitation/pulmonary hypertension/chronic cor pulmonale/moderate mitral regurgitation/mild aortic regurgitation:
Reviewed last echo
Recent right clavicular fracture:
Continue conservative treatment
Continue sling
Hypothyroidism:
Continue thyroid replacement
Updated TSH
Breast Ca:
History of postlumpectomy on the right and radiation.
Peripheral neuropathy:
Pain control as needed
Depression:
Restart antidepressant
DVT prophylaxis-Eliquis
CODE STATUS-DNR. Overall prognosis guarded and might discuss further goals of care discussion if continues to get worse.
Total time spent on today's encounter was 52 minutes which included time spent in counseling the patient/family regarding diagnosis and treatment plan as listed above, goals of care, and symptom management. Case was discussed with nursing staff,
specialists, and care coordinators/case management. All labs and imaging personally reviewed by me. Remainder the time spent in detailed review of previous records, lab data, imaging, and other medical provider documentation.
Anticipated Discharge: 24 - 48 hours
Subjective/Interval History
-
Date of Service: October 24, 2023
Patient still short of breath. She is tired and sleepy. Afebrile. No chest pain
Objective Data
-
Labs:
Laboratory Results
10/24/23 10/24/23
04:04 16:00
WBC 5.5
Hgb 8.5 L
Hct 24.9 L
Plt Count 168
Sodium 122 L Pending
Potassium 4.2 Pending
Chloride 84 L Pending
Carbon Dioxide 26 Pending
BUN 90 H Pending
Creatinine 3.2 H Pending
Glucose 86 Pending
Calcium 8.4 Pending
Total Bilirubin 1.3
AST 82 H
ALT 44 H
Alkaline Phosphatase 58
Vital Signs:
Vital Signs
Temp Pulse Resp BP Pulse Ox
97.1 F 78 15 105/64 93
10/24/23 11:00 10/24/23 06:00 10/24/23 06:00 10/24/23 06:00 10/24/23 06:00
I&O
10/23/23 10/24/23 10/25/23
06:59 06:59 06:59
Intake Total 264 / 264
Output Total 230 / 230 1175 / 1175 1200 / 1200
Balance -230 / -230 -911 / -911 -1200 / -1200
--- NOTE | 2023-10-24 15:11 | ITS.CL.CATH ---
[facility] - Catheterization
Cardiac Catheterization
Procedure Report:
RIGHT HEART CATHETERIZATION
Date of Procedure: 10/24/2023
Referring: Sisi Squires M.D.
INDICATION: Heart failure, acute kidney injury, assessment of volume status.
ACCESS:
5 [place] antecubital fossa.
CATHETERS:
5 [place] balloon wedge.
PROCEDURE:
An IV was placed by the nursing staff in the right antecubital fossa. The patient was prepped and draped in standard sterile fashion, including copious cleansing of the IV and IV site. The area around the IV was anesthetized with 1% lidocaine. A 5
[place] sheath was inserted into the basilic vein. A 5 [place] balloon wedge catheter was advanced through the sheath into the superior vena cava. An SVC oxygen saturation was drawn. The balloon wedge catheter was advanced into the pulmonary artery
and a pulmonary artery oxygen saturation was drawn. Arterial oxygen saturation was assumed from pulse oximetry. Cardiac output was calculated using the María equation. The PA, wedge, RV and RA pressures were measured on pullback. The balloon wedge
catheter was removed. The 5 [place] sheath was removed and manual pressure was held for hemostasis.
Weight (kg): 74.8
PA (s/d/x mmHg): 54/33/40
PCWP (a/v/x mmHg): //
RV (s/x mmHg): 54/18
RA (a/v/x mmHg): /
SVC SvO2 (%): 43.6
IVC SvO2 (%): Not obtained.
RA SvO2 (%): Not obtained.
RV SvO2 (%): Not obtained.
PA SvO2 (%): 40.4
SaO2 (%): 90 (assumed)
Hbg (g/dL): 8.7
María
CO (liters/minute): 3.04
CI (liters/minute/m2): 1.65
Thermodilution
CO (liters/minute): Not obtained.
CI (liters/minute/m2): Not obtained.
TPG (mmHg): 18
PVR (Reyna Units): 5.92
AVO2 Difference (Volume %): 5.87
Radiation (mGy): 5.58
DAP (cm2.Gy): 0.8186
Fluoroscopy time (minutes): 1.5
CONCLUSION:
1. Moderately elevated filling pressures (PCWP = 22 mmHg at 74.8 kg).
2. 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
3. Large right atrial V waves consistent with known tricuspid regurgitation.
4. Severely depressed cardiac index and a VO2 difference (1.65 L/min 3 m�, 5.87 volume %).
RECOMMENDATIONS:
1. Expectant management after right heart catheterization via right antecubital approach.
2. Maintain current course of diuretics. This may become difficult to sustain given her severe tricuspid regurgitation which is likely leading to a degree of right ventricular dysfunction and thus some level of volume dependence, but complicated
by renal venous congestion.
3. Continue anticoagulation for any potential thromboembolic disease contributing to pulmonary hypertension, though this is unlikely.
4. Limited role for inotropes given hypotension, atrial fibrillation (possibly milrinone to lower PA pressure, but this could adversely affect systemic pressure).
5. Age prohibits surgical TVR.
6. Consider TTVR (TricValve/Evoque trial enrollment).
Copy to: Sisi Squires M.D., Rodrigo Gee M.D.
Marito Chaney D.O., [facility], FACP
--- NOTE | 2023-10-24 17:00 | CM ---
Addendum entered by Ami Live RN 10/24/23 17:14:
As per prior CM notes: If SNF is needed again on dc, dtr requesting referrals to [facility] and [facility].
Original Note:
Patient with Hx Recent right clavicular fracture, Dx CHF, hypotension/likely cardiogenic shock, Severe hyponatremia, BATOOL. O2 0.5L. Receiving IV Lasix gtt, IV Diuril. Right heart cath today. PT & OT Evals pending.
Received phone call from [facility]; provided clinical update as requested. They would accept patient back for rehab.
CM continuing to follow.
Plan follow up after seen by PT/OT.
[2023-10-24] MEDS: ProAmatine PO (17:07)
[2023-10-24 19:00] LABS: Blood Urea Nitrogen 90 mg/dl (7-17); Calcium 8.3 mg/dl (8.4-10.2); Carbon Dioxide 29 mmol/L (22-30); Chloride 82 mmol/L (98-107); Estimated Creatinine Clearance 14 ml/min; Glucose 119 mg/dl (70-99); Potassium 3.6 mmol/L (3.5-5.1); Sodium 124 mmol/L (135-145); eGFR 16.25
[2023-10-24] MEDS: TOPROL XL PO (19:27)
--- NOTE | 2023-10-24 19:50 | PTCARENOTE ---
day shift note. see nursing assessment. pt in afib, controlled rate. pt returned from right heart cath this afternoon. right antecubetal site intact, see flwosheet and vitals. pt had large amount urine output in burr this shift. denies any
shortness of breath or chest discomfort. in lasix infusing. family at bedside most of day.
[2023-10-24] MEDS: AMBIEN 5 MG PO (21:07)
--- NOTE | 2023-10-24 21:24 | PTCARENOTE ---
Pt resting comfortably in bed, turn schedule in place. Afib on advice line rn, controlled rate. R AC cath site remaints CDI. Pt continues with IV lasix gtt at 20mg/hr, 2mL/hr. Pt requests PRN ambien for insomnia, provided per APR. Hygiene care
provided per protocol. Pt rings call maldonado appropriately.
[2023-10-25] VITALS (24 sets, daily range): BP systolic 77–112; BP diastolic 47–94; PULSE 81–96; O2SAT 98; BMI 25.9
[2023-10-25] MEDS: LASIX 50 IV (03:47)
[2023-10-25 05:13] LABS: Hematocrit 24.8 % (37.0-47.0); Hemoglobin 8.2 g/dL (12.0-16.0); Mean Corp Hgb Conc. 33.1 g/dL (33.0-37.0); Mean Corpuscular Hgb 30.4 pg (27.0-31.0); Mean Corpuscular Volume 91.9 fL (81.0-99.0); Mean Platelet Volume 9.4 fL (7.4-10.4); Platelet Count 166 10^3/uL (130-400); Red Cell Dist. Width 18.5 % (11.5-14.5); White Blood Cell Count 4.8 10^3/uL (4.8-10.8)
[2023-10-25] MEDS: SYNTHROID 125 MCG PO (05:16)
[2023-10-25 05:28] LABS: Blood Urea Nitrogen 91 mg/dl (7-17); Calcium 8.3 mg/dl (8.4-10.2); Carbon Dioxide 32 mmol/L (22-30); Chloride 83 mmol/L (98-107); Estimated Creatinine Clearance 15 ml/min; Glucose 86 mg/dl (70-99); Potassium 3.6 mmol/L (3.5-5.1); Sodium 124 mmol/L (135-145); eGFR 17.76
--- NOTE | 2023-10-25 07:57 | PTCARENOTE ---
Pt rec'd from warehouse shift supervisor RN, leno order clarified with [employer] Dr. Burks, instructed to maintain burr. Awaiting amendment to order at this time.
[2023-10-25] MEDS: DIURIL 0.5 GRAM VIAL 0.5 GRAMS IV ×2 (08:24→17:19)
[2023-10-25] MEDS: ELIQUIS 2.5 MG PO ×2 (08:24→19:59)
[2023-10-25] MEDS: ProAmatine 10 MG PO ×3 (08:26→17:14)
[2023-10-25] MEDS: STERILE WATER FOR INJECTION 18 ML IV ×2 (08:27→17:18)
[2023-10-25] MEDS: TOPROL XL 50 MG PO (08:28)
[2023-10-25] MEDS: ZYLOPRIM 100 MG PO (08:29)
--- NOTE | 2023-10-25 09:02 | W.PN.HOSP.TC ---
Today's Communication/Plan
-
Continue on IV Lasix drip. X-rays. Hospice eval.
Assessment / Plan
Assessment / Plan
Physical exam:
General: Acutely ill
HEENT: Normocephalic, Atraumatic and Moist Mucous Membranes
Respiratory: Clear to Auscultation; Negative Wheezes, Rales or Rhonchi
Cardiac: Regular Rhythm and S1/S2, systolic murmur
GI: Soft, Nontender and Nondistended
Musculoskeletal: Bilateral lower extremity edema. Right upper extremity sling. Tenderness and bruises in left lower extremity. No Clubbing, No Cyanosis
Neuro: Awake, Alert and Oriented, no gross neuro-deficits
Psych: Calm
A/P:
Acute on chronic diastolic CHF:
Continue IV Lasix drip
s/p right heart cath yesterday
Midline placed
BNP upon admission more than 27,000
Seen chest x-ray consistent with heart failure
Monitor strict I/O
Monitor daily weight
Horowitz catheter per nephro
Monitor renal function and electrolytes
Reviewed latest echocardiogram on our system
Continue guideline-directed medical therapy for heart failure (GDMT)
Fluid restriction
Salt restriction
Heart failure education
Follow up clinical response
Cardiology consulted and appreciated input
Discussed with daughter at bedside today on 10/23 and she expresses concerns about aggressive medical management and rehospitalization so will discuss with rest of medical team and readdress goals of care over the next 24 hours.
Will get hospice consult today
Discussed with attending RN today on 10/24
Will get some x-rays of right clavicle to determine healing fracture and also will get x-rays of the left lower extremity to rule out new fractures.
Discussed with cardiology today on 10/24
Discussed with nephrology today on 10/24
Discussed with daughter at bedside today on 10/24
Hypotension/Shock, likely cardiogenic:
Improved
Off pressors
No signs of active infection.
Blood cultures no growth
Checked cortisol levels and appropriately had a 61.4
Continue high-dose midodrine, 10 mg p.o. 3 times daily
Pain in the left lower extremity:
Obtain x-rays of the left lower extremity including foot, in light of recent trauma it is reasonable to rule out fractures
Toxic metabolic encephalopathy:
Likely related to hospitalization and related to renal failure as well
Discussed about the possibility of CT scan of the head but family would like to hold off which seems to be reasonable.
They also discussed with nephrology that she is not a candidate for HD
BATOOL on CKD:
Likely cardiorenal syndrome related
Avoid nephrotoxic
Monitor renal function closely
Monitor urine output-Horowitz catheter
Creatinine today 2.6, improving from 3.6
Creatinine baseline is 1.5 back on 10/14
Patient and family discussed with nephrology and it has been explained that she is not a candidate for hemodialysis
Severe hyponatremia:
Likely hypervolemia related
Lasix drip
Urine osmolarity 279, urine sodium less than 5, urine creatinine 143
TSH 5.1 and cortisol 61
Nephrology on board
started her on Samsca by nephro
Elevated troponin:
Elevated troponin due to non-ischemic myocardial injury from heart failure but follow-up trend
Elevated LFTs:
Likely related to passive venous congestion from heart failure
Anemia:
Hemoglobin stable
Continue to monitor
Paroxysmal atrial fibrillation:
On rate control agents, [id number] due to hypotension. She is on 150 mg of Toprol-XL at home--> will see if we can use at least 50 mg twice daily with holding parameters.
On anticoagulation, Eliquis 2.5 mg twice daily
[id number] 5
Hx PVI 2020
Cardiac monitoring
Severe tricuspid regurgitation/pulmonary hypertension/chronic cor pulmonale/moderate mitral regurgitation/mild aortic regurgitation:
Reviewed last echo
Recent right clavicular fracture:
Continue conservative treatment
Continue sling
Hypothyroidism:
Continue thyroid replacement
Updated TSH
Breast Ca:
History of postlumpectomy on the right and radiation.
Peripheral neuropathy:
Pain control as needed
Depression:
Hold antidepressant due to QTc prolongation
DVT prophylaxis-Eliquis
CODE STATUS-DNR. Overall prognosis guarded
Total time spent on today's encounter was 52 minutes which included time spent in counseling the patient/family regarding diagnosis and treatment plan as listed above, goals of care, and symptom management. Case was discussed with nursing staff,
specialists, and care coordinators/case management. All labs and imaging personally reviewed by me. Remainder the time spent in detailed review of previous records, lab data, imaging, and other medical provider documentation.
Anticipated Discharge: 24 - 48 hours
Subjective/Interval History
-
Date of Service: October 25, 2023
Patient urinating a little more. No shortness of breath. Complains of pain in the left lower extremity and foot as she did have a recent trauma.
Objective Data
-
Labs:
Laboratory Results
10/25/23
04:45
WBC 4.8
Hgb 8.2 L
Hct 24.8 L
Plt Count 166
Sodium 124 L
Potassium 3.6
Chloride 83 L
Carbon Dioxide 32 H
BUN 91 H
Creatinine 2.6 H
Glucose 86
Calcium 8.3 L
Vital Signs:
Vital Signs
Temp Pulse Resp BP Pulse Ox
97.7 F 88 14 112/94 95
10/25/23 03:30 10/25/23 08:28 10/25/23 06:00 10/25/23 08:28 10/25/23 06:00
I&O
10/24/23 10/25/23 10/26/23
06:59 06:59 06:59
Intake Total 264 / 264 344 / 344
Output Total 1175 / 1175 4225 / 4225
Balance -911 / -911 -3881 / -3881
--- NOTE | 2023-10-25 10:27 | PTCARENOTE ---
Pt rec'd from night worker this am, AOx3, daughter Jina and grandson at bedside. Pt assisted oob x2 with PT/OT, tentative weight bearing on left leg, c/o pain. Purple ecchymosis along lateral aspect of leg as well as both sides of left foot and
ankle noted upon assessment. Pt's daughter requesting xrays and ortho consult for left leg, as well as for the purpose of followup on right clavicle fx which was POA. Daughter stated that the clavicle fx happened 4 weeks ago and they want to follow
up on healing process. The leg injury occured while in retirement and pt had an assisted fall. Pt with burr catheter in place, clear yellow urine output noted. Pt with fair appetite, consumed breakfast, all cares completed with assist from
nursing home aide Lydia.
--- NOTE | 2023-10-25 10:52 | PTCARENOTE ---
Plan discussed with Dr. Lisa. Fluid restriction of 40 oz./day added.
--- NOTE | 2023-10-25 12:11 | W.PN.CD ---
Today's Communication / Plan
-
goal 1-2L negative as allowed by BP
Impression / Plan
-
Impression/Plan: 83 y/o female with atrial fibrillation, HFpEF, pulmonary hypertension, severe TR, hepatitis C and CKD admitted with increasing shortness in breath with weight gain, consistent with decompensated, acute on chronic heart failure.
#HFpEF
#Acute on chronic diastolic heart failure
-proBNP >27,000
-CXR with small b/l pleural effusions.
-Creatinine 3.6-->2.6 on furosemide gtt.
-Diuresis challenged by hypotension
-Thoracentesis on 10/10/2023 yielded 1150 clear yellow fluid
-Echocardiogram 09/07/23 revealed an LVEF of 60-65%, severe biatrial enlargement, mild/mod MR, severe TR, with PASP of 65-70 mmHg.
-RHC 10/24/2023 demonstrated elevated biventricular filling pressures (RA 18, PCWP 22), moderate mixed PH (mean PA 40, PVR 5.9), and severely reduced cardiac index (1.6)
-continue aggressive diuresis today with lasix gtt with goal 1-2L negative; monitor Cr / blood pressure, mild contraction alkalosis so may be close to dry
#Severe TR/pulmonary hypertension
-Acute on chronic.
-Estimated PASP 65-70 mmHg by echo.
-Difficult situation with BATOOL, with degree of TR there may be a limited amount that we can improve edema.
-repeat TTE once maximized on as euvolemic as possible
-will discuss GIOVANNI to better assess TR and suitability for possible TTVR (clip vs. replacement) prior to discharge
#FEN/Renal/BATOOL
-likeyl cardiorenal component driving this presentation, fortunately, responding to diuresis
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
-Creatinine 3.6-->2.6. Baseline creatinine 1.5.
-Nephrology consulted.
#Hypotension -
-Pressure in the 80s on presentation. Patient on midodrine at home.
-Cortisol is normal.
-Low-dose pressor PRN
#Paroxysmal atrial fibrillation
-S/P PVI 01/25/2021.
-Currently in sinus intermittently.
-Rate control with metoprolol succinate, though may need to reduce given HFpEF and low output
-[id number]: score at least 5 (Heart failure, HTN, age 75 or more, female gender).
-Oral Anticoagulation: Apixaban 2.5 mg twice daily, she denies missed doses and abnormal bleeding.
#EtOH misuse
-Daily wine consumption.
-MSAS, per primary.
#Prior breast cancer
-Right side, status postlumpectomy and XRT (HR), stable.
Subjective/Interval History:
Notes feeling confused, hasn't slept, no change in breathing or otherwise
DATA:
CXR, 10/22/2023:
IMPRESSION:
1. Mild pulmonary vascular congestion.
2. Small bilateral pleural effusions.
LE Venous Duplex, 10/22/2023:
IMPRESSION: No evidence of deep venous thrombosis bilaterally, although the bilateral peroneal veins were not visualized.
TTE, 09/07/2023:
CONCLUSIONS
-Left ventricular ejection fraction is 60-65%. Wall motion is consistent with
conduction abnormality.
-Mildly enlarged right ventricular size. Normal right ventricular systolic
function.
-Severely dilated left atrium. Severely dilated right atrium.
-Mild to moderate mitral regurgitation.
-Mild aortic regurgitation.
-Severe tricuspid regurgitation. Estimated pulmonary artery pressure of 65-70
mmHg.
Compared to previous echo on 06/26/2022, progressive tricuspid regurgitation is
noted (previously moderate). PASP has slightly increased (previously 63 mmHg).
RHC 10/24/23
1. Moderately elevated filling pressures (PCWP = 22 mmHg at 74.8 kg).
2. 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
3. Large right atrial V waves consistent with known tricuspid regurgitation.
4. Severely depressed cardiac index and a VO2 difference (1.65 L/min 3 m�, 5.87 volume %).
Physical Exam
Vital Signs/Labs
Vital Signs
Temp Pulse Resp BP Pulse Ox
36.5 C 84 20 94/54 95
10/25/23 03:30 10/25/23 10:20 10/25/23 10:20 10/25/23 10:17 10/25/23 10:25
10/24/23 10/25/23 10/26/23
06:59 06:59 06:59
Actual Weight 75.2 kg 72.7 kg
10/25/23 04:45
10/25/23 04:45
Magnesium 2.6 mg/dl (1.6-2.3) H 10/24/23 04:04
TSH 5.11 uIU/ml (0.47-4.68) H 10/22/23 17:21
10/22/23 10/22/23
11:51 12:57
Wsl-J-Yghsjtsftji Pept Cancelled > 12932
LAB Results
10/22/23 10/22/23 10/22/23
11:51 12:57 17:21
Troponin I Cancelled 0.214 H* 0.218 H*
10/23/23 10/23/23
02:07 11:44
Troponin I 0.228 H* 0.200 H*
Physical Exam
Constitutional: No acute distress, Comfortable and Confusion (noted by patient)
Cardiovascular: Rhythm & rate is regular, Systolic murmur absent, Diastolic murmur absent and JVD present (V-waves present, difficult to assess RAP)
Respiratory: Respiratory effort normal and Lungs clear to auscul.
Neuro/Psych: Alert
Data Reviewed
-
Date of Service: October 25, 2023
Medical Decision Making: Reviewed Test Results, Test Interpretation and Review of Case with other Provider
X-Ray/CT/US/MRI/NUC/PET: Report Reviewed by me
Medical Tests (PFT, Pathology etc): Report Reviewed by me
Labs: Labs Reviewed by me
--- NOTE | 2023-10-25 12:21 | W.PN.NEPH.PH ---
Today's Communication / Plan
-
cont lasix gtt and diuril
recheck labs later today
samsca if needed later
Assessment/Plan
-
Assessment:
BATOOL with CKD -b/l cr 1.2-1.4
Acute on chronic hyponatremia
Heart failure preserved ejection fraction, severe TR/pulmonary hypertension, decompensated
h/o clavicular fracture
Severe TR and pulm HTN
atrial fibrillation
Hypothyroidism
Left left lower leg ecchymosis
Decreased urine output
Elevated LFTs
Plan
BATOOL from cardiorenal
cr is better with max diuretics
cont lasix gtt and diuril
PCWP was 22 on 10/23 on RHC
wts are improving close to dry wt 71kg from last admit
likely wean lasix gtt to 80mg IV BID tomorrow
cards follows and appt input-may need GIOVANNI to better assess TR, potential eval for TTVR
As her volume issues appear to be all related to her tricuspid regurgitation
maintain Burr catheter for now
hyponatremia from hypervolemia is improving slowly, prn samsca
check labs later today
BP soft-cont midodrine
monitor met alkalosis
Unfortunately overall prognosis is quite poor
d/w nursing and family
high risk encounter
-
-
Date of Service: October 25, 2023
CC / HPI / ROS
-
Chief Complaint:
BATOOL
History of Present Illness:
BATOOL/Cr better at 2.6, BUN up at 91
BP soft on midodrine and off levo
non oliguric with burr
sodium better at 124
hgb low at 8.5
remains on supplemental O2
wt decreasing slowly
Review of Systems:
no CP
no fever
offers no sob
c/o bruising of left leg from recent fall , family wants Xray
Labs
-
Labs:
WBC 4.8 10^3/uL (4.8-10.8) 10/25/23 04:45
RBC 2.70 10^6/uL (4.20-5.40) L 10/25/23 04:45
Hgb 8.2 g/dL (12.0-16.0) L 10/25/23 04:45
Hct 24.8 % (37.0-47.0) L 10/25/23 04:45
Plt Count 166 10^3/uL (130-400) 10/25/23 04:45
Sodium 124 mmol/L (135-145) L 10/25/23 04:45
Potassium 3.6 mmol/L (3.5-5.1) 10/25/23 04:45
Chloride 83 mmol/L (98-107) L 10/25/23 04:45
Carbon Dioxide 32 mmol/L (22-30) H 10/25/23 04:45
BUN 91 mg/dl (7-17) H 10/25/23 04:45
Creatinine 2.6 mg/dL (0.6-1.0) H 10/25/23 04:45
eGFR 17.76 10/25/23 04:45
Glucose 86 mg/dl (70-99) 10/25/23 04:45
Calcium 8.3 mg/dl (8.4-10.2) L 10/25/23 04:45
Mxp-P-Djfszklshff Pept > 38353 pg/ml 10/22/23 12:57
Albumin 2.8 g/dl (3.5-5.0) L 10/24/23 04:04
Physical Exam
-
Vital Signs:
Vital Signs
Temp Pulse Resp BP Pulse Ox
97.7 F 84 20 94/54 95
10/25/23 03:30 10/25/23 10:20 10/25/23 10:20 10/25/23 10:17 10/25/23 10:25
Cardiovascular:: Regular rate and rhythm
Respiratory:: Bilateral: CTA
Lung Excursion:: Normal
Abdomen:: Nontender and Soft
Extremity Edema:: +2: Bilateral:
Burr Catheter: Yes
--- NOTE | 2023-10-25 14:38 | CM ---
Patient with Hx Recent right clavicular fracture, Dx CHF s/p right heart cath yesterday, hypotension/likely cardiogenic shock, LLE Pain, TME, BATOOL, Severe hyponatremia, BATOOL. O2 1L. Receiving IV Lasix gtt, IV Diuril. PT & OT recommend skilled
rehab.
CM Consult: Hospice
Met with daughter Jina, and son in law. Patient off unit for x-ray.
Explained hospice philosophy and benefits.
Extensive discussion as daughter seemed conflicted about honoring her mother's wishes to continue with treatment vs considering hospice.
Attempted to offer ways to consider patient's wishes, as daughter states patient told her she wants to keep receiving full treatment and then go to SNF for rehab, and says she wants to go home.
Discussed private pay SNF with hospice or home with caregivers and hospice, vs SNF for rehab.
Considerations of quality of life brought into the conversation.
Encouraged daughter to discuss further with MDs about prognosis as needed.
Daughter and agreeing to speak to hospice nurse for information.
Referral to [facility].
Plan follow up after seen by Hospice.
--- NOTE | 2023-10-25 15:44 | HOSPNOTE ---
Met with family to discuss hospice and the philosophy. The plan is to await the xray results and meet tomorrow at 10am to discuss hospice vs SNF with rehab. More information to follow.
[2023-10-25] MEDS: SENOKOT-S 1 TABLET PO (15:51)
--- NOTE | 2023-10-25 18:15 | PTCARENOTE ---
Daughter asked this RN to please cancel hospice followup meeting scheduled for tomorrow as pt decided she does not wish to pursue hospice at this time. Dr. San and chief financial officer [facility] updated via TT.
[2023-10-25 19:02] LABS: Blood Urea Nitrogen 95 mg/dl (7-17); Calcium 8.2 mg/dl (8.4-10.2); Carbon Dioxide 31 mmol/L (22-30); Chloride 84 mmol/L (98-107); Estimated Creatinine Clearance 17 ml/min; Glucose 136 mg/dl (70-99); Potassium 3.6 mmol/L (3.5-5.1); Sodium 125 mmol/L (135-145); eGFR 19.55
[2023-10-25] MEDS: TOPROL XL PO (19:59)
[2023-10-25] MEDS: AMBIEN 5 MG PO (21:35)
[2023-10-25] MEDS: ProAmatine 5 MG PO (21:35)
--- NOTE | 2023-10-25 21:40 | PTCARENOTE ---
Received pt at change of shift. Pt drowsy but easily arousable. Lasix gtt running at 2ml/hr. BP are soft - 80s/50s. Notified TONNAGE COMPILATION CLERK of BP at 85/54 MAP 65. Requested one time dose of Midodrine. Ordered and administered to pt. Resting in bed with
call maldonado in reach.
[2023-10-26] VITALS (30 sets, daily range): BP systolic 77–133; BP diastolic 50–106; PULSE 78; O2SAT 97; BMI 26.1
[2023-10-26] MEDS: SYNTHROID 125 MCG PO (04:08)
[2023-10-26 04:25] LABS: Hematocrit 24.5 % (37.0-47.0); Hemoglobin 8.3 g/dL (12.0-16.0); Mean Corp Hgb Conc. 33.9 g/dL (33.0-37.0); Mean Corpuscular Hgb 31.7 pg (27.0-31.0); Mean Corpuscular Volume 93.5 fL (81.0-99.0); Platelet Count 161 10^3/uL (130-400); Red Blood Cell Count 2.62 10^6/uL (4.20-5.40); Red Cell Dist. Width 18.4 % (11.5-14.5); White Blood Cell Count 4.9 10^3/uL (4.8-10.8)
[2023-10-26 05:00] LABS: Blood Urea Nitrogen 102 mg/dl (7-17); Calcium 8.3 mg/dl (8.4-10.2); Carbon Dioxide 34 mmol/L (22-30); Chloride 82 mmol/L (98-107); Estimated Creatinine Clearance 18 ml/min; Glucose 94 mg/dl (70-99); Potassium 3.3 mmol/L (3.5-5.1); Sodium 125 mmol/L (135-145)
[2023-10-26] MEDS: KCL 40 MEQ PO (06:08)
[2023-10-26] MEDS: LASIX 50 IV (06:34)
[2023-10-26] MEDS: ProAmatine 10 MG PO ×3 (08:30→17:42)
[2023-10-26] MEDS: ELIQUIS 2.5 MG PO ×2 (08:30→20:44)
[2023-10-26] MEDS: ZYLOPRIM 100 MG PO (08:30)
[2023-10-26] MEDS: STERILE WATER FOR INJECTION 18 ML IV ×2 (08:30→16:43)
[2023-10-26] MEDS: TOPROL XL PO ×2 (08:30→20:42)
[2023-10-26] MEDS: DIURIL 0.5 GRAM VIAL 0.5 GRAMS IV ×2 (08:31→16:43)
--- NOTE | 2023-10-26 09:00 | PTCARENOTE ---
Patient received from night court magistrate. Patient resting comfortably in bed. Family stayed the night. AAO, VSS. No significant events noted overnight. No complaints of pain at this time. Patient was placed on O2 due to O2 sat in mid to high 80's, to
come off during the day while awake. Right arm sling remain, site CDI. Horowitz in place, to get order updated. Lasix gtt @ 2mg/mL. Call maldonado in reach.
--- NOTE | 2023-10-26 09:47 | HOSPNOTE ---
Received a text last evening that the family was cancelling the hospice meeting and that the patient wanted to seek rehab and does not wish for hospice services. Please let me know if I am needed moving forward.
--- NOTE | 2023-10-26 10:00 | W.PN.HOSP.TC ---
Today's Communication/Plan
-
IV Lasix drip. Levophed.
Assessment / Plan
Assessment / Plan
Physical exam:
General: Acutely ill
HEENT: Normocephalic, Atraumatic and Moist Mucous Membranes
Respiratory: Clear to Auscultation; Negative Wheezes, Rales or Rhonchi
Cardiac: Regular Rhythm and S1/S2, systolic murmur
GI: Soft, Nontender and Nondistended
Musculoskeletal: Bilateral lower extremity edema. Right upper extremity sling. Tenderness and bruises in left lower extremity. No Clubbing, No Cyanosis
Neuro: Awake, Alert and Oriented, no gross neuro-deficits
Psych: Calm
A/P:
Acute on chronic diastolic CHF:
Continue IV Lasix drip
s/p right heart cath yesterday
Midline placed
BNP upon admission more than 27,000
Seen chest x-ray consistent with heart failure
Monitor strict I/O
Monitor daily weight
Horowitz catheter per nephro
Monitor renal function and electrolytes
Reviewed latest echocardiogram on our system
Continue guideline-directed medical therapy for heart failure (GDMT)
Fluid restriction
Salt restriction
Heart failure education
Follow up clinical response
Cardiology consulted and appreciated input
Discussed with daughter at bedside today on 10/23 and she expresses concerns about aggressive medical management and rehospitalization so will discuss with rest of medical team and readdress goals of care over the next 24 hours.
Will get hospice consult today
Discussed with attending RN today on 10/24
Will get some x-rays of right clavicle to determine healing fracture and also will get x-rays of the left lower extremity to rule out new fractures.
Discussed with cardiology today on 10/24
Discussed with nephrology today on 10/24
Discussed with daughter at bedside on 10/24
Discussed with hospice yesterday
Patient and family decided not to pursue hospice at this point. There was a family meeting for today but they canceled. Will reevaluate if they change their mind since she does appears to be a hospice candidate. Nevertheless cardiology is
offering possible clip versus replacement of tricuspid valve after evaluation by GIOVANNI so we will need to follow-up for further medical management still being able to offer.
Hypotension/Shock, likely cardiogenic:
Improved
She has been off pressors but we might need to put her back on pressors today
No signs of active infection.
Blood cultures no growth
Checked cortisol levels and appropriately had a 61.4
Continue high-dose midodrine, 10 mg p.o. 3 times daily
Pain in the left lower extremity:
Obtain x-rays of the left lower extremity including foot, in light of recent trauma it is reasonable to rule out fractures
Toxic metabolic encephalopathy:
Likely related to hospitalization and related to renal failure as well
Discussed about the possibility of CT scan of the head but family would like to hold off which seems to be reasonable.
They also discussed with nephrology that she is not a candidate for HD
BATOOL on CKD:
Likely cardiorenal syndrome related
Avoid nephrotoxic
Monitor renal function closely
Monitor urine output-Horowitz catheter
Creatinine today 2.6, improving from 3.6
Creatinine baseline is 1.5 back on 10/14
Patient and family discussed with nephrology and it has been explained that she is not a candidate for hemodialysis
Severe hyponatremia:
Likely hypervolemia related
Lasix drip
Urine osmolarity 279, urine sodium less than 5, urine creatinine 143
TSH 5.1 and cortisol 61
Nephrology on board
started her on Samsca by nephro
Elevated troponin:
Elevated troponin due to non-ischemic myocardial injury from heart failure but follow-up trend
Elevated LFTs:
Likely related to passive venous congestion from heart failure
Anemia:
Hemoglobin stable
Continue to monitor
Paroxysmal atrial fibrillation:
On rate control agents, [id number]-swfkbwln-[id number] due to hypotension. She is on 150 mg of Toprol-XL at home--> will see if we can use at least 50 mg twice daily with holding parameters.
On anticoagulation, Eliquis 2.5 mg twice daily
[id number] 5
Hx PVI 2020
Cardiac monitoring
Severe tricuspid regurgitation/pulmonary hypertension/chronic cor pulmonale/moderate mitral regurgitation/mild aortic regurgitation:
Reviewed last echo
Recent right clavicular fracture:
Continue conservative treatment
Continue sling
Hypothyroidism:
Continue thyroid replacement
Updated TSH
Breast Ca:
History of postlumpectomy on the right and radiation.
Peripheral neuropathy:
Pain control as needed
Depression:
Hold antidepressant due to QTc prolongation
DVT prophylaxis-Eliquis
CODE STATUS-DNR. Overall prognosis guarded
Total time spent on today's encounter was 52 minutes which included time spent in counseling the patient/family regarding diagnosis and treatment plan as listed above, goals of care, and symptom management. Case was discussed with nursing staff,
specialists, and care coordinators/case management. All labs and imaging personally reviewed by me. Remainder the time spent in detailed review of previous records, lab data, imaging, and other medical provider documentation.
Anticipated Discharge: > 48 hours
Subjective/Interval History
-
Date of Service: October 26, 2023
Patient with generalized weakness. Blood pressure fluctuating. Urine output improved overall. Afebrile
Objective Data
-
Labs:
Laboratory Results
10/26/23
04:07
WBC 4.9
Hgb 8.3 L
Hct 24.5 L
Plt Count 161
Sodium 125 L
Potassium 3.3 L
Chloride 82 L
Carbon Dioxide 34 H
BUN 102 H*
Creatinine 2.2 H
Glucose 94
Calcium 8.3 L
Vital Signs:
Vital Signs
Temp Pulse Resp BP Pulse Ox
97.7 F 90 13 95/55 97
10/26/23 07:57 10/26/23 08:30 10/26/23 06:00 10/26/23 08:30 10/26/23 09:15
I&O
10/25/23 10/26/23 10/27/23
06:59 06:59 06:59
Intake Total 344 / 344 624 / 624
Output Total 4225 / 4225 2099 / 2099
Balance -3881 / -3881 -1476 / -1476
--- NOTE | 2023-10-26 10:40 | W.PN.NEPH.PH ---
Today's Communication / Plan
-
diurese
Assessment/Plan
-
Assessment:
BATOOL with CKD -b/l cr 1.2-1.4
Acute on chronic hyponatremia
Heart failure preserved ejection fraction, severe TR/pulmonary hypertension, decompensated
h/o clavicular fracture
Severe TR and pulm HTN
atrial fibrillation
Hypothyroidism
Left left lower leg ecchymosis
Decreased urine output
Elevated LFTs
Plan
continue lasix gtt with BID diuril
follow BMP
continue midodrine
replete K
Need better definition of timeline. She will require another 15# off before she would be considered close to euvolemia. This may take another week, which would be another week of decreasing performance status and deconditioning. If that would
preclude any intervention on the TV, then plan of care should be for hospice. It is obvious that there is no outpatient solution here, so if there is no viable inpatient solution then I recommend hospice.
this was relayed to the son in law.
critical care time 40 minutes
-
-
Date of Service: October 26, 2023
CC / HPI / ROS
-
Chief Complaint:
BATOOL
History of Present Illness:
BATOOL/Cr better at 2.2, BUN up at 102
BP soft on midodrine and off levo
non oliguric with burr
sodium better at 125
K low 3.3
remains on supplemental O2
wt decreasing slowly
critically ill with decompensated HF/severe TR
Review of Systems:
no CP
no fever
offers no sob
Labs
-
Labs:
WBC 4.9 10^3/uL (4.8-10.8) 10/26/23 04:07
RBC 2.62 10^6/uL (4.20-5.40) L 10/26/23 04:07
Hgb 8.3 g/dL (12.0-16.0) L 10/26/23 04:07
Hct 24.5 % (37.0-47.0) L 10/26/23 04:07
Plt Count 161 10^3/uL (130-400) 10/26/23 04:07
Sodium 125 mmol/L (135-145) L 10/26/23 04:07
Potassium 3.3 mmol/L (3.5-5.1) L 10/26/23 04:07
Chloride 82 mmol/L (98-107) L 10/26/23 04:07
Carbon Dioxide 34 mmol/L (22-30) H 10/26/23 04:07
BUN 102 mg/dl (7-17) H* 10/26/23 04:07
Creatinine 2.2 mg/dL (0.6-1.0) H 10/26/23 04:07
eGFR 21.70 10/26/23 04:07
Glucose 94 mg/dl (70-99) 10/26/23 04:07
Calcium 8.3 mg/dl (8.4-10.2) L 10/26/23 04:07
Wep-K-Fbdgzlivkxr Pept > 35000 pg/ml 10/22/23 12:57
Albumin 2.8 g/dl (3.5-5.0) L 10/24/23 04:04
Physical Exam
-
Vital Signs:
Vital Signs
Temp Pulse Resp BP Pulse Ox
97.7 F 90 13 95/55 97
10/26/23 07:57 10/26/23 08:30 10/26/23 06:00 10/26/23 08:30 10/26/23 09:15
Cardiovascular:: Regular rate and rhythm
Respiratory:: Bilateral: Coarse and Bilateral: Rales
Lung Excursion:: Normal
Abdomen:: Nontender and Soft
Bowel Sounds:: Normal
Extremity Edema:: +3: Bilateral:
--- NOTE | 2023-10-26 12:50 | W.PN.CD ---
Today's Communication / Plan
-
continue aggressive diuresis, plan to re-evaluate tricuspid valve once dry
Impression / Plan
-
Impression/Plan: 83 y/o female with atrial fibrillation, HFpEF, pulmonary hypertension, severe TR, hepatitis C and CKD admitted with increasing shortness in breath with weight gain, consistent with decompensated, acute on chronic heart failure.
#HFpEF
#Acute on chronic diastolic heart failure
-proBNP >27,000
-CXR with small b/l pleural effusions.
-Creatinine 3.6-->2.6 on furosemide gtt.
-Diuresis challenged by hypotension
-Thoracentesis on 10/10/2023 yielded 1150 clear yellow fluid
-Echocardiogram 09/07/23 revealed an LVEF of 60-65%, severe biatrial enlargement, mild/mod MR, severe TR, with PASP of 65-70 mmHg.
-RHC 10/24/2023 demonstrated elevated biventricular filling pressures (RA 18, PCWP 22), moderate mixed PH (mean PA 40, PVR 5.9), and severely reduced cardiac index (1.6)
-continue aggressive diuresis today with lasix gtt with goal 1-2L negative; monitor Cr / blood pressure, mild contraction alkalosis so may be close to dry
#Severe TR/pulmonary hypertension
-Acute on chronic.
-Estimated PASP 65-70 mmHg by echo.
-Difficult situation with BATOOL, with degree of TR there may be a limited amount that we can improve edema.
-repeat TTE once maximized on as euvolemic as possible - likely early next week
-will discuss GIOVANNI to better assess TR and suitability for possible TTVR (clip vs. replacement) prior to discharge
#FEN/Renal/BATOOL
-likeyl cardiorenal component driving this presentation, fortunately, responding to diuresis
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
-Creatinine 3.6-->2.6. Baseline creatinine 1.5.
-Nephrology consulted - discussed with nephrology / concern that patient will not be able to be managed as an outpatient for any extended period of time on oral diuretics
#Hypotension -
-Pressure in the 80s on presentation. Patient on midodrine at home.
-Cortisol is normal.
-Low-dose pressor PRN
#Paroxysmal atrial fibrillation
-S/P PVI 01/25/2021.
-Currently in sinus intermittently.
-Rate control with metoprolol succinate, though may need to reduce given HFpEF and low output
-[id number]: score at least 5 (Heart failure, HTN, age 75 or more, female gender).
-Oral Anticoagulation: Apixaban 2.5 mg twice daily, she denies missed doses and abnormal bleeding.
#EtOH misuse
-Daily wine consumption.
-MSAS, per primary.
#Prior breast cancer
-Right side, status postlumpectomy and XRT ([facility]), stable.
Subjective/Interval History:
Notes feeling better today with improved mobility and breathing
DATA:
CXR, 10/22/2023:
IMPRESSION:
1. Mild pulmonary vascular congestion.
2. Small bilateral pleural effusions.
LE Venous Duplex, 10/22/2023:
IMPRESSION: No evidence of deep venous thrombosis bilaterally, although the bilateral peroneal veins were not visualized.
TTE, 09/07/2023:
CONCLUSIONS
-Left ventricular ejection fraction is 60-65%. Wall motion is consistent with
conduction abnormality.
-Mildly enlarged right ventricular size. Normal right ventricular systolic
function.
-Severely dilated left atrium. Severely dilated right atrium.
-Mild to moderate mitral regurgitation.
-Mild aortic regurgitation.
-Severe tricuspid regurgitation. Estimated pulmonary artery pressure of 65-70
mmHg.
Compared to previous echo on 06/26/2022, progressive tricuspid regurgitation is
noted (previously moderate). PASP has slightly increased (previously 63 mmHg).
RHC 10/24/23
1. Moderately elevated filling pressures (PCWP = 22 mmHg at 74.8 kg).
2. 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
3. Large right atrial V waves consistent with known tricuspid regurgitation.
4. Severely depressed cardiac index and a VO2 difference (1.65 L/min 3 m�, 5.87 volume %).
Physical Exam
Vital Signs/Labs
Vital Signs
Temp Pulse Resp BP Pulse Ox
36.4 C 90 13 95/55 97
10/26/23 11:58 10/26/23 08:30 10/26/23 06:00 10/26/23 08:30 10/26/23 09:15
10/25/23 10/26/23 10/27/23
06:59 06:59 06:59
Actual Weight 72.7 kg 73.3 kg
10/26/23 04:07
10/26/23 04:07
Magnesium 2.6 mg/dl (1.6-2.3) H 10/24/23 04:04
TSH 5.11 uIU/ml (0.47-4.68) H 10/22/23 17:21
10/22/23 10/22/23
11:51 12:57
Oxi-E-Gsxfjmtqauf Pept Cancelled > 06315
Physical Exam
Constitutional: No acute distress, Comfortable and Confusion
Cardiovascular: Rhythm & rate is regular, Pedal edema is absent, JVD pressure is normal, Diastolic murmur absent and Systolic murmur present (HSM at [facility])
Respiratory: Respiratory effort normal, Wheeze Absent, Crackles Absent, Rhonchi Absent and Other (decreased b in right lower lung field)
Neuro/Psych: Alert
Data Reviewed
-
Date of Service: October 26, 2023
Medical Decision Making: Reviewed Test Results, Test Interpretation and Review of Case with other Provider
X-Ray/CT/US/MRI/NUC/PET: Discussed with Patient and Discussed with Family
Labs: Labs Reviewed by me
[2023-10-26] MEDS: TYLENOL 650 MG PO ×2 (14:51→20:51)
[2023-10-26] MEDS: MIRALAX 17 GRAMS PO (16:43)
--- NOTE | 2023-10-26 16:54 | CM ---
Patient with Hx Recent right clavicular fracture, Dx CHF s/p right heart cath yesterday, hypotension/likely cardiogenic shock, LLE Pain, TME, BATOOL, Severe hyponatremia, BATOOL. O2 1L. Receiving IV Lasix gtt, IV Diuril. PT & OT recommend skilled
rehab.
Per Hospice notes family no longer interested in hospice.
Spoke with patient's daughter; she requests referrals to [facility], [facility] and [address] [place] [address] SNFs for short term rehab.
SNF referrals placed.
Plan follow up SNF referrals.
[2023-10-26] MEDS: AMBIEN 5 MG PO (22:40)
--- NOTE | 2023-10-26 22:45 | PTCARENOTE ---
Pt insisting she receive her Ambien this evening. Pt's BP borderline (MAP 66-68). Thorough education provided to pt the effects of Ambien on pt's BP; explained this may require her to need more BP support, no limited to, additional IV medications.
Pt states 'that's fine as long as I sleep, I can't sleep without the Ambien'. Pt education provided by 2 RN's. Covering ACCOUNT RELATIONSHIP MANAGER made aware, Ambien administered per order, see MAR.
[2023-10-26] MEDS: ProAmatine 5 MG PO (23:54)
[2023-10-27] VITALS (27 sets, daily range): BP systolic 87–109; BP diastolic 56–87; BMI 26.8; BMI 25.2
--- NOTE | 2023-10-27 00:17 | PTCARENOTE ---
Assumed care of patient approx 2300.
Upon assessment pt. noted to have MAP of 65. House BORDEREAU CLERK made aware, Midodrine ordered.
Pt. offers no complaints upon assessment.
[2023-10-27] MEDS: LASIX 50 IV (04:52)
[2023-10-27 05:22] LABS: Hematocrit 23.5 % (37.0-47.0); Hemoglobin 7.9 g/dL (12.0-16.0)
[2023-10-27] MEDS: SYNTHROID 125 MCG PO (05:41)
[2023-10-27 05:46] LABS: Blood Urea Nitrogen 98 mg/dl (7-17); Calcium 8.4 mg/dl (8.4-10.2); Carbon Dioxide 39 mmol/L (22-30); Chloride 80 mmol/L (98-107); Estimated Creatinine Clearance 18 ml/min; Glucose 94 mg/dl (70-99); Magnesium 2.2 mg/dl (1.6-2.3); Potassium 3.5 mmol/L (3.5-5.1); Sodium 127 mmol/L (135-145)
[2023-10-27] MEDS: ZYLOPRIM 100 MG PO (08:36)
[2023-10-27] MEDS: ProAmatine 10 MG PO ×3 (08:36→17:01)
[2023-10-27] MEDS: ELIQUIS 2.5 MG PO ×2 (08:36→19:50)
[2023-10-27] MEDS: TOPROL XL 50 MG PO (08:37)
[2023-10-27] MEDS: STERILE WATER FOR INJECTION 18 ML IV (08:37)
[2023-10-27] MEDS: DIURIL 0.5 GRAM VIAL 0.5 GRAMS IV (08:38)
--- NOTE | 2023-10-27 08:40 | PTCARENOTE ---
Patient received from rn shift mgr. Patient resting comfortably in bed. Family present early AM. AAO, VSS. No significant events noted overnight. No complaints of pain at this time. Patient was placed on O2 due to O2 sat in mid to high 80's, to
come off during the day if up to the chair and while awake. Right arm sling remain, site CDI. Horowitz in place. Lasix gtt @ 2mg/mL. BPs still remain soft, continuing to monitor and have Levo available if necessary. Hospitalist aware from
yesterday. Call maldonado in reach.
--- NOTE | 2023-10-27 08:58 | W.PN.NEPH.PH ---
Today's Communication / Plan
-
Continue diuresis
Assessment/Plan
-
Assessment:
BATOOL with CKD -b/l cr 1.2-1.4
Acute on chronic hyponatremia
Heart failure preserved ejection fraction, severe TR/pulmonary hypertension, decompensated
h/o clavicular fracture
Severe TR and pulm HTN
atrial fibrillation
Hypothyroidism
Left left lower leg ecchymosis
Decreased urine output
Elevated LFTs
Plan
continue lasix gtt
Stop Diuril
Use Diamox
follow BMP
continue midodrine
replete K prn
Hopefully her volume status will continue to improve steadily and a echocardiogram will be able to be performed early next week
critical care time 40 minutes
-
-
Date of Service: October 27, 2023
CC / HPI / ROS
-
Chief Complaint:
BATOOL
History of Present Illness:
BATOOL/Cr better at 2.2 and stable
BUN stable at 98
BP soft on midodrine and off levo
non oliguric with burr
sodium better at 127
Evolving metabolic alkalosis, 39
K up to 3.5
remains on supplemental O2
wt decreasing slowly
critically ill with decompensated HF/severe TR
Review of Systems:
no CP
no fever
offers no sob
Labs
-
Labs:
WBC 4.9 10^3/uL (4.8-10.8) 10/26/23 04:07
RBC 2.62 10^6/uL (4.20-5.40) L 10/26/23 04:07
Hgb 7.9 g/dL (12.0-16.0) L 10/27/23 04:48
Hct 23.5 % (37.0-47.0) L 10/27/23 04:48
Plt Count 161 10^3/uL (130-400) 10/26/23 04:07
Sodium 127 mmol/L (135-145) L 10/27/23 04:48
Potassium 3.5 mmol/L (3.5-5.1) 10/27/23 04:48
Chloride 80 mmol/L (98-107) L 10/27/23 04:48
Carbon Dioxide 39 mmol/L (22-30) H 10/27/23 04:48
BUN 98 mg/dl (7-17) H 10/27/23 04:48
Creatinine 2.2 mg/dL (0.6-1.0) H 10/27/23 04:48
eGFR 21.70 10/27/23 04:48
Glucose 94 mg/dl (70-99) 10/27/23 04:48
Calcium 8.4 mg/dl (8.4-10.2) 10/27/23 04:48
Hjc-Y-Icnywlvtgim Pept > 74700 pg/ml 10/22/23 12:57
Albumin 2.8 g/dl (3.5-5.0) L 10/24/23 04:04
Physical Exam
-
Vital Signs:
Vital Signs
Temp Pulse Resp BP Pulse Ox
97.9 F 99 13 109/72 94
10/27/23 03:42 10/27/23 08:36 10/27/23 05:00 10/27/23 08:36 10/27/23 05:00
Cardiovascular:: Regular rate and rhythm
Respiratory:: Bilateral: Coarse
Lung Excursion:: Normal
Abdomen:: Nontender and Soft
Bowel Sounds:: Normal
Extremity Edema:: +3: Bilateral:
--- NOTE | 2023-10-27 09:13 | W.PN.HOSP.TC ---
Today's Communication/Plan
-
IV Lasix drip.
Assessment / Plan
Assessment / Plan
Physical exam:
General: Acutely ill
HEENT: Normocephalic, Atraumatic and Moist Mucous Membranes
Respiratory: Clear to Auscultation; Negative Wheezes, Rales or Rhonchi
Cardiac: Regular Rhythm and S1/S2, systolic murmur
GI: Soft, Nontender and Nondistended
Musculoskeletal: Bilateral lower extremity edema. Right upper extremity sling. Tenderness and bruises in left lower extremity. No Clubbing, No Cyanosis
Neuro: Awake, Alert and Oriented, no gross neuro-deficits
Psych: Calm
A/P:
Acute on chronic diastolic CHF:
Continue IV Lasix drip and on Diamox
s/p right heart cath yesterday
Midline placed
BNP upon admission more than 27,000
Seen chest x-ray consistent with heart failure
Monitor strict I/O
Monitor daily weight
Horowitz catheter per nephro
Monitor renal function and electrolytes
Reviewed latest echocardiogram on our system
Continue guideline-directed medical therapy for heart failure (GDMT)
Fluid restriction
Salt restriction
Heart failure education
Follow up clinical response
Cardiology consulted and appreciated input
Hospice consulted and patient and family does not want to pursue hospice.
Discussed with daughter at bedside today on 10/26
Hypotension/Shock, likely cardiogenic:
Improved
On and off pressors
No signs of active infection.
Blood cultures no growth
Checked cortisol levels and appropriately had a 61.4
Continue high-dose midodrine, 10 mg p.o. 3 times daily
Pain in the left lower extremity:
Obtained x-rays of the left lower extremity including foot and no acute fractures
Also obtained interval x-ray of the right clavicle fracture-can discuss with ortho next week or as OP.
Toxic metabolic encephalopathy:
Likely related to hospitalization and related to renal failure as well
Discussed about the possibility of CT scan of the head but family would like to hold off which seems to be reasonable.
They also discussed with nephrology that she is not a candidate for HD
BATOOL on CKD:
Likely cardiorenal syndrome related
Avoid nephrotoxic
Monitor renal function closely
Monitor urine output-Horowitz catheter
Creatinine today 2.2, (peak 3.6)
Creatinine baseline is 1.5 back on 10/14
Patient and family discussed with nephrology and it has been explained that she is not a candidate for hemodialysis
Severe hyponatremia:
Likely hypervolemia related
Sodium today 127
Lasix drip
Urine osmolarity 279, urine sodium less than 5, urine creatinine 143
TSH 5.1 and cortisol 61
Nephrology on board
started her on Samsca by nephro
Elevated troponin:
Elevated troponin due to non-ischemic myocardial injury from heart failure but follow-up trend
Elevated LFTs:
Likely related to passive venous congestion from heart failure
Anemia:
Hemoglobin stable
Continue to monitor
Paroxysmal atrial fibrillation:
On rate control agents, rsit-fjfscodt-jjooleq due to hypotension. She is on 150 mg of Toprol-XL at home--> will see if we can use at least 50 mg twice daily with holding parameters.
On anticoagulation, Eliquis 2.5 mg twice daily
[id number]
Hx PVI 2020
Cardiac monitoring
Severe tricuspid regurgitation/pulmonary hypertension/chronic cor pulmonale/moderate mitral regurgitation/mild aortic regurgitation:
Reviewed last echo
cardiology is offering possible clip versus replacement of tricuspid valve after evaluation by GIOVANNI
Recent right clavicular fracture:
Continue conservative treatment
Continue sling
Hypothyroidism:
Continue thyroid replacement
Updated TSH
Breast Ca:
History of postlumpectomy on the right and radiation.
Peripheral neuropathy:
Pain control as needed
Depression:
Hold antidepressant due to QTc prolongation
DVT prophylaxis-Eliquis
CODE STATUS-DNR. Overall prognosis guarded
Total time spent on today's encounter was 52 minutes which included time spent in counseling the patient/family regarding diagnosis and treatment plan as listed above, goals of care, and symptom management. Case was discussed with nursing staff,
specialists, and care coordinators/case management. All labs and imaging personally reviewed by me. Remainder the time spent in detailed review of previous records, lab data, imaging, and other medical provider documentation.
Anticipated Discharge: > 48 hours
Subjective/Interval History
-
Date of Service: October 27, 2023
Patient with issues with constipation. Urine output is good. No chest pain. Afebrile
Objective Data
-
Labs:
Laboratory Results
10/27/23
04:48
Hgb 7.9 L
Hct 23.5 L
Sodium 127 L
Potassium 3.5
Chloride 80 L
Carbon Dioxide 39 H
BUN 98 H
Creatinine 2.2 H
Glucose 94
Calcium 8.4
Vital Signs:
Vital Signs
Temp Pulse Resp BP Pulse Ox
97.4 F 99 13 109/72 95
10/27/23 07:30 10/27/23 08:36 10/27/23 05:00 10/27/23 08:36 10/27/23 09:04
I&O
10/26/23 10/27/23 10/28/23
06:59 06:59 06:59
Intake Total 624 / 624 720 / 720
Output Total 2099 / 2099
Balance -1476 / -1476 -1280 / -1280
--- NOTE | 2023-10-27 09:45 | W.PN.CD ---
Today's Communication / Plan
-
Patient continues to tolerate diuresis. Creatinine has trended down to 2.2 and appears stable compared to yesterday BUN is 98 which is similar range over the last 4 days.
Patient's had issues with hypotension this admission but appears stable over the last 24 hours on current medical regimen.
Nephrology has also been following.
Continue diuresis with close monitoring of blood pressure and renal function and weights.
Note that patient's hemoglobin is trending down hemoglobin is trending downward and is now 7.9. Need to monitor closely to see what other measures can be taken to help increase her hemoglobin. Patient may end up requiring PRBC.
Impression / Plan
-
Impression/Plan: 83 y/o female with atrial fibrillation, HFpEF, pulmonary hypertension, severe TR, hepatitis C and CKD admitted with increasing shortness in breath with weight gain, consistent with decompensated, acute on chronic heart failure.
#HFpEF
#Acute on chronic diastolic heart failure
-proBNP >27,000
-CXR with small b/l pleural effusions.
-Creatinine 3.6-->2.2 on furosemide gtt.
-Diuresis challenged by hypotension
-Thoracentesis on 10/10/2023 yielded 1150 clear yellow fluid
-Echocardiogram 09/07/23 revealed an LVEF of 60-65%, severe biatrial enlargement, mild/mod MR, severe TR, with PASP of 65-70 mmHg.
-RHC 10/24/2023 demonstrated elevated biventricular filling pressures (RA 18, PCWP 22), moderate mixed PH (mean PA 40, PVR 5.9), and severely reduced cardiac index (1.6)
-continue diuresis today with lasix gtt (nephrology also involved )with goal 1-2L negative; monitor Cr / blood pressure, mild contraction alkalosis so may be close to dry
#Severe TR/pulmonary hypertension
-Acute on chronic.
-Estimated PASP 65-70 mmHg by echo.
-Difficult situation with BATOOL, with degree of TR there may be a limited amount that we can improve edema.
-repeat TTE once maximized on as euvolemic as possible - likely early next week
-will discuss GIOVANNI to better assess TR and suitability for possible TTVR (clip vs. replacement) prior to discharge
#FEN/Renal/BATOOL
-likeyl cardiorenal component driving this presentation, fortunately, responding to diuresis
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
-Creatinine 3.6-->2.6. Baseline creatinine 1.5.
-Nephrology consulted - discussed with nephrology / concern that patient will not be able to be managed as an outpatient for any extended period of time on oral diuretics
#Hypotension -
-Pressure in the 80s on presentation. Patient on midodrine at home.
-Cortisol is normal.
-Low-dose pressor PRN
#Paroxysmal atrial fibrillation
-S/P PVI 01/25/2021.
-Currently in sinus intermittently.
-Rate control with metoprolol succinate, though may need to reduce given HFpEF and low output
-[id number]: score at least 5 (Heart failure, HTN, age 75 or more, female gender).
-Oral Anticoagulation: Apixaban 2.5 mg twice daily, she denies missed doses and abnormal bleeding.
#EtOH misuse
-Daily wine consumption.
-MSAS, per primary.
#Prior breast cancer
-Right side, status postlumpectomy and XRT ([facility]), stable.
Subjective/Interval History:
Notes feeling better today with improved mobility and breathing
DATA:
CXR, 10/22/2023:
IMPRESSION:
1. Mild pulmonary vascular congestion.
2. Small bilateral pleural effusions.
LE Venous Duplex, 10/22/2023:
IMPRESSION: No evidence of deep venous thrombosis bilaterally, although the bilateral peroneal veins were not visualized.
TTE, 09/07/2023:
CONCLUSIONS
-Left ventricular ejection fraction is 60-65%. Wall motion is consistent with
conduction abnormality.
-Mildly enlarged right ventricular size. Normal right ventricular systolic
function.
-Severely dilated left atrium. Severely dilated right atrium.
-Mild to moderate mitral regurgitation.
-Mild aortic regurgitation.
-Severe tricuspid regurgitation. Estimated pulmonary artery pressure of 65-70
mmHg.
Compared to previous echo on 06/26/2022, progressive tricuspid regurgitation is
noted (previously moderate). PASP has slightly increased (previously 63 mmHg).
RHC 10/24/23
1. Moderately elevated filling pressures (PCWP = 22 mmHg at 74.8 kg).
2. 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
3. Large right atrial V waves consistent with known tricuspid regurgitation.
4. Severely depressed cardiac index and a VO2 difference (1.65 L/min 3 m�, 5.87 volume %).
Physical Exam
Vital Signs/Labs
Vital Signs
Temp Pulse Resp BP Pulse Ox
97.4 F 99 13 109/72 95
10/27/23 07:30 10/27/23 08:36 10/27/23 05:00 10/27/23 08:36 10/27/23 09:04
10/26/23 10/27/23 10/28/23
06:59 06:59 06:59
Actual Weight 73.3 kg 75.3 kg 70.7 kg
10/27/23 04:48
10/27/23 04:48
Magnesium 2.2 mg/dl (1.6-2.3) 10/27/23 04:48
TSH 5.11 uIU/ml (0.47-4.68) H 10/22/23 17:21
10/22/23 10/22/23
11:51 12:57
Yik-P-Bnhfjnhpifx Pept Cancelled > 72385
Physical Exam
Constitutional: No acute distress
Cardiovascular: Rhythm/rate is irregular
Respiratory: Wheeze Absent and Rhonchi Absent
GI: Soft and Non tender
Neuro/Psych: Alert
Data Reviewed
-
Date of Service: October 27, 2023
Medical Decision Making: Reviewed Test Results
X-Ray/CT/US/MRI/NUC/PET: Report Reviewed by me
Medical Tests (PFT, Pathology etc): Report Reviewed by me
Labs: Labs Reviewed by me
[2023-10-27] MEDS: SENOKOT-S 1 TABLET PO (12:22)
[2023-10-27] MEDS: DIAMOX 125 MG PO ×2 (17:02→20:56)
[2023-10-27] MEDS: TYLENOL 650 MG PO (19:49)
[2023-10-27] MEDS: TOPROL XL PO (19:52)
[2023-10-27] MEDS: AMBIEN 5 MG PO (20:57)
[2023-10-28] VITALS (28 sets, daily range): BP systolic 82–118; BP diastolic 51–88; BMI 25.1
[2023-10-28] MEDS: SYNTHROID 125 MCG PO (03:40)
[2023-10-28] MEDS: TYLENOL 650 MG PO ×2 (03:40→19:55)
[2023-10-28 04:01] LABS: Hematocrit 25.8 % (37.0-47.0); Hemoglobin 8.6 g/dL (12.0-16.0); Mean Corp Hgb Conc. 33.3 g/dL (33.0-37.0); Mean Corpuscular Hgb 31.6 pg (27.0-31.0); Mean Corpuscular Volume 94.9 fL (81.0-99.0); Platelet Count 166 10^3/uL (130-400); Red Blood Cell Count 2.72 10^6/uL (4.20-5.40); Red Cell Dist. Width 18.6 % (11.5-14.5); White Blood Cell Count 5.4 10^3/uL (4.8-10.8)
[2023-10-28 04:14] LABS: Blood Urea Nitrogen 99 mg/dl (7-17); Calcium 8.3 mg/dl (8.4-10.2); Carbon Dioxide 38 mmol/L (22-30); Chloride 77 mmol/L (98-107); Estimated Creatinine Clearance 20 ml/min; Glucose 104 mg/dl (70-99); Magnesium 2.1 mg/dl (1.6-2.3); Potassium 3.3 mmol/L (3.5-5.1); Sodium 126 mmol/L (135-145); eGFR 24.33
--- NOTE | 2023-10-28 07:11 | W.PN.CD ---
Today's Communication / Plan
-
Creatinine down to 2.0. Patient down about 12 kg as of 10/28/2023. Some lower blood pressures overnight. She has baseline low blood pressures but they dipped a little bit lower in the client relationship consultant hours. May need to reduce rate of diuresis
Hemoglobin with some improvement to 8.6 continue to monitor.
Continued management of hyponatremia as directed by nephrology
.
Impression / Plan
-
Impression/Plan: 83 y/o female with atrial fibrillation, HFpEF, pulmonary hypertension, severe TR, hepatitis C and CKD admitted with increasing shortness in breath with weight gain, consistent with decompensated, acute on chronic heart failure.
#HFpEF
#Acute on chronic diastolic heart failure
-proBNP >27,000
-CXR with small b/l pleural effusions.
-Creatinine 3.6-->2.2 on furosemide gtt.
-Diuresis challenged by hypotension
-Thoracentesis on 10/10/2023 yielded 1150 clear yellow fluid
-Echocardiogram 09/07/23 revealed an LVEF of 60-65%, severe biatrial enlargement, mild/mod MR, severe TR, with PASP of 65-70 mmHg.
-RHC 10/24/2023 demonstrated elevated biventricular filling pressures (RA 18, PCWP 22), moderate mixed PH (mean PA 40, PVR 5.9), and severely reduced cardiac index (1.6)
-Creatinine down to 2.0. Patient down about 12 kg as of 10/28/2023. Some lower blood pressures overnight. She has baseline low blood pressures but they dipped a little bit lower in the client relationship consultant hours. May need to reduce rate of diuresis
.
#Severe TR/pulmonary hypertension
-Acute on chronic.
-Estimated PASP 65-70 mmHg by echo.
-Difficult situation with BATOOL, with degree of TR there may be a limited amount that we can improve edema.
-repeat TTE once maximized on as euvolemic as possible - likely early next week
-will discuss GIOVANNI to better assess TR and suitability for possible TTVR (clip vs. replacement) prior to discharge
#FEN/Renal/BATOOL
-likeyl cardiorenal component driving this presentation, fortunately, responding to diuresis
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
-Creatinine 3.6-->2.6. Baseline creatinine 1.5.
-Nephrology consulted - discussed with nephrology / concern that patient will not be able to be managed as an outpatient for any extended period of time on oral diuretics
#Hypotension -
-Blood pressures have been low and patient maintained on midodrine some lower blood pressures overnight. May need to decrease rate of diuresis.
#Paroxysmal atrial fibrillation
-S/P PVI 01/25/2021.
-Currently in sinus intermittently.
-Rate control with metoprolol succinate, though may need to reduce given HFpEF and low output
-[id number]: score at least 5 (Heart failure, HTN, age 75 or more, female gender).
-Oral Anticoagulation: Apixaban 2.5 mg twice daily, she denies missed doses and abnormal bleeding.
#EtOH misuse
-Daily wine consumption.
-MSAS, per primary.
#Prior breast cancer
-Right side, status postlumpectomy and XRT (HRH), stable.
Subjective/Interval History:
Notes feeling better today with improved mobility and breathing
DATA:
CXR, 10/22/2023:
IMPRESSION:
1. Mild pulmonary vascular congestion.
2. Small bilateral pleural effusions.
LE Venous Duplex, 10/22/2023:
IMPRESSION: No evidence of deep venous thrombosis bilaterally, although the bilateral peroneal veins were not visualized.
TTE, 09/07/2023:
CONCLUSIONS
-Left ventricular ejection fraction is 60-65%. Wall motion is consistent with
conduction abnormality.
-Mildly enlarged right ventricular size. Normal right ventricular systolic
function.
-Severely dilated left atrium. Severely dilated right atrium.
-Mild to moderate mitral regurgitation.
-Mild aortic regurgitation.
-Severe tricuspid regurgitation. Estimated pulmonary artery pressure of 65-70
mmHg.
Compared to previous echo on 06/26/2022, progressive tricuspid regurgitation is
noted (previously moderate). PASP has slightly increased (previously 63 mmHg).
RHC 10/24/23
1. Moderately elevated filling pressures (PCWP = 22 mmHg at 74.8 kg).
2. 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
3. Large right atrial V waves consistent with known tricuspid regurgitation.
4. Severely depressed cardiac index and a VO2 difference (1.65 L/min 3 m�, 5.87 volume %).
Physical Exam
Vital Signs/Labs
Vital Signs
Temp Pulse Resp BP Pulse Ox
97.3 F 89 23 93/73 95
10/28/23 03:49 10/28/23 05:00 10/28/23 05:00 10/28/23 05:00 10/28/23 06:01
10/27/23 10/28/23 10/29/23
06:59 06:59 06:59
Actual Weight 75.3 kg 70.5 kg
10/28/23 03:32
10/28/23 03:32
Magnesium 2.1 mg/dl (1.6-2.3) 10/28/23 03:32
TSH 5.11 uIU/ml (0.47-4.68) H 10/22/23 17:21
10/22/23 10/22/23
11:51 12:57
Ijg-X-Neqyfkojnvt Pept Cancelled > 96499
Physical Exam
Constitutional: No acute distress
Cardiovascular: Rhythm/rate is irregular
Respiratory: Wheeze Absent and Rhonchi Absent
GI: Soft and Non tender
Neuro/Psych: Alert
Data Reviewed
-
Date of Service: October 28, 2023
Medical Decision Making: Reviewed Test Results
EKG: Report Reviewed by me
Medical Tests (PFT, Pathology etc): Report Reviewed by me
Labs: Labs Reviewed by me
[2023-10-28] MEDS: ZYLOPRIM 100 MG PO (08:01)
[2023-10-28] MEDS: ProAmatine 10 MG PO ×3 (08:01→17:03)
[2023-10-28] MEDS: ELIQUIS 2.5 MG PO ×2 (08:02→19:56)
[2023-10-28] MEDS: DIAMOX 125 MG PO ×3 (08:02→21:30)
[2023-10-28] MEDS: TOPROL XL PO ×2 (08:02→19:57)
--- NOTE | 2023-10-28 08:09 | W.PN.NEPH.PH ---
Today's Communication / Plan
-
Maintain Lasix drip
Replete potassium
Maintain Diamox
Maintain burr
Assessment/Plan
-
Assessment:
BATOOL with CKD -b/l cr 1.2-1.4
Acute on chronic hyponatremia
Heart failure preserved ejection fraction, severe TR/pulmonary hypertension, decompensated
h/o clavicular fracture
Severe TR and pulm HTN
atrial fibrillation
Hypothyroidism
Left left lower leg ecchymosis
Decreased urine output
Elevated LFTs
Plan
Hyponatremia persist
Creatinine and azotemia remains unchanged
continue lasix gtt for net negative balance
weights unchanged
Maintain Diamox for contraction alkalosis
follow BMP
continue midodrine for hypotension
replete K prn
Hopefully her volume status will continue to improve steadily and a echocardiogram will be able to be performed early next week
critical care time 40 minutes
-
-
Date of Service: October 28, 2023
CC / HPI / ROS
-
Chief Complaint:
BATOOL
History of Present Illness:
BATOOL/Cr better at 2 and stable
BUN stable at 99
BP soft on midodrine and off levo
non oliguric with burr
sodium worsened to 126
Evolving metabolic alkalosis
K level
remains on supplemental O2
wt decreasing slowly
critically ill with decompensated HF/severe TR
Review of Systems:
no CP
no fever
offers no sob
Weights unchanged
Labs
-
Labs:
WBC 5.4 10^3/uL (4.8-10.8) 10/28/23 03:32
RBC 2.72 10^6/uL (4.20-5.40) L 10/28/23 03:32
Hgb 8.6 g/dL (12.0-16.0) L 10/28/23 03:32
Hct 25.8 % (37.0-47.0) L 10/28/23 03:32
Plt Count 166 10^3/uL (130-400) 10/28/23 03:32
Sodium 126 mmol/L (135-145) L 10/28/23 03:32
Potassium 3.3 mmol/L (3.5-5.1) L 10/28/23 03:32
Chloride 77 mmol/L (98-107) L 10/28/23 03:32
Carbon Dioxide 38 mmol/L (22-30) H 10/28/23 03:32
BUN 99 mg/dl (7-17) H 10/28/23 03:32
Creatinine 2.0 mg/dL (0.6-1.0) H 10/28/23 03:32
eGFR 24.33 10/28/23 03:32
Glucose 104 mg/dl (70-99) H 10/28/23 03:32
Calcium 8.3 mg/dl (8.4-10.2) L 10/28/23 03:32
Vzy-O-Cybjbcvegei Pept > 48400 pg/ml 10/22/23 12:57
Albumin 2.8 g/dl (3.5-5.0) L 10/24/23 04:04
Physical Exam
-
Vital Signs:
Vital Signs
Temp Pulse Resp BP Pulse Ox
97.3 F 82 13 96/59 95
10/28/23 03:49 10/28/23 08:02 10/28/23 07:01 10/28/23 08:02 10/28/23 07:01
Cardiovascular:: Regular rate and rhythm
Respiratory:: Bilateral: Coarse
Lung Excursion:: Normal
Abdomen:: Nontender and Soft
Bowel Sounds:: Normal
Extremity Edema:: +1: Bilateral:
[2023-10-28] MEDS: KLOR-CON 40 MEQ PO (09:10)
--- NOTE | 2023-10-28 10:21 | PTCARENOTE ---
Spoke with patient's daughter India and updated per RN ability.
--- NOTE | 2023-10-28 10:50 | W.PN.HOSP.TC ---
Today's Communication/Plan
-
IV Lasix drip.
Assessment / Plan
Assessment / Plan
Physical exam:
General: Acutely ill
HEENT: Normocephalic, Atraumatic and Moist Mucous Membranes
Respiratory: Clear to Auscultation; Negative Wheezes, Rales or Rhonchi
Cardiac: Regular Rhythm and S1/S2, systolic murmur
GI: Soft, Nontender and Nondistended
Musculoskeletal: Bilateral lower extremity edema. Right upper extremity sling. Tenderness and bruises in left lower extremity. No Clubbing, No Cyanosis
Neuro: Awake, Alert and Oriented, no gross neuro-deficits
Psych: Calm
A/P:
Acute on chronic diastolic CHF:
Continue IV Lasix drip per nephrology and continue on Diamox
s/p right heart cath
Midline placed
BNP upon admission more than 27,000
Seen chest x-ray consistent with heart failure
Monitor strict I/O
Monitor daily weight
Horowitz catheter per nephro
Monitor renal function and electrolytes
Reviewed latest echocardiogram on our system
Continue guideline-directed medical therapy for heart failure (GDMT)
Fluid restriction
Salt restriction
Heart failure education
Follow up clinical response
Cardiology consulted and appreciated input
Hospice consulted and patient and family does not want to pursue hospice.
Discussed with daughter at bedside yesterday
Discussed with cardiology and nephrology today on 10/27
Hypotension/Shock, likely cardiogenic:
Improved
On and off pressors. Today she has been off pressors
No signs of active infection.
Blood cultures no growth
Checked cortisol levels and appropriately had a 61.4
Continue high-dose midodrine, 10 mg p.o. 3 times daily
Pain in the left lower extremity:
Obtained x-rays of the left lower extremity including foot and no acute fractures
Also obtained interval x-ray of the right clavicle fracture-can discuss with ortho next week or as OP.
Toxic metabolic encephalopathy:
Likely related to hospitalization and related to renal failure as well
Discussed about the possibility of CT scan of the head but family would like to hold off which seems to be reasonable.
They also discussed with nephrology that she is not a candidate for HD
BATOOL on CKD:
Likely cardiorenal syndrome related
Avoid nephrotoxic
Monitor renal function closely
Monitor urine output-Horowitz catheter
Creatinine today 2.0 (peak 3.6)
Creatinine baseline is 1.5 back on 10/14
Patient and family discussed with nephrology and it has been explained that she is not a candidate for hemodialysis
Severe hyponatremia:
Likely hypervolemia related
Sodium today 126
Lasix drip
Urine osmolarity 279, urine sodium less than 5, urine creatinine 143
TSH 5.1 and cortisol 61
Nephrology on board
started her on Samsca by nephro
Elevated troponin:
Elevated troponin due to non-ischemic myocardial injury from heart failure but follow-up trend
Elevated LFTs:
Likely related to passive venous congestion from heart failure
Hypokalemia:
Replete and trend
Anemia:
Hemoglobin stable
Continue to monitor
Paroxysmal atrial fibrillation:
On rate control agents, [id number] due to hypotension. She is on 150 mg of Toprol-XL at home--> will see if we can use at least 50 mg twice daily with holding parameters.
On anticoagulation, Eliquis 2.5 mg twice daily
[id number] 5
Hx PVI 2020
Cardiac monitoring
Severe tricuspid regurgitation/pulmonary hypertension/chronic cor pulmonale/moderate mitral regurgitation/mild aortic regurgitation:
Reviewed last echo
cardiology is offering possible clip versus replacement of tricuspid valve after evaluation by GIOVANNI
Recent right clavicular fracture:
Continue conservative treatment
Continue sling
Hypothyroidism:
Continue thyroid replacement
Updated TSH
Breast Ca:
History of postlumpectomy on the right and radiation.
Peripheral neuropathy:
Pain control as needed
Depression:
Hold antidepressant due to QTc prolongation
DVT prophylaxis-Eliquis
CODE STATUS-DNR. Overall prognosis guarded
Total time spent on today's encounter was 52 minutes which included time spent in counseling the patient/family regarding diagnosis and treatment plan as listed above, goals of care, and symptom management. Case was discussed with nursing staff,
specialists, and care coordinators/case management. All labs and imaging personally reviewed by me. Remainder the time spent in detailed review of previous records, lab data, imaging, and other medical provider documentation.
Anticipated Discharge: > 48 hours
Subjective/Interval History
-
Date of Service: October 28, 2023
Blood pressure borderline low but MAP is adequate. No chest pain or worsening shortness of breath. Urine output is good. Afebrile
Objective Data
-
Labs:
Laboratory Results
10/28/23
03:32
WBC 5.4
Hgb 8.6 L
Hct 25.8 L
Plt Count 166
Sodium 126 L
Potassium 3.3 L
Chloride 77 L
Carbon Dioxide 38 H
BUN 99 H
Creatinine 2.0 H
Glucose 104 H
Calcium 8.3 L
Vital Signs:
Vital Signs
Temp Pulse Resp BP Pulse Ox
97.5 F 82 13 96/59 97
10/28/23 07:55 10/28/23 08:02 10/28/23 07:01 10/28/23 08:02 10/28/23 08:50
I&O
10/27/23 10/28/23 10/29/23
06:59 06:59 06:59
Intake Total 720 / 720 908 / 908
Output Total 1999 / 1999 1850 / 185
Balance -1280 / -1280 -942 / -942
--- NOTE | 2023-10-28 11:49 | PTCARENOTE ---
Assumed care of patient this morning. She is aaox3 but drowsy this morning. Per nightshift report patient was up throughout the human performance technologist and was sitting in the chair. Patient sleeping off and on this morning. Offered to get patient into chair
but declined. Pt had help with breakfast from family member in room. Patient provided oral care and smitha-care. R arm remains in sling but she denies any pain. Lasix gtt maintained. Per Dr. Nava Horowitz catheter is to stay and not be taken out
tomorrow morning. Assessment, care and VS as charted.
--- NOTE | 2023-10-28 12:22 | PTCARENOTE ---
Patient's family member just called and spoke with dehydration unit operator. They were asking if patient could be up in chair upon their arrival. I spoke with patient and she again declined. I attempted to call family member back but no one answered.
[2023-10-28] MEDS: AMBIEN 5 MG PO (21:32)
[2023-10-29] VITALS (25 sets, daily range): BP systolic 83–112; BP diastolic 55–94; BMI 25.0
[2023-10-29] MEDS: TYLENOL 650 MG PO ×3 (02:28→19:58)
[2023-10-29] MEDS: LASIX 50 IV (03:47)
[2023-10-29] MEDS: SYNTHROID 125 MCG PO (04:52)
[2023-10-29 05:01] LABS: Blood Urea Nitrogen 96 mg/dl (7-17); Calcium 8.2 mg/dl (8.4-10.2); Chloride 77 mmol/L (98-107); Estimated Creatinine Clearance 20 ml/min; Glucose 98 mg/dl (70-99); Potassium 3.1 mmol/L (3.5-5.1); Sodium 127 mmol/L (135-145); eGFR 24.33
[2023-10-29 05:12] LABS: Carbon Dioxide 37 mmol/L (22-30)
[2023-10-29] MEDS: KCL 40 MEQ PO (07:10)
[2023-10-29] MEDS: SENOKOT-S 1 TABLET PO (07:11)
[2023-10-29] MEDS: ELIQUIS 2.5 MG PO ×2 (07:11→19:55)
[2023-10-29] MEDS: DIAMOX 125 MG PO ×3 (07:11→23:05)
[2023-10-29] MEDS: TOPROL XL PO ×2 (07:13→20:00)
[2023-10-29] MEDS: ProAmatine 10 MG PO ×3 (07:13→17:08)
[2023-10-29] MEDS: ZYLOPRIM 100 MG PO (07:14)
--- NOTE | 2023-10-29 08:14 | W.PN.HOSP.TC ---
Today's Communication/Plan
-
see bold
Assessment / Plan
Assessment / Plan
Gen: NAD, Awake and alert
Eyes: EOMI, PERRLA, no scleral icterus.
Neck: supple. +JVD
CV: irreg/irreg, +S1/S2, no m/r/g.
Resp: CTAB anteriorly, no rales, wheezes, or rhonchi.
Abd: +BS, soft, NT, ND
Skin: No rashes. very trace ankle edema
Neuro: CN 2-12 intact, non-focal.
Psych: Normal mood and affect.
Echo 09/07/23: EF 60-65%, Mildly enlargerd RV, normal RV fxn, severely dilated RA/LA, mild-mod MR, mild AR, severe TR, PASP 65-70mmHg
CXR 10/22/23:
1. Mild pulmonary vascular congestion.
2. Small bilateral pleural effusions.
RHC 10/24/23:
2. 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
3. Large right atrial V waves consistent with known tricuspid regurgitation.
4. Severely depressed cardiac index and a VO2 difference (1.65 L/min 3 m�, 5.87 volume %).
Acute cardiogenic shock due to acute on chronic diastolic CHF:
-BNP > 27,000
-RHC above, indicative of volume O/L with decrease CI (TR contributing)
-cont lasix gtt/Diamox
-cont Levophed gtt as needed (currently off)
-cont Midodrine
-daily wts, I/Os, FR
-cards following
-repeat echo 10/30/23AM, prior echo above and notable for severe TR/pulm HTN/chronic cor pulmonale/mod MR/mild AR
-cardiology is considering TTVR (clip vs replacement)
-note, pt/family not interested in hospice
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
-Cr 3.5 on admission, now down to 2.0 with diuresis
-note, as per renal, pt not HD candidate
Severe hypervolemic hyponatremia:
-cont lasix gtt
-s/p Samsca on 10/23/23
-TSH 5.1 and random cortisol 61.4
Other problems:
Acute metabolic encephalopathy: Likely due to cardiogenic shock/BATOOL as well as hospitalization
Pain in the left lower extremity: L foot Xray: Osteopenia without associated fracture. Calcaneal osteophytes. 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
Elevated troponin due to non-ischemic myocardial injury
Elevated LFTs: likely due to passive venous congestion from heart failure
Anemia: Hb stable
PAF: cont BB/Eliquis. h/o PVI 2020
Hypokalemia: PO K
Recent right clavicular fracture: cont sling
Hypothyroidism: cont Levoxyl
h/o Breast CA s/p lumpectomy on the right and XRT
Peripheral neuropathy
Depression: Holding antidepressant due to QTc prolongation
DNR/Eliquis
Family updated at bedside. Case discussed with cardiology.
Extremely poor prognosis and pt is hospice appropriate.
Total time spent on today's encounter was 50 minutes which included time spent in counseling the patient/family regarding diagnosis and treatment plan as listed above, goals of care, and symptom management. Case was discussed with nursing staff,
specialists, and care coordinators/case management. All labs and imaging personally reviewed by me. Remainder the time spent in detailed review of previous records, lab data, imaging, and other medical provider documentation.
Anticipated Discharge: > 48 hours
Subjective/Interval History
-
Date of Service: October 29, 2023
Currently denies CP/SOB.
Objective Data
-
Labs:
Laboratory Results
10/29/23
03:53
Sodium 127 L
Potassium 3.1 L
Chloride 77 L
Carbon Dioxide 37 H
BUN 96 H
Creatinine 2.0 H
Glucose 98
Calcium 8.2 L
Vital Signs:
Vital Signs
Temp Pulse Resp BP Pulse Ox
97.6 F 82 14 88/65 98
10/29/23 03:25 10/29/23 07:13 10/29/23 07:00 10/29/23 07:13 10/29/23 07:26
I&O
10/28/23 10/29/23 10/30/23
06:59 06:59 06:59
Intake Total 908 / 908 1140 / 1140
Output Total 1850 / 1850 2800 / 2800
Balance -942 / -942 -1660 / -1660
--- NOTE | 2023-10-29 09:16 | W.PN.NEPH.PH ---
Today's Communication / Plan
-
replete K
maintain lasix gtt
Assessment/Plan
-
Assessment:
BATOOL with CKD -b/l cr 1.2-1.4
Acute on chronic hyponatremia
Heart failure preserved ejection fraction, severe TR/pulmonary hypertension, decompensated
h/o clavicular fracture
Severe TR and pulm HTN
atrial fibrillation
Hypothyroidism
Left left lower leg ecchymosis
Decreased urine output
Elevated LFTs
Plan
Hyponatremia persist with sodium of 127
Creatinine and azotemia remains unchanged
continue lasix gtt for net negative balance
weights unchanged, uop ~2800
Maintain Diamox for contraction alkalosis
follow BMP
continue midodrine for hypotension
replete K (80 meq)
echocardiogram will be able to be performed tomorrow
Patient prognosis is currently poor
-
-
Date of Service: October 29, 2023
CC / HPI / ROS
-
Chief Complaint:
BATOOL
History of Present Illness:
BATOOL/Cr stable at 2 and stable
BUN stable at 99
BP soft on midodrine and off levo
non oliguric with burr
sodium worsened to 126
Evolving metabolic alkalosis
K level
remains on supplemental O2
wt decreasing slowly
critically ill with decompensated HF/severe TR
Review of Systems:
no CP
no fever
offers no sob
Weights unchanged
Labs
-
Labs:
WBC 5.4 10^3/uL (4.8-10.8) 10/28/23 03:32
RBC 2.72 10^6/uL (4.20-5.40) L 10/28/23 03:32
Hgb 8.6 g/dL (12.0-16.0) L 10/28/23 03:32
Hct 25.8 % (37.0-47.0) L 10/28/23 03:32
Plt Count 166 10^3/uL (130-400) 10/28/23 03:32
Sodium 127 mmol/L (135-145) L 10/29/23 03:53
Potassium 3.1 mmol/L (3.5-5.1) L 10/29/23 03:53
Chloride 77 mmol/L (98-107) L 10/29/23 03:53
Carbon Dioxide 37 mmol/L (22-30) H 10/29/23 03:53
BUN 96 mg/dl (7-17) H 10/29/23 03:53
Creatinine 2.0 mg/dL (0.6-1.0) H 10/29/23 03:53
eGFR 24.33 10/29/23 03:53
Glucose 98 mg/dl (70-99) 10/29/23 03:53
Calcium 8.2 mg/dl (8.4-10.2) L 10/29/23 03:53
Vaq-O-Oegcmmmaggr Pept > 51629 pg/ml 10/22/23 12:57
Albumin 2.8 g/dl (3.5-5.0) L 10/24/23 04:04
Physical Exam
-
Vital Signs:
Vital Signs
Temp Pulse Resp BP Pulse Ox
97.6 F 82 14 88/65 98
10/29/23 03:25 10/29/23 07:13 10/29/23 07:00 10/29/23 07:13 10/29/23 07:26
Cardiovascular:: Regular rate and rhythm
Respiratory:: Bilateral: Coarse
Lung Excursion:: Normal
Abdomen:: Nontender and Soft
Bowel Sounds:: Normal
Extremity Edema:: +1: Bilateral:
--- NOTE | 2023-10-29 11:39 | PTCARENOTE ---
I spoke with pt's daughter India and updated her to best of RN ability.
Then Jina called and reported she was on her way and if patient could get up to chair now, which patient was already assisted to approx 11AM.
--- NOTE | 2023-10-29 12:25 | W.PN.CD ---
Today's Communication / Plan
-
cont lasix drip
echo tomorrow
Impression / Plan
-
Impression/Plan: 83 y/o female with atrial fibrillation, HFpEF, pulmonary hypertension, severe TR, hepatitis C and CKD admitted with increasing shortness in breath with weight gain, consistent with decompensated, acute on chronic heart failure.
#Acute on chronic diastolic heart failure
-proBNP >27,000
-CXR with small b/l pleural effusions.
-Creatinine 3.6-->2.2 on furosemide gtt.
-Diuresis challenged by hypotension
-Thoracentesis on 10/10/2023 yielded 1150 clear yellow fluid
-Echocardiogram 09/07/23 revealed an LVEF of 60-65%, severe biatrial enlargement, mild/mod MR, severe TR, with PASP of 65-70 mmHg.
-RHC 10/24/2023 demonstrated elevated biventricular filling pressures (RA 18, PCWP 22), moderate mixed PH (mean PA 40, PVR 5.9), and severely reduced cardiac index (1.6)
-Creatinine down to 2.0. Patient down about 12 kg as of 10/28/2023. Approaching euvolemic at 70 kg. Continue lasix drip.
-close monitoring of labs and tele
.
#Severe TR/pulmonary hypertension
-Acute on chronic.
-Estimated PASP 65-70 mmHg by echo.
-repeat TTE once maximized on as euvolemic as possible
-will discuss GIOVANNI to better assess TR and suitability for possible TTVR (clip vs. replacement) prior to discharge
#FEN/Renal/BATOOL
-likely cardiorenal component driving this presentation; high risk situation
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
-Creatinine 3.6-->2.6. Baseline creatinine 1.5. Now 2.0.
-Nephrology consulted - discussed with nephrology / concern that patient will not be able to be managed as an outpatient for any extended period of time on oral diuretics
#Hypotension -
-Blood pressures have been low and patient maintained on midodrine some lower blood pressures overnight.
#Paroxysmal atrial fibrillation
-S/P PVI 01/25/2021.
-back in A fib with RBBB
-Rate control with metoprolol succinate
-[id number]: score at least 5 (Heart failure, HTN, age 75 or more, female gender).
-Oral Anticoagulation: Apixaban 2.5 mg twice daily, she denies missed doses and abnormal bleeding.
#Prior breast cancer
-Right side, status postlumpectomy and XRT (HR), stable.
Subjective/Interval History:
SOB and edema have improved on lasix drip
DATA:
CXR, 10/22/2023:
IMPRESSION:
1. Mild pulmonary vascular congestion.
2. Small bilateral pleural effusions.
LE Venous Duplex, 10/22/2023:
IMPRESSION: No evidence of deep venous thrombosis bilaterally, although the bilateral peroneal veins were not visualized.
TTE, 09/07/2023:
CONCLUSIONS
-Left ventricular ejection fraction is 60-65%. Wall motion is consistent with
conduction abnormality.
-Mildly enlarged right ventricular size. Normal right ventricular systolic
function.
-Severely dilated left atrium. Severely dilated right atrium.
-Mild to moderate mitral regurgitation.
-Mild aortic regurgitation.
-Severe tricuspid regurgitation. Estimated pulmonary artery pressure of 65-70
mmHg.
Compared to previous echo on 06/26/2022, progressive tricuspid regurgitation is
noted (previously moderate). PASP has slightly increased (previously 63 mmHg).
RHC 10/24/23
1. Moderately elevated filling pressures (PCWP = 22 mmHg at 74.8 kg).
2. 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
3. Large right atrial V waves consistent with known tricuspid regurgitation.
4. Severely depressed cardiac index and a VO2 difference (1.65 L/min 3 m�, 5.87 volume %).
Physical Exam
Vital Signs/Labs
Vital Signs
Temp Pulse Resp BP Pulse Ox
98.1 F 95 23 99/65 90
10/29/23 07:18 10/29/23 11:00 10/29/23 11:00 10/29/23 11:00 10/29/23 11:43
10/28/23 10/29/23 10/30/23
06:59 06:59 06:59
Actual Weight 70.5 kg 70.3 kg
10/28/23 03:32
10/29/23 03:53
Magnesium 2.1 mg/dl (1.6-2.3) 10/28/23 03:32
TSH 5.11 uIU/ml (0.47-4.68) H 10/22/23 17:21
10/22/23 10/22/23
11:51 12:57
Med-V-Voxaxkuhdhz Pept Cancelled > [id number]
Physical Exam
Constitutional: No acute distress
EENT: Moist mucous membranes
Cardiovascular: Rhythm/rate is irregular, Pedal edema present, JVD present and Systolic murmur present
Respiratory: Respiratory effort normal and Lungs clear to auscul.
GI: Soft and Distention absent
Neuro/Psych: Oriented
Data Reviewed
-
Date of Service: October 29, 2023
EKG: Other (Tele: A fib 80s-90s)
Labs: Labs Reviewed by me
[2023-10-29] MEDS: KLOR-CON 40 MEQ PO (12:48)
--- NOTE | 2023-10-29 17:00 | PTCARENOTE ---
Patient able to sit in chair today from approx 10:30-1600. Pt then used call maldonado and asked to get back into bed. Pt needs assist x2 to get in and out of bed. She is unsteady on her feet and leans backwards. Pt's R arm remains in sling. She did c/o
of pain today to b/l hands from arthritis, medicated with PRN Tylenol, see MAR. Assessment, care and VS as charted.
--- NOTE | 2023-10-29 20:43 | PTCARENOTE ---
Caring for patient overnight. Family at bedside. Updated family with plan of care. aaox3, afib on monitor, remains RA. Bp's running soft stable MAP, help toprol. Lasix gtt running. Q2T. R arm sling remains on. Family requesting more education from
PT on sling, when it can come off, ROM of arm, etc. Pt edematous throughout body, +2 up her trunk area & thighs, +2LLE, +1RLE. Bruised throughout. Refused SCDS, education given. Meds given in applesauce, no issues. NO other issues at this time.
Will continue to monitor. BA on. Call maldonado in reach.
[2023-10-29] MEDS: AMBIEN 5 MG PO (21:34)
[2023-10-30] VITALS (20 sets, daily range): BP systolic 91–113; BP diastolic 54–87; PULSE 81–85; O2SAT 96; BMI 24.7
[2023-10-30] MEDS: LASIX 50 IV (04:37)
[2023-10-30] MEDS: SYNTHROID 125 MCG PO (04:37)
[2023-10-30] MEDS: TYLENOL 650 MG PO (04:38)
[2023-10-30 05:21] LABS: Blood Urea Nitrogen 93 mg/dl (7-17); Calcium 8.5 mg/dl (8.4-10.2); Carbon Dioxide 40 mmol/L (22-30); Chloride 83 mmol/L (98-107); Estimated Creatinine Clearance 23 ml/min; Glucose 95 mg/dl (70-99); Potassium 3.5 mmol/L (3.5-5.1); Sodium 132 mmol/L (135-145); eGFR 29.57
--- NOTE | 2023-10-30 07:25 | W.PN.CD ---
Today's Communication / Plan
-
TTE and CXR, possible GIOVANNI tomorrow ([email or web address] please); encourage ambulation with PT
Impression / Plan
-
Impression/Plan: 83 y/o female with atrial fibrillation, HFpEF, pulmonary hypertension, severe TR, hepatitis C and CKD admitted with increasing shortness in breath with weight gain, consistent with decompensated, acute on chronic heart failure.
#Acute on chronic diastolic heart failure
-proBNP >27,000 on admit
-CXR with small b/l pleural effusions.
-Thoracentesis on 10/10/2023 yielded 1150 clear yellow fluid
-Echocardiogram 09/07/23 revealed an LVEF of 60-65%, severe biatrial enlargement, mild/mod MR, severe TR, with PASP of 65-70 mmHg.
-RHC 10/24/2023 demonstrated elevated biventricular filling pressures (RA 18, PCWP 22), moderate mixed PH (mean PA 40, PVR 5.9), and severely reduced cardiac index (1.6)
-Creatinine 3.6 on peak, decreasing with aggressive diuresis
-Diuresis challenged by hypotension
-Creatinine down to 1.7. Continue lasix drip.
-close monitoring of labs and tele
-BS decreased on R, repeat CXR
.
#Severe TR/pulmonary hypertension
-Acute on chronic.
-Estimated PASP 65-70 mmHg by echo.
-repeat TTE today
-pending TTE, will discuss GIOVANNI to better assess TR and suitability for possible TTVR (clip vs. replacement) prior to discharge
#FEN/Renal/BATOOL
-likely cardiorenal component driving this presentation; high risk situation
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
-Creatinine 3.6 peaked, now approaching baseline creatinine 1.5.
-Nephrology consulted - discussed with nephrology / concern that patient will not be able to be managed as an outpatient for any extended period of time on oral diuretics
#Hypotension -
-Blood pressures have been low and patient maintained on midodrine some lower blood pressures overnight.
#Paroxysmal atrial fibrillation
-S/P PVI 01/25/2021.
-back in A fib with RBBB
-Rate control with metoprolol succinate
-[id number]: score at least 5 (Heart failure, HTN, age 75 or more, female gender).
-Oral Anticoagulation: Apixaban 2.5 mg twice daily, she denies missed doses and abnormal bleeding.
#Prior breast cancer
-Right side, status postlumpectomy and XRT ([facility]), stable.
Subjective/Interval History:
SOB and edema have improved on lasix drip; improved leg mobility; would like to get up and walk with PT
DATA:
CXR, 10/22/2023:
IMPRESSION:
1. Mild pulmonary vascular congestion.
2. Small bilateral pleural effusions.
LE Venous Duplex, 10/22/2023:
IMPRESSION: No evidence of deep venous thrombosis bilaterally, although the bilateral peroneal veins were not visualized.
TTE, 09/07/2023:
CONCLUSIONS
-Left ventricular ejection fraction is 60-65%. Wall motion is consistent with
conduction abnormality.
-Mildly enlarged right ventricular size. Normal right ventricular systolic
function.
-Severely dilated left atrium. Severely dilated right atrium.
-Mild to moderate mitral regurgitation.
-Mild aortic regurgitation.
-Severe tricuspid regurgitation. Estimated pulmonary artery pressure of 65-70
mmHg.
Compared to previous echo on 06/26/2022, progressive tricuspid regurgitation is
noted (previously moderate). PASP has slightly increased (previously 63 mmHg).
RHC 10/24/23
1. Moderately elevated filling pressures (PCWP = 22 mmHg at 74.8 kg).
2. 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
3. Large right atrial V waves consistent with known tricuspid regurgitation.
4. Severely depressed cardiac index and a VO2 difference (1.65 L/min 3 m�, 5.87 volume %).
Physical Exam
Vital Signs/Labs
Vital Signs
Temp Pulse Resp BP Pulse Ox
36.6 C 94 14 90/61 95
10/30/23 03:49 10/29/23 20:00 10/29/23 20:00 10/29/23 20:00 10/29/23 20:41
10/29/23 10/30/23 10/31/23
06:59 06:59 06:59
Actual Weight 70.3 kg 69.3 kg
10/28/23 03:32
10/30/23 04:45
Magnesium 2.1 mg/dl (1.6-2.3) 10/28/23 03:32
TSH 5.11 uIU/ml (0.47-4.68) H 10/22/23 17:21
10/22/23 10/22/23
11:51 12:57
Lwz-Y-Pkhulvjffhg Pept Cancelled > [id number]
Physical Exam
Constitutional: No acute distress
Cardiovascular: Pedal edema is absent, Systolic murmur absent, JVD present (v-waves), Systolic murmur present (HSM AT RLB) and S1S2 is normal
Respiratory: Respiratory effort normal and Other (dec BS R>L)
Neuro/Psych: Alert
Data Reviewed
-
Date of Service: October 30, 2023
Medical Decision Making: Reviewed Test Results and Tests Ordered
Labs: Labs Reviewed by me
[2023-10-30] MEDS: DIAMOX 125 MG PO (08:28)
[2023-10-30] MEDS: ZYLOPRIM 100 MG PO (08:29)
[2023-10-30] MEDS: TOPROL XL 50 MG PO (08:29)
[2023-10-30] MEDS: ELIQUIS 2.5 MG PO ×2 (08:29→20:29)
[2023-10-30] MEDS: ProAmatine 10 MG PO ×3 (08:30→18:47)
--- NOTE | 2023-10-30 09:10 | W.PN.HOSP.TC ---
Today's Communication/Plan
-
see bold
Assessment / Plan
Assessment / Plan
Gen: NAD, Awake and alert
Eyes: EOMI, PERRLA, no scleral icterus.
Neck: supple. +JVD
CV: remains irreg/irreg, +S1/S2, no m/r/g.
Resp: remains CTAB anteriorly, no rales, wheezes, or rhonchi.
Abd: +BS, soft, NT, ND
Skin: No rashes. remains with very trace ankle edema
Neuro: CN 2-12 intact, non-focal.
Psych: Normal mood and affect.
Echo 09/07/23: EF 60-65%, Mildly enlargerd RV, normal RV fxn, severely dilated RA/LA, mild-mod MR, mild AR, severe TR, PASP 65-70mmHg
CXR 10/22/23:
1. Mild pulmonary vascular congestion.
2. Small bilateral pleural effusions.
RHC 10/24/23:
2. 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
3. Large right atrial V waves consistent with known tricuspid regurgitation.
4. Severely depressed cardiac index and a VO2 difference (1.65 L/min 3 m�, 5.87 volume %).
Acute cardiogenic shock due to acute on chronic diastolic CHF:
-BNP > 27,000
-RHC above, indicative of volume O/L with decrease CI (TR contributing)
-cont lasix gtt/Diamox
-was on Levophed gtt, now off
-cont Midodrine
-daily wts, I/Os, FR
-cards following
-repeat echo 10/30/23AM, prior echo above and notable for severe TR/pulm HTN/chronic cor pulmonale/mod MR/mild AR
-cardiology is considering TTVR (clip vs replacement)
-note, pt/family not interested in hospice
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
-Cr 3.5 on admission, now down to 1.7 with diuresis
-note, as per renal, pt not HD candidate
Severe hypervolemic hyponatremia:
-cont lasix gtt
-s/p Samsca on 10/23/23
-TSH 5.1 and random cortisol 61.4
Other problems:
Acute metabolic encephalopathy: Likely due to cardiogenic shock/BATOOL as well as hospitalization
Pain in the left lower extremity: L foot Xray: Osteopenia without associated fracture. Calcaneal osteophytes. 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
Elevated troponin due to non-ischemic myocardial injury
Elevated LFTs: likely due to passive venous congestion from heart failure
Anemia: Hb stable
PAF: cont BB/Eliquis. h/o PVI 2020
Hypokalemia: PO K
Recent right clavicular fracture: cont sling
Hypothyroidism: cont Levoxyl
h/o Breast CA s/p lumpectomy on the right and XRT
Peripheral neuropathy
Depression: Holding antidepressant due to QTc prolongation
DNR/Eliquis
Family updated at bedside. Case discussed with cardiology.
Extremely poor prognosis and pt is hospice appropriate.
Total time spent on today's encounter was 51 minutes which included time spent in counseling the patient/family regarding diagnosis and treatment plan as listed above, goals of care, and symptom management. Case was discussed with nursing staff,
specialists, and care coordinators/case management. All labs and imaging personally reviewed by me. Remainder the time spent in detailed review of previous records, lab data, imaging, and other medical provider documentation.
Anticipated Discharge: > 48 hours
Subjective/Interval History
-
Date of Service: October 30, 2023
No new complaints.
Objective Data
-
Labs:
Laboratory Results
10/30/23
04:45
Sodium 132 L
Potassium 3.5
Chloride 83 L
Carbon Dioxide 40 H
BUN 93 H
Creatinine 1.7 H
Glucose 95
Calcium 8.5
Vital Signs:
Vital Signs
Temp Pulse Resp BP Pulse Ox
97.4 F 94 16 103/61 99
10/30/23 07:50 10/30/23 08:30 10/30/23 07:50 10/30/23 08:30 10/30/23 07:50
I&O
10/29/23 10/30/23 10/31/23
06:59 06:59 06:59
Intake Total 1140 / 1140 240 / 240
Output Total 2800 / 2800 2100 / 2100 525 / 525
Balance -1660 / -1660 -1860 / -1860 -525 / -525
--- NOTE | 2023-10-30 10:14 | PTCARENOTE ---
Addendum entered by Fariba Calvin RN 10/30/23 18:26:
Update: Pt tolerating room air throughout the shift. Pt continues to get IV lasix. Pt OOB to chair with PT/OT for dinner.
Original Note:
Received the patient wearing 2 liters NC put on by manager shift. Pt 93% on room air at this time, Dr. Fraga notified.
--- NOTE | 2023-10-30 11:48 | W.PN.NEPH.PH ---
Today's Communication / Plan
-
see plan
Assessment/Plan
-
Assessment:
BATOOL with CKD -b/l cr 1.2-1.4
Acute on chronic hyponatremia
Heart failure preserved ejection fraction, severe TR/pulmonary hypertension, decompensated
h/o clavicular fracture
Severe TR and pulm HTN
atrial fibrillation
Hypothyroidism
Left left lower leg ecchymosis
Decreased urine output
Elevated LFTs
Plan
Hyponatremia improving to 132
Creatinine and azotemia remains unchanged
significant contraction met alkalosis -increase diamox
plan noted GIOVANNI tomorrow to eval TR
continue lasix gtt for net negative balance-likely lower dose if ok with cards
weights decreasing, uop ~2800
follow BMP
continue midodrine for hypotension
replete K, 40 meq now
Patient prognosis is currently poor
wean O2 as possible
-
-
Date of Service: October 30, 2023
CC / HPI / ROS
-
Chief Complaint:
BATOOL
History of Present Illness:
BATOOL/Cr better at 1.7
BUN stable at 93
BP soft on midodrine and off levo
non oliguric with burr
sodium better at 132
Evolving metabolic alkalosis
K level
remains on supplemental O2
wt decreasing slowly
critically ill with decompensated HF/severe TR
Review of Systems:
no CP
no fever
offers no sob
Labs
-
Labs:
WBC 5.4 10^3/uL (4.8-10.8) 10/28/23 03:32
RBC 2.72 10^6/uL (4.20-5.40) L 10/28/23 03:32
Hgb 8.6 g/dL (12.0-16.0) L 10/28/23 03:32
Hct 25.8 % (37.0-47.0) L 10/28/23 03:32
Plt Count 166 10^3/uL (130-400) 10/28/23 03:32
Sodium 132 mmol/L (135-145) L 10/30/23 04:45
Potassium 3.5 mmol/L (3.5-5.1) 10/30/23 04:45
Chloride 83 mmol/L (98-107) L 10/30/23 04:45
Carbon Dioxide 40 mmol/L (22-30) H 10/30/23 04:45
BUN 93 mg/dl (7-17) H 10/30/23 04:45
Creatinine 1.7 mg/dL (0.6-1.0) H 10/30/23 04:45
eGFR 29.57 10/30/23 04:45
Glucose 95 mg/dl (70-99) 10/30/23 04:45
Calcium 8.5 mg/dl (8.4-10.2) 10/30/23 04:45
Edm-C-Hvghqpvrepu Pept > 84998 pg/ml 10/22/23 12:57
Albumin 2.8 g/dl (3.5-5.0) L 10/24/23 04:04
Physical Exam
-
Vital Signs:
Vital Signs
Temp Pulse Resp BP Pulse Ox
97.5 F 94 16 103/61 95
10/30/23 11:25 10/30/23 08:30 10/30/23 11:25 10/30/23 08:30 10/30/23 11:25
Cardiovascular:: Regular rate and rhythm
Respiratory:: Bilateral: CTA
Lung Excursion:: Normal
Abdomen:: Nontender and Soft
Extremity Edema:: +1: Bilateral:
Burr Catheter: Yes
[2023-10-30] MEDS: KCL 40 MEQ PO (12:01)
[2023-10-30] MEDS: DIAMOX 250 MG PO ×2 (16:03→21:14)
--- NOTE | 2023-10-30 16:35 | CM ---
Patient with Dx HF, BATOOL, hyponatremia. Room air. Plan TTE. Receiving IV Lasix gtt. PT & OT recommend skilled rehab.
Spoke with Jina, patient's daughter; provided update the [facility] SNFs have no availability at this time, and response is pending from [facility]. Agreed to send SNF list to daughter at [email or web address]. Daughter
says she is waiting to hear back from sales recruiting coordinator if her mother will have a TTVR procedure at [place] prior to discharge.
Plan CM continuing to follow.
Plan SNF for rehab unless transferred to [place].
--- NOTE | 2023-10-30 20:14 | PTCARENOTE ---
Received pt from [facility]. Pt is AAOx3, TELIDA, forgetful. Afib on the monitor. On 2L NC O2 sat 100%, lungs diminished. Horowizt in place, hygiene provided. SCDs in place. Lasix gtt infusing @ 1 ml/hr. Pt is laying in bed with call maldonado in reach.
[2023-10-30] MEDS: TOPROL XL PO (20:29)
[2023-10-30] MEDS: AMBIEN 5 MG PO (21:15)
[2023-10-31] VITALS (18 sets, daily range): BP systolic 89–127; BP diastolic 60–94; PULSE 93; O2SAT 100; BMI 24.9
[2023-10-31] MEDS: TYLENOL 650 MG PO (01:26)
[2023-10-31] MEDS: SYNTHROID 125 MCG PO (04:52)
--- NOTE | 2023-10-31 07:55 | W.PN.CD ---
Today's Communication / Plan
-
transition to oral diuretic; no plan for GIOVANNI here (will have workup done at [facility])
Impression / Plan
-
Impression/Plan: 83 y/o female with atrial fibrillation, HFpEF, pulmonary hypertension, severe TR, hepatitis C and CKD admitted with increasing shortness in breath with weight gain, consistent with decompensated, acute on chronic heart failure.
#Acute on chronic diastolic heart failure
-proBNP >27,000 on admit
-CXR with small b/l pleural effusions.
-Thoracentesis on 10/10/2023 yielded 1150 clear yellow fluid
-Echocardiogram 09/07/23 revealed an LVEF of 60-65%, severe biatrial enlargement, mild/mod MR, severe TR, with PASP of 65-70 mmHg.
-RHC 10/24/2023 demonstrated elevated biventricular filling pressures (RA 18, PCWP 22), moderate mixed PH (mean PA 40, PVR 5.9), and severely reduced cardiac index (1.6)
-Creatinine 3.6 on peak, decreasing with aggressive diuresis
-Diuresis challenged by hypotension
-Creatinine down to 1.7. Transition to PO diuretics today.
-close monitoring of labs and tele
.
#Severe TR/pulmonary hypertension
-Acute on chronic.
-Estimated PASP 65-70 mmHg by echo.
-repeat TTE 10/29 with continued severe TR, RV dysfunction, and PASP down to 45
-discussed at [facility] with outside structural heart sheet pile driver operator (Jensen Lozano, [facility]), will plan to discharge patient once on stable oral diuetic regimen with plan for close outpatient follow up at [facility] to assess suitability for tricuspid intervention
#FEN/Renal/BATOOL
-likely cardiorenal component driving this presentation; high risk situation
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
-Creatinine 3.6 peaked, now approaching baseline creatinine 1.5.
-Nephrology consulted - discussed with nephrology / concern that patient will not be able to be managed as an outpatient for any extended period of time on oral diuretics
#Hypotension -
-Blood pressures have been low and patient maintained on midodrine some lower blood pressures overnight.
#Paroxysmal atrial fibrillation
-S/P PVI 01/25/2021.
-back in A fib with RBBB
-Rate control with metoprolol succinate
-[id number]: score at least 5 (Heart failure, HTN, age 75 or more, female gender).
-Oral Anticoagulation: Apixaban 2.5 mg twice daily, she denies missed doses and abnormal bleeding.
#Prior breast cancer
-Right side, status postlumpectomy and XRT (HR), stable.
Subjective/Interval History:
SOB and edema continue to improve, patient and daughter updated on above plan of care
DATA:
CXR, 10/22/2023:
IMPRESSION:
1. Mild pulmonary vascular congestion.
2. Small bilateral pleural effusions.
LE Venous Duplex, 10/22/2023:
IMPRESSION: No evidence of deep venous thrombosis bilaterally, although the bilateral peroneal veins were not visualized.
TTE, 09/07/2023:
CONCLUSIONS
-Left ventricular ejection fraction is 60-65%. Wall motion is consistent with
conduction abnormality.
-Mildly enlarged right ventricular size. Normal right ventricular systolic
function.
-Severely dilated left atrium. Severely dilated right atrium.
-Mild to moderate mitral regurgitation.
-Mild aortic regurgitation.
-Severe tricuspid regurgitation. Estimated pulmonary artery pressure of 65-70
mmHg.
Compared to previous echo on 06/26/2022, progressive tricuspid regurgitation is
noted (previously moderate). PASP has slightly increased (previously 63 mmHg).
TTE 10/30/2023
Normal left ventricular size and systolic function.
Enlarged and hypokinetic right ventricle.
Severe biatrial enlargement.
Severe tricuspid regurgitation.
Estimated PASP 45-50 mmHg assuming RA 15 mmHg.
IVC is dilated.
No significant change since the prior study of 09/07/2023 except that the PASP
was estimated at 65-70 mmHg on the prior study.
RHC 10/24/23
1. Moderately elevated filling pressures (PCWP = 22 mmHg at 74.8 kg).
2. 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
3. Large right atrial V waves consistent with known tricuspid regurgitation.
4. Severely depressed cardiac index and a VO2 difference (1.65 L/min 3 m�, 5.87 volume %).
Physical Exam
Vital Signs/Labs
Vital Signs
Temp Pulse Resp BP Pulse Ox
36.4 C 90 17 110/68 95
10/31/23 04:51 10/31/23 06:00 10/31/23 06:00 10/31/23 06:00 10/31/23 06:00
10/30/23 10/31/23 11/01/23
06:59 06:59 06:59
Actual Weight 69.3 kg 70 kg
10/28/23 03:32
10/30/23 04:45
Magnesium 2.1 mg/dl (1.6-2.3) 10/28/23 03:32
TSH 5.11 uIU/ml (0.47-4.68) H 10/22/23 17:21
10/22/23 10/22/23
11:51 12:57
Zvr-Q-Gmxhmgxzlsv Pept Cancelled > [id number]
Physical Exam
Constitutional: No acute distress, Comfortable and Confusion
Cardiovascular: Rhythm & rate is regular and Systolic murmur present
Respiratory: Respiratory effort normal and Other (dec at bases)
Neuro/Psych: Alert
Data Reviewed
-
Date of Service: October 31, 2023
Medical Decision Making: Reviewed Test Results, Test Interpretation and Review of Case with other Provider
Echo: Tracing Personally Visualized and interpreted
Labs: Labs Reviewed by me
[2023-10-31] MEDS: ELIQUIS 2.5 MG PO ×2 (07:56→19:50)
[2023-10-31] MEDS: ProAmatine 10 MG PO ×3 (07:56→18:20)
[2023-10-31] MEDS: ZYLOPRIM 100 MG PO (07:57)
[2023-10-31] MEDS: DIAMOX 250 MG PO ×3 (07:57→21:37)
[2023-10-31] MEDS: TOPROL XL 50 MG PO ×2 (07:57→19:50)
--- NOTE | 2023-10-31 08:54 | PTCARENOTE ---
Patient received from night shift manager. Patient resting comfortably in bed. AAO, VSS. No significant events noted overnight. No complaints of pain at this time. Patient was placed on O2 again due to O2 sat in mid to high 80's. To come off during the
day if up to the chair and while awake, if not will wean down to 1L. Right arm sling remain, site CDI. Horowitz in place. Lasix gtt @ 1mg/mL. BPs still remain soft but improved, continuing to monitor. Plan was for GIOVANNI but now waiting to outpatient
due to a specific protocol. Call maldonado in reach.
--- NOTE | 2023-10-31 10:58 | W.PN.HOSP.TC ---
Today's Communication/Plan
-
see bold
Assessment / Plan
Assessment / Plan
Gen: NAD, Awake and alert
Eyes: EOMI, PERRLA, no scleral icterus.
Neck: supple. no JVD
CV: continues to remain irreg/irreg, +S1/S2, no m/r/g.
Resp: continues to remain CTAB anteriorly, no rales, wheezes, or rhonchi.
Abd: +BS, soft, NT, ND
Skin: No rashes. continues to remain with very trace ankle edema
Neuro: CN 2-12 intact, non-focal.
Psych: Normal mood and affect.
Echo 09/07/23: EF 60-65%, Mildly enlargerd RV, normal RV fxn, severely dilated RA/LA, mild-mod MR, mild AR, severe TR, PASP 65-70mmHg
CXR 10/22/23:
1. Mild pulmonary vascular congestion.
2. Small bilateral pleural effusions.
RHC 10/24/23:
2. 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
3. Large right atrial V waves consistent with known tricuspid regurgitation.
4. Severely depressed cardiac index and a VO2 difference (1.65 L/min 3 m�, 5.87 volume %).
Echo (TTE) 10/30/23: Normal left ventricular size and systolic function.
Enlarged and hypokinetic right ventricle.
Severe biatrial enlargement.
Severe tricuspid regurgitation.
Estimated PASP 45-50 mmHg assuming RA 15 mmHg.
IVC is dilated.
No significant change since the prior study of 09/07/2023 except that the PASP
was estimated at 65-70 mmHg on the prior study.
Acute cardiogenic shock due to acute on chronic diastolic CHF:
-BNP > 27,000
-RHC above, indicative of volume O/L with decrease CI (TR contributing)
-cont lasix gtt/Diamox
-was on Levophed gtt, now off
-cont Midodrine
-daily wts, I/Os, FR
-cards following
-prior echo above and notable for severe TR/pulm HTN/chronic cor pulmonale/mod MR/mild AR
-Echo 10/30/23AM as above. After discussion with Dr. Galvan, pt will have a w/u at [facility] for tricuspid intervention
-note, pt/family not interested in hospice
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
-Cr 3.5 on admission, now down to 1.7 with diuresis
-note, as per renal, pt not HD candidate
Severe hypervolemic hyponatremia:
-cont lasix gtt
-s/p Samsca on 10/23/23
-TSH 5.1 and random cortisol 61.4
Other problems:
Acute metabolic encephalopathy: Likely due to cardiogenic shock/BATOOL as well as hospitalization
Pain in the left lower extremity: L foot Xray: Osteopenia without associated fracture. Calcaneal osteophytes. 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
Elevated troponin due to non-ischemic myocardial injury
Elevated LFTs: likely due to passive venous congestion from heart failure
Anemia: Hb stable
PAF: cont BB/Eliquis. h/o PVI 2020
Hypokalemia: PO K
Recent right clavicular fracture: cont sling
Hypothyroidism: cont Levoxyl
h/o Breast CA s/p lumpectomy on the right and XRT
Peripheral neuropathy
Depression: Holding antidepressant due to QTc prolongation
DNR/Eliquis
Family updated at bedside. Case discussed with cardiology.
Extremely poor prognosis and pt is hospice appropriate.
Total time spent on today's encounter was 50 minutes which included time spent in counseling the patient/family regarding diagnosis and treatment plan as listed above, goals of care, and symptom management. Case was discussed with nursing staff,
specialists, and care coordinators/case management. All labs and imaging personally reviewed by me. Remainder the time spent in detailed review of previous records, lab data, imaging, and other medical provider documentation.
Anticipated Discharge: 24 - 48 hours
Subjective/Interval History
-
Date of Service: October 31, 2023
Objective Data
-
Vital Signs:
Vital Signs
Temp Pulse Resp BP Pulse Ox
97.5 F 82 17 110/68 100
10/31/23 07:56 10/31/23 07:56 10/31/23 06:00 10/31/23 07:56 10/31/23 08:29
I&O
10/30/23 10/31/23 11/01/23
06:59 06:59 06:59
Intake Total 240 / 240 1116 / 1116
Output Total 2100 / 2100 1924 / 192
Balance -1860 / -1860 -809 / -809
--- NOTE | 2023-10-31 11:46 | W.PN.NEPH.PH ---
Today's Communication / Plan
-
po diuretics
Assessment/Plan
-
Assessment:
BATOOL with CKD -b/l cr 1.2-1.4
Acute on chronic hyponatremia
Heart failure preserved ejection fraction, severe TR/pulmonary hypertension, decompensated
h/o clavicular fracture
Severe TR and pulm HTN
atrial fibrillation
Hypothyroidism
Left left lower leg ecchymosis
Decreased urine output
Elevated LFTs
Plan
d/c burr, Voiding trial
follow BMP
convert to po torsemide 80mg BID with metolazone 2.5mg BID
I had a long discussion with the as well as both her daughters. All 3 are in agreement that her performance status is quite low and it is unlikely that it will improve. They also agree that her chance of readmission is extremely high in
the next 2 weeks. As a result it is highly unlikely that she will ever make any outpatient appointments at [facility] for tricuspid valve evaluation. This is on top of the lack of any guarantee that her performance status will not
exclude her from any tricuspid procedures. I have recommended hospice in all 3 are in agreement with that assessment. However, the patient is otherwise still cognizant and aware and they would like her to have a say in the decision. If they wish
for a hospice consultation it may be ordered later.
critical care time 50 minutes
-
-
Date of Service: October 31, 2023
CC / HPI / ROS
-
Chief Complaint:
BATOOL
History of Present Illness:
BATOOL/Cr better at 1.7 yesterday
no labs today yet
BP stable low on midodrine
non oliguric with burr
on diamox for alkalosis
K level
remains on supplemental O2
critically ill with decompensated HF/severe TR
Review of Systems:
no CP
no fever
offers no sob
has not ambulated
Labs
-
Labs:
eGFR 29.57 10/30/23 04:45
Zco-F-Oofxoutnlyw Pept > 23642 pg/ml 10/22/23 12:57
Albumin 2.8 g/dl (3.5-5.0) L 10/24/23 04:04
Physical Exam
-
Vital Signs:
Vital Signs
Temp Pulse Resp BP Pulse Ox
97.5 F 82 17 110/68 100
10/31/23 07:56 10/31/23 07:56 10/31/23 06:00 10/31/23 07:56 10/31/23 08:29
Cardiovascular:: Regular rate and rhythm
Respiratory:: Bilateral: Coarse
Lung Excursion:: Normal
Abdomen:: Nontender and Soft
Bowel Sounds:: Normal
Extremity Edema:: +3: Bilateral:
[2023-10-31 12:04] LABS: Hematocrit 26.3 % (37.0-47.0); Hemoglobin 8.4 g/dL (12.0-16.0); Mean Corp Hgb Conc. 31.9 g/dL (33.0-37.0); Mean Corpuscular Hgb 30.8 pg (27.0-31.0); Mean Corpuscular Volume 96.3 fL (81.0-99.0); Mean Platelet Volume 10.2 fL (7.4-10.4); Platelet Count 186 10^3/uL (130-400); Red Blood Cell Count 2.73 10^6/uL (4.20-5.40); Red Cell Dist. Width 19.7 % (11.5-14.5)
[2023-10-31 12:21] LABS: Blood Urea Nitrogen 86 mg/dl (7-17); Calcium 8.5 mg/dl (8.4-10.2); Carbon Dioxide 33 mmol/L (22-30); Chloride 85 mmol/L (98-107); Estimated Creatinine Clearance 25 ml/min; Glucose 143 mg/dl (70-99); Potassium 3.2 mmol/L (3.5-5.1); Sodium 132 mmol/L (135-145)
[2023-10-31] MEDS: DEMADEX PO (12:59)
--- NOTE | 2023-10-31 13:43 | CM ---
Patient with Dx HF, severe TR/pulmonary hypertension, BATOOL. O2 2L. IV Lasix gtt switched to PO diuretics. d/c burr, Voiding trial.
Nephrology notes 10/30 indicating discussion with family with recommendation for hospice.
Received phone call from [facility]; they are unable to accept as they see a need for LTC that they cannot provide.
Met with patient and daughter Jina; informed her that [facility] also declined request for rehab. Jina doesn't want to choose any other SNFs at this time as she stated the family may decide to take her home if that is what patient wants,
and she wants to wait a day or two and see how her mother is responding to the current treatment plan. Patient alert however did not seem to be following the conversation. Daughter crying and indicating she is struggling with care decisions
stating she doesn't want to be the one to decide for her mother about hospice.
Offered [employer] for patient/daughter and both agreed - patient's yarsanism is [facility] in [place] - notified Randee in Sales And Marketing Analyst Office and they will see her.
Plan CM continuing to follow.
Plan TBD.
[2023-10-31] MEDS: ZAROXOLYN 2.5 MG PO (15:41)
[2023-10-31] MEDS: DEMADEX 80 MG PO (16:17)
--- NOTE | 2023-10-31 20:24 | PTCARENOTE ---
Pt received from previous RN. Family at bedside. Pt MALCOM LOMAS. Ari. pt afib on monitor. HS Eliquis administered. Pt took HS pills with apple sauce. Swallow intact. Bladder scanning for void trail. Right arm in sling. Q2T maintained. Denies
further needs at this time, call light in reach.
[2023-10-31] MEDS: AMBIEN 5 MG PO (21:37)
[2023-11-01] VITALS (19 sets, daily range): BP systolic 88–120; BP diastolic 51–99; BMI 24.2
[2023-11-01] MEDS: SYNTHROID 125 MCG PO (05:06)
[2023-11-01 06:10] LABS: Blood Urea Nitrogen 87 mg/dl (7-17); Calcium 8.8 mg/dl (8.4-10.2); Carbon Dioxide 34 mmol/L (22-30); Chloride 85 mmol/L (98-107); Estimated Creatinine Clearance 25 ml/min; Glucose 94 mg/dl (70-99); Potassium 3.2 mmol/L (3.5-5.1); Sodium 132 mmol/L (135-145)
--- NOTE | 2023-11-01 07:30 | PTCARENOTE ---
received pt from mini shifter. Pt ox3, forgetful @ x's. afib on the monitor w/BBB. 98% RA. PW in place, 150 mL in canister. ELISEO meds given. pt resting in bed with call maldonado in reach.
[2023-11-01] MEDS: ZAROXOLYN 2.5 MG PO ×2 (07:37→15:46)
--- NOTE | 2023-11-01 08:03 | W.PN.HOSP.TC ---
Today's Communication/Plan
-
see bold
Assessment / Plan
Assessment / Plan
Gen: NAD, Awake and alert, appears chronically ill
Eyes: EOMI, PERRLA, no scleral icterus.
Neck: supple. no JVD
CV: irreg/irreg, +S1/S2, no m/r/g.
Resp: CTAB anteriorly, no rales, wheezes, or rhonchi.
Abd: +BS, soft, NT, ND
Skin: No rashes. no LE edema.
Neuro: CN 2-12 intact, non-focal.
Psych: Normal mood and affect.
Echo 09/07/23: EF 60-65%, Mildly enlargerd RV, normal RV fxn, severely dilated RA/LA, mild-mod MR, mild AR, severe TR, PASP 65-70mmHg
CXR 10/22/23:
1. Mild pulmonary vascular congestion.
2. Small bilateral pleural effusions.
RHC 10/24/23:
2. 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
3. Large right atrial V waves consistent with known tricuspid regurgitation.
4. Severely depressed cardiac index and a VO2 difference (1.65 L/min 3 m�, 5.87 volume %).
Echo (TTE) 10/30/23: Normal left ventricular size and systolic function.
Enlarged and hypokinetic right ventricle.
Severe biatrial enlargement.
Severe tricuspid regurgitation.
Estimated PASP 45-50 mmHg assuming RA 15 mmHg.
IVC is dilated.
No significant change since the prior study of 09/07/2023 except that the PASP
was estimated at 65-70 mmHg on the prior study.
Acute cardiogenic shock due to acute on chronic diastolic CHF:
-BNP > 27,000
-RHC above, indicative of volume O/L with decrease CI (TR contributing)
-was on lasix gtt, now transitioned to Torsemide
-cont Diamox
-was on Levophed gtt, now off
-cont Midodrine
-daily wts, I/Os, FR
-cards following
-prior echo above and notable for severe TR/pulm HTN/chronic cor pulmonale/mod MR/mild AR
-Echo 10/30/23AM as above.
-initially pt was to have w/u at [facility] for tricuspid intervention, now family is interested in hospice
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
-Cr 3.5 on admission, now down to 1.6 with diuresis
-note, as per renal, pt not HD candidate
Severe hypervolemic hyponatremia:
-improved with diuresis
-s/p Samsca on 10/23/23
-TSH 5.1 and random cortisol 61.4
Other problems:
Acute metabolic encephalopathy: Likely due to cardiogenic shock/BATOOL as well as hospitalization
Pain in the left lower extremity: L foot Xray: Osteopenia without associated fracture. Calcaneal osteophytes. 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
Elevated troponin due to non-ischemic myocardial injury
Elevated LFTs: likely due to passive venous congestion from heart failure
Anemia: Hb stable
PAF: cont BB/Eliquis. h/o PVI 2020
Hypokalemia: PO K
Recent right clavicular fracture: cont sling
Hypothyroidism: cont Levoxyl
h/o Breast CA s/p lumpectomy on the right and XRT
Peripheral neuropathy
Depression: Holding antidepressant due to QTc prolongation
DNR/Eliquis
Extremely poor prognosis and pt is hospice appropriate.
Anticipated Discharge: Within 24 hours
Subjective/Interval History
-
Date of Service: November 01, 2023
Denies CP/SOB.
Objective Data
-
Labs:
Laboratory Results
11/01/23
05:11
Sodium 132 L
Potassium 3.2 L
Chloride 85 L
Carbon Dioxide 34 H
BUN 87 H
Creatinine 1.6 H
Glucose 94
Calcium 8.8
Vital Signs:
Vital Signs
Temp Pulse Resp BP Pulse Ox
98.5 F 87 19 101/61 96
11/01/23 04:55 11/01/23 07:38 11/01/23 07:38 11/01/23 07:38 11/01/23 07:38
I&O
10/31/23 11/01/23 11/02/23
06:59 06:59 06:59
Intake Total 1116 / 1116 360 / 360
Output Total 1924 / 1924 1750 / 1750
Balance -809 / -809 -1390 / -1390
[2023-11-01] MEDS: KLOR-CON 40 MEQ PO (08:19)
[2023-11-01] MEDS: DEMADEX 80 MG PO ×2 (08:19→17:01)
[2023-11-01] MEDS: TOPROL XL 50 MG PO ×2 (08:21→19:21)
[2023-11-01] MEDS: TYLENOL 650 MG PO (08:21)
[2023-11-01] MEDS: ZYLOPRIM 100 MG PO (08:23)
[2023-11-01] MEDS: ProAmatine 10 MG PO ×3 (08:23→17:58)
[2023-11-01] MEDS: DIAMOX 250 MG PO ×3 (08:23→20:54)
[2023-11-01] MEDS: ELIQUIS 2.5 MG PO ×2 (08:24→19:20)
--- NOTE | 2023-11-01 08:31 | W.PN.NEPH.PH ---
Today's Communication / Plan
-
follow BMP
Assessment/Plan
-
Assessment:
BATOOL with CKD -b/l cr 1.2-1.4
Acute on chronic hyponatremia
Heart failure preserved ejection fraction, severe TR/pulmonary hypertension, decompensated
h/o clavicular fracture
Severe TR and pulm HTN
atrial fibrillation
Hypothyroidism
Left left lower leg ecchymosis
Decreased urine output
Elevated LFTs
Plan
Voiding trial follow PVR
follow BMP
po torsemide 80mg BID with metolazone 2.5mg BID
continue diamox
i had a discussion with the patient. While I suspect that she does understand some of her situation, it is obvious that she does not have full comprehension of the gravity of her medical issues. Family does not want to make any decisions regarding
hospice without the patient's full agreement. This is unlikely to happen.
Fortunately, she is still making some clinical improvement. She is currently off supplemental oxygen therapy. She appears to be diuresing fairly well with oral diuretics. She was also able to get to the chair with what appears to be one-person
assist. She also has no complaints other than some pain in the left leg and right shoulder.
Therefore, plans will be made for subacute nursing facility. We will continue to fine-tune her diuretic regimen at this time to try and achieve and hold a volume balance. Logistics in getting her to [facility] for tricuspid valve
evaluation to be determined by case management and the family.
-
-
Date of Service: November 01, 2023
CC / HPI / ROS
-
Chief Complaint:
BATOOL
History of Present Illness:
BATOOL/Cr better at 1.6
BP stable low on midodrine
non oliguric. required straight cath yesterday, however
on diamox for alkalosis
K level low 3.3
off supplemental O2 this am
on complex diuretic regimen for decompensated HF/severe TR
Review of Systems:
no CP
no fever
offers no sob
transferred to chair with assistance
Labs
-
Labs:
WBC 8.0 10^3/uL (4.8-10.8) 10/31/23 11:51
RBC 2.73 10^6/uL (4.20-5.40) L 10/31/23 11:51
Hgb 8.4 g/dL (12.0-16.0) L 10/31/23 11:51
Hct 26.3 % (37.0-47.0) L 10/31/23 11:51
Plt Count 186 10^3/uL (130-400) 10/31/23 11:51
Sodium 132 mmol/L (135-145) L 11/01/23 05:11
Potassium 3.2 mmol/L (3.5-5.1) L 11/01/23 05:11
Chloride 85 mmol/L (98-107) L 11/01/23 05:11
Carbon Dioxide 34 mmol/L (22-30) H 11/01/23 05:11
BUN 87 mg/dl (7-17) H 11/01/23 05:11
Creatinine 1.6 mg/dL (0.6-1.0) H 11/01/23 05:11
eGFR 31.80 11/01/23 05:11
Glucose 94 mg/dl (70-99) 11/01/23 05:11
Calcium 8.8 mg/dl (8.4-10.2) 11/01/23 05:11
Mlx-L-Ajuvjoetstm Pept > 43860 pg/ml 10/22/23 12:57
Albumin 2.8 g/dl (3.5-5.0) L 10/24/23 04:04
Physical Exam
-
Vital Signs:
Vital Signs
Temp Pulse Resp BP Pulse Ox
98.5 F 87 19 101/61 96
11/01/23 04:55 11/01/23 07:38 11/01/23 07:38 11/01/23 07:38 11/01/23 07:38
Cardiovascular:: Regular rate and rhythm
Respiratory:: Bilateral: Coarse
Lung Excursion:: Normal
Abdomen:: Nontender and Soft
Bowel Sounds:: Normal
Extremity Edema:: +2: Bilateral: (thigh)
--- NOTE | 2023-11-01 09:19 | CM ---
Addendum entered by Ami Live RN 11/01/23 12:18:
Daughter will be taking a leave of absence from her job and staying with her mother. She is also interested in hiring a caregiver- Caregiver list provided. For now, the 2 daughters and the will be assisting the patient at home.
Plan home tomorrow 11am by ambulance with Hospice.
Addendum entered by Ami Live RN 11/01/23 12:12:
Notified by [facility] that family agrees to home tomorrow with [facility]. [facility] ordered all DME including hospital bed and O2 which will be delivered to the home tomorrow morning around 9:30am. Celina requests 11am ambulance
transport tomorrow.
Met with patient who was sleeping, daughter Jina, and son in law; daughter and agree to d/c tomorrow at 11am by ambulance, with [facility]. IMM completed. Home address in [place] and 2 steps at entrance confirmed.
[facility] DNR form on chart.
Plan home tomorrow 11am by ambulance with Hospice.
Original Note:
Patient with Dx HF, severe TR/pulmonary hypertension, BATOOL. O2 2L.
CM Consult: Hospice
Received phone call from srinath Muro; she spoke with her mother and the family and they all agreed they wanted to have hospice.
Referral to Celina, [facility]; she will contact daughter today.
Plan follow up after seen by Hospice.
--- NOTE | 2023-11-01 09:41 | HOSPNOTE ---
Addendum entered by Celina Fernando RN 11/01/23 12:05:
Spoke with family at length about hospice and the philosophy. family is in agreement with hospice and all equipment was ordered and will be delivered at 9am tomorrow. Transport is scheduled for 11am. CM updated, Attending and floor RN. OOH DNR will
be on chart for physician to sign. Once patient is home one of our hospice nurses will sign patient onto our service.
Original Note:
Hospice meeting at 11am today in the patient's room. More information to follow.
--- NOTE | 2023-11-01 11:00 | PTCARENOTE ---
bladder scanned pt at 0845 due to no output, showed 500 mL. Notified back roll lathe operator. Provided pt time to void, returned @ 0915 and she voided 400 mL. 54mL on post void residual scan. Pt changed and cleaned. Family at bedside, pt resting in bed w/
call maldonado in reach.
[2023-11-01] MEDS: SENOKOT-S 1 TABLET PO (12:53)
--- NOTE | 2023-11-01 14:27 | W.PN.CD ---
Today's Communication / Plan
-
plan for discharge on hospice; cardiology to sign off; please call with questions
Impression / Plan
-
Impression/Plan: 83 y/o female with atrial fibrillation, HFpEF, pulmonary hypertension, severe TR, hepatitis C and CKD admitted with increasing shortness in breath with weight gain, consistent with decompensated, acute on chronic heart failure.
#Goals of care
-after extensive discussions between nephrology and family regarding her poor performance status, family has opted to take patient home on hospice care
-should patient's condition improve, family is aware that they can reach out to consider evaluation for TTVR
#Acute on chronic diastolic heart failure
-proBNP >27,000 on admit
-CXR with small b/l pleural effusions.
-Thoracentesis on 10/10/2023 yielded 1150 clear yellow fluid
-Echocardiogram 09/07/23 revealed an LVEF of 60-65%, severe biatrial enlargement, mild/mod MR, severe TR, with PASP of 65-70 mmHg.
-RHC 10/24/2023 demonstrated elevated biventricular filling pressures (RA 18, PCWP 22), moderate mixed PH (mean PA 40, PVR 5.9), and severely reduced cardiac index (1.6)
-Creatinine 3.6 on peak, decreasing with aggressive diuresis
-Diuresis challenged by hypotension
-Creatinine stable at baseline 1.6
-close monitoring of labs and tele
.
#Severe TR/pulmonary hypertension
-Acute on chronic.
-repeat TTE 10/29 with continued severe TR, RV dysfunction, and PASP down to 45
-discussed at length with outside structural heart shellfish dredge operator (Jensen Lozano, [facility]), could consider evalution for TTVR if family amenable and patient condition improves
#FEN/Renal/BATOOL
-likely cardiorenal component driving this presentation; high risk situation
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
-Creatinine 3.6 peaked, now approaching baseline creatinine 1.5.
-Nephrology consulted - discussed with nephrology / concern that patient will not be able to be managed as an outpatient for any extended period of time on oral diuretics
-currently continued diuresis with oral torsemide 80 BID and metolazone
#Hypotension -
-Blood pressures have been low and patient maintained on midodrine some lower blood pressures overnight.
#Paroxysmal atrial fibrillation
-S/P PVI 01/25/2021.
-back in A fib with RBBB
-Rate control with metoprolol succinate
-[id number]: score at least 5 (Heart failure, HTN, age 75 or more, female gender).
-Oral Anticoagulation: Apixaban 2.5 mg twice daily, she denies missed doses and abnormal bleeding.
#Prior breast cancer
-Right side, status postlumpectomy and XRT (HR), stable.
Subjective/Interval History:
Patient more sleepy today
DATA:
CXR, 10/22/2023:
IMPRESSION:
1. Mild pulmonary vascular congestion.
2. Small bilateral pleural effusions.
LE Venous Duplex, 10/22/2023:
IMPRESSION: No evidence of deep venous thrombosis bilaterally, although the bilateral peroneal veins were not visualized.
TTE, 09/07/2023:
CONCLUSIONS
-Left ventricular ejection fraction is 60-65%. Wall motion is consistent with
conduction abnormality.
-Mildly enlarged right ventricular size. Normal right ventricular systolic
function.
-Severely dilated left atrium. Severely dilated right atrium.
-Mild to moderate mitral regurgitation.
-Mild aortic regurgitation.
-Severe tricuspid regurgitation. Estimated pulmonary artery pressure of 65-70
mmHg.
Compared to previous echo on 06/26/2022, progressive tricuspid regurgitation is
noted (previously moderate). PASP has slightly increased (previously 63 mmHg).
TTE 10/30/2023
Normal left ventricular size and systolic function.
Enlarged and hypokinetic right ventricle.
Severe biatrial enlargement.
Severe tricuspid regurgitation.
Estimated PASP 45-50 mmHg assuming RA 15 mmHg.
IVC is dilated.
No significant change since the prior study of 09/07/2023 except that the PASP
was estimated at 65-70 mmHg on the prior study.
RHC 10/24/23
1. Moderately elevated filling pressures (PCWP = 22 mmHg at 74.8 kg).
2. 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
3. Large right atrial V waves consistent with known tricuspid regurgitation.
4. Severely depressed cardiac index and a VO2 difference (1.65 L/min 3 m�, 5.87 volume %).
Physical Exam
Vital Signs/Labs
Vital Signs
Temp Pulse Resp BP Pulse Ox
36.5 C 89 16 100/63 98
11/01/23 11:45 11/01/23 12:48 11/01/23 11:01 11/01/23 12:48 11/01/23 11:06
10/31/23 11/01/23 11/02/23
06:59 06:59 06:59
Actual Weight 70 kg 68 kg
10/31/23 11:51
11/01/23 05:11
Magnesium 2.1 mg/dl (1.6-2.3) 10/28/23 03:32
TSH 5.11 uIU/ml (0.47-4.68) H 10/22/23 17:21
10/22/23 10/22/23
11:51 12:57
Qtf-Y-Toiisfehain Pept Cancelled > [id number]
Physical Exam
Constitutional: No acute distress, Comfortable and Confusion
Cardiovascular: Pedal edema is absent and Systolic murmur present
Respiratory: Respiratory effort normal
Data Reviewed
-
Date of Service: November 01, 2023
Medical Decision Making: Reviewed Test Results, Test Interpretation and Review of Case with other Provider
Labs: Labs Reviewed by me
--- NOTE | 2023-11-01 19:37 | PTCARENOTE ---
Patient received from previous RN. Pt AAO, forgetful at times. Family at bedside. Pt afib on monitor. HS Eliquis admin. Heels elevated on pillow. Q2T maintained. Pt using PW to void. Voiding yellow urine. 96% on RA. Pt denies further needs at this
time. Call light in reach.
[2023-11-01] MEDS: AMBIEN 5 MG PO (20:54)
[2023-11-02] VITALS (7 sets, daily range): BP systolic 90–111; BP diastolic 56–78; BMI 23.7
[2023-11-02 04:26] LABS: Blood Urea Nitrogen 90 mg/dl (7-17); Carbon Dioxide 33 mmol/L (22-30); Chloride 84 mmol/L (98-107); Estimated Creatinine Clearance 22 ml/min; Glucose 104 mg/dl (70-99); Potassium 2.7 mmol/L (3.5-5.1); Sodium 133 mmol/L (135-145); eGFR 27.61
[2023-11-02] MEDS: KLOR-CON 40 MEQ PO (05:19)
[2023-11-02] MEDS: SYNTHROID 125 MCG PO (05:56)
[2023-11-02] MEDS: ProAmatine 10 MG PO (08:04)
[2023-11-02] MEDS: DIAMOX 250 MG PO (08:05)
[2023-11-02] MEDS: TOPROL XL 50 MG PO (08:06)
[2023-11-02] MEDS: ZAROXOLYN 2.5 MG PO (08:07)
[2023-11-02] MEDS: ZYLOPRIM 100 MG PO (08:07)
[2023-11-02] MEDS: ELIQUIS 2.5 MG PO (08:07)
--- NOTE | 2023-11-02 08:15 | W.PN.HOSP.TC ---
Today's Communication/Plan
-
d/c
Assessment / Plan
Assessment / Plan
Gen: NAD, Awake and alert, appears chronically ill
Eyes: EOMI, PERRLA, no scleral icterus.
Neck: supple. no JVD
CV: remains irreg/irreg, +S1/S2, no m/r/g.
Resp: remains CTAB anteriorly, no rales, wheezes, or rhonchi.
Abd: +BS, soft, NT, ND
Skin: No rashes. no LE edema.
Neuro: remains CN 2-12 intact, non-focal.
Psych: Normal mood and affect.
Echo 09/07/23: EF 60-65%, Mildly enlarged RV, normal RV fxn, severely dilated RA/LA, mild-mod MR, mild AR, severe TR, PASP 65-70mmHg
CXR 10/22/23:
1. Mild pulmonary vascular congestion.
2. Small bilateral pleural effusions.
RHC 10/24/23:
2. 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
3. Large right atrial V waves consistent with known tricuspid regurgitation.
4. Severely depressed cardiac index and a VO2 difference (1.65 L/min 3 m�, 5.87 volume %).
Echo (TTE) 10/30/23: Normal left ventricular size and systolic function.
Enlarged and hypokinetic right ventricle.
Severe biatrial enlargement.
Severe tricuspid regurgitation.
Estimated PASP 45-50 mmHg assuming RA 15 mmHg.
IVC is dilated.
No significant change since the prior study of 09/07/2023 except that the PASP
was estimated at 65-70 mmHg on the prior study.
Acute cardiogenic shock due to acute on chronic diastolic CHF:
-BNP > 27,000
-RHC above, indicative of volume O/L with decrease CI (TR contributing)
-was on lasix gtt, now transitioned to Torsemide
-cont Diamox
-was on Levophed gtt, now off
-cont Midodrine
-daily wts, I/Os, FR
-cards following
-prior echo above and notable for severe TR/pulm HTN/chronic cor pulmonale/mod MR/mild AR
-Echo 10/30/23AM as above.
-initially pt was to have w/u at [facility] for tricuspid intervention, now pt is being discharged to home hospice
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
-Cr 3.5 on admission, now down to 1.6 with diuresis
-note, as per renal, pt not HD candidate
Severe hypervolemic hyponatremia:
-improved with diuresis
-s/p Samsca on 10/23/23
-TSH 5.1 and random cortisol 61.4
Other problems:
Acute metabolic encephalopathy: Likely due to cardiogenic shock/BATOOL as well as hospitalization
Pain in the left lower extremity: L foot Xray: Osteopenia without associated fracture. Calcaneal osteophytes. 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
Elevated troponin due to non-ischemic myocardial injury
Elevated LFTs: likely due to passive venous congestion from heart failure
Anemia: Hb stable
PAF: cont BB/Eliquis. h/o PVI 2020
Hypokalemia: PO K
Recent right clavicular fracture: cont sling
Hypothyroidism: cont Levoxyl
h/o Breast CA s/p lumpectomy on the right and XRT
Peripheral neuropathy
Depression: Holding antidepressant due to QTc prolongation
DNR/Eliquis
Total time spent on d/c = 37 min. This included today's physical exam, progress note, review of laboratory and diagnostic data, preparation of discharge documents and prescriptions, and discussions about the pt's hospital course and discharge plan
with the patient and other medical lab assistant involved in the patient's care.
Anticipated Discharge: Today
Subjective/Interval History
-
Date of Service: November 02, 2023
Denies CP/SOB.
Objective Data
-
Labs:
Laboratory Results
11/02/23
03:45
Sodium 133 L
Potassium 2.7 L*
Chloride 84 L
Carbon Dioxide 33 H
BUN 90 H
Creatinine 1.8 H
Glucose 104 H
Calcium 9.0
Vital Signs:
Vital Signs
Temp Pulse Resp BP Pulse Ox
98.2 F 80 12 103/78 99
11/02/23 04:07 11/02/23 08:07 11/02/23 06:00 11/02/23 08:07 11/02/23 06:00
I&O
11/01/23 11/02/23 11/03/23
06:59 06:59 06:59
Intake Total 360 / 360 480 / 480
Output Total 1750 / 1750 1750 / 1750
Balance -1390 / -1390 -1270 / -1270
[2023-11-02] MEDS: DEMADEX 80 MG PO (08:47)
[2023-11-02] MEDS: KLOR-CON 20 MEQ PO (08:47)
--- NOTE | 2023-11-02 09:46 | CM ---
Patient with Dx HF, severe TR/pulmonary hypertension, BATOOL. O2 2L.
Arrangements completed yesterday for d/c home today with Hospice.
Spoke with daughter Jina; the [employer] contacted her and said equipment delivery will be 10:30am today - instructed her to let CM or hospice nurse know if hospital bed and O2 are not in place by 11am. IMM completed yesterday.
[facility] DNR form signed & on chart.
Plan home today 11am by ambulance with Hospice, possibly with caregiver.
--- NOTE | 2023-11-02 10:41 | W.HF.CON ---
Heart Failure
- LV Function
Left ventricular function study result: LV Ejection fraction >40%
Ejection Fraction Percentage: 60-65
- ARNI
Patient already on ARNI: No
Heart Failure ARNI Not Indicated: LV Ejection Fraction >/= 40%
- ACEI/ARB
Patient already on ACEI/ARB: No
Heart Failure ACEI/ARB Not Indicated: LV Ejection Fraction > 40%
- Beta Valencia
Patient already on Evidence Based Beta Valencia: Yes
- Mineralocorticord Receptor Antagonist
Patient already on MRA: No
Heart Failure MRA Not Indicated: LV Ejection Fraction > 40%
- SGLT-2 Inhibitor
Patient already on SGLT-2 Inhibitor: No
Heart Failure SGLT-2 Inhibitor Not Indicated: LV Ejection Fraction >40%
- Afib Anticoagulation
Patient already on Anticoagulation for Afib: Yes
- NYHA CHF Classification
NYHA CHF Classification Level: Class III - Symptoms w/ min exertion, interferes w/ nml daily activity (pulmonary HTN)
- ACC/AHA Stage
ACC/AHA Stage: Stage D: Advanced Heart Failure (signing onto hospice upon discharge)
--- NOTE | 2023-11-02 11:31 | PTCARENOTE ---
Pt discharged to home for home hospice via ambulance stretcher. Report given to receiving EMT. Discharge packed given and discussed with the patient and the family. Belongings collected and taken home by family.
--- NOTE | 2023-11-02 15:15 | W.DCSUMMARY ---
Discharge Summary
Discharge Data
Date of Admission: 10/22/23
Date of Discharge: 11/02/23
-
Pending Results: No
Hospital Course
Primary diagnoses:
Acute cardiogenic shock due to acute on chronic heart failure with preserved ejection fraction
Tricuspid regurgitation
Acute kidney injury on chronic kidney disease stage IIIb
Cardiorenal syndrome
Severe hypervolemic hyponatremia
Secondary diagnoses:
Acute metabolic encephalopathy, likely due to cardiogenic shock and acute kidney injury
Likely acute hospital-acquired delirium
Osteopenia and degenerative osteoarthritis of the left foot
Elevated troponin due to non-ischemic myocardial injury
Elevated liver function test likely due to passive venous congestion from heart failure
Anemia
Paroxysmal atrial fibrillation
Hypokalemia
Recent right clavicular fracture: cont sling
Hypothyroidism
h/o Breast cancer s/p right lumpectomy and radiation therapy
Peripheral neuropathy
Depression
Consultants:
Cardiology
Nephrology
Imaging:
CXR 10/22/23:
1. Mild pulmonary vascular congestion.
2. Small bilateral pleural effusions.
RHC 10/24/23:
2. 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
3. Large right atrial V waves consistent with known tricuspid regurgitation.
4. Severely depressed cardiac index and a VO2 difference (1.65 L/min 3 m�, 5.87 volume %).
Echo (TTE) 10/30/23: Normal left ventricular size and systolic function.
Enlarged and hypokinetic right ventricle.
Severe biatrial enlargement.
Severe tricuspid regurgitation.
Estimated PASP 45-50 mmHg assuming RA 15 mmHg.
IVC is dilated.
No significant change since the prior study of 09/07/2023 except that the PASP
was estimated at 65-70 mmHg on the prior study.
83-year-old female who presented with chief complaints of shortness of breath and weight gain is on H&P done on admission. Hospital course per problem was:
Acute cardiogenic shock due to acute on chronic diastolic CHF: proBNP > 27,000. Chest x-ray admission showed mild pulmonary vascular congestion with small bilateral pleural effusions. The patient had a right sided heart catheterization as above,
indicative of volume O/L with decrease CI (TR contributing). Patient was diuresed with a Lasix drip. She was also given Diamox. She was then transition to oral torsemide. She did require Levophed for blood pressure support as well as midodrine.
Echocardiogram above. Initially the patient was TAVR workup at [facility] for tricuspid intervention but it was then decided that the patient would transition to home hospice.
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 Of note, as per renal, the patient would not have been a hemodialysis candidate.
Severe hypervolemic hyponatremia: Patient received Samsca on October 23, 2023. Her sodium improved with diuresis.
Discharge Plan
-
Patient Disposition: Home with Hospice
Discharge Diagnosis/Procedures: Acute cardiogenic shock due to acute on chronic heart failure with preserved ejection fraction, tricuspid regurgitation, cardiac catheterization
Condition: Fair
Diet: No restrictions
Activity: With assistance
Driving Restrictions: No driving
Other Services: Hospice
Specialty Instructions: Weigh Daily- Call MD for wt gain/loss 3 lbs overnight/5 lbs in 1 week
Instructions: *CBC Heart Failure Instructions
Stand Alone Forms: DC Instructions- Cath/EP Lab
Referrals:
Rodrigo Gee MD [Active] - in less than 1 week
Saud Squires MD [Active] - 11/21/23 1:20 pm (Cardiology followup appointment)
Prescriptions:
Continued
acetaminophen [Tylenol Extra Strength] 500 MG tablet
500 mg PO DAILY
levothyroxine 125 MCG tablet
125 mcg PO DAILY
fluticasone propionate 1 SPRAY spray,suspension
1 spray intranasal BID
Centrum 1 EACH tablet
1 tab PO DAILY
PreserVision AREDS-2 1 EACH capsule
1 ea PO BID
allopurinol 100 mg tablet
100 mg PO DAILY
cholecalciferol (vitamin D3) 25 mcg (1,000 unit) Tablet
25 mcg PO DAILY
acetaminophen [Tylenol Extra Strength] 500 mg Tablet
1,000 mg PO HS
docusate sodium [Colace] 100 mg Capsule
100 mg PO DAILY
folic acid 1 mg tablet
1 mg PO DAILY
acetaminophen 325 mg Tablet
650 mg PO Q4HPRN PRN (Reason: mild pain/fever>100)
ipratropium-albuterol 0.5 mg-3 mg(2.5 mg base)/3 mL Solution For Nebulization
3 ml INHALATION R Q6HPRN PRN (Reason: sob/wheezing)
magnesium hydroxide [Milk of Magnesia] 400 mg/5 mL Suspension
30 ml PO [id number] PRN (Reason: if no bm on 3rd day)
bisacodyl [Dulcolax (bisacodyl)] 10 mg Suppository
10 mg MS DAILYPRN PRN (Reason: if mom is ineffective)
zolpidem 5 mg tablet
5 mg PO HSPRN PRN (Reason: insomnia) Qty: 10 0RF
midodrine 5 mg tablet
5 mg PO TID@0800,1300,1800
citalopram 20 mg tablet
20 mg PO DAILY
Discontinued
magnesium oxide 500 mg magnesium tablet
400 mg PO DAILY
torsemide 20 mg tablet
40 mg PO BID@0800,1600
metoprolol succinate 100 mg tablet extended release 24 hr
150 mg PO HS
Eliquis 2.5 mg tablet
2.5 mg PO BID
Discharge Orders:
Discharge Patient (As Directed); Ordered 11/02/23
Ordered By: Bridger Fraga
Discharge Date and Time
Discharge Date/Time: 11/02/23 11:25
Print Language: ALBANIAN
== END 2023-11-02 11:25 | disposition hospice, home (50) | DRG 286 ==
LOC: IMU 14:39
PROVIDERS: Internal Medicine; Internal Medicine Cardiovascular Disease; Specialist; ADMITTING PHYSICIAN Hospitalist; ATTENDING PHYSICIAN Internal Medicine; CONSULT PHYSICIAN Internal Medicine Cardiovascular Disease; CONSULT PHYSICIAN Specialist; EMERGENCY PHYSICIAN Emergency Medicine
PROC: 4A023N6 Measurement of Cardiac Sampling and Pressure, Right Heart, Percutaneous Approach (ICD-10-PCS; 2023-10-24)
DX: I13.0 Hypertensive heart and chronic kidney disease with heart failure and stage 1 through stage 4 chronic kidney disease, or unspecified chronic kidney disease (principal); G92.8 Other toxic encephalopathy; R57.0 Cardiogenic shock; I50.33 Acute on chronic diastolic (congestive) heart failure; E87.1 Hypo-osmolality and hyponatremia; N17.9 Acute kidney failure, unspecified; F05 Delirium due to known physiological condition; Z66 Do not resuscitate; Z51.5 Encounter for palliative care; E78.00 Pure hypercholesterolemia, unspecified; I5A Non-ischemic myocardial injury (non-traumatic); I07.1 Rheumatic tricuspid insufficiency; K74.60 Unspecified cirrhosis of liver; E87.6 Hypokalemia; I48.0 Paroxysmal atrial fibrillation; I27.29 Other secondary pulmonary hypertension; I95.9 Hypotension, unspecified; N18.32 Chronic kidney disease, stage 3b; I45.10 Unspecified right bundle-branch block; Z96.653 Presence of artificial knee joint, bilateral; M10.9 Gout, unspecified; E03.9 Hypothyroidism, unspecified; R58 Hemorrhage, not elsewhere classified; S42.021A Displaced fracture of shaft of right clavicle, initial encounter for closed fracture; G62.9 Polyneuropathy, unspecified; D63.1 Anemia in chronic kidney disease; F32.A Depression, unspecified; B19.20 Unspecified viral hepatitis C without hepatic coma; R74.01 Elevation of levels of liver transaminase levels; M19.072 Primary osteoarthritis, left ankle and foot; M85.80 Other specified disorders of bone density and structure, unspecified site; K58.1 Irritable bowel syndrome with constipation; X58.XXXA Exposure to other specified factors, initial encounter; Z79.01 Long term (current) use of anticoagulants; Z92.3 Personal history of irradiation; Z87.891 Personal history of nicotine dependence; Z85.3 Personal history of malignant neoplasm of breast; Z82.69 Family history of other diseases of the musculoskeletal system and connective tissue; Z79.890 Hormone replacement therapy; Z79.899 Other long term (current) drug therapy
CPT/HCPCS: 93308; 71045; 73000; 73590; 73630; 76775; 80048; 80053; 80076; 81003; 82248; 82533; 82570; 83605; 83735; 83880; 83930; 83935; 84300; 84443; 84484; 85014; 85018; 85025; 85027; 87040; 93005; 93321; 93325; 93451; 93970; 97110; 97163; 97167; 97530; 99285; C1894; J1205